=== PATIENT | male | born 1960 | race African-American/Black ===

== ENCOUNTER 2016-10-01 13:50 | Observation (INO) | payer MEDICARE, BC ==
[2016-10-01] MEDS ORDERED: AMINOPHYLLINE INJ/PF 250 MG/10 ML SDV IV ONE (14:07)
[2016-10-01] MEDS ORDERED: REGADENOSON INJ 0.4 MG/5 ML DISP.SYRIN IV ONE (14:07)
--- NOTE | 2016-10-01 14:12 | ER Document Report ---
ED Medical Screen (RME) - General Stated Complaint: CHEST PAIN Notes: 56 yo male c/o left sided chest tightness, radiating into left arm. pt is a dialysis patient. pt dialyzed today. no complications. no previous cardiac history. + HTN, no DM. + smoker. 2/5 presently TRAVEL OUTSIDE OF THE [place] IN LAST 30 DAYS: No - Related Data Allergies/Adverse Reactions: No Known Allergies Allergy (Verified 10/01/16 14:08) Past Medical History - Past Medical History Cardiac Medical History: Reports: Hx Hypertension, Hx Peripheral Vascular Disease - r leg surgery Denies: Hx Coronary Artery Disease, Hx Heart Attack Pulmonary Medical History: Denies: Hx Asthma, Hx Bronchitis, Hx COPD, Hx Pneumonia, Hx Tuberculosis Neurological Medical History: Denies: Hx Cerebrovascular Accident, Hx Seizures Renal/ Medical History: Reports: Hx End Stage Renal Disease, Hx Kidney Stones , Hx Peritoneal Dialysis GI Medical History: Reports: Hx Gastroesophageal Reflux Disease, Hx Hiatal Hernia Musculoskeltal Medical History: Reports Hx Arthritis - r thumb Past Surgical History: Reports: Hx Abdominal Surgery, Hx Orthopedic Surgery, Hx Tonsillectomy. Denies: Hx Pacemaker - Immunizations Hx Diphtheria, Pertussis, Tetanus Vaccination: Yes
[2016-10-01 14:46] LABS: HEMATOCRIT 39.2 % (37.9-51.0); HGB HCT DIFFERENCE -0.2; MEAN CORPUSCULAR HEMOGLOBIN 30.7 pg (27.0-33.4); MEAN CORPUSCULAR HGB CONC 33.3 g/dL (32.0-36.0); MEAN CORPUSCULAR VOLUME 92 fl (80-97); RED BLOOD COUNT 4.25 10^6/uL (4.35-5.55); RED CELL DISTRIBUTION WIDTH 15.5 % (11.5-14.0); WHITE BLOOD COUNT 8.5 10^3/uL (4.0-10.5)
[2016-10-01 14:56] LABS: ALANINE AMINOTRANSFERASE 32 U/L (21-72); ALBUMIN 4.3 g/dL (3.5-5.0); ALKALINE PHOSPHATASE 115 U/L (38-126); ANION GAP 15 (5-19); ASPARTATE AMINO TRANSFERASE 34 U/L (17-59); BLOOD UREA NITROGEN 19 mg/dL (7-20); CALCIUM 9.5 mg/dL (8.4-10.2); CARBON DIOXIDE 28 mmol/L (22-30); CHLORIDE 99 mmol/L (98-107); CREATINE KINASE 203 U/L (55-170); CREATININE RESULT 6.92 mg/dL (0.52-1.25); GLUCOSE 108 mg/dL (75-110); LIPASE 99.8 U/L (23-300); SODIUM 142.3 mmol/L (137-145); TOTAL PROTEIN 7.5 g/dL (6.3-8.2)
[2016-10-01 15:07] LABS: BASOPHILS % (MANUAL) 0 % (0-2); EOSINOPHILS % (MANUAL) 4 % (0-6); LYMPHOCYTES % (MANUAL) 38 % (13-45); TOTAL CELLS COUNTED 100
[2016-10-01 15:08] LABS: CREATINE KINASE MB 2.27 ng/mL (<4.55); TROPONIN I 0.03 ng/mL
[2016-10-01 15:11] LABS: ANISOCYTOSIS SLIGHT; POIKILOCYTOSIS 1+; TARGET CELLS 1+
--- NOTE | 2016-10-01 18:08 | ER Document Report ---
ED General - General Chief Complaint: Chest Pain Stated Complaint: CHEST PAIN Time seen by provider: 18:07 Mode of Arrival: Ambulatory Information source: Patient Notes: This is a 56-year-old man with a history of hypertension, end-stage renal disease (hemodialysis Thursday, Thursday, Thursday), peripheral vascular disease ( right lower extremity shunt), active smoker, who presents to the emergency room with a 1-2 hour episode of left sided chest tightness radiating down the left arm. The discomfort occurred at rest and it resolves spontaneously in the waiting room. Currently he is without chest pain. TRAVEL OUTSIDE OF THE [place] IN LAST 30 DAYS: No - HPI Onset: Yesterday Onset/Duration: Sudden Quality of pain: Dull Severity: Mild Pain Level: 1 Associated symptoms: denies: Chest pain, Fever, Shortness of breath Exacerbated by: Movement Relieved by: Denies Similar symptoms previously: No Recently seen / treated by doctor: No - Related Data Allergies/Adverse Reactions: No Known Allergies Allergy (Verified 10/01/16 14:08) Home Medications: Current Home Medications Aspirin [Ecotrin 81 mg EC Tablet] 81 mg PO DAILY 10/01/16 [History] Calcitriol [Rocaltrol 0.5 mcg Capsule] 0.5 mcg PO DAILY 10/01/16 [History] Clonidine HCl [Catapres 0.3 mg Tablet] 0.3 mg PO Q8 10/01/16 [History] Lanthanum Carbonate [Fosrenol] 2,000 mg PO TID 10/01/16 [History] Metoprolol Tartrate [Lopressor 50 mg Tablet] 50 mg PO Q12 10/01/16 [History] Minoxidil [Loniten 10 mg Tablet] 10 mg PO QHS 10/01/16 [History] Sevelamer HCl [Renagel 400 mg Tablet] 400 mg PO DAILY 10/01/16 [History] Past Medical History - General Information source: Patient - Social History Smoking Status: Current Every Day Smoker Cigarette use (# per day): Yes - 3 cigarettes a day Chew tobacco use (# tins/day): No Frequency of alcohol use: None Drug Abuse: None Lives with: Family Family History: Reviewed & Not Pertinent Patient has suicidal ideation: No Patient has homicidal ideation: No - Past Medical History Cardiac Medical History: Reports: Hx Hypertension, Hx Peripheral Vascular Disease - r leg surgery Denies: Hx Coronary Artery Disease, Hx Heart Attack Pulmonary Medical History: Denies: Hx Asthma, Hx Bronchitis, Hx COPD, Hx Pneumonia, Hx Tuberculosis Neurological Medical History: Denies: Hx Cerebrovascular Accident, Hx Seizures Renal/ Medical History: Reports: Hx Kidney Stones, Hx Peritoneal Dialysis GI Medical History: Reports: Hx Gastroesophageal Reflux Disease, Hx Hiatal Hernia Musculoskeltal Medical History: Reports Hx Arthritis - r thumb Past Surgical History: Reports: Hx Abdominal Surgery, Hx Orthopedic Surgery, Hx Tonsillectomy. Denies: Hx Pacemaker - Immunizations Hx Diphtheria, Pertussis, Tetanus Vaccination: Yes Hx Pneumococcal Vaccination: 09/03/14 Review of Systems - Review of Systems Constitutional: denies: Chills, Fever EENT: No symptoms reported Cardiovascular: See HPI Respiratory: No symptoms reported Gastrointestinal: No symptoms reported Genitourinary: No symptoms reported Male Genitourinary: No symptoms reported Musculoskeletal: See HPI Skin: No symptoms reported Hematologic/Lymphatic: No symptoms reported Neurological/Psychological: No symptoms reported Physical Exam - Vital signs Vitals: Resp BP Pulse Ox 20 179/72 H 100 10/01/16 18:49 10/01/16 18:49 10/01/16 18:49 Notes: Physical exam: GENERAL: 56-year-old man, alert and oriented 3, no acute distress. HEAD: Atraumatic, normocephalic. EYES: Pupils equal round and reactive to light, extraocular movements intact, sclera anicteric, conjunctiva are normal. ENT: TMs normal, nares patent, oropharynx clear without exudates. Moist mucous membranes. NECK: Normal range of motion, supple without lymphadenopathy or JVD. LUNGS: Breath sounds clear to auscultation bilaterally and equal. No wheezes rales or rhonchi. HEART: Regular rate and rhythm without murmurs, rubs or gallops. ABDOMEN: Soft, normoactive bowel sounds. No tenderness to palpation. No guarding, no rebound. No masses appreciated. EXTREMITIES: Normal range of motion, no pitting or edema. No clubbing or cyanosis. NEUROLOGICAL: Cranial nerves II through XII grossly intact. Normal speech, normal gait. PSYCH: Normal mood, normal affect. SKIN: Warm, Dry, normal turgor, no rashes or lesions noted. Course - Re-evaluation Re-evalutation: 10/01/16 18:14 Note the chest x-ray shows some right hemithorax soft tissue fullness, we will get a CT of the chest without contrast. - Vital Signs Vital signs: Temp Pulse Resp BP Pulse Ox 97.2 F 74 21 H 217/67 H 100 10/01/16 22:40 10/01/16 22:40 10/01/16 22:40 10/01/16 22:40 10/01/16 22:40 - Laboratory Result Diagrams: 10/01/16 14:15 10/01/16 14:15 Laboratory results interpreted by me: 10/01/16 10/01/16 14:15 14:15 RBC 4.25 L Hgb 13.0 L RDW 15.5 H Creatinine 6.92 H Est GFR ( Amer) 10 L Est GFR (Non-Af Amer) 8 L Creatine Kinase 203 H - Diagnostic Test Radiology reviewed: Image reviewed - EKG Interpretation by Me Rate: Normal Rhythm: NSR - EKG shows normal sinus rhythm with LVH Discharge - Discharge Clinical Impression: chest pain Condition: Stable Disposition: ADMITTED OBSERVATION Admitting Provider: Hospitalist - Dr. Ding Unit Admitted: Telemetry - leonidas
[2016-10-01] MEDS ORDERED: NICOTINE 14 MG/24 HR PATCH.TD24 TD ONE (18:12)
--- NOTE | 2016-10-01 18:51 | PDOC H&P ---
History of Present Illness Admission Date/PCP: 10/01/2016 [facility] Douglass Patient complains of: chest pain History of Present Illness: ALEKSANDRA FARRAR is a 56 year old male with a history of hypertension, end-stage renal disease (hemodialysis Thursday, Thursday, Thursday), peripheral vascular disease (right lower extremity shunt), active smoker, who presents to the emergency room with a 1-2 hour episode of left sided chest tightness radiating down the left arm. The discomfort occurred at rest and it resolves spontaneously in the waiting room. Currently he is without chest pain. Upon evaluation in the emergency room patient had a normal EKG and normal cardiac enzymes he was pain-free He was subsequently admitted under hospitalist service for further evaluation overnight Past Medical History Cardiac Medical History: Reports: Hypertension, Peripheral Vascular Disease - r leg surgery Denies: Coronary Artery Disease, Myocardial Infarction Pulmonary Medical History: Denies: Asthma, Bronchitis, Chronic Obstructive Pulmonary Disease (COPD), Pneumonia, Tuberculosis Neurological Medical History: Denies: Seizures Renal/ Medical History: Reports: End Stage Renal Disease GI Medical History: Reports: Gastroesophageal Reflux Disease, Hiatal Hernia Musculoskeltal Medical History: Reports: Arthritis - r thumb Hematology: Reports: Anemia Past Surgical History Past Surgical History: Reports: Orthopedic Surgery, Tonsillectomy Denies: Pacemaker Social History Information Source: Patient Lives with: Family Smoking Status: Current Every Day Smoker Drugs: None Hx Prescription Drug Abuse: No - Advance Directive Resuscitation Status: Full Code Surrogate healthcare decision maker:: mother Malorie Farrar Family History Parental Family History Reviewed: Yes - diabetes hypertension Children Family History Reviewed: Yes Sibling(s) Family History Reviewed.: Yes Medication/Allergy Home Medications: Calcitriol [Rocaltrol] 0.5 mcg PO DAILY 10/22/11 Folic Acid/Vitamin B Comp W-C [Nephrocaps Softgel] 1 mg PO DAILY 10/22/11 Fosinopril Sodium 10 mg PO TID 10/22/11 Metoprolol Tartrate [Lopressor 50 mg Tablet] 50 mg PO BID 10/22/11 Minoxidil [Loniten 10 mg Tablet] 10 mg PO QHS 10/22/11 Sevelamer HCl [Renagel] 400 mg PO DAILY 10/22/11 Hydrocodone/Acetaminophen [Randolph 5-325 mg Tablet] 0.5 - 1 tab PO ASDIR #10 tablet 03/28/16 Allergies/Adverse Reactions: No Known Allergies Allergy (Verified 10/01/16 14:08) Physical Exam General appearance: PRESENT: no acute distress, well-developed, well-nourished Head exam: PRESENT: atraumatic, normocephalic Eye exam: PRESENT: conjunctiva pink, EOMI, PERRLA. ABSENT: scleral icterus Ear exam: PRESENT: normal external ear exam Mouth exam: PRESENT: moist, tongue midline Neck exam: ABSENT: carotid bruit, JVD, lymphadenopathy, thyromegaly Respiratory exam: PRESENT: clear to auscultation shay. ABSENT: rales, rhonchi, wheezes Cardiovascular exam: PRESENT: RRR, systolic murmur. ABSENT: diastolic murmur, rubs Pulses: PRESENT: normal dorsalis pedis pul Vascular exam: PRESENT: normal capillary refill GI/Abdominal exam: PRESENT: normal bowel sounds, soft. ABSENT: distended, guarding, mass, organolmegaly, rebound, tenderness Rectal exam: PRESENT: deferred Extremities exam: PRESENT: full ROM. ABSENT: calf tenderness, clubbing, pedal edema Neurological exam: PRESENT: alert, awake, oriented to person, oriented to place , oriented to time, oriented to situation, CN II-XII grossly intact. ABSENT: motor sensory deficit Psychiatric exam: PRESENT: appropriate affect, normal mood. ABSENT: homicidal ideation, suicidal ideation Skin exam: PRESENT: dry, intact, warm. ABSENT: cyanosis, rash Results Laboratory Results: 10/01/16 14:15 10/01/16 14:15 10/01/16 10/01/16 14:15 14:15 WBC 8.5 RBC 4.25 L Hgb 13.0 L Hct 39.2 MCV 92 MCH 30.7 MCHC 33.3 RDW 15.5 H Plt Count 177 Seg Neutrophils % Not Reportable Lymphocytes % Not Reportable Monocytes % Not Reportable Eosinophils % Not Reportable Basophils % Not Reportable Absolute Neutrophils Not Reportable Absolute Lymphocytes Not Reportable Absolute Monocytes Not Reportable Absolute Eosinophils Not Reportable Absolute Basophils Not Reportable Sodium 142.3 Potassium 4.0 Chloride 99 Carbon Dioxide 28 Anion Gap 15 BUN 19 Creatinine 6.92 H Est GFR ( Amer) 10 L Est GFR (Non-Af Amer) 8 L Glucose 108 Calcium 9.5 Total Bilirubin 1.0 AST 34 ALT 32 Alkaline Phosphatase 115 Total Protein 7.5 Albumin 4.3 Lipase 99.8 10/01/16 10/01/16 14:15 14:15 Creatine Kinase 203 H CK-MB (CK-2) 2.27 Troponin I 0.030 EKG Comments: [SR] . SINUS RHYTHM [PLAA] . PROBABLE LEFT ATRIAL ABNORMALITY [LVHREP] . LVH WITH SECONDARY REPOLARIZATION ABNORMALITY Impressions: Chest X-Ray 10/01/16 14:13 IMPRESSION: Soft tissue fullness in the right upper hemithorax is noted above which may only represent overlying soft tissues however the possibility of a pleural base mass cannot be excluded. Clinical correlation is recommended. If clinically warranted chest CT scan may be of value for further evaluation. Other findings as noted above Assessment & Plan - Diagnosis (1) Chest pain Qualifiers: Chest pain type: unspecified Qualified Code(s): R07.9 - Chest pain, unspecified Is this a current diagnosis for this admission?: YesPlan: Patient will be admitted to telemetry unit for observation We'll be monitored Serial cardiac enzymes will be obtained Repeat EKG in a.m. If patient rules out he will be scheduled for a Cardiolite stress test (2) ESRD on dialysis Is this a current diagnosis for this admission?: YesPlan: Patient had dialysis today ; his electrolytes are within normal range We will continue his home medications - Time Time Spent with patient: Patient was admitted for observation to telemetry unit Time Spent: 50 to 70 Minutes - Inpatient Certification Based on my medical assessment, after consideration of the patient's comorbidities, presenting symptoms, or acuity I expect that the services needed warrant INPATIENT care.: No I certify that my determination is in accordance with my understanding of Medicare's requirements for reasonable and necessary INPATIENT services [42 CFR 412.3e].: No
[2016-10-01] MEDS ORDERED: ATORVASTATIN CALCIUM 80 MG TABLET PO ONE (19:15)
[2016-10-01] MEDS ORDERED: ASPIRIN 325 MG TABLET, ENT COATED PO ONE (19:15)
--- NOTE | 2016-10-01 20:36 | EKG REPORT ---
SEVERITY:- ABNORMAL ECG - SINUS RHYTHM PROBABLE LEFT ATRIAL ABNORMALITY LVH WITH SECONDARY REPOLARIZATION ABNORMALITY : Confirmed by: Ashish Wright MD 01-Oct-2016 20:36:26
[2016-10-01] MEDS: HEPARIN SOD (PORCINE) 5,000 UNIT/ML 1 ML SYRINGE SUBCUT SCH (22:15)
[2016-10-02] MEDS ORDERED: HYDRALAZINE HCL INJ/PF 20 MG/1 ML SDV IV PRN (05:50)
[2016-10-02 07:22] LABS: HEMATOCRIT 37.3 % (37.9-51.0); HEMOGLOBIN 12.5 g/dL (13.5-17.0); HGB HCT DIFFERENCE 0.2; MEAN CORPUSCULAR HEMOGLOBIN 30.8 pg (27.0-33.4); MEAN CORPUSCULAR HGB CONC 33.7 g/dL (32.0-36.0); MEAN CORPUSCULAR VOLUME 92 fl (80-97); RED BLOOD COUNT 4.07 10^6/uL (4.35-5.55); RED CELL DISTRIBUTION WIDTH 15.6 % (11.5-14.0); WHITE BLOOD COUNT 6.4 10^3/uL (4.0-10.5)
[2016-10-02 07:43] LABS: ALANINE AMINOTRANSFERASE 26 U/L (21-72); ALBUMIN 4.2 g/dL (3.5-5.0); ALKALINE PHOSPHATASE 113 U/L (38-126); ANION GAP 16 (5-19); ASPARTATE AMINO TRANSFERASE 33 U/L (17-59); BLOOD UREA NITROGEN 32 mg/dL (7-20); CALCIUM 9.6 mg/dL (8.4-10.2); CARBON DIOXIDE 29 mmol/L (22-30); CHLORIDE 98 mmol/L (98-107); CHOLESTEROL 121.59 mg/dL (0-200); CREATININE RESULT 9.46 mg/dL (0.52-1.25); Direct HDL 73 mg/dL (>40); GLUCOSE 73 mg/dL (75-110); SODIUM 142.9 mmol/L (137-145); TOTAL PROTEIN 7.2 g/dL (6.3-8.2); TRIGLYCERIDES 70 mg/dL (<150)
[2016-10-02 08:00] LABS: DIRECT LDL < 30 mg/dL (<100)
--- NOTE | 2016-10-02 08:32 | EKG REPORT ---
SEVERITY:- ABNORMAL ECG - SINUS RHYTHM LVH WITH SECONDARY REPOLARIZATION ABNORMALITY ANTERIOR ST ELEVATION, PROBABLY DUE TO LVH BORDERLINE PROLONGED QT INTERVAL : Confirmed by: Ashish Wright MD 02-Oct-2016 08:31:51
[2016-10-02] MEDS ORDERED: CALCITRIOL 0.25 MCG CAPSULE PO SCH (10:00)
[2016-10-02] MEDS ORDERED: LANTHANUM CARBONATE 2000 MG PO SCH (10:00)
[2016-10-02] MEDS ORDERED: ASPIRIN 81 MG TABLET, ENT COATED PO SCH (10:00)
[2016-10-02] MEDS ORDERED: (PENDING PHARMACY ID) (Calcitriol [Rocaltrol 0.5 Mcg Capsule] 0.5 MCG) PO SCH (10:00)
[2016-10-02] MEDS ORDERED: METOPROLOL TARTRATE 50 MG TABLET PO SCH (10:00)
[2016-10-02] MEDS: HEPARIN SOD (PORCINE) 5,000 UNIT/ML 1 ML SYRINGE SUBCUT SCH (10:32)
[2016-10-02 11:25] VITALS: BP 189/70
[2016-10-02] MEDS ORDERED: LANTHANUM CARBONATE 500 MG TAB.CHEW PO SCH (12:00)
[2016-10-02] MEDS ORDERED: (PENDING PHARMACY ID) (Clonidine Hcl [Catapres 0.3 Mg Tablet] 0.3 MG) PO SCH (14:00)
[2016-10-02] MEDS ORDERED: CLONIDINE HCL 0.1 MG TABLET PO SCH (14:00)
--- NOTE | 2016-10-02 14:16 | DRAGON STRESS TEST REPORT ---
INTRAVENOUS LEXISCAN CARDIOLITE STRESS TEST USING SINGLE PHOTON EMMISION COMPUTERIZED TOMOGRAPHIC. DATE OF PROCEDURE: October 02, 2016 INDICATION : Chest pain CARDIAC RISK FACTORS: Hypertension, dyslipidemia, tobacco abuse RESTING EKG: Sinus rhythm, increased QRS voltage suggestive of LVH with secondary ST-T wave changes in lead 1 and aVL V5 and V6 STRESS EKG: No significant changes noted with LexiScan bolus REASON FOR TERMINATION: Protocol. PROCEDURE REPORT: Baseline heart rate 72 beats per minute with blood pressure of 174/85. Patient had no significant complaints. Heart rate at 2 minutes post bolus 82 with a blood pressure of 164/79. 3 minutes post bolus heart rate 83 with blood pressure of 164/78. No significant EKG changes were noted. Patient had no significant complaints during the procedure or postprocedure. CONCLUSIONS: Normal EKG and hemodynamic response to IV LexiScan. NUCLEAR DATA: At rest the patient was given 10.94 millicuries of technetium 99 sestamibi injected intravenously. As per protocol rest gated SPECT images were obtained. Subsequently the patient was given intravenous LexiScan at a dose of 0.4 mg in 5 mL intravenously, followed by flush with normal saline. Subsequently the stress dose of 30.2 millicuries of technetium 99 sestamibi was injected intravenously. As per protocol stress gated images were obtained. NUCLEAR INTERPRETATION: Both raw and processed data were used for interpretation. Visual, qualitative, computer-generated quantitative data was used. There was good myocardial uptake of technetium compound. Motion artifact and soft tissue attenuations were noted. Increased visceral uptake was noted. No definitive areas of transient perfusion defect noted. No definitive areas of fixed perfusion defect or scars noted. Mild basal and mid inferior wall decreased uptake was noted, however this is felt to be related to diaphragmatic attenuation. EKG gated imaging showed LV EF at 41 %, rest and stress gated EF similar visually. T. I D. ratio was 1.10. Lung heart ratio noted to be within normal limits 0.32. No significant extracardiac and abnormal radiotracer activities were noted. RV free wall uptake was noted to be normal. IMPRESSION: Also refer to comments under nuclear interpretation. Also test results needs to be interpreted in the context of pretest probability. 1. There is no definitive scintigraphic evidence of LexiScan induced myocardial ischemia. 2. There is no definitive scintigraphic evidence of myocardial infarction/scar. 3. EKG gated imaging shows left ejection fraction of approximately 41 %. 4. Clinical correlation requested as occasionally single vessel disease or balanced ischemia could be missed. In approximately 10% of the cases Lexiscan may not cause adequate vasodilatory stress. RECOMMENDATIONS: Aggressive risk factor modification, medical therapy. Clinical correlation with echocardiogram derived ejection fraction. Inability to exercise by itself can lead to increased cardiovascular event risks. Consider cardiology consultation if clinically indicated. I AM AVAILABLE FOR CARDIOLOGY CONSULTATION AND FOLLOWUP IF REQUESTED BY PMD Jordan Currie M.D., [employer] S[employer]ability Director chemical process engineer, Board certified in cardiovascular diseases, Nuclear cardiology, Echocardiography Cardiac CT and cardiac MRI Ph. [phone] TEDDY
[2016-10-02] MEDS ORDERED: SEVELAMER HCL 400 MG TABLET PO SCH (18:00)
[2016-10-02] MEDS ORDERED: MINOXIDIL 10 MG TABLET PO SCH (22:00)
== END 2016-10-02 16:04 | disposition home or self-care (01) ==
LOC: ER 13:50 → EH 18:40 → UNDOADMOB 18:56 → 4N 22:35
PROVIDERS: ADMIT Family Medicine; ATTEND Family Medicine
PROC: 3E023GC Introduction of Other Therapeutic Substance into Muscle, Percutaneous Approach (ICD-10-PCS; principal; 2016-10-01)
DX: R07.89 Other chest pain (principal); I12.0 Hypertensive chronic kidney disease with stage 5 chronic kidney disease or end stage renal disease; N18.6 End stage renal disease; Z99.2 Dependence on renal dialysis; I73.9 Peripheral vascular disease, unspecified; K21.9 Gastro-esophageal reflux disease without esophagitis; D64.9 Anemia, unspecified; F17.210 Nicotine dependence, cigarettes, uncomplicated
CPT/HCPCS: 93005 ×2; 99285; 96372; 36415 ×2; 82553; 82550; 83690; 83735; 84443; 85025; 85027; 80053 ×2; 84484 ×2; 83036; 80061; 93017; 71020; 78452; 71250; 93010 ×2; A9500; J2785; A9270 ×7; J1644 ×2; J0360; J0280; Q9969; 84403

== ENCOUNTER 2016-10-12 20:04 | Emergency (ER) | payer MEDICARE, BC ==
--- NOTE | 2016-10-12 20:16 | ER Document Report ---
ED Medical Screen (RME) - General Stated Complaint: HIGH BLOOD PRESSURE Mode of Arrival: Wheelchair Information source: Patient Notes: pt presents to the ED with c/o HTN. Pt is a dialysis patient. Pt also reports vomiting. Reports not eating for 2 days and reports diarrhea. Dialysis thu-thu- thursday. Last dialysis thursday. Pt reports palpitations today. Denies SOB. I have greeted and performed a rapid initial assessment of this patient. A comprehensive ED assessment and evaluation of the patient, analysis of test results and completion of the medical decision making process will be conducted by additional ED providers. TRAVEL OUTSIDE OF THE [place] IN LAST 30 DAYS: No - Related Data Allergies/Adverse Reactions: No Known Allergies Allergy (Verified 10/01/16 14:08) Past Medical History - Past Medical History Cardiac Medical History: Reports: Hx Hypertension, Hx Peripheral Vascular Disease - r leg surgery Denies: Hx Congestive Heart Failure, Hx Coronary Artery Disease, Hx Heart Attack Pulmonary Medical History: Denies: Hx Asthma, Hx Bronchitis, Hx COPD, Hx Pneumonia, Hx Tuberculosis Neurological Medical History: Denies: Hx Cerebrovascular Accident, Hx Seizures Renal/ Medical History: Reports: Hx End Stage Renal Disease, Hx Kidney Stones , Hx Peritoneal Dialysis. Denies: Hx Benign Prostatic Hyperplasia GI Medical History: Reports: Hx Gastroesophageal Reflux Disease, Hx Hiatal Hernia Musculoskeltal Medical History: Reports Hx Arthritis - r thumb Past Surgical History: Reports: Hx Abdominal Surgery, Hx Orthopedic Surgery, Hx Tonsillectomy. Denies: Hx Pacemaker - Immunizations Hx Diphtheria, Pertussis, Tetanus Vaccination: Yes
[2016-10-12 20:44] LABS: ABSOLUTE BASOPHILS # (AUTO) 0.1 10^3/uL (0.0-0.2); ABSOLUTE EOSINOPHILS # (AUTO) 0.3 10^3/uL (0.0-0.6); ABSOLUTE LYMPHOCYTES (AUTO) 1.9 10^3/uL (0.5-4.7); ABSOLUTE MONOCYTES (AUTO) 0.7 10^3/uL (0.1-1.4); ABSOLUTE NEUT (AUTO) 3.3 10^3/uL (1.7-8.2); BASOPHILS % (AUTO) 0.9 % (0-2); EOSINOPHILS % (AUTO) 5.2 % (0-6); HEMATOCRIT 38.7 % (37.9-51.0); HEMOGLOBIN 13.2 g/dL (13.5-17.0); HGB HCT DIFFERENCE 0.9; LYMPHOCYTES % (AUTO) 29.8 % (13-45); MEAN CORPUSCULAR HGB CONC 34.1 g/dL (32.0-36.0); MEAN CORPUSCULAR VOLUME 91 fl (80-97); MONOCYTES % (AUTO) 10.8 % (3-13); RED BLOOD COUNT 4.26 10^6/uL (4.35-5.55); RED CELL DISTRIBUTION WIDTH 15.6 % (11.5-14.0); SEGMENTED NEUTROPHILS % (AUTO) 53.3 % (42-78); WHITE BLOOD COUNT 6.2 10^3/uL (4.0-10.5)
[2016-10-12 20:56] LABS: ALANINE AMINOTRANSFERASE 30 U/L (21-72); ALBUMIN 4.3 g/dL (3.5-5.0); ALKALINE PHOSPHATASE 111 U/L (38-126); ANION GAP 21 (5-19); ASPARTATE AMINO TRANSFERASE 36 U/L (17-59); BILIRUBIN,TOTAL 1.2 mg/dL (0.2-1.3); BLOOD UREA NITROGEN 44 mg/dL (7-20); CALCIUM 9.8 mg/dL (8.4-10.2); CARBON DIOXIDE 21 mmol/L (22-30); CHLORIDE 96 mmol/L (98-107); CREATININE RESULT 12.12 mg/dL (0.52-1.25); GLUCOSE 72 mg/dL (75-110); POTASSIUM 4.6 mmol/L (3.6-5.0); SODIUM 138.2 mmol/L (137-145); TOTAL PROTEIN 7.6 g/dL (6.3-8.2)
--- NOTE | 2016-10-12 23:50 | EKG REPORT ---
SEVERITY:- ABNORMAL ECG - SINUS RHYTHM PROBABLE LEFT ATRIAL ABNORMALITY LVH WITH SECONDARY REPOLARIZATION ABNORMALITY BORDERLINE PROLONGED QT INTERVAL : Confirmed by: Jordan Currie 12-Oct-2016 23:49:20
--- NOTE | 2016-10-13 00:05 | ER Document Report ---
ED General - General Chief Complaint: High Blood Pressure Stated Complaint: HIGH BLOOD PRESSURE Mode of Arrival: Wheelchair Notes: Patient is a 56-year-old male who presents for complaint of high blood pressure. Patient says for last week his blood pressure has been running high. He gets sauces Thursday. He says after dialysis his blood pressure goes back down to normal but then will gradually increase again. He is due for dialysis in the morning. No chest pain. He says sometimes feels as if his heart is beating louder but he has no pain so she with it. No difficulty breathing. No focal weakness or numbness. He says that he has history of arterial insufficiency in his legs and at times he feels like his legs are weak and sometimes difficult to correlate with walking. Patient also says that sometimes he feels a little foggy headed when his blood pressure gets very high. He has been taking his blood pressure medications. He denies missing any dosages. His curator of education is Dr. Douglass. Patient says that his os calcis visit he did inform the nurses of his high blood pressure. He says they were split speak with Dr. Douglass but the nurses change shifts and Dr. Douglass was never informed and therefore no changes were made to his dialysis or his blood pressure medications. TRAVEL OUTSIDE OF THE [place] IN LAST 30 DAYS: No - Related Data Allergies/Adverse Reactions: No Known Allergies Allergy (Verified 10/01/16 14:08) Past Medical History - General Information source: Patient - Social History Smoking Status: Current Every Day Smoker Chew tobacco use (# tins/day): No Frequency of alcohol use: None Drug Abuse: None, Marijuana Family History: Reviewed & Not Pertinent Patient has suicidal ideation: No Patient has homicidal ideation: No - Past Medical History Cardiac Medical History: Reports: Hx Hypertension, Hx Peripheral Vascular Disease - r leg surgery Denies: Hx Congestive Heart Failure, Hx Coronary Artery Disease, Hx Heart Attack Pulmonary Medical History: Denies: Hx Asthma, Hx Bronchitis, Hx COPD, Hx Pneumonia, Hx Tuberculosis Neurological Medical History: Denies: Hx Cerebrovascular Accident, Hx Seizures Renal/ Medical History: Reports: Hx End Stage Renal Disease, Hx Kidney Stones , Hx Peritoneal Dialysis. Denies: Hx Benign Prostatic Hyperplasia GI Medical History: Reports: Hx Gastroesophageal Reflux Disease, Hx Hiatal Hernia Musculoskeltal Medical History: Reports Hx Arthritis - r thumb Past Surgical History: Reports: Hx Abdominal Surgery, Hx Orthopedic Surgery, Hx Tonsillectomy. Denies: Hx Pacemaker - Immunizations Hx Diphtheria, Pertussis, Tetanus Vaccination: Yes Hx Pneumococcal Vaccination: 09/03/14 Review of Systems - Review of Systems Notes: My Normal Review Basic REVIEW OF SYSTEMS: CONSTITUTIONAL : Denies fever, chills, or sweats. Denies recent illness. EENT: Denies eye, ear, throat, or mouth pain or symptoms. Denies nasal or sinus congestion. CARDIOVASCULAR: Denies chest pain. RESPIRATORY: Denies cough, cold, or chest congestion. Denies shortness of breath, difficulty breathing, or wheezing. GASTROINTESTINAL: Denies abdominal pain. Denies nausea, vomiting, or diarrhea. Denies constipation. Last BM: MUSCULOSKELETAL: Denies neck or back pain or joint pain or swelling. SKIN: Denies rash or skin lesions. NEUROLOGICAL: Denies altered mental status or loss of consciousness. Denies headache. Denies weakness or paralysis or loss of use of either side. Occasional difficulty walking due to some intermittent leg weakness and discoordination. Denies sensory or motor loss. ALL OTHER SYSTEMS REVIEWED AND NEGATIVE. Physical Exam - Vital signs Vitals: Temp Pulse Resp BP Pulse Ox 97.9 F 67 16 202/70 H 75 L 10/12/16 20:13 10/12/16 20:13 10/12/16 20:13 10/12/16 20:13 10/12/16 20:13 - Notes Notes: General Appearance: Well nourished, alert, cooperative, no acute distress, no obvious discomfort. Well-appearing. Vitals: reviewed, See vital signs table. Head: no swelling or tenderness to the head Eyes: PERRL, EOMI, Conjuctiva clear Mouth: No decreasd moisture Neck: Supple, no neck tenderness, No thyromegaly Lungs: No wheezing, No rales, No rhonci, No accessory muscle use, good air exchange bilaterally. Heart: Normal rate, Regular rythm, No murmur, no rub Abdomen: Normal BS, soft, No rigidity, No abdominal tenderness, No guarding, no rebound, no abdominal masses, no organomegaly Extremities: strength 5/5 in all extremities, pedal pulses are 1+ in both lower extremities. He has good capillary refill. Normal color in the feet. Feet are warm and not cold., no swelling or tenderness in the extremities, no edema. Skin: warm, dry, appropriate color, no rash Neuro: speech clear, oriented x 3, normal affect, responds appropriately to questions. Cranial nerves II through XII are intact. Distal sensation intact. Patient moves all extremities without difficulty. Course - Vital Signs Vital signs: Temp Pulse Resp BP Pulse Ox 97.9 F 67 12 196/75 H 100 10/12/16 20:13 10/12/16 20:13 10/12/16 23:24 10/12/16 23:24 10/12/16 23:24 - Laboratory Result Diagrams: 10/12/16 20:18 10/12/16 20:18 Laboratory results interpreted by me: 10/12/16 10/12/16 20:18 20:18 RBC 4.26 L Hgb 13.2 L RDW 15.6 H Chloride 96 L Carbon Dioxide 21 L Anion Gap 21 H BUN 44 H Creatinine 12.12 H Est GFR ( Amer) 5 L Est GFR (Non-Af Amer) 4 L Glucose 72 L - EKG Interpretation by Me Additional EKG results interpreted by me: 10/13/16 00:05 EKG is reviewed and interpreted by me. EKG shows normal sinus rhythm with rate of [address] bpm. Patient has mild ST segment elevation in lead V3 and V2 which is unchanged comparison to his previous EKG from 10/02/2016. He also has a T-wave inversion in lead 1 and 2 which again is unchanged comparison to his previous EKG. NM interval, QRS duration, QTC intervals are within normal range. - Transfer of Care Notes: 10/13/16 00:50 Patient is given a dose of hydralazine by mouth. Blood pressure is trying down slowly. He is having no exerting symptoms at this time. I did obtain a CT scan of his head. He's had recurrent high blood pressure and also he complained of some difficulty walking. He completely attributes the difficulty walking to his vascular disease in his legs which he has received treatment via stents and continues to have issues with his legs. Nonetheless, I wanted to make sure that there is no evidence of bleeding or remote strokes on CT scan. CT scan was negative. He otherwise neurologic actually is appropriate. He asked properly. He has no chest pain. Has no other concerning symptoms. At this time we'll discharge him home so he can follow-up for dialysis in the morning. I informed him that he needs to speak with his curator of education about further management of his blood pressure and possible changes in his blood pressure medication regimen. Patient agrees with this and will be discharged home. Patient encouraged return to ER if has chest pain, severe headaches, or feels unwell. Dictation of this chart was performed using voice recognition software; therefore, there may be some unintended grammatical errors. Discharge - Discharge Clinical Impression: ESRD on dialysis Hypertension Qualifiers: Hypertension type: renovascular hypertension Qualified Code(s): I15.0 - Renovascular hypertension Condition: Good Disposition: HOME, SELF-CARE Additional Instructions: When you go to dialysis tomorrow please ask to speak with your curator of education, Dr. Douglass, so that he can determine the change in your blood pressure medication regimen or if he feels that there needs to ba a change in your dialysis regimen to help with your recurrent hypertension. Please take your medications as prescribed. Please return to ER immediately if you have worsening high blood pressure despite you having dialysis, severe headache, chest pain, or if you feel unwell.
[2016-10-13] MEDS ORDERED: HYDRALAZINE HCL 25 MG TABLET PO ONE (00:19)
[2016-10-13 01:32] VITALS: BP 172/58
== END 2016-10-13 01:32 | disposition home or self-care (01) ==
LOC: ER 20:04
DX: N18.6 End stage renal disease (principal); Z99.2 Dependence on renal dialysis; I15.0 Renovascular hypertension; F17.200 Nicotine dependence, unspecified, uncomplicated
CPT/HCPCS: 93005; 99284; 36415; 85025; 80053; 70450; 93010; A9270

== ENCOUNTER 2016-10-19 08:30 | Inpatient (IN) | payer MEDICARE, BC ==
[2016-10-19 09:08] LABS: ALANINE AMINOTRANSFERASE 26 U/L (21-72); ALBUMIN 4.3 g/dL (3.5-5.0); ALKALINE PHOSPHATASE 124 U/L (38-126); ANION GAP 19 (5-19); ASPARTATE AMINO TRANSFERASE 32 U/L (17-59); BILIRUBIN,TOTAL 1.2 mg/dL (0.2-1.3); BLOOD UREA NITROGEN 33 mg/dL (7-20); CALCIUM 9.9 mg/dL (8.4-10.2); CARBON DIOXIDE 26 mmol/L (22-30); CHLORIDE 96 mmol/L (98-107); CREATININE RESULT 10.54 mg/dL (0.52-1.25); GLUCOSE 89 mg/dL (75-110); POTASSIUM 4.1 mmol/L (3.6-5.0); SODIUM 140.7 mmol/L (137-145); TOTAL PROTEIN 7.7 g/dL (6.3-8.2)
[2016-10-19 09:11] LABS: ABSOLUTE EOSINOPHILS # (AUTO) 0.2 10^3/uL (0.0-0.6); ABSOLUTE LYMPHOCYTES (AUTO) 1.6 10^3/uL (0.5-4.7); ABSOLUTE MONOCYTES (AUTO) 0.5 10^3/uL (0.1-1.4); ABSOLUTE NEUT (AUTO) 2.8 10^3/uL (1.7-8.2); BASOPHILS % (AUTO) 0.3 % (0-2); EOSINOPHILS % (AUTO) 4.5 % (0-6); HEMOGLOBIN 13.1 g/dL (13.5-17.0); HGB HCT DIFFERENCE 0.3; LYMPHOCYTES % (AUTO) 31.8 % (13-45); MEAN CORPUSCULAR HEMOGLOBIN 30.4 pg (27.0-33.4); MEAN CORPUSCULAR HGB CONC 33.7 g/dL (32.0-36.0); MEAN CORPUSCULAR VOLUME 90 fl (80-97); MONOCYTES % (AUTO) 9.4 % (3-13); RED BLOOD COUNT 4.33 10^6/uL (4.35-5.55); RED CELL DISTRIBUTION WIDTH 15.6 % (11.5-14.0); WHITE BLOOD COUNT 5.1 10^3/uL (4.0-10.5)
[2016-10-19] MEDS ORDERED: NORMAL SALINE 500 ML IV PRN (10:06)
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
[2016-10-19] MEDS ORDERED: METOCLOPRAMIDE HCL INJ/PF 10 MG/2 ML SDV IV ONE (10:07)
[2016-10-19] MEDS ORDERED: DIPHENHYDRAMINE HCL 50 MG/ML VIAL IV ONE (10:07)
[2016-10-19] MEDS ORDERED: HYDRALAZINE HCL INJ/PF 20 MG/1 ML SDV IV ONE (10:07)
[2016-10-19 11:54] LABS: CREATINE KINASE MB 1.48 ng/mL (<4.55)
[2016-10-19 11:59] LABS: TROPONIN I 0.045 ng/mL
--- NOTE | 2016-10-19 12:11 | EKG REPORT ---
SEVERITY:- ABNORMAL ECG - SINUS RHYTHM PROBABLE LVH WITH SECONDARY REPOL ABNRM : Confirmed by: Rica Joshua MD 19-Oct-2016 12:11:01
[2016-10-19] MEDS ORDERED: MORPHINE SULFATE 10 MG/ML INJ IV ONE (13:53)
[2016-10-19] MEDS ORDERED: ACETAMINOPHEN 325 MG TABLET PO PRN (13:56)
[2016-10-19] MEDS ORDERED: MAG HYDROX/AL HYDROX/SIMETH SUSP 30 ML UDCUP PO PRN (13:56)
[2016-10-19] MEDS ORDERED: LANTHANUM CARBONATE 2000 MG PO SCH (14:00)
[2016-10-19] MEDS ORDERED: (PENDING PHARMACY ID) (Clonidine Hcl [Catapres 0.3 Mg Tablet] 0.3 MG) PO SCH (14:00)
[2016-10-19] MEDS ORDERED: NORMAL SALINE 1000 ML 1,000 ML IV PRN ×2 (14:12→14:55)
[2016-10-19] MEDS: HEPARIN SOD (PORCINE) 5,000 UNIT/ML 1 ML SYRINGE SUBCUT SCH (14:53)
[2016-10-19] MEDS ORDERED: CLONIDINE HCL 0.1 MG TABLET PO ONE (15:00)
[2016-10-19] MEDS ORDERED: NALOXONE HCL INJ/PF 0.4 MG/1 ML SDV IV ONE (15:15)
[2016-10-19] MEDS: ONDANSETRON HCL INJ/PF 4 MG/2 ML SDV IV PRN (15:44)
--- NOTE | 2016-10-19 15:44 | PDOC H&P ---
History of Present Illness Admission Date/PCP: 10/19/16 13:53 K V YULISA DOUGLASS MD Patient complains of: Nausea, vomiting, and confusion. History of Present Illness: ALEKSANDRA RECINOS is a 56 year old male who presents to [facility] s emergency room with morning, with complaints of nausea, vomiting and slight confusion this morning. He is accompanied by his sister who lives next door to him. She states he occasionally becomes this way when his blood pressure is elevated. Patient presently is very sleepy, slurring words, and mildly confused. As noted he was given morphine and Benadryl by emergency room provider. His sister states he becomes confused at times when his blood pressure is elevated. States his blood pressures been hard to control especially on his off dialysis days. On arrival this morning, his blood pressure was 239/98. He states he has been compliant with taking his medications. He did vomit shortly after taking them. He states the nausea and vomiting just began this morning. Sister denies any other sick contacts at home. The patient denies any illicit drug use. He then states he does smoke marijuana occasionally. Denies any alcohol use. Past Medical History Cardiac Medical History: Reports: Hypertension, Peripheral Vascular Disease - r leg surgery Denies: Congestive Heart Failure, Coronary Artery Disease, Myocardial Infarction Pulmonary Medical History: Denies: Asthma, Bronchitis, Chronic Obstructive Pulmonary Disease (COPD), Pneumonia, Tuberculosis EENT Medical History: Reports: None Neurological Medical History: Reports: None Denies: Seizures Endocrine Medical History: Reports: None Renal/ Medical History: Reports: End Stage Renal Disease, Other - Negative family history of renal disease. Malignancy Medical History: Reports: Renal (Kidney) Cancer - He had a right nephrectomy for renal cell cancer. GI Medical History: Reports: Gastroesophageal Reflux Disease, Hiatal Hernia Musculoskeltal Medical History: Reports: Arthritis - r thumb Skin Medical History: Reports: None Psychiatric Medical History: Reports: None Traumatic Medical History: Reports: None Hematology: Reports: Anemia Denies: Bleeding Tendencies Infectious Medical History: Reports: None Past Surgical History Past Surgical History: Reports: Orthopedic Surgery, Tonsillectomy Denies: Pacemaker Social History Information Source: Relative Lives with: Family Smoking Status: Never Smoker Frequency of Alcohol Use: Rare Hx Recreational Drug Use: Yes Drugs: Marijuana Hx Prescription Drug Abuse: No - Advance Directive Resuscitation Status: Full Code Surrogate healthcare decision maker:: Mother is his medical power of ip attorney Family History Family History: Reviewed & Not Pertinent, Hypertension Parental Family History Reviewed: Yes Children Family History Reviewed: Yes Sibling(s) Family History Reviewed.: Yes Medication/Allergy Allergies/Adverse Reactions: No Known Allergies Allergy (Verified 10/01/16 14:08) Review of Systems Constitutional: ABSENT: chills, fever(s), headache(s), weight gain, weight loss Eyes: ABSENT: visual disturbances Ears: ABSENT: hearing changes Cardiovascular: ABSENT: chest pain, dyspnea on exertion, edema, orthropnea, palpitations Respiratory: ABSENT: cough, hemoptysis Gastrointestinal: PRESENT: nausea, vomiting. ABSENT: abdominal pain, constipation, diarrhea, hematemesis, hematochezia Musculoskeletal: ABSENT: joint swelling Integumentary: ABSENT: rash, wounds Neurological: PRESENT: confusion, numbness - left hand Psychiatric: ABSENT: anxiety, depression, homidical ideation, suicidal ideation Endocrine: ABSENT: cold intolerance, heat intolerance, polydipsia, polyuria Hematologic/Lymphatic: ABSENT: easy bleeding, easy bruising Physical Exam Vital Signs: Temp Pulse Resp BP Pulse Ox 97.6 F 10 L 191/67 H 100 10/19/16 08:39 10/19/16 13:01 10/19/16 13:00 10/19/16 13:01 General appearance: PRESENT: no acute distress, well-developed, well-nourished Head exam: PRESENT: atraumatic, normocephalic Eye exam: PRESENT: conjunctiva pink, EOMI, PERRLA. ABSENT: scleral icterus Ear exam: PRESENT: normal external ear exam Mouth exam: PRESENT: moist, tongue midline Neck exam: ABSENT: carotid bruit, JVD, lymphadenopathy, thyromegaly Respiratory exam: PRESENT: clear to auscultation shay. ABSENT: rales, rhonchi, wheezes Cardiovascular exam: PRESENT: RRR. ABSENT: diastolic murmur, rubs, systolic murmur Pulses: PRESENT: normal dorsalis pedis pul Vascular exam: PRESENT: normal capillary refill GI/Abdominal exam: PRESENT: normal bowel sounds, soft. ABSENT: distended, guarding, mass, organolmegaly, rebound, tenderness Rectal exam: PRESENT: deferred Extremities exam: PRESENT: full ROM, other - varicosities in left arm fistula. ABSENT: calf tenderness, clubbing, pedal edema Musculoskeletal exam: PRESENT: ambulatory Neurological exam: PRESENT: alert, altered, oriented to person, oriented to situation, CN II-XII grossly intact Psychiatric exam: PRESENT: appropriate affect, normal mood. ABSENT: homicidal ideation, suicidal ideation Skin exam: PRESENT: dry, intact, warm. ABSENT: cyanosis, rash Results Impressions: Head CT 10/19/16 10:07 IMPRESSION: MILD CHRONIC CHANGES OF ATROPHY AND MICROVASCULAR ISCHEMIA. NO ACUTE PROCESS. Acute Abdomen Series 10/19/16 10:08 IMPRESSION: NO RADIOGRAPHIC EVIDENCE FOR ACUTE ABDOMINAL DISEASE. Other findings as noted above. Assessment & Plan - Diagnosis (1) Hypertensive urgency Is this a current diagnosis for this admission?: YesPlan: Clonidine 0.2 mg 1 now. Hydralazine 10 mg every 6 hours as needed per parameters continue home antihypertensives. (2) Nausea & vomiting Qualifiers: Vomiting type: unspecified Is this a current diagnosis for this admission?: YesPlan: Gently hydrate. When necessary Zofran (3) ESRD on dialysis Is this a current diagnosis for this admission?: YesPlan: Patient is on Thursday dialysis schedule. We'll consult Dr. Yulisa Douglass, glass worker. Avoid nephrotoxic medications and dosages. (4) Confusion Is this a current diagnosis for this admission?: YesPlan: Patient received morphine and Benadryl, by emergency room provider. Present time his respirations are shallow and slow. He cannot stay awake. We'll give him Narcan 0.4 mg 1. He denies any other illicit drug use. He is anuric unable to do a tox screen. Sister states he does become confused at times when his blood pressure was elevated. CT of the head was unremarkable. He had a may have small vessel disease of the brain. He can get an MRI tomorrow improved. - Time Time Spent: 50 to 70 Minutes Critical Time spent with patient: 35 or more minutes Medications reviewed and adjusted accordingly: Yes Anticipated discharge: Home
[2016-10-19] MEDS: LANTHANUM CARBONATE 500 MG TAB.CHEW PO SCH (17:21)
[2016-10-19] MEDS ORDERED: DIAZEPAM INJ 10 MG/2 ML DISP.SYRIN IV ONE (19:45)
[2016-10-19] MEDS: HYDRALAZINE HCL INJ/PF 20 MG/1 ML SDV IV PRN (19:47)
[2016-10-19] MEDS ORDERED: DIAZEPAM INJ 10 MG/2 ML DISP.SYRIN ONE (19:50)
[2016-10-19] MEDS ORDERED: HEPARIN SOD (PORCINE) 5,000 UNIT/ML 1 ML SYRINGE SUBCUT SCH (22:00)
[2016-10-19] MEDS ORDERED: MINOXIDIL 10 MG TABLET ONE (23:50)
[2016-10-20] MEDS: METOPROLOL TARTRATE 50 MG TABLET PO SCH ×2 (00:15→15:29)
[2016-10-20] MEDS: MINOXIDIL 10 MG TABLET PO SCH (00:15)
[2016-10-20] MEDS: CLONIDINE HCL 0.1 MG TABLET PO SCH ×3 (00:15→14:47)
[2016-10-20] MEDS: HEPARIN SOD (PORCINE) 5,000 UNIT/ML 1 ML SYRINGE SUBCUT SCH ×3 (00:15→14:47)
[2016-10-20] MEDS: ONDANSETRON HCL INJ/PF 4 MG/2 ML SDV IV PRN ×4 (00:20→13:55)
[2016-10-20] MEDS ORDERED: LORAZEPAM INJ 2 MG/1 ML VIAL IV PRN (08:27)
[2016-10-20] MEDS ORDERED: LORAZEPAM INJ 2 MG/1 ML VIAL IV ONE (08:27)
[2016-10-20] MEDS ORDERED: ASPIRIN 81 MG TABLET, ENT COATED PO SCH (10:00)
[2016-10-20] MEDS ORDERED: (PENDING PHARMACY ID) (Calcitriol [Rocaltrol 0.5 Mcg Capsule] 0.5 MCG) PO SCH (10:00)
[2016-10-20] MEDS ORDERED: DOCUSATE SODIUM 100 MG/10 ML UDC PO SCH (10:00)
[2016-10-20] MEDS ORDERED: CALCITRIOL 0.25 MCG CAPSULE PO SCH (10:00)
--- NOTE | 2016-10-20 11:51 | Physician Advisory Note ---
Physician Advisor ProgressNote .: Pursuant to the plan for [facility], I have reviewed the medical record for this patient. Physician Advisor Statement: Possible documentation opportunities if attending agrees: 1. "hypertensive emergency with associated N/V" 2. See below. As always, if concerned about any unstable VS or abnormal labs, please comment on them & note what doing about them, & please document each day the potential clinical problems you are concerned could occur if pt not kept in hospital for tx at this time. Status: Pt w/AMS due to hypertensive emergency, w/assoc'd N/V, clinical dehydration, confusion worsened after morphine & Benadryl in ED. Appears to need add'l BP agents between dialysis days. If pt not sufficiently improved for safe d/c home today due to clinical reasons , please document these & then may consider change to Inpt status. Tx in inpatient hospital setting medically reasonable & necessary to protect pt' s health, safety, & medical condition? Thanks for your help with documentation accuracy/specificity improvement! Rufina Cantu MD [facility] Physician Advisor, Fellow of Hospital Medicine
[2016-10-20] MEDS ORDERED: OLANZAPINE INJ/PF 10 MG SDV IM ONE (15:00)
[2016-10-20] MEDS: DOCUSATE SODIUM 100 MG CAPSULE PO SCH (15:29)
[2016-10-20] MEDS: LANTHANUM CARBONATE 500 MG TAB.CHEW PO SCH ×2 (15:29→18:40)
[2016-10-20] MEDS: SEVELAMER HCL 400 MG TABLET PO SCH (15:29)
--- NOTE | 2016-10-20 16:49 | PDOC PROGRESS REPORT ---
Subjective Progress Note for:: 10/20/16 Subjective:: Patient seen on morning rounds. He states he's had periods of involuntary limb movement occurring overnight. Nursing report him thrashing about in bed until he was given IV Valium. There is no seizure-like activity associated with the movements. He is awake and talking, completely oriented. His no bowel or bladder loss. His sister reports symptoms began during the night. He denies any shortness of breath, dyspnea or chest pain. He denies any nausea, vomiting or diarrhea since admission. Physical Exam Vital Signs: Temp Pulse Resp BP Pulse Ox 98.4 F 87 18 181/66 H 94 10/20/16 15:27 10/20/16 15:27 10/20/16 15:27 10/20/16 15:27 10/20/16 15:27 Intake & Output 10/19/16 10/20/16 10/21/16 06:59 06:59 06:59 Intake Total 523 Output Total 0 Balance 523 Weight 58.6 kg General appearance: PRESENT: no acute distress, thin, well-developed Head exam: PRESENT: atraumatic, normocephalic Eye exam: PRESENT: conjunctiva pink, EOMI, PERRLA. ABSENT: scleral icterus Ear exam: PRESENT: normal external ear exam Mouth exam: PRESENT: moist, tongue midline Neck exam: ABSENT: carotid bruit, JVD, lymphadenopathy, thyromegaly Respiratory exam: PRESENT: clear to auscultation shay. ABSENT: rales, rhonchi, wheezes Cardiovascular exam: PRESENT: RRR. ABSENT: diastolic murmur, rubs, systolic murmur Pulses: PRESENT: normal dorsalis pedis pul GI/Abdominal exam: PRESENT: normal bowel sounds, soft. ABSENT: distended, guarding, mass, organolmegaly, rebound, tenderness Rectal exam: PRESENT: deferred Extremities exam: PRESENT: other - Functional movement disorder of all extremities, no hyperreflexia or dystonia Neurological exam: PRESENT: alert, awake, oriented to person, oriented to place , oriented to time, oriented to situation, reflexes normal, ataxia, CN II-XII grossly intact, other. ABSENT: motor sensory deficit Psychiatric exam: PRESENT: agitated Skin exam: PRESENT: dry, intact, warm. ABSENT: cyanosis, rash Results Impressions: Head CT 10/19/16 10:07 IMPRESSION: MILD CHRONIC CHANGES OF ATROPHY AND MICROVASCULAR ISCHEMIA. NO ACUTE PROCESS. Acute Abdomen Series 10/19/16 10:08 IMPRESSION: NO RADIOGRAPHIC EVIDENCE FOR ACUTE ABDOMINAL DISEASE. Other findings as noted above. Assessment & Plan - Diagnosis (1) Hypertensive urgency Is this a current diagnosis for this admission?: YesPlan: Patient initially presented with altered mental status secondary to hypertensive emergency with associated nausea vomiting clinical dehydration, confusion. His symptoms worsened after he was given IV Reglan, morphine and Benadryl and the emergency department. His sister states he's had similar episodes on off days from dialysis. May need initial blood pressure agents during his dialysis days. (2) Nausea & vomiting Qualifiers: Vomiting type: unspecified Is this a current diagnosis for this admission?: YesPlan: This is resolved today with better control his blood pressure. He has when necessary Zofran ordered if he needs that he is no longer nauseated at the present time. (3) ESRD on dialysis Is this a current diagnosis for this admission?: YesPlan: Patient is on Thursday dialysis schedule. We'll consult Dr. Jhon Douglass, scientific illustrator. Avoid nephrotoxic medications and dosages. (4) Confusion Is this a current diagnosis for this admission?: YesPlan: Patient received morphine and Benadryl, by emergency room provider. Present time his respirations are shallow and slow. He cannot stay awake. We'll give him Narcan 0.4 mg 1. He denies any other illicit drug use. He is anuric unable to do a tox screen. Sister states he does become confused at times when his blood pressure was elevated. CT of the head was unremarkable. He had a may have small vessel disease of the brain. He can get an MRI tomorrow improved. (5) Functional movement disorder Plan: Patient was given Reglan IV, Valium IV and Benadryl which could all potentiate functional movement disorder. He was given Zyprexa 10 mg IM which did alleviate some of his symptoms. He denies any other illicit substance other than marijuana. He is anicteric urine able to do a urine drug screen. - Time Time Spent with patient: 25-34 minutes Critical Time spent with patient: 15-24 minutes Medications reviewed and adjusted accordingly: Yes
--- NOTE | 2016-10-20 17:30 | PDOC CONSULTATION ---
Consultation Consult Date: 10/20/16 Consult reason:: Hemodialysis and hypertensive urgency History of Present Illness Admission Date/PCP: 10/19/16 15:25 Pat QUINONEZ MD History of Present Illness: ALEKSANDRA RECINOS is a 56 year old male who presents to [facility] emergency room with morning, with complaints of nausea, vomiting and slight confusion yesterday. Patient is presently sleeping as I see him on dialysis. Earlier he was combative with my treating nurse Maria Eugenia and the dialysis room. He is also confused. However there is no history of any headaches or chest pains or shortness of breath. Patient is presently lying quietly and sleeping. He is in no distress. I woke him up gently and he was responding to my questions in monosyllables.Chart review was done. He was accompanied by his sister who lives next door to him. She states he occasionally becomes this way when his blood pressure is elevated. Patient was very sleepy, slurring words, and mildly confused. As noted he was given morphine and Benadryl and Reglan by emergency room provider. His sister states he becomes confused at times when his blood pressure is elevated. States his blood pressures been hard to control especially on his off dialysis days. On arrival this morning, his blood pressure was 239/98. He states he has been compliant with taking his medications. He did vomit shortly after taking them. He states the nausea and vomiting just began this morning. Sister denies any other sick contacts at home. The patient denies any illicit drug use. He then states he does smoke marijuana occasionally. Denies any alcohol use. I had recently seen in the office because of his uncontrolled pressures. I had just increase his minoxidil to 5 twice daily. He volunteered to come to see me. He has had blood pressure issues for quite some time for almost a year or so. This has been noted at the [facility] dialysis unit but he has refused any interventions including treatment of titration's or evaluations. He has been told about the complications of uncontrolled blood pressure including heart attacks heart failure and strokes. However patient remained to be his own man but of lately obviously he has seen a different side and decided to come to my office. Past Medical History Cardiac Medical History: Reports: Hypertension-primary, Peripheral Vascular Disease - r leg surgery Denies: Coronary Artery Disease, Myocardial Infarction Pulmonary Medical History: Denies: Asthma, Bronchitis, Chronic Obstructive Pulmonary Disease (COPD), Pneumonia, Tuberculosis EENT Medical History: Reports: None Neurological Medical History: Reports: None Denies: Seizures Endocrine Medical History: Reports: None Complications of Diabetes: Reports: None Renal/ Medical History: Reports: End Stage Renal Disease, Other - Negative family history of renal disease. Denies: Benign Prostatic Hyperplasia Malignancy Medical History: Reports: Renal (Kidney) Cancer - He had a right nephrectomy for renal cell cancer. GI Medical History: Reports: Gastroesophageal Reflux Disease, Hiatal Hernia Musculoskeltal Medical History: Reports: Arthritis - r thumb Skin Medical History: Reports: None Psychiatric Medical History: Reports: None Traumatic Medical History: Reports: None Infectious Medical History: Reports: None Past Surgical History Past Surgical History: Reports: Dialysis Access Surgery AVF, Orthopedic Surgery , Tonsillectomy Denies: Pacemaker Social History Lives with: Family Smoking Status: Never Smoker Frequency of Alcohol Use: Rare Hx Recreational Drug Use: Yes Drugs: Marijuana Hx Prescription Drug Abuse: No - Advance Directive Resuscitation Status: Full Code Family History Parental Family History Reviewed: Yes Children Family History Reviewed: Yes Sibling(s) Family History Reviewed.: Yes Medication/Allergy Home Medications: Aspirin [Ecotrin] 81 mg PO DAILY 10/19/16 Calcitriol [Rocaltrol] 0.5 mcg PO MOTUWETHFR@1000 10/19/16 Clonidine HCl [Catapres 0.3 mg Tablet] 0.3 mg PO Q8 10/19/16 Lanthanum Carbonate [Fosrenol] 1,000 mg PO BID 10/19/16 Metoprolol Tartrate [Lopressor 50 mg Tablet] 50 mg PO Q12 10/19/16 Minoxidil [Loniten 2.5 Mg Tablet] 5 mg PO QHS 10/19/16 Vit B Cmplx 3/FA/Vit C/Biotin [Bettie-Ana Rx Tablet] 1 each PO DAILY 10/19/16 Allergies/Adverse Reactions: No Known Allergies Allergy (Verified 10/01/16 14:08) Review of Systems Review of Systems: Detailed history could not be done as the patient was quite sleepy and not responding in continuous sentences. Therefore chart review was done. Physical Exam Vital Signs: Temp Pulse Resp BP Pulse Ox 98.4 F 87 18 181/66 H 94 10/20/16 15:27 10/20/16 15:27 10/20/16 15:27 10/20/16 15:27 10/20/16 15:27 Intake & Output 10/19/16 10/20/16 10/21/16 06:59 06:59 06:59 Intake Total 523 Output Total 0 Balance 523 Weight 58.6 kg General appearance: PRESENT: no acute distress Eye exam: PRESENT: conjunctiva pink, EOMI, PERRLA. ABSENT: nystagmus, scleral icterus Ear exam: PRESENT: normal external ear exam Neck exam: ABSENT: lymphadenopathy, meningismus, tenderness, thyromegaly, tracheal deviation Respiratory exam: PRESENT: clear to auscultation shay. ABSENT: crackles, rhonchi Cardiovascular exam: PRESENT: +S1, +S2, systolic murmur GI/Abdominal exam: PRESENT: normal bowel sounds, soft. ABSENT: firm, guarding, mass, tenderness Extremities exam: ABSENT: pedal edema Neurological exam: PRESENT: altered Skin exam: ABSENT: cyanosis, dry, mottled, rash Results Impressions: Head CT 10/19/16 10:07 IMPRESSION: MILD CHRONIC CHANGES OF ATROPHY AND MICROVASCULAR ISCHEMIA. NO ACUTE PROCESS. Acute Abdomen Series 10/19/16 10:08 IMPRESSION: NO RADIOGRAPHIC EVIDENCE FOR ACUTE ABDOMINAL DISEASE. Other findings as noted above. Assessment & Plan - Diagnosis (1) Confusion Is this a current diagnosis for this admission?: YesPlan: Multiple etiologies. They include hypertensive urgency and drugs used in the ER which includes morphine/Benadryl/Reglan. Hold off on these medications and see how he responds. Besides that treat hypertension and await to bring down his blood pressure to between 160 and 180 systolic. (2) Hypertensive urgency Is this a current diagnosis for this admission?: YesPlan: I would continue current medications but also think about adding hydralazine. This doing a drug screen for cocaine. Would also do renal artery Doppler office single kidney. (3) Nausea & vomiting Qualifiers: Vomiting type: unspecified Is this a current diagnosis for this admission?: YesPlan: Monitor. I would avoid Reglan in this patient. (4) ESRD on hemodialysis Plan: Patient undergoing dialysis without any issues. Discuss with the treating nurse about getting a sitter as he might get combative which might mean pulling on the needles and concomitant issues. Orders have been discussed with the treating nurse. Undergoing dialysis without any issues.
[2016-10-20 20:09] LABS: ABSOLUTE EOSINOPHILS # (AUTO) 0.1 10^3/uL (0.0-0.6); ABSOLUTE LYMPHOCYTES (AUTO) 1.8 10^3/uL (0.5-4.7); ABSOLUTE MONOCYTES (AUTO) 0.8 10^3/uL (0.1-1.4); ABSOLUTE NEUT (AUTO) 4.3 10^3/uL (1.7-8.2); BASOPHILS % (AUTO) 0.2 % (0-2); EOSINOPHILS % (AUTO) 1.5 % (0-6); HEMATOCRIT 33.2 % (37.9-51.0); HEMOGLOBIN 11.2 g/dL (13.5-17.0); HGB HCT DIFFERENCE 0.4; LYMPHOCYTES % (AUTO) 25.2 % (13-45); MEAN CORPUSCULAR HEMOGLOBIN 30.3 pg (27.0-33.4); MEAN CORPUSCULAR HGB CONC 33.8 g/dL (32.0-36.0); MEAN CORPUSCULAR VOLUME 90 fl (80-97); MONOCYTES % (AUTO) 11.8 % (3-13); RED CELL DISTRIBUTION WIDTH 15.2 % (11.5-14.0); SEGMENTED NEUTROPHILS % (AUTO) 61.3 % (42-78)
[2016-10-20 20:17] LABS: ALANINE AMINOTRANSFERASE 35 U/L (21-72); ALBUMIN 3.5 g/dL (3.5-5.0); ALKALINE PHOSPHATASE 110 U/L (38-126); ANION GAP 17 (5-19); ASPARTATE AMINO TRANSFERASE 41 U/L (17-59); BILIRUBIN,DIRECT 0.6 mg/dL (0.0-0.4); BILIRUBIN,TOTAL 1.3 mg/dL (0.2-1.3); BLOOD UREA NITROGEN 26 mg/dL (7-20); CALCIUM 9.3 mg/dL (8.4-10.2); CARBON DIOXIDE 26 mmol/L (22-30); CHLORIDE 98 mmol/L (98-107); CREATININE RESULT 9.87 mg/dL (0.52-1.25); GLUCOSE 71 mg/dL (75-110); MAGNESIUM 1.8 mg/dL (1.6-2.3); PHOSPHORUS 4.6 mg/dL (2.5-4.5); POTASSIUM 3.4 mmol/L (3.6-5.0); SODIUM 141.1 mmol/L (137-145); TOTAL PROTEIN 6.2 g/dL (6.3-8.2)
[2016-10-21] MEDS: HYDRALAZINE HCL INJ/PF 20 MG/1 ML SDV IV PRN (00:51)
[2016-10-21] MEDS: CLONIDINE HCL 0.1 MG TABLET PO SCH ×4 (00:56→21:44)
[2016-10-21] MEDS: METOPROLOL TARTRATE 50 MG TABLET PO SCH ×2 (00:56→21:44)
[2016-10-21] MEDS: MINOXIDIL 10 MG TABLET PO SCH ×2 (00:56→21:44)
[2016-10-21] MEDS: HEPARIN SOD (PORCINE) 5,000 UNIT/ML 1 ML SYRINGE SUBCUT SCH ×4 (00:56→21:45)
[2016-10-21] MEDS: ONDANSETRON HCL INJ/PF 4 MG/2 ML SDV IV PRN (03:57)
[2016-10-21 04:42] LABS: ABSOLUTE LYMPHOCYTES (AUTO) 1.1 10^3/uL (0.5-4.7); ABSOLUTE MONOCYTES (AUTO) 0.7 10^3/uL (0.1-1.4); ABSOLUTE NEUT (AUTO) 4.7 10^3/uL (1.7-8.2); BASOPHILS % (AUTO) 0.4 % (0-2); EOSINOPHILS % (AUTO) 0.7 % (0-6); HEMATOCRIT 33.8 % (37.9-51.0); HEMOGLOBIN 11.5 g/dL (13.5-17.0); HGB HCT DIFFERENCE 0.7; LYMPHOCYTES % (AUTO) 17.3 % (13-45); MEAN CORPUSCULAR HEMOGLOBIN 30.9 pg (27.0-33.4); MEAN CORPUSCULAR HGB CONC 34.1 g/dL (32.0-36.0); MEAN CORPUSCULAR VOLUME 91 fl (80-97); MONOCYTES % (AUTO) 10.3 % (3-13); RED BLOOD COUNT 3.73 10^6/uL (4.35-5.55); RED CELL DISTRIBUTION WIDTH 15.5 % (11.5-14.0); SEGMENTED NEUTROPHILS % (AUTO) 71.3 % (42-78); WHITE BLOOD COUNT 6.6 10^3/uL (4.0-10.5)
[2016-10-21 04:54] LABS: ALANINE AMINOTRANSFERASE 31 U/L (21-72); ALBUMIN 3.6 g/dL (3.5-5.0); ALKALINE PHOSPHATASE 117 U/L (38-126); ASPARTATE AMINO TRANSFERASE 40 U/L (17-59); BILIRUBIN,DIRECT 0.8 mg/dL (0.0-0.4); BILIRUBIN,TOTAL 1.3 mg/dL (0.2-1.3); BLOOD UREA NITROGEN 31 mg/dL (7-20); CALCIUM 9.1 mg/dL (8.4-10.2); CREATININE RESULT 10.82 mg/dL (0.52-1.25); GLUCOSE 110 mg/dL (75-110); MAGNESIUM 1.8 mg/dL (1.6-2.3); PHOSPHORUS 5.6 mg/dL (2.5-4.5); TOTAL PROTEIN 6.3 g/dL (6.3-8.2)
[2016-10-21 05:06] LABS: ANION GAP 19 (5-19); CARBON DIOXIDE 24 mmol/L (22-30); CHLORIDE 99 mmol/L (98-107); POTASSIUM 3.8 mmol/L (3.6-5.0); SODIUM 141.7 mmol/L (137-145)
[2016-10-21] MEDS ORDERED: OLANZAPINE INJ/PF 10 MG SDV IM ONE ×2 (05:51→06:38)
--- NOTE | 2016-10-21 09:00 | Physician Advisory Note ---
Physician Advisor ProgressNote .: [facility] I have [facility] the medical record for this patient. Physician Advisor Statement: ---This note incorporates what is in prior PA note as well. --- Possible documentation opportunities if attending agrees: 1. "hypertensive emergency with associated N/V & AMS" 2. Medical Necessity: Please state each day whether mental status is yet back to baseline or not. Please explicitly specify reasons pt needed to be kept in hospital 10/20 - [ mental status not yet back to baseline with times of decreased responsiveness & combativeness, still having severely elevated systolic BPs, ...] to support decision to make Inpt. 3. Progress note of 10/20, dx #4, appears to be a cut & paste of info from time of H&P, which contradicts info in the subjective part of the progress note ( "awake & talking, completely oriented" vs "present time resp.s shallow & slow. He cannot stay awake"...). Please correct/clarify for accuracy of medical record. As always, if concerned about any unstable VS or abnormal labs, please comment on them & note what doing about them, & please document each day the potential clinical problems you are concerned could occur if pt not kept in hospital for tx at this time. Status: Pt w/AMS due to hypertensive emergency, w/assoc'd N/V, clinical dehydration, confusion worsened after morphine & Benadryl in ED. Appears to need add'l BP agents between dialysis days. Per 10/20 progres note, pt had periods of involuntary limb movement overnight, felt to be realted to meds given in ED. Per 10/20 nephrology note, pt still having varying types of altered mental status , being combative in hemodialysis initially, then extremely sleepy & not responding in continuous sentences so unable to do ROS. Pt still having uncontrolled systolic HTN to 181 & 198 on 10/20 PM. Senior Warehouse Clerk discussed having sitter for HD due to risks of harming self or others in that setting if combative again. Pt not sufficiently improved for safe d/c home 10/20 due to clinical reasons above. Appropriate for Inpt status, but need attending's explicit documentation of the reasons. Tx in inpatient hospital setting medically reasonable & necessary to protect pt' s health, safety, & medical condition. Thanks for your help with documentation accuracy/specificity improvement! Rufina Cantu MD [facility] Physician Advisor, Fellow of [facility] Medicine
[2016-10-21] MEDS ORDERED: LORAZEPAM INJ 2 MG/1 ML VIAL IV ONE (09:25)
--- NOTE | 2016-10-21 13:42 | PDOC PROGRESS REPORT ---
Subjective Progress Note for:: 10/21/16 Subjective:: The patient was seen earlier today on rounds. The family is present at bedside and active in the patient's care. Apparently the patient became quite agitated and somewhat combative overnight. The patient has responded very well to a dose of Zyprexa. According to the family this is abnormal behavior for the patient. She was seen and evaluated by Dr. Douglass yesterday on dialysis. There have been no reported episodes of vomiting nor diarrhea overnight. In spite of the patient's blood pressures improved and his encephalopathy continues. Review of systems: The rest of the review of systems is unobtainable. Physical Exam Vital Signs: Temp Pulse Resp BP Pulse Ox 97.8 F 71 16 105/50 L 100 10/21/16 12:00 10/21/16 12:00 10/21/16 12:00 10/21/16 12:00 10/21/16 12:00 Intake & Output 10/19/16 10/20/16 10/21/16 23:59 23:59 23:59 Intake Total 200 840 Output Total 0 Balance 200 840 Weight 59.2 kg General appearance: PRESENT: disheveled, thin, well-developed, well-nourished Head exam: PRESENT: atraumatic, normocephalic Eye exam: PRESENT: conjunctiva pink, EOMI, PERRLA. ABSENT: scleral icterus Ear exam: PRESENT: normal external ear exam Mouth exam: PRESENT: moist, tongue midline Neck exam: ABSENT: carotid bruit, JVD, lymphadenopathy, thyromegaly Respiratory exam: PRESENT: clear to auscultation shay, symmetrical, unlabored. ABSENT: rales, rhonchi, tachypnea, wheezes Cardiovascular exam: PRESENT: RRR, systolic murmur. ABSENT: diastolic murmur, rubs Pulses: PRESENT: normal dorsalis pedis pul Vascular exam: PRESENT: normal capillary refill GI/Abdominal exam: PRESENT: normal bowel sounds, soft. ABSENT: distended, guarding, mass, organolmegaly, rebound, tenderness Rectal exam: PRESENT: deferred Extremities exam: PRESENT: full ROM. ABSENT: calf tenderness, clubbing, pedal edema Neurological exam: PRESENT: altered Psychiatric exam: PRESENT: flat affect - Sedated given the patient's antipsychotic medication Skin exam: PRESENT: dry, intact, warm. ABSENT: cyanosis, rash Results Laboratory Results: 10/21/16 04:06 10/21/16 04:06 10/20/16 10/20/16 10/21/16 19:25 19:25 04:06 WBC 7.0 6.6 RBC 3.70 L 3.73 L Hgb 11.2 L 11.5 L Hct 33.2 L 33.8 L MCV 90 91 MCH 30.3 30.9 MCHC 33.8 34.1 RDW 15.2 H 15.5 H Plt Count 191 161 Seg Neutrophils % 61.3 71.3 Lymphocytes % 25.2 17.3 Monocytes % 11.8 10.3 Eosinophils % 1.5 0.7 Basophils % 0.2 0.4 Absolute Neutrophils 4.3 4.7 Absolute Lymphocytes 1.8 1.1 Absolute Monocytes 0.8 0.7 Absolute Eosinophils 0.1 0.0 Absolute Basophils 0.0 0.0 Sodium 141.1 Potassium 3.4 L Chloride 98 Carbon Dioxide 26 Anion Gap 17 BUN 26 H Creatinine 9.87 H Est GFR ( Amer) 7 L Est GFR (Non-Af Amer) 5 L Glucose 71 L Calcium 9.3 Phosphorus 4.6 H Magnesium 1.8 Total Bilirubin 1.3 AST 41 ALT 35 Alkaline Phosphatase 110 Ammonia Total Protein 6.2 L Albumin 3.5 Vitamin B12 10/21/16 10/21/16 10/21/16 04:06 04:06 11:02 WBC RBC Hgb Hct MCV MCH MCHC RDW Plt Count Seg Neutrophils % Lymphocytes % Monocytes % Eosinophils % Basophils % Absolute Neutrophils Absolute Lymphocytes Absolute Monocytes Absolute Eosinophils Absolute Basophils Sodium 141.7 Potassium 3.8 Chloride 99 Carbon Dioxide 24 Anion Gap 19 BUN 31 H Creatinine 10.82 H Est GFR ( Amer) 6 L Est GFR (Non-Af Amer) 5 L Glucose 110 Calcium 9.1 Phosphorus 5.6 H Magnesium 1.8 Total Bilirubin 1.3 AST 40 ALT 31 Alkaline Phosphatase 117 Ammonia < 8.7 L Total Protein 6.3 Albumin 3.6 Vitamin B12 613.0 Impressions: Head CT 10/19/16 10:07 IMPRESSION: MILD CHRONIC CHANGES OF ATROPHY AND MICROVASCULAR ISCHEMIA. NO ACUTE PROCESS. Acute Abdomen Series 10/19/16 10:08 IMPRESSION: NO RADIOGRAPHIC EVIDENCE FOR ACUTE ABDOMINAL DISEASE. Other findings as noted above. Vascular Ultrasound 10/20/16 00:00 IMPRESSION: NONDIAGNOSTIC STUDY. UNABLE TO ADEQUATELY VISUALIZE THE RENAL VESSELS. ATROPHIC LEFT KIDNEY WITH CORTICAL THINNING AND INCREASED ECHOGENICITY CONSISTENT WITH CHRONIC RENAL DISEASE. SEVERAL CORTICAL CYSTS. NO HYDRONEPHROSIS. RIGHT KIDNEY SURGICALLY ABSENT. Assessment & Plan - Diagnosis (1) Hypertensive emergency Is this a current diagnosis for this admission?: YesPlan: With noted nausea, vomiting, and on her mental status. The patient's blood pressures overall have improved at this time. Do appreciate nephrology's input with this. (2) Acute encephalopathy Is this a current diagnosis for this admission?: YesPlan: Possibly secondary to #1. However the patient does have evidence of carotid stenosis and is a vasculopath. Is concerned for potential CVA. Will obtain MRI and follow. Will also obtain B-12, ammonia. No obvious source of infectious process. The patient is an uric. (3) ESRD on hemodialysis Is this a current diagnosis for this admission?: YesPlan: Do appreciate nephrology input. (4) Anemia in chronic kidney disease Is this a current diagnosis for this admission?: YesPlan: Stable - Time Time Spent with patient: 35 or more minutes Medications reviewed and adjusted accordingly: Yes Disposition: The patient is a full code. Pending patient's symptomatology and diagnostic findings will reevaluate in the a.m.
[2016-10-21] MEDS ORDERED: BISACODYL 10 MG SUPP.RECT PR PRN (15:57)
[2016-10-21] MEDS ORDERED: BISACODYL 10 MG SUPP.RECT PR ONE (16:15)
[2016-10-21] MEDS: LANTHANUM CARBONATE 500 MG TAB.CHEW PO SCH (17:07)
[2016-10-21] MEDS: SEVELAMER HCL 400 MG TABLET PO SCH (17:13)
[2016-10-21] MEDS: DOCUSATE SODIUM 100 MG CAPSULE PO SCH (17:13)
[2016-10-21] MEDS ORDERED: LANTHANUM CARBONATE 1000 MG PO SCH (18:00)
[2016-10-21] MEDS: MINOXIDIL 2.5 MG TABLET PO SCH (21:45)
[2016-10-22 04:49] LABS: ABSOLUTE EOSINOPHILS # (AUTO) 0.1 10^3/uL (0.0-0.6); ABSOLUTE LYMPHOCYTES (AUTO) 1.4 10^3/uL (0.5-4.7); ABSOLUTE NEUT (AUTO) 4.7 10^3/uL (1.7-8.2); BASOPHILS % (AUTO) 0.4 % (0-2); HEMATOCRIT 36.4 % (37.9-51.0); HEMOGLOBIN 12.3 g/dL (13.5-17.0); HGB HCT DIFFERENCE 0.5; LYMPHOCYTES % (AUTO) 18.8 % (13-45); MEAN CORPUSCULAR HEMOGLOBIN 30.1 pg (27.0-33.4); MEAN CORPUSCULAR HGB CONC 33.9 g/dL (32.0-36.0); MEAN CORPUSCULAR VOLUME 89 fl (80-97); RED BLOOD COUNT 4.09 10^6/uL (4.35-5.55); RED CELL DISTRIBUTION WIDTH 15.3 % (11.5-14.0); SEGMENTED NEUTROPHILS % (AUTO) 64.8 % (42-78); WHITE BLOOD COUNT 7.3 10^3/uL (4.0-10.5)
[2016-10-22 05:09] LABS: ANION GAP 17 (5-19); BLOOD UREA NITROGEN 49 mg/dL (7-20); CARBON DIOXIDE 26 mmol/L (22-30); CHLORIDE 96 mmol/L (98-107); GLUCOSE 81 mg/dL (75-110); POTASSIUM 4.2 mmol/L (3.6-5.0); SODIUM 139.4 mmol/L (137-145)
[2016-10-22 05:14] LABS: CREATININE RESULT 13.08 mg/dL (0.52-1.25)
[2016-10-22] MEDS: CLONIDINE HCL 0.1 MG TABLET PO SCH ×3 (06:28→21:26)
[2016-10-22] MEDS: HEPARIN SOD (PORCINE) 5,000 UNIT/ML 1 ML SYRINGE SUBCUT SCH ×3 (06:29→21:26)
[2016-10-22] MEDS: LANTHANUM CARBONATE 500 MG TAB.CHEW PO SCH ×2 (08:00→18:29)
[2016-10-22] MEDS: CALCITRIOL 0.25 MCG CAPSULE PO SCH (09:06)
[2016-10-22] MEDS ORDERED: (PENDING PHARMACY ID) (Calcitriol [Rocaltrol 0.5 Mcg Capsule] 0.5 MCG) PO SCH ×2 (10:00)
[2016-10-22] MEDS ORDERED: CALCITRIOL 0.25 MCG CAPSULE PO SCH (10:00)
[2016-10-22] MEDS ORDERED: (PENDING PHARMACY ID) (Vit B Cmplx 3/Fa/Vit C/Biotin [Rena-Vite Rx Tablet] 1 EACH) PO SCH (10:00)
[2016-10-22] MEDS: DOCUSATE SODIUM 100 MG CAPSULE PO SCH (11:54)
[2016-10-22] MEDS: SEVELAMER HCL 400 MG TABLET PO SCH (12:23)
[2016-10-22] MEDS ORDERED: (PENDING PHARMACY ID) (Clonidine Hcl [Catapres 0.3 Mg Tablet] 0.3 MG) PO SCH (14:00)
--- NOTE | 2016-10-22 16:48 | PDOC PROGRESS REPORT ---
Subjective Progress Note for:: 10/22/16 Subjective:: Mrs. Farrar was seen on dialysis today. He is undergoing dialysis without any issues. He is more awake and responsive. He is not confused and disoriented like he was earlier. Is oriented to time place and person. He denies any history of headaches. No history to indicate seizures.Blood pressure still uncontrolled and I see that the minoxidil is being titrated up. Physical Exam Vital Signs: Temp Pulse Resp BP Pulse Ox 97.5 F 79 14 189/63 H 100 10/22/16 12:00 10/22/16 14:00 10/22/16 12:00 10/22/16 12:00 10/22/16 12:00 Intake & Output 10/21/16 10/22/16 10/23/16 06:59 06:59 06:59 Intake Total 1040 715 Output Total 0 Balance 1040 715 Weight 59.2 kg 59.7 kg General appearance: PRESENT: no acute distress Respiratory exam: PRESENT: clear to auscultation shay. ABSENT: crackles, rhonchi Cardiovascular exam: PRESENT: +S1, +S2, systolic murmur GI/Abdominal exam: PRESENT: normal bowel sounds, soft. ABSENT: firm, guarding, mass, tenderness Extremities exam: ABSENT: pedal edema Skin exam: ABSENT: cyanosis, erythema, normal color, rash Results Laboratory Results: 10/22/16 04:36 10/22/16 04:36 10/22/16 10/22/16 04:36 04:36 WBC 7.3 RBC 4.09 L Hgb 12.3 L Hct 36.4 L MCV 89 MCH 30.1 MCHC 33.9 RDW 15.3 H Plt Count 153 Seg Neutrophils % 64.8 Lymphocytes % 18.8 Monocytes % 14.0 H Eosinophils % 2.0 Basophils % 0.4 Absolute Neutrophils 4.7 Absolute Lymphocytes 1.4 Absolute Monocytes 1.0 Absolute Eosinophils 0.1 Absolute Basophils 0.0 Sodium 139.4 Potassium 4.2 Chloride 96 L Carbon Dioxide 26 Anion Gap 17 BUN 49 H Creatinine 13.08 H Est GFR ( Amer) 5 L Est GFR (Non-Af Amer) 4 L Glucose 81 Calcium 9.0 Impressions: Head CT 10/19/16 10:07 IMPRESSION: MILD CHRONIC CHANGES OF ATROPHY AND MICROVASCULAR ISCHEMIA. NO ACUTE PROCESS. Acute Abdomen Series 10/19/16 10:08 IMPRESSION: NO RADIOGRAPHIC EVIDENCE FOR ACUTE ABDOMINAL DISEASE. Other findings as noted above. Vascular Ultrasound 10/20/16 00:00 IMPRESSION: NONDIAGNOSTIC STUDY. UNABLE TO ADEQUATELY VISUALIZE THE RENAL VESSELS. ATROPHIC LEFT KIDNEY WITH CORTICAL THINNING AND INCREASED ECHOGENICITY CONSISTENT WITH CHRONIC RENAL DISEASE. SEVERAL CORTICAL CYSTS. NO HYDRONEPHROSIS. RIGHT KIDNEY SURGICALLY ABSENT. Head MRI 10/21/16 00:00 IMPRESSION: Extensive white matter disease, small vessel ischemic change versus demyelinating disease Punctate focus of altered diffusion in the right frontal parasagittal subcortical white matter, either an acute small infarct or demyelinating plaque Assessment & Plan - Diagnosis (1) ESRD on hemodialysis Is this a current diagnosis for this admission?: YesPlan: Patient undergoing dialysis without any issues. Orders have been discussed with the treating nurse. Electrolytes are stable. We will try to remove a liter of fluid as tolerated. Blood pressure still is not under control and see how he responds to some of the ultrafiltration. Further titration of his medications probably will be necessary. (2) Acute encephalopathy Is this a current diagnosis for this admission?: YesPlan: He is improving well. See how he responds over the next 24 hours and will possibly can make plans for disposition (3) Anemia in chronic kidney disease Is this a current diagnosis for this admission?: YesPlan: Hemoglobin is stable. No indication for erythropoietin. (4) Hypertensive emergency Is this a current diagnosis for this admission?: YesPlan: Blood pressure still uncontrolled. See his response to dialysis and see the need for further up titration of his antihypertensives.
[2016-10-22] MEDS ORDERED: SEVELAMER HCL 400 MG TABLET PO SCH (17:00)
--- NOTE | 2016-10-22 17:15 | PDOC PROGRESS REPORT ---
Subjective Progress Note for:: 10/22/16 Subjective:: The patient was seen earlier today on rounds. The patient's symptoms are overall much improved. The patient is verbal conversational and according to the niece appears to be at baseline. The patient denies any nausea, vomiting, diarrhea, shortness of breath, dizziness, chest pain, heart palpitations, fevers , or chills. The patient has remained afebrile. Blood pressures have been in a good range. When prompted the patient voices no other concerns at this time. Review of systems: The rest of the review of systems is negative. Physical Exam Vital Signs: Temp Pulse Resp BP Pulse Ox 97.5 F 79 14 189/63 H 100 10/22/16 12:00 10/22/16 14:00 10/22/16 12:00 10/22/16 12:00 10/22/16 12:00 Intake & Output 10/20/16 10/21/16 10/22/16 23:59 23:59 23:59 Intake Total 200 1545 10 Output Total 0 Balance 200 1545 10 Weight 59.2 kg 59.7 kg General appearance: PRESENT: no acute distress, cooperative, well-developed, well-nourished Head exam: PRESENT: atraumatic, normocephalic Eye exam: PRESENT: conjunctiva pink, EOMI, PERRLA. ABSENT: scleral icterus Ear exam: PRESENT: normal external ear exam Mouth exam: PRESENT: moist, tongue midline Neck exam: ABSENT: carotid bruit, JVD, lymphadenopathy, thyromegaly Respiratory exam: PRESENT: clear to auscultation shay. ABSENT: rales, rhonchi, wheezes Cardiovascular exam: PRESENT: RRR. ABSENT: diastolic murmur, rubs, systolic murmur Pulses: PRESENT: normal dorsalis pedis pul Vascular exam: PRESENT: normal capillary refill GI/Abdominal exam: PRESENT: normal bowel sounds, soft. ABSENT: distended, guarding, mass, organolmegaly, rebound, tenderness Rectal exam: PRESENT: deferred Extremities exam: PRESENT: full ROM. ABSENT: calf tenderness, clubbing, pedal edema Neurological exam: PRESENT: alert, awake, oriented to person, oriented to place , oriented to time, oriented to situation, CN II-XII grossly intact. ABSENT: motor sensory deficit Psychiatric exam: PRESENT: appropriate affect, normal mood. ABSENT: homicidal ideation, suicidal ideation Skin exam: PRESENT: dry, intact, warm. ABSENT: cyanosis, rash Additional comments: Possible mild weakness or less coordination noted on the right upper extremity. Results Laboratory Results: 10/22/16 04:36 10/22/16 04:36 10/22/16 10/22/16 04:36 04:36 WBC 7.3 RBC 4.09 L Hgb 12.3 L Hct 36.4 L MCV 89 MCH 30.1 MCHC 33.9 RDW 15.3 H Plt Count 153 Seg Neutrophils % 64.8 Lymphocytes % 18.8 Monocytes % 14.0 H Eosinophils % 2.0 Basophils % 0.4 Absolute Neutrophils 4.7 Absolute Lymphocytes 1.4 Absolute Monocytes 1.0 Absolute Eosinophils 0.1 Absolute Basophils 0.0 Sodium 139.4 Potassium 4.2 Chloride 96 L Carbon Dioxide 26 Anion Gap 17 BUN 49 H Creatinine 13.08 H Est GFR ( Amer) 5 L Est GFR (Non-Af Amer) 4 L Glucose 81 Calcium 9.0 Impressions: Head CT 10/19/16 10:07 IMPRESSION: MILD CHRONIC CHANGES OF ATROPHY AND MICROVASCULAR ISCHEMIA. NO ACUTE PROCESS. Acute Abdomen Series 10/19/16 10:08 IMPRESSION: NO RADIOGRAPHIC EVIDENCE FOR ACUTE ABDOMINAL DISEASE. Other findings as noted above. Vascular Ultrasound 10/20/16 00:00 IMPRESSION: NONDIAGNOSTIC STUDY. UNABLE TO ADEQUATELY VISUALIZE THE RENAL VESSELS. ATROPHIC LEFT KIDNEY WITH CORTICAL THINNING AND INCREASED ECHOGENICITY CONSISTENT WITH CHRONIC RENAL DISEASE. SEVERAL CORTICAL CYSTS. NO HYDRONEPHROSIS. RIGHT KIDNEY SURGICALLY ABSENT. Head MRI 10/21/16 00:00 IMPRESSION: Extensive white matter disease, small vessel ischemic change versus demyelinating disease Punctate focus of altered diffusion in the right frontal parasagittal subcortical white matter, either an acute small infarct or demyelinating plaque Assessment & Plan - Diagnosis (1) Hypertensive emergency Is this a current diagnosis for this admission?: YesPlan: With noted nausea, vomiting, and on her mental status. The patient's blood pressures overall have improved at this time. Do appreciate nephrology's input with this. (2) ESRD on hemodialysis Is this a current diagnosis for this admission?: YesPlan: Do appreciate nephrology input. (3) Anemia in chronic kidney disease Is this a current diagnosis for this admission?: YesPlan: Stable (4) Acute CVA (cerebrovascular accident) Is this a current diagnosis for this admission?: YesPlan: This appears mild. Will add statin. The patient was on aspirin therapy however given the patient's history of peripheral disease and stenosis will add Plavix. Will consult therapies (5) Hypertensive encephalopathy Is this a current diagnosis for this admission?: YesPlan: The patient has returned to baseline - Time Time Spent with patient: 35 or more minutes Medications reviewed and adjusted accordingly: Yes Anticipated discharge: Home Within: within 24 hours, within 48 hours Disposition: The patient is a full code. Pending patient's symptomatology and diagnostic findings will reevaluate in the a.m.
[2016-10-22] MEDS: METOPROLOL TARTRATE 50 MG TABLET PO SCH ×2 (18:24→21:26)
[2016-10-22] MEDS: ASPIRIN 81 MG TABLET, ENT COATED PO SCH (18:24)
[2016-10-22] MEDS: FOLIC ACID/VITAMIN B COMP W-C CAPSULE PO SCH (18:27)
[2016-10-22] MEDS: MINOXIDIL 2.5 MG TABLET PO SCH (21:26)
[2016-10-22] MEDS: MINOXIDIL 10 MG TABLET PO SCH (21:26)
[2016-10-22] MEDS ORDERED: ATORVASTATIN CALCIUM 80 MG TABLET PO SCH (22:00)
[2016-10-23] MEDS: CLONIDINE HCL 0.1 MG TABLET PO SCH (05:14)
[2016-10-23] MEDS: HEPARIN SOD (PORCINE) 5,000 UNIT/ML 1 ML SYRINGE SUBCUT SCH (05:14)
[2016-10-23] MEDS: LANTHANUM CARBONATE 500 MG TAB.CHEW PO SCH ×2 (09:37→12:09)
[2016-10-23] MEDS: METOPROLOL TARTRATE 50 MG TABLET PO SCH (09:38)
[2016-10-23] MEDS: SEVELAMER HCL 400 MG TABLET PO SCH (09:38)
[2016-10-23] MEDS: ASPIRIN 81 MG TABLET, ENT COATED PO SCH (09:38)
[2016-10-23] MEDS: FOLIC ACID/VITAMIN B COMP W-C CAPSULE PO SCH (09:39)
[2016-10-23] MEDS: DOCUSATE SODIUM 100 MG CAPSULE PO SCH (09:39)
[2016-10-23] MEDS: CALCITRIOL 0.25 MCG CAPSULE PO SCH (09:39)
[2016-10-23] MEDS ORDERED: CLOPIDOGREL BISULFATE 75 MG TABLET PO SCH (10:00)
[2016-10-23 13:25] VITALS: BP 142/62
--- NOTE | 2016-10-23 17:02 | PDOC DISCHARGE SUMMARY ---
General - Admit/Disc Date/PCP Admission Date/Primary Care Provider: 10/20/16 16:56 K Zhang QUINONEZ MD Discharge Date: 10/23/16 - Discharge Diagnosis (1) Hypertensive emergency Is this a current diagnosis for this admission?: Yes (2) Hypertensive encephalopathy Is this a current diagnosis for this admission?: Yes (3) Acute CVA (cerebrovascular accident) Is this a current diagnosis for this admission?: Yes (4) ESRD on hemodialysis Is this a current diagnosis for this admission?: Yes (5) Anemia in chronic kidney disease Is this a current diagnosis for this admission?: Yes - Additional Information Resuscitation Status: Full Code Discharge Diet: As Tolerated Discharge Activity: Activity As Tolerated, No Driving Home Medications: Aspirin [Ecotrin] 81 mg PO DAILY 10/19/16 Calcitriol [Rocaltrol 0.5 mcg Capsule] 0.5 mcg PO MOTUWETHFR@1000 10/19/16 Clonidine HCl [Catapres 0.3 mg Tablet] 0.3 mg PO Q8 10/19/16 Lanthanum Carbonate [Fosrenol] 1,000 mg PO BID 10/19/16 Metoprolol Tartrate [Lopressor 50 mg Tablet] 50 mg PO Q12 10/19/16 Minoxidil [Loniten 2.5 mg Tablet] 5 mg PO QHS 10/19/16 Vit B Cmplx 3/FA/Vit C/Biotin [Bettie-Ana Rx Tablet] 1 each PO DAILY 10/19/16 Atorvastatin Calcium [Lipitor 40 mg Tablet] 40 mg PO QHS #30 tablet 10/23/16 Clopidogrel Bisulfate [Plavix 75 mg Tablet] 75 mg PO DAILY #30 tablet 10/23/16 History of Present Illness Patient complains of: Nausea, vomiting, and confusion History of Present Illness: ALEKSANDRA RECINOS is a 56 year old male who presents to [facility] s emergency room with morning, with complaints of nausea, vomiting and slight confusion this morning. He is accompanied by his sister who lives next door to him. She states he occasionally becomes this way when his blood pressure is elevated. Patient presently is very sleepy, slurring words, and mildly confused. As noted he was given morphine and Benadryl by emergency room provider. His sister states he becomes confused at times when his blood pressure is elevated. States his blood pressures been hard to control especially on his off dialysis days. On arrival this morning, his blood pressure was 239/98. He states he has been compliant with taking his medications. He did vomit shortly after taking them. He states the nausea and vomiting just began this morning. Sister denies any other sick contacts at home. The patient denies any illicit drug use. He then states he does smoke marijuana occasionally. Denies any alcohol use. Hospital Course Hospital Course: The patient was admitted to continuous telemetry unit. The patient was noted to be extremely confused. The patient's confusion resolved with the correction of his hypertension. The patient did undergo MRI. The patient did have a previous Doppler which was suggestive of stenosis. MRI Findings were consistent with a small area of ischemic infarction. The patient had no evidence of deficit or residual issue. Given the significance of the patient's peripheral vascular disease and peripheral artery disease and failure of aspirin and Plavix has been added. The patient's blood pressure was brought down to a target range of 150s. Physical therapy evaluation recommended home physical therapy and this was ordered. The patient does have strong family support. The patient does have a close follow-up with vascular surgery this week in [place] which had been scheduled prior to this admission. Physical Exam Vital Signs: Temp Pulse Resp BP Pulse Ox 98.5 F 81 15 142/62 H 100 10/23/16 13:18 10/23/16 13:18 10/23/16 13:18 10/23/16 13:18 10/23/16 13:18 Intake & Output 10/21/16 10/22/16 10/23/16 23:59 23:59 23:59 Intake Total 1545 973 10 Output Total 1700 Balance 1545 -727 10 Weight 59.2 kg 59.7 kg 59.9 kg General appearance: PRESENT: disheveled, thin, well-developed, well-nourished Head exam: PRESENT: atraumatic, normocephalic Eye exam: PRESENT: conjunctiva pink, EOMI, PERRLA. ABSENT: scleral icterus Ear exam: PRESENT: normal external ear exam Mouth exam: PRESENT: moist, tongue midline Neck exam: ABSENT: carotid bruit, JVD, lymphadenopathy, thyromegaly Respiratory exam: PRESENT: clear to auscultation shay, symmetrical, unlabored. ABSENT: rales, rhonchi, tachypnea, wheezes Cardiovascular exam: PRESENT: RRR, systolic murmur. ABSENT: diastolic murmur, rubs Pulses: PRESENT: normal dorsalis pedis pul Vascular exam: PRESENT: normal capillary refill GI/Abdominal exam: PRESENT: normal bowel sounds, soft. ABSENT: distended, guarding, mass, organolmegaly, rebound, tenderness Rectal exam: PRESENT: deferred Extremities exam: PRESENT: full ROM. ABSENT: calf tenderness, clubbing, pedal edema Neurological exam: PRESENT: altered Psychiatric exam: PRESENT: flat affect - Sedated given the patient's antipsychotic medication Skin exam: PRESENT: dry, intact, warm. ABSENT: cyanosis, rash Results Laboratory Results: Labs- Last Values WBC 7.3 10^3/uL (4.0-10.5) 10/22/16 04:36 RBC 4.09 10^6/uL (4.35-5.55) L 10/22/16 04:36 Hgb 12.3 g/dL (13.5-17.0) L 10/22/16 04:36 Hct 36.4 % (37.9-51.0) L 10/22/16 04:36 MCV 89 fl (80-97) 10/22/16 04:36 MCH 30.1 pg (27.0-33.4) 10/22/16 04:36 MCHC 33.9 g/dL (32.0-36.0) 10/22/16 04:36 RDW 15.3 % (11.5-14.0) H 10/22/16 04:36 Plt Count 153 10^3/uL (150-450) 10/22/16 04:36 Seg Neutrophils % 64.8 % (42-78) 10/22/16 04:36 Lymphocytes % 18.8 % (13-45) 10/22/16 04:36 Monocytes % 14.0 % (3-13) H 10/22/16 04:36 Eosinophils % 2.0 % (0-6) 10/22/16 04:36 Basophils % 0.4 % (0-2) 10/22/16 04:36 Absolute Neutrophils 4.7 10^3/uL (1.7-8.2) 10/22/16 04:36 Absolute Lymphocytes 1.4 10^3/uL (0.5-4.7) 10/22/16 04:36 Absolute Monocytes 1.0 10^3/uL (0.1-1.4) 10/22/16 04:36 Absolute Eosinophils 0.1 10^3/uL (0.0-0.6) 10/22/16 04:36 Absolute Basophils 0.0 10^3/uL (0.0-0.2) 10/22/16 04:36 Sodium 139.4 mmol/L (137-145) 10/22/16 04:36 Potassium 4.2 mmol/L (3.6-5.0) 10/22/16 04:36 Chloride 96 mmol/L (98-107) L 10/22/16 04:36 Carbon Dioxide 26 mmol/L (22-30) 10/22/16 04:36 Anion Gap 17 (5-19) 10/22/16 04:36 BUN 49 mg/dL (7-20) H 10/22/16 04:36 Creatinine 13.08 mg/dL (0.52-1.25) H 10/22/16 04:36 Est GFR ( Amer) 5 (>60) L 10/22/16 04:36 Est GFR (Non-Af Amer) 4 (>60) L 10/22/16 04:36 Glucose 81 mg/dL (75-110) 10/22/16 04:36 Calcium 9.0 mg/dL (8.4-10.2) 10/22/16 04:36 Phosphorus 5.6 mg/dL (2.5-4.5) H 10/21/16 04:06 Magnesium 1.8 mg/dL (1.6-2.3) 10/21/16 04:06 Total Bilirubin 1.3 mg/dL (0.2-1.3) 10/21/16 04:06 Direct Bilirubin 0.8 mg/dL (0.0-0.4) H 10/21/16 04:06 Indirect Bilirubin Not Reportable 10/21/16 04:06 Neonat Total Bilirubin Not Reportable 10/21/16 04:06 AST 40 U/L (17-59) 10/21/16 04:06 ALT 31 U/L (21-72) 10/21/16 04:06 Alkaline Phosphatase 117 U/L (38-126) 10/21/16 04:06 Ammonia < 8.7 umol/L (9-33) L 10/21/16 11:02 Creatine Kinase 91 U/L (55-170) 10/19/16 08:40 CK-MB (CK-2) 1.48 ng/mL (<4.55) 10/19/16 08:40 Troponin I 0.045 ng/mL 10/19/16 08:40 Total Protein 6.3 g/dL (6.3-8.2) 10/21/16 04:06 Albumin 3.6 g/dL (3.5-5.0) 10/21/16 04:06 Vitamin B12 613.0 pg/mL (239-931) 10/21/16 04:06 Impressions: Head CT 10/19/16 10:07 IMPRESSION: MILD CHRONIC CHANGES OF ATROPHY AND MICROVASCULAR ISCHEMIA. NO ACUTE PROCESS. Acute Abdomen Series 10/19/16 10:08 IMPRESSION: NO RADIOGRAPHIC EVIDENCE FOR ACUTE ABDOMINAL DISEASE. Other findings as noted above. Vascular Ultrasound 10/20/16 00:00 IMPRESSION: NONDIAGNOSTIC STUDY. UNABLE TO ADEQUATELY VISUALIZE THE RENAL VESSELS. ATROPHIC LEFT KIDNEY WITH CORTICAL THINNING AND INCREASED ECHOGENICITY CONSISTENT WITH CHRONIC RENAL DISEASE. SEVERAL CORTICAL CYSTS. NO HYDRONEPHROSIS. RIGHT KIDNEY SURGICALLY ABSENT. Head MRI 10/21/16 00:00 IMPRESSION: Extensive white matter disease, small vessel ischemic change versus demyelinating disease Punctate focus of altered diffusion in the right frontal parasagittal subcortical white matter, either an acute small infarct or demyelinating plaque Qualifiers PATEINT BEING DISCHARGED WITH ANY OF THE FOLLOWING DIAGNOSIS?: Stroke Stroke Pt being discharged on Anti-thrombolytic therapy?: Yes Stroke Pt being discharged on Anti-coagulation therapy?: No Reason(s) for not prescribing Anti-coagulation therapy:: Not indicated Stroke Pt being discharged on Statins?: Yes Plan Discharge Plan: The patient is to follow-up with dialysis as scheduled. The patient is to follow with vascular surgery in [place] as already scheduled this week. The patient will be referred to the neurologist stonework supervisor the day the patient was admitted for hospital follow-up. Time Spent: Greater than 30 Minutes
== END 2016-10-23 15:13 | disposition home health service (06) | DRG 304 ==
LOC: ER 08:30 → UNDOADMOB 13:53 → INTOOBSV 13:53 → EH 13:53 → 5 17:53 → OBSVTOIN 10-20 16:56
PROVIDERS: ADMIT Family Medicine; ATTEND Family Medicine
PROC: 5A1D60Z (ICD-10-PCS; principal; 2016-10-22)
DX: I16.1 Hypertensive emergency (principal); I63.9 Cerebral infarction, unspecified; N18.6 End stage renal disease; G93.40 Encephalopathy, unspecified; Q61.02 Congenital multiple renal cysts; K72.90 Hepatic failure, unspecified without coma; I13.11 Hypertensive heart and chronic kidney disease without heart failure, with stage 5 chronic kidney disease, or end stage renal disease; D63.1 Anemia in chronic kidney disease; K21.9 Gastro-esophageal reflux disease without esophagitis; M19.041 Primary osteoarthritis, right hand; I73.9 Peripheral vascular disease, unspecified; Z99.2 Dependence on renal dialysis; Z79.82 Long term (current) use of aspirin; Z79.899 Other long term (current) drug therapy; Z85.528 Personal history of other malignant neoplasm of kidney; Z90.5 Acquired absence of kidney; Z82.49 Family history of ischemic heart disease and other diseases of the circulatory system
CPT/HCPCS: 36415; 70450; 70551; 74022; 80048; 80053; 82140; 82550; 82553; 82607; 83735; 84100; 84484; 85025; 93005; 93010; 93976; 96361; 96374; 96375; 99291; G0378; G8978-GP; G8979-GP; J0360; J1200; J1644; J2060; J2270; J2310; J2405; J2765; J3360; J3490; J7030; J7040

== ENCOUNTER 2016-12-13 09:12 | Inpatient (IN) | payer MEDICARE, BC ==
[2016-12-13] MEDS ORDERED: NORMAL SALINE 500 ML IV ONE ×2 (09:24→11:38)
[2016-12-13 10:43] LABS: VENOUS BLOOD BASE EXCESS 3.4 mmol/L; VENOUS BLOOD HCO3 30.9 mmol/L (20-32); VENOUS BLOOD PCO2 60.4 mmHg (35-63); VENOUS BLOOD PH 7.33 (7.30-7.42)
[2016-12-13 10:47] LABS: HEMATOCRIT 35.2 % (37.9-51.0); HEMOGLOBIN 11.9 g/dL (13.5-17.0); HGB HCT DIFFERENCE 0.5; MEAN CORPUSCULAR HEMOGLOBIN 31.5 pg (27.0-33.4); MEAN CORPUSCULAR HGB CONC 33.6 g/dL (32.0-36.0); MEAN CORPUSCULAR VOLUME 94 fl (80-97); RED BLOOD COUNT 3.76 10^6/uL (4.35-5.55); RED CELL DISTRIBUTION WIDTH 16.1 % (11.5-14.0); WHITE BLOOD COUNT 14.6 10^3/uL (4.0-10.5)
[2016-12-13 10:50] LABS: PROTHROMBIN TIME 14.2 SEC (11.4-15.4)
[2016-12-13 10:51] LABS: PARTIAL THROMBOPLASTIN TIME 38.3 SEC (23.5-35.8)
[2016-12-13 11:03] LABS: ALANINE AMINOTRANSFERASE 41 U/L (21-72); ALBUMIN 4.6 g/dL (3.5-5.0); ALKALINE PHOSPHATASE 159 U/L (38-126); ASPARTATE AMINO TRANSFERASE 39 U/L (17-59); BILIRUBIN,DIRECT 0.7 mg/dL (0.0-0.4); BILIRUBIN,TOTAL 1.1 mg/dL (0.2-1.3); BLOOD UREA NITROGEN 24 mg/dL (7-20); CALCIUM 9.9 mg/dL (8.4-10.2); CARBON DIOXIDE 29 mmol/L (22-30); CHLORIDE 94 mmol/L (98-107); CREATININE RESULT 8.87 mg/dL (0.52-1.25); GLUCOSE 87 mg/dL (75-110); LIPASE 218.4 U/L (23-300); POTASSIUM 3.1 mmol/L (3.6-5.0); SODIUM 145.4 mmol/L (137-145); TOTAL PROTEIN 8.2 g/dL (6.3-8.2)
[2016-12-13 11:04] LABS: ALCOHOL < 10 mg/dL (NONE DETECTED); ANION GAP 22 (5-19)
[2016-12-13 11:08] LABS: BAND NEUTROPHILS % (MANUAL) 2 % (3-5); BASOPHILS % (MANUAL) 0 % (0-2); EOSINOPHILS % (MANUAL) 0 % (0-6); LYMPHOCYTES % (MANUAL) 5 % (13-45); TOTAL CELLS COUNTED 100
[2016-12-13 11:09] LABS: ANISOCYTOSIS 1+; OVALOCYTES SLIGHT; POIKILOCYTOSIS 1+; TARGET CELLS 1+
[2016-12-13] MEDS ORDERED: LIDOCAINE 1% INJ-PF (10 MG/ML) 30 ML SDV INJ ONE (11:37)
[2016-12-13] MEDS ORDERED: CEFTRIAXONE 2 GM/D5W RTU 50 ML IV ONE (11:37)
[2016-12-13] MEDS ORDERED: MIDAZOLAM 2 MG/2 ML INJ IV ONE (11:39)
[2016-12-13 12:55] LABS: GLUCOSE,CSF 61 mg/dL (40-70)
--- NOTE | 2016-12-13 13:15 | EKG REPORT ---
SEVERITY:- ABNORMAL ECG - SINUS RHYTHM LVH WITH SECONDARY REPOLARIZATION ABNORMALITY : Confirmed by: Jordan Currie 13-Dec-2016 13:14:39
[2016-12-13 13:20] LABS: APPEARANCE ALL TUBES CLEAR; RBC AVERAGE 41.5; RBC DILUENT USED NONE USED; RBC DILUTION FACTOR 1; RBC SIDE 1 37; RBC SIDE 2 46; TOTAL RBC SQUARES COUNTED 225
[2016-12-13 13:21] LABS: WHITE BLOOD CELL,CSF 1 /uL (0-5)
[2016-12-13 13:22] LABS: APPEARANCE ALL TUBES CLEAR
[2016-12-13 13:23] LABS: RBC AVERAGE 1.5; RBC DILUENT USED NONE USED; RBC DILUTION FACTOR 1; RBC SIDE 1 1; RBC SIDE 2 2; TOTAL RBC SQUARES COUNTED 225
[2016-12-13 13:24] LABS: WHITE BLOOD CELL,CSF 0 /uL (0-5)
[2016-12-13] MEDS ORDERED: NORMAL SALINE 1000 ML 1,000 ML IV ONE (14:15)
--- NOTE | 2016-12-13 14:54 | ER Document Report ---
ED General - General Chief Complaint: Altered Mental Status Stated Complaint: ALTERED MENTAL STATUS Time Seen by Provider: 12/13/16 09:20 TRAVEL OUTSIDE OF THE [place] IN LAST 30 DAYS: No - HPI Patient complains to provider of: altered mental status Notes: Patient's coming in for altered mental status. According to EMS patient recently had surgery performed at [facility]. Patient is a end-stage renal disease patient on dialysis and dialysis on Thursday drive himself back to dialysis this morning stating that he was therefore his appointment. Dialysis staff found the patient be altered therefore called EMS. Upon EMS arrival patient was found to have a fever was given Tylenol transferred to the ER. Upon arrival to the ER patient has a GCS of 14 however is not alert oriented patient cannot contribute to any of his history of present illness. Patient continues to state "I have to tell you something" however patient can never complete sentence. Patient is moving all 4 extremities no signs of facial droop no signs of weakness - Related Data Allergies/Adverse Reactions: No Known Allergies Allergy (Verified 12/13/16 09:53) Home Medications: Current Home Medications Budesonide/Formoterol Fumarate [Symbicort Hfa 160-4.5 Mcg Inhaler 6 gm] 1 puff IH Q12 12/13/16 [History] Minoxidil [Loniten 2.5 Mg Tablet] 5 mg PO DAILY 12/13/16 [History] Past Medical History - Social History Smoking Status: Current Every Day Smoker Frequency of alcohol use: Occasional Drug Abuse: Marijuana Family History: Reviewed & Not Pertinent - Past Medical History Cardiac Medical History: Reports: Hx Hypercholesterolemia, Hx Hypertension, Hx Peripheral Vascular Disease - r leg surgery Denies: Hx Congestive Heart Failure, Hx Coronary Artery Disease, Hx Heart Attack Pulmonary Medical History: Denies: Hx Asthma, Hx Bronchitis, Hx COPD, Hx Pneumonia, Hx Tuberculosis Neurological Medical History: Denies: Hx Cerebrovascular Accident, Hx Seizures Renal/ Medical History: Reports: Hx End Stage Renal Disease, Hx Kidney Stones. Denies: Hx Benign Prostatic Hyperplasia, Hx Peritoneal Dialysis Malignancy Medical History: Reports Hx Renal (Kidney) Cancer - He had a right nephrectomy for renal cell cancer. GI Medical History: Reports: Hx Gastroesophageal Reflux Disease, Hx Hiatal Hernia Musculoskeltal Medical History: Reports Hx Arthritis - r thumb Past Surgical History: Reports: Hx Abdominal Surgery, Hx Orthopedic Surgery, Hx Tonsillectomy. Denies: Hx Pacemaker - Immunizations Hx Diphtheria, Pertussis, Tetanus Vaccination: Yes Hx Pneumococcal Vaccination: 09/03/14 Review of Systems - Review of Systems -: Yes ROS unobtainable due to patient's medical condition - Altered mental status Physical Exam - Vital signs Vitals: Resp BP Pulse Ox 15 171/74 H 99 12/13/16 09:21 12/13/16 09:21 12/13/16 09:21 Interpretation: Hypertensive, Febrile - General General appearance: Appears well, Alert - HEENT Head: Normocephalic, Atraumatic Eyes: Normal Pupils: PERRL - Respiratory Respiratory status: No respiratory distress Chest status: Nontender Breath sounds: Normal Chest palpation: Normal - Cardiovascular Rhythm: Regular Heart sounds: Normal auscultation Murmur: No - Abdominal Inspection: Normal Distension: No distension Bowel sounds: Normal Tenderness: Nontender Organomegaly: No organomegaly - Genitourinary Inspection: Normal Cremasteric reflex: Normal Scrotum: Normal - Back Back: Normal, Nontender - Extremities General upper extremity: Normal inspection, Nontender, Normal color, Normal ROM , Normal temperature, Other - Patient has an AV fistula with palpable thrill in the left upper extremity. Patient has multiple scars throughout all extremities from previous surgeries are well-healed no signs of infection. No open wounds no decubitus that with the be infected as well. General lower extremity: Normal inspection, Nontender, Normal color, Normal ROM , Normal temperature, Normal weight bearing. No: Hamilton's sign - Neurological Neuro grossly intact: Yes Cognition: Confused David Coma Scale Eye Opening: Spontaneous David Coma Scale Verbal: Confused David Coma Scale Motor: Obeys Commands [place] Coma Scale Total: 14 Speech: Normal Motor strength normal: LUE, RUE, LLE, RLE Sensory: Normal - Psychological Associated symptoms: Confused - Skin Skin Temperature: Warm Skin Moisture: Dry Skin Color: Normal Course - Re-evaluation Re-evalutation: 12/13/16 14:59 Patient underwent extensive workup looking for signs of fever. Chest x-ray CTA were negative for any acute pathology. Patient underwent a lumbar puncture also again negative for any acute pathology. CT of the abdomen was performed showing possible gallbladder sludge however no signs of any acute infection. Patient's laboratory showed elevated leukocytosis with bandemia. Patient was given 2 g of Rocephin. Patient does examination also revealed no source of infection. At this time family has just arrived stating the patient has recently had a colonoscopy and also recently had a procedure performed at [facility] to clear blood clots out of his legs however I did contact [facility] they did not have a recommended the patient recently being in the hospital. Family members unclear when the colonoscopy was performed. Patient case was discussed with hospitalist. Patient will be admitted to general medical floor for further evaluation of abdominal status and fever - Vital Signs Vital signs: Temp Pulse Resp BP Pulse Ox 99 F 14 L 85 H 142/65 H 99 12/13/16 11:37 12/13/16 13:55 12/13/16 13:55 12/13/16 13:55 12/13/16 13:55 - Laboratory Result Diagrams: 12/13/16 10:25 12/13/16 10:25 Laboratory results interpreted by me: 12/13/16 12/13/16 12/13/16 10:25 10:25 10:25 WBC 14.6 H RBC 3.76 L Hgb 11.9 L Hct 35.2 L RDW 16.1 H Seg Neuts % (Manual) 88 H Band Neutrophils % 2 L Lymphocytes % (Manual) 5 L Abs Neuts (Manual) 13.1 H APTT 38.3 H Sodium 145.4 H Potassium 3.1 L Chloride 94 L Anion Gap 22 H BUN 24 H Creatinine 8.87 H Est GFR ( Amer) 7 L Est GFR (Non-Af Amer) 6 L Lactic Acid Direct Bilirubin 0.7 H Alkaline Phosphatase 159 H CSF Total Protein Salicylates < 1.0 L Acetaminophen < 10 L 12/13/16 12/13/16 10:25 12:20 WBC RBC Hgb Hct RDW Seg Neuts % (Manual) Band Neutrophils % Lymphocytes % (Manual) Abs Neuts (Manual) APTT Sodium Potassium Chloride Anion Gap BUN Creatinine Est GFR ( Amer) Est GFR (Non-Af Amer) Lactic Acid 3.5 H Direct Bilirubin Alkaline Phosphatase CSF Total Protein 121 H Salicylates Acetaminophen Procedures - Conscious Sedation Conscious sedation Time started: 12:15 Time completed: 12:35 Consent obtained: No - emergent consent Indication: lumbar puncture Last meal: unknown nothing by mouth since arrival Pt with a severe systemic disease.: P3. - ASA Classification. Airway Evaluation: Normal anatomy Mallampati Classification: Class 2 Used during procedure: Suction available, IV access obtained, Pulse ox on pt., secured entrance monitor on pt. Medications administered: Versed Reversal agents: None I personally performed/intraservice time: 30 min or less Complications: No - Lumbar Puncture Lumbar puncture Consent obtained: No - emergent altered mental status Lumbar puncture pre-procedure: Chloraprep applied Patient position: Lying Needle size: 22 Lumbar puncture location: L4-L5 Anesthetic type: 1% Lidocaine mL's of anesthetic: 2 Amount/type of drainage: clear CSF approximately 3 mls Number of attempts: 2 Complications: No Critical Care Note - Critical Care Note Total time excluding time spent on procedures (mins): 90 Comments: Multiple evaluations for patient with sirs criteria with altered mental status times was procedure performed Discharge - Discharge Clinical Impression: SIRS (systemic inflammatory response syndrome), ESRD on hemodialysis Fever Qualifiers: Fever type: unspecified Qualified Code(s): R50.9 - Fever, unspecified Altered mental status Qualifiers: Altered mental status type: unspecified Qualified Code(s): R41.82 - Altered mental status, unspecified Admitting Provider: Hospitalist - krishna Unit Admitted: Medical Floor Referrals: Pat QUINONEZ MD [Primary Care Provider] - Follow up as needed
[2016-12-13] MEDS ORDERED: ACETAMINOPHEN 325 MG TABLET PO PRN (15:39)
[2016-12-13] MEDS ORDERED: IPRATROPIUM/ALBUTEROL 0.5-2.5 MG/3 ML AMPUL NEB PRN (15:39)
[2016-12-13] MEDS: POTASSI CL 20 MEQ/1/2NS 1L 1,000 ML IV PRN (16:18)
--- NOTE | 2016-12-13 16:20 | PDOC H&P ---
History of Present Illness Admission Date/PCP: Pat QUINONEZ MD History of Present Illness: ALEKSANDRA RECINOS is a 56 year old -Ni[place] male with past medical history significant for end-stage renal disease on hemodialysis Thursday, hypertension, peripheral vascular disease, and dyslipidemia who presents to the service with confusion. The patient went for his dialysis on Thursday. That day his sister was supposed to drive him to dialysis. Although she came to pick him up the patient drove himself to dialysis because he didn't believe that she was actually in the house to drive him. This is an example of how confused the patient has been. According to his mother who was at the bedside, he is been confused off and on since he was diagnosed with a small stroke back in October. She feels as though things have been getting progressively worse. According to my conversation with the emergency room physician, the patient drove himself to dialysis today thinking that it was his day to be dialyzed. Once their EMS was called and the patient was brought to the emergency room. His mother knows some of his medical history and tells me that in addition to being confused he recently had vascular surgery in [place] for his left lower extremity (Dr. Bone). She also tells me that the patient admitted to her that he had fallen yesterday and hit his left hip. In the emergency room, the patient was found to have a temperature of 100.6, white blood cell count of 14 and a lactic acid of 3.5. LP was attempted this far it has not shown any bacteria on Gram stain. Chest x-ray was negative. CT of the head was done and was negative. Urinalysis was pursued however the patient does not make urine. Straight catheter was performed but yielded a dry tap. The patient was given a dose of Rocephin empirically. When I saw the patient was not able to answer many of my questions or participate in a physical exam. He was initially resting in bed but became quite agitated trying to climb out over the rails. He would either moan orally by mouth repeatedly "mama, mama." During the conversation with his mother he would suddenly, around and off for bit of information in moments of lucency. The patient however was not able to supply most of his medical history. Past Medical History Cardiac Medical History: Reports: Hyperlipidema, Hypertension, Peripheral Vascular Disease - r leg surgery Denies: Congestive Heart Failure, Coronary Artery Disease, Myocardial Infarction Pulmonary Medical History: Denies: Asthma, Bronchitis, Chronic Obstructive Pulmonary Disease (COPD), Pneumonia, Tuberculosis Neurological Medical History: Denies: Seizures Renal/ Medical History: Reports: End Stage Renal Disease Malignancy Medical History: Reports: Renal (Kidney) Cancer - He had a right nephrectomy for renal cell cancer. Malignancy History Note: His mother denies a history of renal cell cancer and says that his kidney was taken out because he had multiple polyps. GI Medical History: Reports: Gastroesophageal Reflux Disease, Hiatal Hernia Musculoskeltal Medical History: Reports: Arthritis - r thumb Hematology: Reports: Anemia Denies: Bleeding Tendencies Past Surgical History Past Surgical History: Right nephrectomy. Past Surgical History: Reports: Orthopedic Surgery, Tonsillectomy Denies: Pacemaker Social History Smoking Status: Current Every Day Smoker Cigarettes Packs Per Day: 1 - 1 pack will last the patient 3 days. He started smoking in his teen years Frequency of Alcohol Use: Rare Hx Recreational Drug Use: Yes Drugs: Marijuana Hx Prescription Drug Abuse: No Family History Family History: CAD, DM Family History: His mother has lupus. Parental Family History Reviewed: Yes Children Family History Reviewed: Yes Sibling(s) Family History Reviewed.: Yes Medication/Allergy Home Medications: Aspirin [Ecotrin] 81 mg PO DAILY 10/19/16 Calcitriol [Rocaltrol 0.5 mcg Capsule] 0.5 mcg PO DAILY 10/19/16 Clonidine HCl [Catapres 0.3 mg Tablet] 0.3 mg PO Q8 10/19/16 Lanthanum Carbonate [Fosrenol] 1,000 mg PO AC 10/19/16 Metoprolol Tartrate [Lopressor 50 mg Tablet] 50 mg PO Q12 10/19/16 Minoxidil [Loniten 2.5 mg Tablet] 10 mg PO QHS 10/19/16 Vit B Cmplx 3/FA/Vit C/Biotin [Bettie-Ana Rx Tablet] 1 tab PO DAILY 10/19/16 Atorvastatin Calcium [Lipitor 40 mg Tablet] 40 mg PO QHS #30 tablet 10/23/16 Clopidogrel Bisulfate [Plavix 75 mg Tablet] 75 mg PO DAILY #30 tablet 10/23/16 Budesonide/Formoterol Fumarate [Symbicort Hfa 160-4.5 Mcg Inhaler 6 gm] 1 puff IH Q12 12/13/16 Minoxidil [Loniten 2.5 Mg Tablet] 5 mg PO DAILY 12/13/16 Allergies/Adverse Reactions: No Known Allergies Allergy (Verified 12/13/16 09:53) Review of Systems Review of Systems: Review of systems is as per history of present illness. In addition to this his mother at the bedside has denied that he is complaining to her of any of the following: Blood in the stool, urine, coughing up blood, throwing up blood, diarrhea. Fevers chills nausea. She says that he did throw up once and that he has complaint of constipation. Rest of the review of systems cannot accurately be obtained. Physical Exam Vital Signs: Temp Pulse Resp BP Pulse Ox 99 F 14 L 26 H 164/76 H 97 12/13/16 11:37 12/13/16 13:55 12/13/16 15:15 12/13/16 15:16 12/13/16 15:16 Intake & Output 12/12/16 12/13/16 12/14/16 06:59 06:59 06:59 Weight 51.3 kg Physical exam: Gen.: Well-developed undernourished appearing -[place] male resting in bed quite agitated HEENT: Normocephalic atraumatic. Trachea is midline. No lymphadenopathy. No thyromegaly. Dry mucous membranes. Pupils reactive. Heart: Regular rate and rhythm. no murmurs rubs or gallops. Lungs: Clear to auscultation bilaterally equal rise and fall of the chest. Abdomen: Soft, nontender nondistended, flat. Extremities: No clubbing cyanosis, or edema. 1+ peripheral pulses. Intervention site does not appear indurated. Moments when he is calm enough no complaints but that he has moments of agitation where he indicates his left hip is hurting. Left fistula with rebounding pulse and faint thrill Neuro: He is awake and alert. He won't answer questions appropriately. He keeps yelling for his mother. He does not participate in a cranial nerve exam. Not even that at the request of his mother. : No abnormalities. Skin: Normal color warm, dry Results Laboratory Results: 12/13/16 10:25 12/13/16 10:25 12/13/16 12/13/16 12/13/16 10:25 10:25 10:25 WBC 14.6 H RBC 3.76 L Hgb 11.9 L Hct 35.2 L MCV 94 MCH 31.5 MCHC 33.6 RDW 16.1 H Plt Count 263 Seg Neutrophils % Not Reportable Lymphocytes % Not Reportable Monocytes % Not Reportable Eosinophils % Not Reportable Basophils % Not Reportable Absolute Neutrophils Not Reportable Absolute Lymphocytes Not Reportable Absolute Monocytes Not Reportable Absolute Eosinophils Not Reportable Absolute Basophils Not Reportable VBG pH VBG pCO2 VBG HCO3 VBG Base Excess Sodium 145.4 H Potassium 3.1 L Chloride 94 L Carbon Dioxide 29 Anion Gap 22 H BUN 24 H Creatinine 8.87 H Est GFR ( Amer) 7 L Est GFR (Non-Af Amer) 6 L Glucose 87 Lactic Acid 3.5 H Calcium 9.9 Total Bilirubin 1.1 AST 39 ALT 41 Alkaline Phosphatase 159 H Total Protein 8.2 Albumin 4.6 Lipase 218.4 Fluid Tube Number CSF Volume CSF Appearance CSF Color CSF WBC CSF RBC CSF Glucose CSF Total Protein 12/13/16 12/13/16 12/13/16 10:25 12:20 12:20 WBC RBC Hgb Hct MCV MCH MCHC RDW Plt Count Seg Neutrophils % Lymphocytes % Monocytes % Eosinophils % Basophils % Absolute Neutrophils Absolute Lymphocytes Absolute Monocytes Absolute Eosinophils Absolute Basophils VBG pH 7.33 VBG pCO2 60.4 VBG HCO3 30.9 VBG Base Excess 3.4 Sodium Potassium Chloride Carbon Dioxide Anion Gap BUN Creatinine Est GFR ( Amer) Est GFR (Non-Af Amer) Glucose Lactic Acid Calcium Total Bilirubin AST ALT Alkaline Phosphatase Total Protein Albumin Lipase Fluid Tube Number 1 4 CSF Volume 2.6 2.6 CSF Appearance CLEAR CLEAR CSF Color COLORLESS COLORLESS CSF WBC 1 0 CSF RBC 46 1 CSF Glucose CSF Total Protein 12/13/16 12/13/16 12:20 14:52 WBC RBC Hgb Hct MCV MCH MCHC RDW Plt Count Seg Neutrophils % Lymphocytes % Monocytes % Eosinophils % Basophils % Absolute Neutrophils Absolute Lymphocytes Absolute Monocytes Absolute Eosinophils Absolute Basophils VBG pH VBG pCO2 VBG HCO3 VBG Base Excess Sodium Potassium Chloride Carbon Dioxide Anion Gap BUN Creatinine Est GFR ( Amer) Est GFR (Non-Af Amer) Glucose Lactic Acid 2.1 Calcium Total Bilirubin AST ALT Alkaline Phosphatase Total Protein Albumin Lipase Fluid Tube Number CSF Volume CSF Appearance CSF Color CSF WBC CSF RBC CSF Glucose 61 CSF Total Protein 121 H 12/13/16 10:25 Creatine Kinase 121 Impressions: Chest X-Ray 12/13/16 09:21 IMPRESSION: NO SIGNIFICANT RADIOGRAPHIC FINDING IN THE CHEST. Head CT 12/13/16 09:21 IMPRESSION: MILD CHRONIC CHANGES OF ATROPHY AND MICROVASCULAR ISCHEMIA. NO ACUTE PROCESS. Abdomen/Pelvis CT 12/13/16 12:22 IMPRESSION: Limited study as noted above. Air is identified within the right kidney and the possibility of an infected process should be considered. There is increased density in the expected position of the gallbladder as noted above suggesting biliary sludge or tiny gallstones. Other findings as noted above Assessment & Plan - Diagnosis (1) SIRS (systemic inflammatory response syndrome) Plan: Patient presented with a low-grade fever, elevated white count. He certainly has served syndrome. At this point it is difficult I have no sores. LP was negative, chest x-ray was negative, CT of the abdomen and pelvis indicate there could be an infection. Catheterization happened prior to CT scan. He has been given a dose of Rocephin down in the emergency room and we will continue this. (2) Altered mental status Qualifiers: Altered mental status type: unspecified Qualified Code(s): R41.82 - Altered mental status, unspecified Plan: Unclear as to why the patient is confused. He has SIRS syndrome. He has a history of stroke that occurred back in October. Workup thus far has been negative. This point I do believe the patient needs MRI of the brain. (3) ESRD on hemodialysis Plan: Dialysis Thursday. (4) Anemia in chronic kidney disease Plan: Stable. (5) Left hip pain Plan: When necessary Percocet will be available. CT abdomen and pelvis does not show anything acute with his hip. - Time Time Spent: 50 to 70 Minutes - Inpatient Certification Medical Necessity: Need Close Monitoring Due to Risk of Patient Decompensation
[2016-12-13] MEDS: HEPARIN SOD (PORCINE) 5,000 UNIT/ML 1 ML SYRINGE SUBCUT SCH (22:37)
[2016-12-13] MEDS: OXYCODONE-ACETAMINOPHEN 5-325 MG TABLET PO PRN (22:37)
[2016-12-14] MEDS: OXYCODONE-ACETAMINOPHEN 5-325 MG TABLET PO PRN ×3 (05:23→20:43)
[2016-12-14] MEDS: HEPARIN SOD (PORCINE) 5,000 UNIT/ML 1 ML SYRINGE SUBCUT SCH ×3 (06:29→22:37)
[2016-12-14 06:56] LABS: ABSOLUTE EOSINOPHILS # (AUTO) 0.1 10^3/uL (0.0-0.6); ABSOLUTE LYMPHOCYTES (AUTO) 1.9 10^3/uL (0.5-4.7); ABSOLUTE NEUT (AUTO) 11.2 10^3/uL (1.7-8.2); BASOPHILS % (AUTO) 0.3 % (0-2); EOSINOPHILS % (AUTO) 0.9 % (0-6); HEMATOCRIT 31.7 % (37.9-51.0); HEMOGLOBIN 10.6 g/dL (13.5-17.0); HGB HCT DIFFERENCE 0.1; LYMPHOCYTES % (AUTO) 13.3 % (13-45); MEAN CORPUSCULAR HEMOGLOBIN 31.1 pg (27.0-33.4); MEAN CORPUSCULAR HGB CONC 33.5 g/dL (32.0-36.0); MEAN CORPUSCULAR VOLUME 93 fl (80-97); MONOCYTES % (AUTO) 6.9 % (3-13); RED BLOOD COUNT 3.42 10^6/uL (4.35-5.55); SEGMENTED NEUTROPHILS % (AUTO) 78.6 % (42-78); WHITE BLOOD COUNT 14.3 10^3/uL (4.0-10.5)
[2016-12-14 07:15] LABS: ANION GAP 17 (5-19); BLOOD UREA NITROGEN 37 mg/dL (7-20); CALCIUM 9.4 mg/dL (8.4-10.2); CARBON DIOXIDE 24 mmol/L (22-30); CHLORIDE 101 mmol/L (98-107); CREATININE RESULT 10.34 mg/dL (0.52-1.25); GLUCOSE 84 mg/dL (75-110); POTASSIUM 3.7 mmol/L (3.6-5.0)
[2016-12-14] MEDS ORDERED: ENOXAPARIN SODIUM INJ 40 MG/0.4 ML DISP.SYRIN SUBCUT SCH (08:00)
[2016-12-14] MEDS: CEFTRIAXONE 1 GM/D5W RTU 50 ML IV SCH (10:06)
[2016-12-14] MEDS ORDERED: LABETALOL HCL INJ 20 MG/4 ML DISP.SYRIN IV PRN (11:46)
[2016-12-14] MEDS ORDERED: LABETALOL HCL INJ 20 MG/4 ML DISP.SYRIN IV ONE (12:00)
[2016-12-14] MEDS: POTASSI CL 20 MEQ/1/2NS 1L 1,000 ML IV PRN (13:26)
--- NOTE | 2016-12-14 13:48 | PDOC PROGRESS REPORT ---
Subjective Progress Note for:: 12/14/16 Subjective:: She was seen today at the bedside. He had his sister with him today. He had difficulty answering many of my questions but I was able to get a little more information. The patient tells me that he was having falls at home. He fell twice a day prior to admission. He can't articulate whether or not this was a mechanical fall or not. He denies use of alcohol and quit years ago. He freely admits that he smokes marijuana and has been doing so since the age of 14. Denies illegal drug use. Asked if he overuses his narcotic medications, she has difficulty articulating and answer any thermometer to think. Back to this question later on in the conversation he denies this. He states his last use was the morning that he came into the hospital. In addition, he has a grandmother who is 97 years old currently has both Alzheimer's and Parkinson's disease. As far as he or his sister knows there are no other family members with cognitive disorders. During our conversation he becomes quite frustrated that he cannot get certain words and phrases out. He currently complains of neck pain, left hip pain, and knee pain. He tells me that the procedure that he got with Dr. Sanchez was a graft of some sort to the left lower extremity. We have reviewed in detail all of his results and imaging. Physical Exam Vital Signs: Temp Pulse Resp BP Pulse Ox 98.5 F 80 20 165/64 H 100 12/14/16 12:00 12/14/16 12:00 12/14/16 12:00 12/14/16 12:00 12/14/16 12:00 Intake & Output 12/13/16 12/14/16 12/15/16 06:59 06:59 06:59 Intake Total 1650 0 Output Total 0 0 Balance 1650 0 Weight 60.4 kg Physical exam: Gen.: Well-developed undernourished appearing -[place] male resting in bed quite somewhat agitated but appearing much more alert Heart: Regular rate and rhythm. 2/6 systolic ejection murmur. No rubs or gallops. Lungs: Clear to auscultation bilaterally equal rise and fall of the chest. Abdomen: Soft, nontender nondistended, flat. Extremities: No clubbing cyanosis, or edema. 1+ peripheral pulses. Neuro: He is awake and alert. He appears much more conscientious and aware today. He is able to give me some of his medical history. There are times where his speech is composed of word salad. At times he has difficulty getting words out. During these instances of difficulty he sometimes inappropriately. He has choreiform movements of his arms and trunk. Skin: Normal color warm, dry Results Laboratory Results: 12/14/16 06:29 12/14/16 06:29 12/14/16 12/14/16 12/14/16 00:13 06:29 06:29 WBC 14.3 H RBC 3.42 L Hgb 10.6 L Hct 31.7 L MCV 93 MCH 31.1 MCHC 33.5 RDW 16.0 H Plt Count 228 Seg Neutrophils % 78.6 H Lymphocytes % 13.3 Monocytes % 6.9 Eosinophils % 0.9 Basophils % 0.3 Absolute Neutrophils 11.2 H Absolute Lymphocytes 1.9 Absolute Monocytes 1.0 Absolute Eosinophils 0.1 Absolute Basophils 0.0 Sodium 142.0 Potassium 3.7 Chloride 101 Carbon Dioxide 24 Anion Gap 17 BUN 37 H Creatinine 10.34 H Est GFR ( Amer) 6 L Est GFR (Non-Af Amer) 5 L Glucose 84 Calcium 9.4 Magnesium 2.0 2.0 Ammonia TSH 12/14/16 12/14/16 06:29 06:29 WBC RBC Hgb Hct MCV MCH MCHC RDW Plt Count Seg Neutrophils % Lymphocytes % Monocytes % Eosinophils % Basophils % Absolute Neutrophils Absolute Lymphocytes Absolute Monocytes Absolute Eosinophils Absolute Basophils Sodium Potassium Chloride Carbon Dioxide Anion Gap BUN Creatinine Est GFR ( Amer) Est GFR (Non-Af Amer) Glucose Calcium Magnesium Ammonia 20.4 TSH 0.96 Impressions: Head MRI 12/13/16 00:00 IMPRESSION: MINIMAL MICROVASCULAR ISCHEMIC CHANGE. OTHERWISE NORMAL STUDY. Chest X-Ray 12/13/16 09:21 IMPRESSION: NO SIGNIFICANT RADIOGRAPHIC FINDING IN THE CHEST. Head CT 12/13/16 09:21 IMPRESSION: MILD CHRONIC CHANGES OF ATROPHY AND MICROVASCULAR ISCHEMIA. NO ACUTE PROCESS. Abdomen/Pelvis CT 12/13/16 12:22 IMPRESSION: Limited study as noted above. Air is identified within the right kidney and the possibility of an infected process should be considered. There is increased density in the expected position of the gallbladder as noted above suggesting biliary sludge or tiny gallstones. Other findings as noted above Assessment & Plan - Diagnosis (1) SIRS (systemic inflammatory response syndrome) Plan: Patient presented with a low-grade fever, elevated white count. He certainly has SIRS syndrome. LP was negative, chest x-ray was negative, CT of the abdomen and pelvis indicate there could be an infection in the kidneys. Continue Rocephin for now. Her blood cell count remains elevated. (2) Altered mental status Qualifiers: Altered mental status type: unspecified Qualified Code(s): R41.82 - Altered mental status, unspecified Plan: Unclear as to why the patient is confused. He has SIRS syndrome. He has a history of stroke that occurred back in October. Workup thus far has been negative. MRI of the brain was negative. Blood cultures thus far are negative. Chest x-ray negative for infection. LP is negative. At this point I must consider withdrawal from alcohol or medications such as opioids. She denies drinking. To obtain urine patient does not make any urine. We'll see if we can order some abuse panel by blood. Ultimately, I think he will need evaluation by a neurologist. He has word salad and at times evidence of expressive aphasia. He has choreiform movements of his arms and trunk. He also exhibits bulbar symptoms with inappropriate laughter. I question as to whether or not he has the beginnings of some underlying dementia. (3) ESRD on hemodialysis Plan: Dialysis Thursday. (4) Anemia in chronic kidney disease Plan: Stable. (5) Left hip pain Plan: When necessary Percocet will be available. CT abdomen and pelvis does not show anything acute with his hip. - Time Time Spent with patient: 35 or more minutes Anticipated discharge: Home - Inpatient Certification Medical Necessity: Significant Comorbidiites Make Outpatient Treatment Too Risky , Need Close Monitoring Due to Risk of Patient Decompensation
[2016-12-14] MEDS ORDERED: (PENDING PHARMACY ID) (Clonidine Hcl [Catapres 0.3 Mg Tablet] 0.3 MG) PO SCH (14:00)
[2016-12-14] MEDS ORDERED: VANCOMYCIN HCL 0 MG in DEXTROSE 5%-WATER 250 ML IV NR (14:00)
[2016-12-14] MEDS ORDERED: LANTHANUM CARBONATE 1000 MG PO SCH (16:00)
[2016-12-14] MEDS ORDERED: VANCOMYCIN HCL 1,250 MG in DEXTROSE 5%-WATER 250 ML IV ONE (16:00)
--- NOTE | 2016-12-14 16:24 | PDOC CONSULTATION ---
Consultation Consult Date: 12/14/16 Attending physician:: SAM SILVER Consult reason:: I was asked by Dr. Briscoe for Dr. Douglass to see this patient due to ESRD and a questionable infection in the right kidney. History of Present Illness Admission Date/PCP: 12/13/16 15:40 Pat DOUGLASS MD History of Present Illness: ALEKSANDRA RECINOS is a 56 year old -[place] male with past medical history significant for end-stage renal disease on hemodialysis Thursday, hypertension, peripheral vascular disease, and dyslipidemia who presents to the service with confusion. The patient went for his dialysis on Thursday. That day his sister was supposed to drive him to dialysis. Although she came to pick him up the patient drove himself to dialysis because he didn't believe that she was actually in the house to drive him. This is an example of how confused the patient has been. According to his mother who was at the bedside, he is been confused off and on since he was diagnosed with a small stroke back in October. She feels as though things have been getting progressively worse. According to Dr. Briscoe's conversation with the emergency room physician, the patient drove himself to dialysis yesterday thinking that it was his day to be dialyzed. Once there, EMS was called and the patient was brought to the emergency room. I was informed about this by one of [facility] nurses. His mother knows some of his medical history and tells Dr. Briscoe that in addition to being confused he recently had vascular surgery in [place] for his left lower extremity (Dr. Hernandez). She also tells me that the patient admitted to her that he had fallen yesterday and hit his left hip. In the emergency room, the patient was found to have a temperature of 100.6, white blood cell count of 14 and a lactic acid of 3.5. LP was attempted this far it has not shown any bacteria on Gram stain. Chest x-ray was negative. CT of the head was done and was negative. Urinalysis was pursued however the patient does not make urine. Straight catheter was performed but yielded a dry tap. The patient was given a dose of Rocephin empirically. A CT scan of the abdomen was done and revealed a finding of some air in the right kidney which the radiologist initially read as a possible infectious process. However the patient and the mother. Risk and reported that he had a right nephrectomy. The patient confirmed it today but he could not tell me if it was a total or partial nephrectomy. I did look at the CT scan myself and it appeared that he did have a right kidney with some abnormalities which I thought could be due to previous surgery rather than the reported air suggestive of infection. I called Dr. Suleman henry, radiologist and inform him of the history of " nephrectomy"per patient and mother. He suggested to get an CT scan with IV contrast to confirm it which I don't think really is necessary at this point if the only reason for repeating the CT scan with contrast is just to confirm it. However an addendum regarding this probably needs to be done. When I talked to the patient today it's obvious that the patient seems to be having a lot of memory lapses. He admits that he seems to be a little disoriented at times. He also admits that this is been going on for a while. He is very slow to respond to question and is having a lot of word finding seems like. Although he does answer questions appropriately and is oriented 3 , he could not really remember exactly why he was brought into the emergency room. He tells me that his last dialysis was Thursday but he didn't tell me that he did drive to [facility] dialysis unit yesterday thinking that it was his dialysis day. He also tells me that he is having some abdominal pain with some nausea and vomiting yesterday and today. However due his nurse who was at bedside with me said that he did not have any nausea and vomiting today. He did have a headache and he was given some pain medication. He tells me that the pain medication sometimes messes up his memory. He tells me that he was given pain medication after the surgery last and he took pain medications yesterday. Patient had an MRI during last admission in 10/21/2016 which showed extensive white matter disease, small vessel changes versus demyelinating changes. This was not however indicated on the MRI that was done during this visit. He was admitted with some encephalopathy last October which was thought to be secondary to hypertension. Today he denied any unusual shortness of breath and confirms that he does not make any urine. Continue that he needed to be dialyzed tomorrow. He denies any known fever nor chills. Past Medical History Cardiac Medical History: Reports: Hyperlipidemia, Hypertension-primary, Peripheral Vascular Disease - r leg surgery Renal/ Medical History: Reports: End Stage Renal Disease Malignancy Medical History: Reports: Renal (Kidney) Cancer - He had a right nephrectomy for renal cell cancer. GI Medical History: Reports: Gastroesophageal Reflux Disease, Hiatal Hernia Musculoskeltal Medical History: Reports: Arthritis - r thumb Past Surgical History Past Surgical History: Reports: Dialysis Access Surgery AVF, Orthopedic Surgery , Tonsillectomy Social History Information Source: [facility] Records Smoking Status: Current Every Day Smoker Cigarettes Packs Per Day: 1 - 1 pack will last the patient 3 days. He started smoking in his teen years Number of Years Smokin Last Time Smoked: 12/13/16 Frequency of Alcohol Use: Rare Hx Recreational Drug Use: Yes Drugs: Marijuana Hx Prescription Drug Abuse: No - Advance Directive Resuscitation Status: Full Code Family History Family History: Reviewed & Not Pertinent Parental Family History Reviewed: Yes Children Family History Reviewed: Yes Sibling(s) Family History Reviewed.: Yes Medication/Allergy Home Medications: Aspirin [Ecotrin] 81 mg PO DAILY 10/19/16 Calcitriol [Rocaltrol 0.5 mcg Capsule] 0.5 mcg PO DAILY 10/19/16 Clonidine HCl [Catapres 0.3 mg Tablet] 0.3 mg PO Q8 10/19/16 Lanthanum Carbonate [Fosrenol] 1,000 mg PO AC 10/19/16 Metoprolol Tartrate [Lopressor 50 mg Tablet] 50 mg PO Q12 10/19/16 Minoxidil [Loniten 2.5 mg Tablet] 10 mg PO QHS 10/19/16 Vit B Cmplx 3/FA/Vit C/Biotin [Bettie-Ana Rx Tablet] 1 tab PO DAILY 10/19/16 Atorvastatin Calcium [Lipitor 40 mg Tablet] 40 mg PO QHS #30 tablet 10/23/16 Clopidogrel Bisulfate [Plavix 75 mg Tablet] 75 mg PO DAILY #30 tablet 10/23/16 Budesonide/Formoterol Fumarate [Symbicort Hfa 160-4.5 Mcg Inhaler 6 gm] 1 puff IH Q12 12/13/16 Minoxidil [Loniten 2.5 Mg Tablet] 5 mg PO DAILY 12/13/16 Allergies/Adverse Reactions: No Known Allergies Allergy (Verified 12/13/16 09:53) Review of Systems All systems: reviewed and no additional remarkable complaints except as stated Review of Systems: Constitutional: ABSENT: chills, fatigue, fever(s), headache(s), weight gain, weight loss Eyes: ABSENT: visual disturbances Ears: ABSENT: hearing changes Cardiovascular: ABSENT: chest pain, dyspnea on exertion, edema, orthropnea, palpitations Respiratory: ABSENT: cough, dyspnea, hemoptysis Gastrointestinal: ABSENT: constipation, diarrhea, hematemesis, hematochezia; reports abdominal pain, nausea and vomiting although not seen by his nurse today. Genitourinary: ABSENT: dysuria, hematuria Musculoskeletal: ABSENT: joint swelling Integumentary: ABSENT: rash, wounds Neurological: ABSENT: abnormal gait, abnormal speech, dizziness, focal weakness , numbness, syncope; admits headache, confusion and disorientation Psychiatric: ABSENT: anxiety, depression Endocrine: ABSENT: cold intolerance, heat intolerance, polydipsia, polyuria Hematologic/Lymphatic: ABSENT: easy bleeding, easy bruising, lymphadenopathy Physical Exam Vital Signs: Temp Pulse Resp BP Pulse Ox 98.5 F 80 20 165/64 H 100 12/14/16 12:00 12/14/16 12:00 12/14/16 12:00 12/14/16 12:00 12/14/16 12:00 Intake & Output 12/13/16 12/14/16 12/15/16 06:59 06:59 06:59 Intake Total 1650 0 Output Total 0 0 Balance 1650 0 Weight 60.4 kg Exam: General appearance: no acute distress, cooperative, well-developed, well- nourished Head exam: PRESENT: atraumatic, normocephalic Eye exam: PRESENT: Conjunctiva [place], EOMI, PERRLA. ABSENT: conjunctival injection, scleral icterus Mouth exam: PRESENT: moist, neck supple, tongue midline Neck exam: PRESENT: full ROM. ABSENT: carotid bruit, JVD, lymphadenopathy, thyromegaly Respiratory exam: PRESENT: clear to auscultation bilaterally. ABSENT: rales, rhonchi, stridor, wheezes Cardiovascular exam: PRESENT: RRR, +S1, +S2. ABSENT: systolic murmur Pulses: PRESENT: normal radial pulses, normal dorsalis pedis pulses GI/Abdominal exam: PRESENT: normal bowel sounds, soft. ABSENT: guarding, mass, tenderness Rectal exam: deferred Extremities exam: PRESENT: full ROM. ABSENT: calf tenderness, pedal edema Musculoskeletal: PRESENT: full ROM. ABSENT: deformity Neurological exam: PRESENT: alert, Awake, Oriented to person, Oriented to place , Oriented to time, reflexes normal, CN II-XII grossly intact. Patient is slow to respond to questioning and is a lot of word finding issues, seems to have a lot of memory issues ABSENT: motor sensory deficit Psychiatric exam: PRESENT: appropriate affect, normal mood. ABSENT: homicidal ideation, suicidal ideation Skin exam: PRESENT: intact, dry, warm. ABSENT: rash Results Laboratory Results: 12/14/16 06:29 12/14/16 06:29 12/14/16 12/14/16 12/14/16 00:13 06:29 06:29 WBC 14.3 H RBC 3.42 L Hgb 10.6 L Hct 31.7 L MCV 93 MCH 31.1 MCHC 33.5 RDW 16.0 H Plt Count 228 Seg Neutrophils % 78.6 H Lymphocytes % 13.3 Monocytes % 6.9 Eosinophils % 0.9 Basophils % 0.3 Absolute Neutrophils 11.2 H Absolute Lymphocytes 1.9 Absolute Monocytes 1.0 Absolute Eosinophils 0.1 Absolute Basophils 0.0 Sodium 142.0 Potassium 3.7 Chloride 101 Carbon Dioxide 24 Anion Gap 17 BUN 37 H Creatinine 10.34 H Est GFR ( Amer) 6 L Est GFR (Non-Af Amer) 5 L Glucose 84 Calcium 9.4 Magnesium 2.0 2.0 Ammonia TSH 12/14/16 12/14/16 06:29 06:29 WBC RBC Hgb Hct MCV MCH MCHC RDW Plt Count Seg Neutrophils % Lymphocytes % Monocytes % Eosinophils % Basophils % Absolute Neutrophils Absolute Lymphocytes Absolute Monocytes Absolute Eosinophils Absolute Basophils Sodium Potassium Chloride Carbon Dioxide Anion Gap BUN Creatinine Est GFR ( Amer) Est GFR (Non-Af Amer) Glucose Calcium Magnesium Ammonia 20.4 TSH 0.96 Impressions: Head MRI 12/13/16 00:00 IMPRESSION: MINIMAL MICROVASCULAR ISCHEMIC CHANGE. OTHERWISE NORMAL STUDY. Chest X-Ray 12/13/16 09:21 IMPRESSION: NO SIGNIFICANT RADIOGRAPHIC FINDING IN THE CHEST. Head CT 12/13/16 09:21 IMPRESSION: MILD CHRONIC CHANGES OF ATROPHY AND MICROVASCULAR ISCHEMIA. NO ACUTE PROCESS. Abdomen/Pelvis CT 12/13/16 12:22 IMPRESSION: Limited study as noted above. Air is identified within the right kidney and the possibility of an infected process should be considered. There is increased density in the expected position of the gallbladder as noted above suggesting biliary sludge or tiny gallstones. Other findings as noted above Assessment & Plan - Diagnosis (1) Acute encephalopathy Is this a current diagnosis for this admission?: YesPlan: This could either be acute or subacute which seems to be going on for a while. Whether this is related to possible acute infection or to ongoing neurologic process is a possibility. I suggest neurology consult and continuation of antibiotics for possible infection. So far no specific source of infection is identified. The abnormality reported in the right kidney could be due to the previous surgical procedure rather than infectious process. This was discussed with the radiologist as above. (2) ESRD on hemodialysis Is this a current diagnosis for this admission?: YesPlan: We will plan to dialyze tomorrow. I will inform Dr. Jhon Douglass of the patient's admission so he can follow-up the patient starting tomorrow. (3) Anemia in chronic kidney disease Is this a current diagnosis for this admission?: Yes (4) Hypertension Is this a current diagnosis for this admission?: YesPlan: Acceptable at this point considering his history of resistant hypertension. (5) SIRS (systemic inflammatory response syndrome) Is this a current diagnosis for this admission?: Yes - Notes Notes: Thank you very much for this consultation. We will inform Dr. Douglass so he can assume care from tomorrow from nephrology standpoint. - Time Time Spent: 50 to 70 Minutes
[2016-12-14] MEDS: LANTHANUM CARBONATE 500 MG TAB.CHEW PO SCH (17:14)
[2016-12-14] MEDS: METOPROLOL TARTRATE 50 MG TABLET PO SCH (22:36)
[2016-12-14] MEDS: ATORVASTATIN CALCIUM 40 MG TABLET PO SCH (22:36)
[2016-12-14] MEDS: CLONIDINE HCL 0.2 MG TABLET PO SCH (22:36)
[2016-12-14] MEDS: BUDESONIDE/FORMOTEROL 160-4.5 MCG 60 PUFF/6 GM MDI IH SCH (22:37)
[2016-12-14] MEDS: MINOXIDIL 2.5 MG TABLET PO SCH (22:37)
[2016-12-15] MEDS: OXYCODONE-ACETAMINOPHEN 5-325 MG TABLET PO PRN (04:25)
[2016-12-15] MEDS: CLONIDINE HCL 0.2 MG TABLET PO SCH ×3 (05:02→21:20)
[2016-12-15] MEDS: HEPARIN SOD (PORCINE) 5,000 UNIT/ML 1 ML SYRINGE SUBCUT SCH ×3 (05:02→21:20)
[2016-12-15 07:28] LABS: ABSOLUTE EOSINOPHILS # (AUTO) 0.3 10^3/uL (0.0-0.6); ABSOLUTE LYMPHOCYTES (AUTO) 1.7 10^3/uL (0.5-4.7); ABSOLUTE NEUT (AUTO) 8.6 10^3/uL (1.7-8.2); BASOPHILS % (AUTO) 0.2 % (0-2); EOSINOPHILS % (AUTO) 2.2 % (0-6); HEMATOCRIT 33.3 % (37.9-51.0); HEMOGLOBIN 11.2 g/dL (13.5-17.0); HGB HCT DIFFERENCE 0.3; LYMPHOCYTES % (AUTO) 14.9 % (13-45); MEAN CORPUSCULAR HEMOGLOBIN 31.5 pg (27.0-33.4); MEAN CORPUSCULAR HGB CONC 33.5 g/dL (32.0-36.0); MEAN CORPUSCULAR VOLUME 94 fl (80-97); MONOCYTES % (AUTO) 8.5 % (3-13); RED BLOOD COUNT 3.54 10^6/uL (4.35-5.55); RED CELL DISTRIBUTION WIDTH 15.6 % (11.5-14.0); SEGMENTED NEUTROPHILS % (AUTO) 74.2 % (42-78); WHITE BLOOD COUNT 11.6 10^3/uL (4.0-10.5)
[2016-12-15 07:48] LABS: BLOOD UREA NITROGEN 57 mg/dL (7-20); CALCIUM 8.7 mg/dL (8.4-10.2); CARBON DIOXIDE 20 mmol/L (22-30); CREATININE RESULT 10.94 mg/dL (0.52-1.25); GLUCOSE 79 mg/dL (75-110); POTASSIUM 4.3 mmol/L (3.6-5.0)
[2016-12-15 08:01] LABS: CHLORIDE 96 mmol/L (98-107); SODIUM 137.3 mmol/L (137-145)
[2016-12-15 08:07] LABS: ANION GAP 21 (5-19)
[2016-12-15] MEDS: CALCITRIOL 0.25 MCG CAPSULE PO SCH (09:33)
[2016-12-15] MEDS: CEFTRIAXONE 1 GM/D5W RTU 50 ML IV SCH (09:33)
[2016-12-15] MEDS: LANTHANUM CARBONATE 500 MG TAB.CHEW PO SCH ×3 (09:34→16:23)
[2016-12-15] MEDS: ASPIRIN 81 MG TABLET, ENT COATED PO SCH (09:34)
[2016-12-15] MEDS: CLOPIDOGREL BISULFATE 75 MG TABLET PO SCH (09:34)
[2016-12-15] MEDS: METOPROLOL TARTRATE 50 MG TABLET PO SCH ×2 (09:35→21:20)
[2016-12-15] MEDS: FOLIC ACID/VITAMIN B COMP W-C CAPSULE PO SCH (09:35)
[2016-12-15] MEDS: BUDESONIDE/FORMOTEROL 160-4.5 MCG 60 PUFF/6 GM MDI IH SCH ×2 (09:36→21:20)
[2016-12-15] MEDS ORDERED: (PENDING PHARMACY ID) (Calcitriol [Rocaltrol 0.5 Mcg Capsule] 0.5 MCG) PO SCH (10:00)
[2016-12-15] MEDS ORDERED: (PENDING PHARMACY ID) (Vit B Cmplx 3/Fa/Vit C/Biotin [Rena-Vite Rx Tablet] 1 TAB) PO SCH (10:00)
--- NOTE | 2016-12-15 14:00 | PDOC PROGRESS REPORT ---
Subjective Progress Note for:: 12/15/16 Subjective:: This is a follow-up visit for SIRS/sepsis. The patient was seen today at the bedside. He complains of electric shocks going down both arms. I reviewed since updated labs with him this morning. Physical Exam Vital Signs: Temp Pulse Resp BP Pulse Ox 97.6 F 60 18 139/57 H 100 12/15/16 07:28 12/15/16 07:28 12/15/16 07:28 12/15/16 07:28 12/15/16 07:28 Intake & Output 12/14/16 12/15/16 12/16/16 06:59 06:59 06:59 Intake Total 1650 2562 Output Total 0 0 Balance 1650 2562 Weight 60.4 kg 61.3 kg Physical exam: Gen.: Well-developed undernourished appearing -[place] male resting in bed in no acute distress. Heart: Regular rate and rhythm. 2/6 systolic ejection murmur. No rubs or gallops. Lungs: Clear to auscultation bilaterally equal rise and fall of the chest. Abdomen: Soft, nontender nondistended, flat. Extremities: No clubbing cyanosis, or edema. 1+ peripheral pulses. Neuro: He is awake and alert. He is much more aware today and is able to hold the entire conversation. His word salad has decreased. However, he still has difficulty getting words out. During these instances of difficulty he sometimes laughs inappropriately. He has choreiform movements of his arms and trunk. Skin: Normal color warm, dry Results Laboratory Results: 12/15/16 06:41 12/15/16 06:41 12/15/16 12/15/16 06:41 06:41 WBC 11.6 H RBC 3.54 L Hgb 11.2 L Hct 33.3 L MCV 94 MCH 31.5 MCHC 33.5 RDW 15.6 H Plt Count 215 Seg Neutrophils % 74.2 Lymphocytes % 14.9 Monocytes % 8.5 Eosinophils % 2.2 Basophils % 0.2 Absolute Neutrophils 8.6 H Absolute Lymphocytes 1.7 Absolute Monocytes 1.0 Absolute Eosinophils 0.3 Absolute Basophils 0.0 Sodium 137.3 Potassium 4.3 Chloride 96 L Carbon Dioxide 20 L Anion Gap 21 H BUN 57 H Creatinine 10.94 H Est GFR ( Amer) 6 L Est GFR (Non-Af Amer) 5 L Glucose 79 Calcium 8.7 Magnesium 2.0 Impressions: Head MRI 12/13/16 00:00 IMPRESSION: MINIMAL MICROVASCULAR ISCHEMIC CHANGE. OTHERWISE NORMAL STUDY. Chest X-Ray 12/13/16 09:21 IMPRESSION: NO SIGNIFICANT RADIOGRAPHIC FINDING IN THE CHEST. Head CT 12/13/16 09:21 IMPRESSION: MILD CHRONIC CHANGES OF ATROPHY AND MICROVASCULAR ISCHEMIA. NO ACUTE PROCESS. Abdomen/Pelvis CT 12/13/16 12:22 IMPRESSION: Limited study as noted above. Air is identified within the right kidney and the possibility of an infected process should be considered. There is increased density in the expected position of the gallbladder as noted above suggesting biliary sludge or tiny gallstones. Other findings as noted above Assessment & Plan - Diagnosis (1) SIRS (systemic inflammatory response syndrome) Is this a current diagnosis for this admission?: YesPlan: Patient presented with a low-grade fever, elevated white count. He certainly has SIRS syndrome. LP was negative, chest x-ray was negative, CT of the abdomen and pelvis indicate there could be an infection in the kidneys. Continue Rocephin for now. His blood cell count remains elevated but overall lower than when he came in. At this point a kidney infection is all we have to go on. We'll try getting a urinalysis in the emergency room but it was a dry tap (2) Altered mental status Qualifiers: Altered mental status type: unspecified Qualified Code(s): R41.82 - Altered mental status, unspecified Plan: Unclear as to why the patient is confused. He has SIRS syndrome and this certainly could account for it. He is much more clear today. He has a history of stroke that occurred back in October. Workup thus far has been negative. MRI of the brain was negative. Blood cultures thus far are negative. Chest x-ray negative for infection. LP is negative. At this point I must consider withdrawal from alcohol or medications such as opioids. He denies drinking. We are unable to obtain urinalysis, as the patient does not make any urine. I have ordered drugs of abuse panel via blood. However, this is a send out and will take several days to come back. Ultimately, I think he will need evaluation by a neurologist. He has word salad and at times evidence of expressive aphasia. He has choreiform movements of his arms and trunk. He also exhibits bulbar symptoms with inappropriate laughter. I question as to whether or not he has the beginnings of some underlying dementia. Although the family may disagree that he is back to himself, the patient has been experiencing these symptoms for the last month. I suspect that what I find today is likely his baseline. (3) ESRD on hemodialysis Is this a current diagnosis for this admission?: YesPlan: Dialysis Thursday. (4) Anemia in chronic kidney disease Is this a current diagnosis for this admission?: YesPlan: Stable. (5) Left hip pain Plan: When necessary Percocet will be available. CT abdomen and pelvis does not show anything acute with his hip. - Time Time Spent with patient: 15-24 minutes - Inpatient Certification Medical Necessity: Need Close Monitoring Due to Risk of Patient Decompensation
--- NOTE | 2016-12-15 15:14 | PDOC PROGRESS REPORT ---
Subjective Progress Note for:: 12/15/16 Subjective:: Patient's chart was reviewed. Patient is mobile awake and alert and that he is slow responsive to questions. He has word finding difficulty. He has got some intermittent jerking movements as well. He mentions that he had an intervention done to his left femoral artery by Dr. Hernandez last week. He denies any history of pain in his leg of fever or chills. He is being seen on dialysis which is undergoing without any issues or complications. Orders were discussed with the treating dialysis nurse. Physical Exam Vital Signs: Temp Pulse Resp BP Pulse Ox 97.6 F 60 18 139/57 H 100 12/15/16 07:28 12/15/16 07:28 12/15/16 07:28 12/15/16 07:28 12/15/16 07:28 Intake & Output 12/14/16 12/15/16 12/16/16 06:59 06:59 06:59 Intake Total 1650 2562 Output Total 0 0 Balance 1650 2562 Weight 60.4 kg 61.3 kg General appearance: PRESENT: no acute distress Results Laboratory Results: 12/15/16 06:41 12/15/16 06:41 12/15/16 12/15/16 06:41 06:41 WBC 11.6 H RBC 3.54 L Hgb 11.2 L Hct 33.3 L MCV 94 MCH 31.5 MCHC 33.5 RDW 15.6 H Plt Count 215 Seg Neutrophils % 74.2 Lymphocytes % 14.9 Monocytes % 8.5 Eosinophils % 2.2 Basophils % 0.2 Absolute Neutrophils 8.6 H Absolute Lymphocytes 1.7 Absolute Monocytes 1.0 Absolute Eosinophils 0.3 Absolute Basophils 0.0 Sodium 137.3 Potassium 4.3 Chloride 96 L Carbon Dioxide 20 L Anion Gap 21 H BUN 57 H Creatinine 10.94 H Est GFR ( Amer) 6 L Est GFR (Non-Af Amer) 5 L Glucose 79 Calcium 8.7 Magnesium 2.0 Impressions: Head MRI 12/13/16 00:00 IMPRESSION: MINIMAL MICROVASCULAR ISCHEMIC CHANGE. OTHERWISE NORMAL STUDY. Chest X-Ray 12/13/16 09:21 IMPRESSION: NO SIGNIFICANT RADIOGRAPHIC FINDING IN THE CHEST. Head CT 12/13/16 09:21 IMPRESSION: MILD CHRONIC CHANGES OF ATROPHY AND MICROVASCULAR ISCHEMIA. NO ACUTE PROCESS. Abdomen/Pelvis CT 12/13/16 12:22 IMPRESSION: Limited study as noted above. Air is identified within the right kidney and the possibility of an infected process should be considered. There is increased density in the expected position of the gallbladder as noted above suggesting biliary sludge or tiny gallstones. Other findings as noted above Assessment & Plan - Diagnosis (1) Acute encephalopathy Is this a current diagnosis for this admission?: YesPlan: Improving. It could be that he has had neurological deficit and is yet to show up on his imaging studies of the brain. However it could be also from sepsis related to his intervention done on his left femoral arteries recently as last week. Patient on antibiotics and overall seems to be making improvement. His white count is also improving. (2) Altered mental status Qualifiers: Altered mental status type: unspecified Qualified Code(s): R41.82 - Altered mental status, unspecified Plan: Improving. As mentioned earlier. (3) Anemia in chronic kidney disease Is this a current diagnosis for this admission?: YesPlan: Stable. No indications for erythropoietin now. (4) ESRD on hemodialysis Is this a current diagnosis for this admission?: YesPlan: Seen on hemodialysis. Undergoing dialysis without any issues. Orders were discussed with the treating nurse Johana. (5) SIRS (systemic inflammatory response syndrome) Is this a current diagnosis for this admission?: YesPlan: Possible as seen between the signs of his clinical picture and his labs. Patient seems to be improving.
[2016-12-15] MEDS ORDERED: VANCOMYCIN HCL 750 MG in DEXTROSE 5%-WATER 250 ML IV SCH (18:00)
[2016-12-15] MEDS: ATORVASTATIN CALCIUM 40 MG TABLET PO SCH (21:20)
[2016-12-15] MEDS: MINOXIDIL 2.5 MG TABLET PO SCH (21:20)
[2016-12-16] MEDS: HEPARIN SOD (PORCINE) 5,000 UNIT/ML 1 ML SYRINGE SUBCUT SCH ×3 (05:13→21:15)
[2016-12-16] MEDS: CLONIDINE HCL 0.2 MG TABLET PO SCH ×3 (05:13→21:14)
[2016-12-16 07:08] LABS: ABSOLUTE EOSINOPHILS # (AUTO) 0.2 10^3/uL (0.0-0.6); ABSOLUTE LYMPHOCYTES (AUTO) 1.5 10^3/uL (0.5-4.7); ABSOLUTE MONOCYTES (AUTO) 0.8 10^3/uL (0.1-1.4); ABSOLUTE NEUT (AUTO) 4.1 10^3/uL (1.7-8.2); BASOPHILS % (AUTO) 0.3 % (0-2); EOSINOPHILS % (AUTO) 3.2 % (0-6); HEMATOCRIT 30.6 % (37.9-51.0); HEMOGLOBIN 10.4 g/dL (13.5-17.0); HGB HCT DIFFERENCE 0.6; LYMPHOCYTES % (AUTO) 22.6 % (13-45); MEAN CORPUSCULAR HEMOGLOBIN 31.4 pg (27.0-33.4); MEAN CORPUSCULAR VOLUME 93 fl (80-97); MONOCYTES % (AUTO) 11.5 % (3-13); RED CELL DISTRIBUTION WIDTH 15.7 % (11.5-14.0); SEGMENTED NEUTROPHILS % (AUTO) 62.4 % (42-78); WHITE BLOOD COUNT 6.6 10^3/uL (4.0-10.5)
[2016-12-16 07:33] LABS: ANION GAP 12 (5-19); BLOOD UREA NITROGEN 39 mg/dL (7-20); CALCIUM 9.1 mg/dL (8.4-10.2); CARBON DIOXIDE 28 mmol/L (22-30); CHLORIDE 96 mmol/L (98-107); CREATININE RESULT 8.95 mg/dL (0.52-1.25); GLUCOSE 83 mg/dL (75-110); MAGNESIUM 1.9 mg/dL (1.6-2.3); POTASSIUM 4.1 mmol/L (3.6-5.0); SODIUM 135.9 mmol/L (137-145)
[2016-12-16] MEDS: LANTHANUM CARBONATE 500 MG TAB.CHEW PO SCH ×3 (09:08→17:51)
[2016-12-16] MEDS: CLOPIDOGREL BISULFATE 75 MG TABLET PO SCH (09:09)
[2016-12-16] MEDS: METOPROLOL TARTRATE 50 MG TABLET PO SCH ×2 (09:09→21:15)
[2016-12-16] MEDS: FOLIC ACID/VITAMIN B COMP W-C CAPSULE PO SCH (09:10)
[2016-12-16] MEDS: CALCITRIOL 0.25 MCG CAPSULE PO SCH (09:10)
[2016-12-16] MEDS: CEFTRIAXONE 1 GM/D5W RTU 50 ML IV SCH (09:10)
[2016-12-16] MEDS: ASPIRIN 81 MG TABLET, ENT COATED PO SCH (09:10)
[2016-12-16] MEDS: BUDESONIDE/FORMOTEROL 160-4.5 MCG 60 PUFF/6 GM MDI IH SCH ×2 (09:10→21:15)
--- NOTE | 2016-12-16 14:39 | PDOC PROGRESS REPORT ---
Subjective Progress Note for:: 12/16/16 Subjective:: Reason for hospital visit: Follow-up possible pyelonephritis, Sirs, altered mental status, end-stage renal disease. Hospital course: Her other providers, "ALEKSANDRA RECINOS is a 56 year old - [place] male with past medical history significant for end-stage renal disease on hemodialysis Thursday, hypertension, peripheral vascular disease, and dyslipidemia who presents to the service with confusion. The patient went for his dialysis on Thursday. That day his sister was supposed to drive him to dialysis. Although she came to pick him up the patient drove himself to dialysis because he didn't believe that she was actually in the house to drive him. This is an example of how confused the patient has been. According to his mother who was at the bedside, he is been confused off and on since he was diagnosed with a small stroke back in October. She feels as though things have been getting progressively worse. According to my conversation with the emergency room physician, the patient drove himself to dialysis today thinking that it was his day to be dialyzed. Once their EMS was called and the patient was brought to the emergency room. His mother knows some of his medical history and tells me that in addition to being confused he recently had vascular surgery in [place] for his left lower extremity (Dr. Bone). She also tells me that the patient admitted to her that he had fallen yesterday and hit his left hip. In the emergency room, the patient was found to have a temperature of 100.6, white blood cell count of 14 and a lactic acid of 3.5. LP was attempted this far it has not shown any bacteria on Gram stain. Chest x-ray was negative. CT of the head was done and was negative. Urinalysis was pursued however the patient does not make urine. Straight catheter was performed but yielded a dry tap. The patient was given a dose of Rocephin empirically. When I saw the patient was not able to answer many of my questions or participate in a physical exam. He was initially resting in bed but became quite agitated trying to climb out over the rails. He would either moan orally by mouth repeatedly "mama, mama." During the conversation with his mother he would suddenly, around and off for bit of information in moments of lucency. The patient however was not able to supply most of his medical history. Unclear as to why the patient is confused. He has SIRS syndrome and this certainly could account for it. He is much more clear today. He has a history of stroke that occurred back in October. Workup thus far has been negative. MRI of the brain was negative. Blood cultures thus far are negative. Chest x-ray negative for infection. LP is negative. At this point I must consider withdrawal from alcohol or medications such as opioids. He denies drinking. We are unable to obtain urinalysis, as the patient does not make any urine. I have ordered drugs of abuse panel via blood. However, this is a send out and will take several days to come back. Ultimately, I think he will need evaluation by a neurologist. He has word salad and at times evidence of expressive aphasia. He has choreiform movements of his arms and trunk. He also exhibits bulbar symptoms with inappropriate laughter. I question as to whether or not he has the beginnings of some underlying dementia. Although the family may disagree that he is back to himself, the patient has been experiencing these symptoms for the last month. I suspect that what I find today is likely his baseline. " I inherited his care Estella and found him awake and talkative, alert and oriented but c/o generalized weakness after dialysis yesterday. He denies chest pain, SOA, N/V/D, still has thigh pain but better today. ROS: total 10 systems reviewed, pertinent positives/negatives noted but remaining systems negative. Physical Exam Vital Signs: Temp Pulse Resp BP Pulse Ox 97.8 F 70 16 110/50 L 100 12/16/16 11:23 12/16/16 11:23 12/16/16 11:23 12/16/16 11:23 12/16/16 11:23 Intake & Output 12/15/16 12/16/16 12/17/16 06:59 06:59 06:59 Intake Total 2562 663 Output Total 0 4000 Balance 2562 -6937 Weight 61.3 kg 57.6 kg Results Laboratory Results: 12/16/16 06:28 12/16/16 06:28 12/16/16 12/16/16 06:28 06:28 WBC 6.6 RBC 3.30 L Hgb 10.4 L Hct 30.6 L MCV 93 MCH 31.4 MCHC 34.0 RDW 15.7 H Plt Count 231 Seg Neutrophils % 62.4 Lymphocytes % 22.6 Monocytes % 11.5 Eosinophils % 3.2 Basophils % 0.3 Absolute Neutrophils 4.1 Absolute Lymphocytes 1.5 Absolute Monocytes 0.8 Absolute Eosinophils 0.2 Absolute Basophils 0.0 Sodium 135.9 L Potassium 4.1 Chloride 96 L Carbon Dioxide 28 Anion Gap 12 BUN 39 H Creatinine 8.95 H Est GFR ( Amer) 7 L Est GFR (Non-Af Amer) 6 L Glucose 83 Calcium 9.1 Magnesium 1.9 Impressions: Head MRI 12/13/16 00:00 IMPRESSION: MINIMAL MICROVASCULAR ISCHEMIC CHANGE. OTHERWISE NORMAL STUDY. Chest X-Ray 12/13/16 09:21 IMPRESSION: NO SIGNIFICANT RADIOGRAPHIC FINDING IN THE CHEST. Head CT 12/13/16 09:21 IMPRESSION: MILD CHRONIC CHANGES OF ATROPHY AND MICROVASCULAR ISCHEMIA. NO ACUTE PROCESS. Abdomen/Pelvis CT 12/13/16 12:22 IMPRESSION: Limited study as noted above. Air is identified within the right kidney and the possibility of an infected process should be considered. There is increased density in the expected position of the gallbladder as noted above suggesting biliary sludge or tiny gallstones. Other findings as noted above Assessment & Plan - Diagnosis (1) Pyelonephritis, acute Is this a current diagnosis for this admission?: YesPlan: Probable, working diagnosis. No other source of infection/Sirs found. Responded to antibiotics. Cultures negative. (2) ESRD on hemodialysis Is this a current diagnosis for this admission?: YesPlan: Nephrology database reporting consultant, hemodialysis Thursday. (3) Hypertension Is this a current diagnosis for this admission?: YesPlan: Controlled. (4) SIRS (systemic inflammatory response syndrome) Is this a current diagnosis for this admission?: YesPlan: Improved. Continue antibiotics for another 24-48 hours. - Time Time Spent with patient: 25-34 minutes Medications reviewed and adjusted accordingly: Yes - Plan Summary Plan Summary: Possibly switch to oral Keflex, anticipate discharge Thursday
[2016-12-16] MEDS: MINOXIDIL 2.5 MG TABLET PO SCH (21:15)
[2016-12-16] MEDS: ATORVASTATIN CALCIUM 40 MG TABLET PO SCH (21:15)
[2016-12-17 03:55] VITALS: BP 108/49
[2016-12-17] MEDS: LANTHANUM CARBONATE 500 MG TAB.CHEW PO SCH ×3 (08:00→16:00)
[2016-12-17] MEDS: FOLIC ACID/VITAMIN B COMP W-C CAPSULE PO SCH (10:00)
[2016-12-17] MEDS: ASPIRIN 81 MG TABLET, ENT COATED PO SCH (10:00)
[2016-12-17] MEDS: CEFTRIAXONE 1 GM/D5W RTU 50 ML IV SCH (10:00)
[2016-12-17] MEDS: BUDESONIDE/FORMOTEROL 160-4.5 MCG 60 PUFF/6 GM MDI IH SCH (10:00)
[2016-12-17] MEDS: CALCITRIOL 0.25 MCG CAPSULE PO SCH (10:00)
[2016-12-17] MEDS: METOPROLOL TARTRATE 50 MG TABLET PO SCH (10:00)
[2016-12-17] MEDS: CLOPIDOGREL BISULFATE 75 MG TABLET PO SCH (10:00)
[2016-12-17] MEDS: CLONIDINE HCL 0.2 MG TABLET PO SCH (14:00)
[2016-12-17] MEDS: HEPARIN SOD (PORCINE) 5,000 UNIT/ML 1 ML SYRINGE SUBCUT SCH (14:00)
--- NOTE | 2016-12-18 09:15 | PROGRESS NOTE E ---
Progress Note NAME: ALEKSANDRA RECINOS : 1960 AGE: 56Y DATE: 12/17/2016 ROOM: 321 SUBJECTIVE: The patient was seen on dialysis today. He is undergoing dialysis without any issues. Orders were reviewed and discussed with the treating nurse, Keerthi. Patient states he is feeling a whole better as far as his altered mental status and word finding. He states he has been ambulating without any history of orthostasis or falls. He states he has been referred to the neurologist and is waiting to see him as an outpatient but unsure of when the appointment will be. The patient denies any history of chest pain or shortness of breath. No history of nausea of vomiting. No history of any headaches. OBJECTIVE: GENERAL: Clinically, he was comfortable. VITAL SIGNS: Blood pressure of 140/80, pulse of 68, temperature 98.6. CARDIOVASCULAR SYSTEM: JVD was not elevated. Both heart sounds heard normally, regular, no rubs or gallops. CHEST: Examination was clear to auscultation/percussion. No wheezing. No crackles. ABDOMEN: Soft, nontender. No organomegaly. Bowel sounds heard normally. LOWER EXTREMITIES: No edema. LABORATORY: Reviewed with hemoglobin at 10.1. ASSESSMENT: 1. ALTERED MENTAL STATUS. The patient also had evidence to indicate that he possibly has sepsis. He is on antibiotics and improving. Patient's antibiotics are being currently managed by Hospitalist. If he needs to be on vancomycin that he is on, I can continue that as an outpatient at [facility]. However, I will see if I can discuss with the hospitalist his outpatient antibiotic regimen. 2.ESRD. He is already on hemodialysis. Patient undergoing dialysis without any issues. Plan is for discharge soon. 3. HYPERTENSION. Stable. DICTATING PHYSICIAN: Katrin QUINONEZ M.D. [id number] PHY#: [id number] ID: [id number] JOB#: [id number] ACCT: [id number] cc:RED , Katrin PRICE M.D. > MTDD
[2016-12-19 15:26] LABS: CALCIUM 9.7 mg/dL (8.4-10.2); GLUCOSE 91 mg/dL (75-110)
[2016-12-19 15:28] LABS: BLOOD UREA NITROGEN 66 mg/dL (7-20); CARBON DIOXIDE 27 mmol/L (22-30); CHLORIDE 92 mmol/L (98-107); CREATININE RESULT 11.01 mg/dL (0.52-1.25); POTASSIUM 4.6 mmol/L (3.6-5.0)
[2016-12-19 15:29] LABS: ALANINE AMINOTRANSFERASE 37 U/L (21-72); ALBUMIN 3.8 g/dL (3.5-5.0); ALKALINE PHOSPHATASE 145 U/L (38-126); ANION GAP 19 (5-19); ASPARTATE AMINO TRANSFERASE 41 U/L (17-59); BILIRUBIN,DIRECT 0.8 mg/dL (0.0-0.4); BILIRUBIN,TOTAL 0.9 mg/dL (0.2-1.3); SODIUM 137.7 mmol/L (137-145)
--- NOTE | 2017-01-27 14:50 | PDOC DISCHARGE SUMMARY ---
General - Admit/Disc Date/PCP Admission Date/Primary Care Provider: 12/13/16 15:40 Pat QUINONEZ MD Discharge Date: 12/17/16 - Discharge Diagnosis (1) Pyelonephritis, acute Is this a current diagnosis for this admission?: YesSummary: cultures all negative, no clear source ever elucidated. discussed with dr quinonez who will re-eval after next dialysis the need for ongoing abx. (2) ESRD on hemodialysis Is this a current diagnosis for this admission?: YesSummary: resume usual HD regimen (3) Hypertension Is this a current diagnosis for this admission?: YesSummary: good control on current regimen (4) SIRS (systemic inflammatory response syndrome) Is this a current diagnosis for this admission?: YesSummary: resolved, unclear source; negative lumbar puncture and negative culx's - Additional Information Resuscitation Status: Full Code Home Medications: Aspirin [Ecotrin] 81 mg PO DAILY 10/19/16 Calcitriol [Rocaltrol 0.5 mcg Capsule] 0.5 mcg PO DAILY 10/19/16 Clonidine HCl [Catapres 0.3 mg Tablet] 0.3 mg PO Q8 10/19/16 Lanthanum Carbonate [Fosrenol] 1,000 mg PO AC 10/19/16 Metoprolol Tartrate [Lopressor 50 mg Tablet] 50 mg PO Q12 10/19/16 Minoxidil [Loniten 2.5 mg Tablet] 10 mg PO QHS 10/19/16 Vit B Cmplx 3/FA/Vit C/Biotin [Bettie-Ana Rx Tablet] 1 tab PO DAILY 10/19/16 Atorvastatin Calcium [Lipitor 40 mg Tablet] 40 mg PO QHS #30 tablet 10/23/16 Clopidogrel Bisulfate [Plavix 75 mg Tablet] 75 mg PO DAILY #30 tablet 10/23/16 Budesonide/Formoterol Fumarate [Symbicort Hfa 160-4.5 Mcg Inhaler 6 gm] 1 puff IH Q12 12/13/16 Minoxidil [Loniten 2.5 Mg Tablet] 5 mg PO DAILY 12/13/16 Methocarbamol [Robaxin 500 mg Tablet] 500 mg PO BID PRN #30 tablet 12/26/16 Ondansetron [Zofran Odt 4 mg Tablet] 1 - 2 tab PO Q4H PRN #15 tab.rapdis History of Present Illness Patient complains of: confusion History of Present Illness: ALEKSANDRA RECINOS is a 56 year old -Marshallese male with past medical history significant for end-stage renal disease on hemodialysis Thursday, hypertension, peripheral vascular disease, and dyslipidemia who presents to the service with confusion. Hospital Course Hospital Course: Hospital course: Her other providers, "The patient went for his dialysis on Thursday. That day his sister was supposed to drive him to dialysis. Although she came to pick him up the patient drove himself to dialysis because he didn't believe that she was actually in the house to drive him. This is an example of how confused the patient has been. According to his mother who was at the bedside, he is been confused off and on since he was diagnosed with a small stroke back in October. She feels as though things have been getting progressively worse. According to my conversation with the emergency room physician, the patient drove himself to dialysis today thinking that it was his day to be dialyzed. Once their EMS was called and the patient was brought to the emergency room. His mother knows some of his medical history and tells me that in addition to being confused he recently had vascular surgery in [place] for his left lower extremity (Dr. Bone). She also tells me that the patient admitted to her that he had fallen yesterday and hit his left hip. In the emergency room, the patient was found to have a temperature of 100.6, white blood cell count of 14 and a lactic acid of 3.5. LP was attempted this far it has not shown any bacteria on Gram stain. Chest x-ray was negative. CT of the head was done and was negative. Urinalysis was pursued however the patient does not make urine. Straight catheter was performed but yielded a dry tap. The patient was given a dose of Rocephin empirically. When I saw the patient was not able to answer many of my questions or participate in a physical exam. He was initially resting in bed but became quite agitated trying to climb out over the rails. He would either moan orally by mouth repeatedly "mama, mama." During the conversation with his mother he would suddenly, around and off for bit of information in moments of lucency. The patient however was not able to supply most of his medical history. Unclear as to why the patient is confused. He has SIRS syndrome and this certainly could account for it. He is much more clear today. He has a history of stroke that occurred back in October. Workup thus far has been negative. MRI of the brain was negative. Blood cultures thus far are negative. Chest x-ray negative for infection. LP is negative. At this point I must consider withdrawal from alcohol or medications such as opioids. He denies drinking. We are unable to obtain urinalysis, as the patient does not make any urine. I have ordered drugs of abuse panel via blood. However, this is a send out and will take several days to come back. Ultimately, I think he will need evaluation by a neurologist. He has word salad and at times evidence of expressive aphasia. He has choreiform movements of his arms and trunk. He also exhibits bulbar symptoms with inappropriate laughter. I question as to whether or not he has the beginnings of some underlying dementia. Although the family may disagree that he is back to himself, the patient has been experiencing these symptoms for the last month. I suspect that what I find today is likely his baseline. " I inherited his care Estella and found him awake and talkative, alert and oriented but c/o generalized weakness after dialysis yesterday. He denies chest pain, SOA, N/V/D, still has thigh pain but better today. he had steady improvement with each passing day, negative workup for acute infectious process and no clear explanation for his presentation. He finished HD without complication and seems to be back to his baseline and is stable for d/c home at this time. he is to keep his usual dialysis appts, f/u with dr quinonez per his instructions and return to the ED for any worsening of his symptoms. Physical Exam Vital Signs: Temp Pulse Resp BP Pulse Ox 97.7 F 68 12 108/49 L 100 12/17/16 03:30 12/17/16 03:30 12/17/16 03:30 12/17/16 03:30 12/17/16 03:30 Results Laboratory Results: 12/16/16 06:28 12/17/16 06:19 Impressions: Head MRI 12/13/16 00:00 IMPRESSION: MINIMAL MICROVASCULAR ISCHEMIC CHANGE. OTHERWISE NORMAL STUDY. Chest X-Ray 12/13/16 09:21 IMPRESSION: NO SIGNIFICANT RADIOGRAPHIC FINDING IN THE CHEST. Head CT 12/13/16 09:21 IMPRESSION: MILD CHRONIC CHANGES OF ATROPHY AND MICROVASCULAR ISCHEMIA. NO ACUTE PROCESS. Abdomen/Pelvis CT 12/13/16 12:22 IMPRESSION: Limited study as noted above. Air is identified within the right kidney and the possibility of an infected process should be considered. There is increased density in the expected position of the gallbladder as noted above suggesting biliary sludge or tiny gallstones. Other findings as noted above Qualifiers PATEINT BEING DISCHARGED WITH ANY OF THE FOLLOWING DIAGNOSIS?: No VTE patient discharged on overlapping Therapy?: No Reason(s) for not prescribing Overlap Therapy:: Not indicated Plan Discharge Plan: d/c home with f/u as noted above Time Spent: Less than 30 Minutes
== END 2016-12-17 17:45 | disposition home or self-care (01) | DRG 689 ==
LOC: ER 09:12 → EH 15:38 → UNDOADMIN 15:38 → EH 15:40 → 3W 21:11
PROVIDERS: ADMIT Hospitalist; ATTEND Hospitalist
PROC: 009U3ZX Drainage of Spinal Canal, Percutaneous Approach, Diagnostic (ICD-10-PCS; principal; 2016-12-13)
PROC: 5A1D60Z (ICD-10-PCS; 2016-12-15)
DX: N10 Acute pyelonephritis (principal); G93.40 Encephalopathy, unspecified; I12.0 Hypertensive chronic kidney disease with stage 5 chronic kidney disease or end stage renal disease; E46 Unspecified protein-calorie malnutrition; Z68.1 Body mass index [BMI] 19.9 or less, adult; R47.01 Aphasia; N18.6 End stage renal disease; Z99.2 Dependence on renal dialysis; I73.9 Peripheral vascular disease, unspecified; E78.5 Hyperlipidemia, unspecified; K21.9 Gastro-esophageal reflux disease without esophagitis; K44.9 Diaphragmatic hernia without obstruction or gangrene; D63.1 Anemia in chronic kidney disease; M18.11 Unilateral primary osteoarthritis of first carpometacarpal joint, right hand; F17.210 Nicotine dependence, cigarettes, uncomplicated; M25.552 Pain in left hip; Z82.49 Family history of ischemic heart disease and other diseases of the circulatory system; Z83.3 Family history of diabetes mellitus; Z79.82 Long term (current) use of aspirin; Z79.899 Other long term (current) drug therapy; Z86.73 Personal history of transient ischemic attack (TIA), and cerebral infarction without residual deficits; Z90.5 Acquired absence of kidney; Z85.528 Personal history of other malignant neoplasm of kidney; F12.90 Cannabis use, unspecified, uncomplicated; R29.6 Repeated falls; Z98.890 Other specified postprocedural states
CPT/HCPCS: 36415; 70450; 70551; 71020; 74176; 80048; 80053; 80202; 80307; 82140; 82550; 82803; 82945; 83605; 83690; 83735; 84157; 84443; 85025; 85610; 85730; 87040; 87070; 87205; 87804; 89050; 93005; 93010; 96361; 96365; 99153; 99291; 99292; J0696; J1644; J2250; J3370; J3480; J3490; J7030; J7040; J7060

== ENCOUNTER 2016-12-26 09:46 | Emergency (ER) | payer MEDICARE, BC ==
[2016-12-26] MEDS ORDERED: NORMAL SALINE 1000 ML 250 ML IV ONE (10:13)
[2016-12-26 11:27] LABS: ABSOLUTE EOSINOPHILS # (AUTO) 0.2 10^3/uL (0.0-0.6); ABSOLUTE LYMPHOCYTES (AUTO) 1.6 10^3/uL (0.5-4.7); ABSOLUTE MONOCYTES (AUTO) 0.4 10^3/uL (0.1-1.4); ABSOLUTE NEUT (AUTO) 3.3 10^3/uL (1.7-8.2); BASOPHILS % (AUTO) 0.5 % (0-2); EOSINOPHILS % (AUTO) 3.6 % (0-6); HEMATOCRIT 32.2 % (37.9-51.0); HEMOGLOBIN 10.8 g/dL (13.5-17.0); HGB HCT DIFFERENCE 0.2; LYMPHOCYTES % (AUTO) 29.1 % (13-45); MEAN CORPUSCULAR HEMOGLOBIN 31.2 pg (27.0-33.4); MEAN CORPUSCULAR HGB CONC 33.6 g/dL (32.0-36.0); MEAN CORPUSCULAR VOLUME 93 fl (80-97); MONOCYTES % (AUTO) 7.9 % (3-13); RED BLOOD COUNT 3.47 10^6/uL (4.35-5.55); RED CELL DISTRIBUTION WIDTH 15.6 % (11.5-14.0); SEGMENTED NEUTROPHILS % (AUTO) 58.9 % (42-78); WHITE BLOOD COUNT 5.6 10^3/uL (4.0-10.5)
[2016-12-26 11:46] LABS: PROTHROMBIN TIME 12.9 SEC (11.4-15.4)
[2016-12-26 12:02] LABS: ALANINE AMINOTRANSFERASE 52 U/L (21-72); ALBUMIN 3.7 g/dL (3.5-5.0); ALKALINE PHOSPHATASE 147 U/L (38-126); ANION GAP 13 (5-19); ASPARTATE AMINO TRANSFERASE 35 U/L (17-59); BILIRUBIN,DIRECT 0.7 mg/dL (0.0-0.4); BILIRUBIN,TOTAL 0.7 mg/dL (0.2-1.3); BLOOD UREA NITROGEN 34 mg/dL (7-20); CALCIUM 9.8 mg/dL (8.4-10.2); CARBON DIOXIDE 30 mmol/L (22-30); CHLORIDE 97 mmol/L (98-107); CREATININE RESULT 7.87 mg/dL (0.52-1.25); GLUCOSE 113 mg/dL (75-110); POTASSIUM 3.8 mmol/L (3.6-5.0); TOTAL PROTEIN 6.7 g/dL (6.3-8.2)
--- NOTE | 2016-12-26 12:12 | RADIOLOGY REPORT (SQ) ---
EXAM DESCRIPTION: CT HEAD WITHOUT COMPLETED DATE/TIME: 12/26/2016 12:01 pm REASON FOR STUDY: ALtered sensation COMPARISON: Multiple previous studies most recent of which was 12/13/2016 TECHNIQUE: Axial images acquired through the brain without intravenous contrast. Images reviewed wi th bone, brain and subdural windows. Images stored on PACS. All CT scanners at this facility use dose modulation, iterative reconstruction, and/or weight based d osing when appropriate to reduce radiation dose to as low as reasonably achievable (ALARA). [facility]: Dose Right [facility]: CareDose [facility]: Dose Right [facility]: Teradose 4D [facility]: [employer] RADIATION DOSE: 64.61 mGy. LIMITATIONS: None. FINDINGS: VENTRICLES: Prominent. CEREBRUM: No masses. No hemorrhage. No midline shift. Areas of low density in the white matter mos t likely due to chronic micro-vascular ischemic change. No evidence for acute infarction. CEREBELLUM: No masses. No hemorrhage. No alteration of density. No evidence for acute infarction. EXTRAAXIAL SPACES: Mild age-related involutional change. No fluid collections. No masses. ORBITS AND GLOBE: No intra- or extraconal masses. Normal contour of globe without masses. CALVARIUM: No fracture. PARANASAL SINUSES: No fluid or mucosal thickening. SOFT TISSUES: No mass or hematoma. OTHER: Calcification of the falx is again identified. IMPRESSION: MILD CHRONIC CHANGES OF ATROPHY AND MICROVASCULAR ISCHEMIA. NO ACUTE PROCESS. TECHNICAL DOCUMENTATION: JOB ID: [id number] Quality ID # [id number]: Final reports with documentation of one or more dose reduction techniques (e.g., Au tomated exposure control, adjustment of the mA and/or kV according to patient size, use of iterative reconstruction technique) 2010 [employer]- All Rights Reserved
--- NOTE | 2016-12-26 12:28 | ER Document Report ---
ED General - General Chief Complaint: Low Blood Pressure Stated Complaint: WEAKNESS Time Seen by Provider: 12/26/16 10:06 TRAVEL OUTSIDE OF THE [place] IN LAST 30 DAYS: No - HPI Onset: This morning - This 56-year-old male presents to the emergency room today stating had nausea and vomiting ongoing since approximately 2:00 this morning. States lasting a prior to that episode was [employer] at about 6 PM. He states that the food did not taste as though it was bad. - Related Data Allergies/Adverse Reactions: No Known Allergies Allergy (Verified 12/13/16 09:53) Past Medical History - General Information source: Patient - Social History Smoking Status: Current Every Day Smoker Cigarette use (# per day): Yes Smoking Education Provided: Yes Frequency of alcohol use: None Drug Abuse: None Lives with: Family Family History: CAD, DM - Past Medical History Cardiac Medical History: Reports: Hx Hypercholesterolemia, Hx Hypertension, Hx Peripheral Vascular Disease - r leg surgery Denies: Hx Congestive Heart Failure, Hx Coronary Artery Disease, Hx Heart Attack Pulmonary Medical History: Denies: Hx Asthma, Hx Bronchitis, Hx COPD, Hx Pneumonia, Hx Tuberculosis Neurological Medical History: Denies: Hx Cerebrovascular Accident, Hx Seizures Renal/ Medical History: Reports: Hx End Stage Renal Disease, Hx Kidney Stones. Denies: Hx Benign Prostatic Hyperplasia, Hx Peritoneal Dialysis Malignancy Medical History: Reports Hx Renal (Kidney) Cancer - He had a right nephrectomy for renal cell cancer. GI Medical History: Reports: Hx Gastroesophageal Reflux Disease, Hx Hiatal Hernia Musculoskeltal Medical History: Reports Hx Arthritis - r thumb Psychiatric Medical History: Denies: Hx Depression Past Surgical History: Reports: Hx Abdominal Surgery, Hx Orthopedic Surgery, Hx Tonsillectomy. Denies: Hx Pacemaker - Immunizations Hx Diphtheria, Pertussis, Tetanus Vaccination: Yes Hx Pneumococcal Vaccination: 09/03/14 Review of Systems - Review of Systems Constitutional: Malaise EENT: No symptoms reported Cardiovascular: No symptoms reported Respiratory: No symptoms reported Gastrointestinal: Nausea, Vomiting Genitourinary: No symptoms reported Male Genitourinary: No symptoms reported Musculoskeletal: No symptoms reported Skin: No symptoms reported Hematologic/Lymphatic: No symptoms reported Neurological/Psychological: No symptoms reported Physical Exam - Vital signs Vitals: Pulse Ox 100 12/26/16 10:01 Interpretation: Normal - General General appearance: Appears well, Alert - HEENT Head: Normocephalic, Atraumatic Eyes: Normal Pupils: PERRL - Respiratory Respiratory status: No respiratory distress Chest status: Nontender Breath sounds: Normal Chest palpation: Normal - Cardiovascular Rhythm: Regular Heart sounds: Normal auscultation Murmur: No - Abdominal Inspection: Normal Distension: No distension Bowel sounds: Normal Tenderness: Nontender Organomegaly: No organomegaly - Back Back: Normal, Nontender - Extremities General upper extremity: Normal inspection, Nontender, Normal color, Normal ROM , Normal temperature General lower extremity: Normal inspection, Nontender, Normal color, Normal ROM , Normal temperature, Normal weight bearing. No: Hamilton's sign - Neurological Neuro grossly intact: Yes Cognition: Normal Orientation: AAOx4 [place] Coma Scale Eye Opening: Spontaneous [place] Coma Scale Verbal: Oriented David Coma Scale Motor: Obeys Commands David Coma Scale Total: 15 Speech: Normal Motor strength normal: LUE, RUE, LLE, RLE Sensory: Normal - Psychological Associated symptoms: Normal affect, Normal mood - Skin Skin Temperature: Warm Skin Moisture: Dry Skin Color: Normal Course - Re-evaluation Re-evalutation: 12/26/16 12:25 He has had no periods of emesis while here in the department. Patient did respond to 250 cc of fluid bolus with a blood pressure 126/68 after which. While laying on the gurney the patient was becoming uncomfortable and had been having discomfort to the left lateral aspect of his neck no midline tenderness no step-off. Clinically it appeared to be a torticollis with some discomfort on the rib and spasm of the left upper extremity. No history of radiculopathy. Abundance of caution we did do a CAT scan of the patient's head which was in fact negative and it was compared to prior studies here in the department he does have good follow-up he does follow-up with Jocelin Simons NP of the nephrology service and will be seeing her Thursday morning. Previously she has done carotid Dopplers and he will be following up with her to determine if any current treatment modality should be followed up for that. We noted that at the time of the torticollis patient with C2 through 12 intact. - Vital Signs Vital signs: Temp Pulse Resp BP Pulse Ox 15 105/61 100 12/26/16 10:05 12/26/16 10:05 12/26/16 10:05 - Laboratory Result Diagrams: 12/26/16 10:01 12/26/16 10:01 Laboratory results interpreted by me: 12/26/16 12/26/16 10:01 10:01 RBC 3.47 L Hgb 10.8 L Hct 32.2 L RDW 15.6 H Chloride 97 L BUN 34 H Creatinine 7.87 H Est GFR ( Amer) 9 L Est GFR (Non-Af Amer) 7 L Glucose 113 H Direct Bilirubin 0.7 H Alkaline Phosphatase 147 H - Diagnostic Test Radiology reviewed: Reports reviewed Discharge - Discharge Clinical Impression: Acute torticollis Vomiting Qualifiers: Vomiting type: unspecified Vomiting Intractability: unspecified Nausea presence : with nausea Qualified Code(s): R11.2 - Nausea with vomiting, unspecified Disposition: HOME, SELF-CARE Instructions: Vomiting ([facility]) Additional Instructions: Vomiting Vomiting (or nausea without vomiting) can be caused by many other different problems. It can mean that something's wrong with the stomach, such as ulcers or inflammation or the intestinal tract, such as appendicitis. But it can also be a symptom of a problem that has nothing to do with the stomach or intestines. Vomiting is common with severe headaches, earaches, tonsillitis, and kidney infections, etc. We see it with pneumonia or heart attacks. Drugs can cause nausea and vomiting. Many abdominal problems cause vomiting; for example, gallstones, kidney stones, pancreatitis, and intestinal obstruction ( blocked bowels). In most cases, curing the vomiting depends on fixing the problem that caused it. For temporary relief, we may use an anti-nausea medicine. For home use, we can prescribe suppositories, chewable pills, pills that dissolve in the mouth, or liquid anti-nausea drugs. If the vomiting seems to be caused by a problem in the stomach, acid-suppressing drugs may be prescribed as well. It's important to avoid dehydration. Sip small amounts of clear liquids ( soft drinks, tea, broth, etc) . Try to take fluids frequently even if you are vomiting to prevent dehydration. Take increasing amounts of fluid and when liquids are being consumed successfully, advance to small amounts of bland food (toast, soups, mashed potatoes, etc.) until you are able to resume a regular diet. Avoid aspirin, tobacco, and alcohol. If the vomiting worsens, if the problem that's making you vomit worsens, or if there's evidence of bleeding in the stomach (such as black, tarry stool, or bloody or black vomit), you should return immediately. Also, return if abdominal pain worsens or becomes localized to one area or you develop high fever. Call your doctor if you aren't improved in 24 hours. Torticollis You have torticollis, often called "wry neck." This is due to spasm of neck muscles -- locking the neck into a crooked position. Many different problems can lead to torticollis, such as a minor injury, sleeping with tension on the neck, or inflammation in the glands of the neck. Torticollis is usually treated with heat to relax the neck muscles, but the physician may recommend cold packs if a minor injury is suspected as the cause. Muscle relaxing and antiinflammatory medicine are often prescribed. You may need a neck collar to support your head. Improvement is usually rapid. Usually, the neck can be moved fully within two days, although some pain may persist for a few weeks. Call the doctor at once if you worsen, or if you develop high fever, severe headache, numbness or weakness, or other alarming symptoms. Prescriptions: Methocarbamol [Robaxin 500 mg Tablet] 500 mg PO BID PRN #30 tablet PRN Reason: Ondansetron [Zofran Odt 4 mg Tablet] 1 - 2 tab PO Q4H PRN #15 tab.rapdis PRN Reason: For Nausea/Vomiting Referrals: JOCELIN SIMONS, [employer]EL[employer] [NURSE PRACTITIONER] - Follow up as needed
[2016-12-26 14:09] VITALS: BP 113/62
== END 2016-12-26 14:09 | disposition home or self-care (01) ==
LOC: ER 09:46
DX: M43.6 Torticollis (principal); R11.2 Nausea with vomiting, unspecified; I95.9 Hypotension, unspecified
CPT/HCPCS: 99285; 96360; 36415; 85025; 85610; 80053; 70450; J7030

== ENCOUNTER 2017-05-10 15:27 | Emergency (ER) | payer MEDICARE, BC ==
[2017-05-10 15:33] VITALS: BP 152/52
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
--- NOTE | 2017-05-10 17:20 | RADIOLOGY REPORT (SQ) ---
EXAM DESCRIPTION: CERV SP 3 VIEW OR LESS COMPLETED DATE/TIME: 05/10/2017 4:48 pm REASON FOR STUDY: neck pain with radiation COMPARISON: None. NUMBER OF VIEWS: Three views. TECHNIQUE: AP, lateral and odontoid radiographic images acquired of the cervical spine. LIMITATIONS: None. FINDINGS: MINERALIZATION: Normal. ALIGNMENT: Anatomic. VERTEBRAE: Vertebral bodies of normal height. DISCS: Pronounced multilevel disc narrowing with endplate irregularities and sclerosis and osteophyte s. HARDWARE: None in the spine. SOFT TISSUES: No masses or calcifications. Lung apices clear. OTHER: No other significant finding. IMPRESSION: Cervical spondylosis. No fracture or subluxation. TECHNICAL DOCUMENTATION: JOB ID: [id number] [employer]- All Rights Reserved
== END 2017-05-10 18:40 | disposition home or self-care (01) ==
LOC: ER 15:27
DX: M54.12 Radiculopathy, cervical region (principal); M75.42 Impingement syndrome of left shoulder; M75.41 Impingement syndrome of right shoulder; M54.6 Pain in thoracic spine; F17.200 Nicotine dependence, unspecified, uncomplicated; E78.00 Pure hypercholesterolemia, unspecified; I12.0 Hypertensive chronic kidney disease with stage 5 chronic kidney disease or end stage renal disease; N18.6 End stage renal disease; Z99.2 Dependence on renal dialysis
CPT/HCPCS: 72040; 99283

== ENCOUNTER 2017-09-10 08:59 | Day surgery (SDC) | payer MEDICARE, BC ==
[2017-09-10] MEDS ORDERED: DIAZEPAM 5 MG TABLET ONE (09:49)
[2017-09-10] MEDS ORDERED: OXYCODONE-ACETAMINOPHEN 5-325 MG TABLET ONE (09:49)
[2017-09-10 10:06] LABS: HEMATOCRIT 31.5 % (37.9-51.0); HEMOGLOBIN 10.7 g/dL (13.5-17.0); MEAN CORPUSCULAR HEMOGLOBIN 31.1 pg (27.0-33.4); MEAN CORPUSCULAR HGB CONC 33.9 g/dL (32.0-36.0); MEAN CORPUSCULAR VOLUME 92 fl (80-97); PLATELET COUNT 248 10^3/uL (150-450); RED BLOOD COUNT 3.44 10^6/uL (4.35-5.55); RED CELL DISTRIBUTION WIDTH 15.2 % (11.5-14.0); WHITE BLOOD COUNT 7.3 10^3/uL (4.0-10.5)
[2017-09-10 10:23] LABS: ANION GAP 15 (5-19); BLOOD UREA NITROGEN 34 mg/dL (7-20); CALCIUM 9.2 mg/dL (8.4-10.2); CARBON DIOXIDE 26 mmol/L (22-30); CHLORIDE 100 mmol/L (98-107); GLUCOSE 80 mg/dL (75-110); POTASSIUM 4.2 mmol/L (3.6-5.0); SODIUM 141.2 mmol/L (137-145)
[2017-09-10] MEDS ORDERED: LIDOCAINE 0.5% INJ-PF (5 MG/ML) 50 ML SDV ONE (11:13)
[2017-09-10] MEDS ORDERED: MIDAZOLAM 2 MG/2 ML INJ ONE (11:14)
[2017-09-10] MEDS ORDERED: HEPARIN SOD (PORCINE) 5,000 UNIT/ML 1 ML SYRINGE ONE (11:14)
[2017-09-10] MEDS ORDERED: FENTANYL CITRATE INJ/PF 100 MCG/2 ML AMPUL ONE (11:14)
--- NOTE | 2017-09-10 12:57 | PDOC H&P ---
General Chief Complaint: The patient was referred across for fistula malfunction. Has been noted. He has been referred for angioplasty and possibly improvement in fistula. The goal is prolonged usage - Current Medications/Allergies Home Medications: Aspirin [Ecotrin] 81 mg PO DAILY 10/19/16 Calcitriol [Rocaltrol 0.5 mcg Capsule] 0.5 mcg PO DAILY 10/19/16 Clonidine HCl [Catapres 0.3 mg Tablet] 0.3 mg PO Q8 10/19/16 Lanthanum Carbonate [Fosrenol] 1,000 mg PO AC 10/19/16 Minoxidil [Loniten 2.5 mg Tablet] 10 mg PO QHS 10/19/16 Vit B Comp No.3/Folic/C/Biotin [Bettie-Ana Rx Tablet] 1 tab PO DAILY 10/19/16 Budesonide/Formoterol Fumarate [Symbicort Hfa 160-4.5 Mcg Inhaler 6 gm] 1 puff IH Q12 12/13/16 Minoxidil [Loniten 2.5 Mg Tablet] 5 mg PO DAILY 12/13/16 Atenolol 1 tab PO BID 09/10/17 Allergies/Adverse Reactions: No Known Allergies Allergy (Verified 09/09/17 12:15) Past Medical History Cardiac Medical History: Reports: Hyperlipidema, Hypertension, Peripheral Vascular Disease - r leg surgery Denies: Congestive Heart Failure, Coronary Artery Disease, Myocardial Infarction Pulmonary Medical History: Denies: Asthma, Bronchitis, Chronic Obstructive Pulmonary Disease (COPD), Pneumonia, Tuberculosis Neurological Medical History: Denies: Seizures Renal/ Medical History: Reports: End Stage Renal Disease Malignancy Medical History: Reports: Renal (Kidney) Cancer - He had a right nephrectomy for renal cell cancer. GI Medical History: Reports: Gastroesophageal Reflux Disease, Hiatal Hernia Musculoskeltal Medical History: Reports: Arthritis - Hands Psychiatric Medical History: Denies: Depression Hematology: Reports: Anemia Denies: Bleeding Tendencies Past Surgical History Past Surgical History: Reports: Orthopedic Surgery, Tonsillectomy Denies: Pacemaker Family History Family History: CAD, DM Parental Family History Reviewed: No Children Family History Reviewed: No Sibling(s) Family History Reviewed.: No Social History Smoking Status: Current Every Day Smoker Frequency of Alcohol Use: Rare Hx Recreational Drug Use: Yes Drugs: Marijuana Hx Prescription Drug Abuse: No Physical Exam Vital Signs: Temp Pulse Resp BP Pulse Ox 98.2 F 65 16 112/62 100 09/10/17 10:21 09/10/17 10:21 09/10/17 10:21 09/10/17 10:21 09/10/17 10:21 Intake & Output 09/09/17 09/10/17 09/11/17 06:59 06:59 06:59 Weight 58.967 kg 58.967 kg Additional comments: Constitutional: Well-developed well-nourished -[place]el[place] gentleman. No apparent acute distress. Eyes: Mucous membranes pink and moist, pupils equal and reactive to light. Conjunctiva normal. Cornea normal. ENT: Hearing grossly normal. External pinna normal to inspection. Teeth intact. Tongue normal to inspection. Cardiac: Heart sounds 1 and 2 normal. Respiratory breath sounds are present bilaterally, normal. Normal respiratory effort. Psychiatric: Judgment, memory, insight seem normal. Mood is pleasant and appropriate. Extremities: Upper extremities show normal range of movement. Pulses present noted to the radial arteries. Capillary refill normal. No cyanosis noted. No muscle wasting noted. Aged left arm brachiobasilic fistula very firm with obvious calcification and prior stent. Impression/Plan Plan: The plan is for fistula angiogram and possibly angioplasty depending on findings. Procedure, its risks, and, benefits, expected outcome and alternatives are understood by the patient he wishes to proceed.
--- NOTE | 2017-09-10 12:58 | PDOC DISCHARGE SUMMARY ---
Discharge Summary (SDC) - Discharge Final Diagnosis: #1 AV fistula malfunction, left brachiocephalic. 2. End-stage renal disease on hemodialysis. 3. Tobacco use disorder. 4. Hypertension. Date of Surgery: 09/10/17 Discharge Date: 09/10/17 Condition: Good Treatment or Instructions: Discharge home [after recovery per ASU criteria]. Diet , [renal],as tolerated, when fully awake advance as tolerated. Activities within moderation encouraged. Follow up in my office by appointment in about [1 month. Call for appointment. Leave wounds [covered], [keep clean and dry, until hemodialysis. Hold of on school/work [until evaluation in office]. Meds per med rec. May shower [in 48 hrs], [try to keep operated area as dry as possible]. Discharge Diet: Other (Comments) - Renal. Respiratory Treatments at Home: Deep Breathing/Coughing - . Discharge Activity: Activity As Tolerated Report the Following to Your Physician Immediately: Shortness of Breath, Unusual Bleeding
--- NOTE | 2017-09-10 13:03 | Operative Report ---
Operative Report DATE OF SURGERY: 09/10/17 PREOPERATIVE DIAGNOSIS: This#1 AV fistula malfunction, left brachiocephalic. 2. End-stage renal disease on hemodialysis. 3. Tobacco use disorder. 4. Hypertension. POSTOPERATIVE DIAGNOSIS: #1 AV fistula malfunction, left brachiocephalic. Post angioplasty. 2. End-stage renal disease on hemodialysis. 3. Tobacco use disorder. 4. Hypertension. OPERATION: 1. Needle entry into fistula. 2. Angioplasty and fistula. 3. Drug-eluting balloon application. 4. Angiogram and interpretation. SURGEON: SHANIA MCKEON INSPECTOR EYEGLASS FRAMES: None ANESTHESIA: Moderate Sedation TISSUE REMOVED OR ALTERED: Not applicable. COMPLICATIONS: None. ESTIMATED BLOOD LOSS: 2 mL. INTRAOPERATIVE FINDINGS: Of a proximal left forearm fistula, high arm somewhat softer. Aneurysms and pseudoaneurysms noted with hard wall suggestive of calcification. Confirmed on angiogram. Culprit lesion at 30-24 cm comprised of 70% stenosis. Resolved with angioplasty. Short segment, lesser stenoses noted in the swing segment and these were addressed. All were addressed with a 7 mm angioplasty balloon. The culprit lesion was also treated with a drug- eluting balloon. The purpose of this is to preserve this fistula as long as possible in this patient with poor access, multiple comorbidities. PROCEDURE: PROCEDURE: After verifying the procedure and having obtained informed consent, the patient's left arm was prepared with Chlorhexidine and draped out with sterile linen. Local anesthesia infiltrated. Percutaneous access into the fistula ,[ antegrade], obtained about [4 cm] from the arteriovenous anastomosis using a micro puncture needle followed by micro puncture wire and then a micro puncture catheter. Angiogram demonstrated the aforementioned findings. Angioplasty was elected. A 0.035 [place] wire was inserted, and over this, a 6 Ethiopian short introducer was placed, this was followed by a [7-mm ] angioplasty balloon . Angioplasty was serially done from the upper fistula down to the introducer. Inflating for 1-2 minutes at a time using a 3 mils syringe. At the culprit area inflation was done up to 27 kellen using an inflator. Based on the findings which indicated slight residual stenosis of no more than 5 % and the patient's susi fistula, decided to treat with a drug-eluting balloon. A chronic drug-eluting balloon, 7 7 mm wide and 6 c cm long. Was inserted according to reverser's instructions across the culprit region. It was inflated up to 12 kellen with using and inflated. He was then deflated and removed. Completion angiogram demonstrated [satisfactory result]. The instrumentation was now withdrawn over hand pressure for 10 minutes. Dressings applied, procedure concluded. Exposure time: 1.7 minutes Radiation: 5.95 Lyn mcfarland. Contrast: 40 mils of Isovue-300, low osmolality. DICTATING PHYSICIAN: SHANIA RUTH M.D. cc: SHANIA RUTH M.D. ([id number]) >>
[2017-09-10 14:31] VITALS: BP 130/61
--- NOTE | 2017-09-14 11:29 | RADIOLOGY REPORT (SQ) ---
EXAM DESCRIPTION: FISTULAGRAM W/PLASTY COMPLETED DATE/TIME: 09/14/2017 8:41 am REASON FOR STUDY: T82.858A T82.858A STENOSIS OF OTHER VASCULAR PROSTH DEV/GRFT, INIT COMPARISON: None. FLUOROSCOPY TIME: 1.7 minutes. 38 images saved to PACS. TECHNIQUE: Intra-operative images acquired during surgical procedure to evaluate progress. NUMBER OF IMAGES: 38 images. LIMITATIONS: None. FINDINGS: Imaging in fluoroscopy during left upper extremity dialysis access evaluation and plasty b y Dr. Khan . Please refer to the operative report for further details. IMPRESSION: INTRA PROCEDURAL IMAGING ABOVE . COMMENT: Quality ID [id number]: Final reports for procedures using fluoroscopy that document radiation exp osure indices, or exposure time and number of fluorographic images (if radiation exposure indices are not available) Please consult full operative report of the attending physician for description of the procedure. TECHNICAL DOCUMENTATION: JOB ID: [id number] [employer]- All Rights Reserved
== END 2017-09-10 14:15 | disposition home or self-care (01) ==
LOC: CCL 08:59
PROVIDERS: ATTEND Surgery
PROC: 057A3DZ Dilation of Left Brachial Vein with Intraluminal Device, Percutaneous Approach (ICD-10-PCS; principal; 2017-09-10)
DX: T82.858A Stenosis of other vascular prosthetic devices, implants and grafts, initial encounter (principal); Y83.2 Surgical operation with anastomosis, bypass or graft as the cause of abnormal reaction of the patient, or of later complication, without mention of misadventure at the time of the procedure; I12.0 Hypertensive chronic kidney disease with stage 5 chronic kidney disease or end stage renal disease; N18.6 End stage renal disease; Z99.2 Dependence on renal dialysis; F17.210 Nicotine dependence, cigarettes, uncomplicated; Z79.82 Long term (current) use of aspirin; Z79.899 Other long term (current) drug therapy; E78.5 Hyperlipidemia, unspecified; I73.9 Peripheral vascular disease, unspecified; K21.9 Gastro-esophageal reflux disease without esophagitis; K44.9 Diaphragmatic hernia without obstruction or gangrene; D63.1 Anemia in chronic kidney disease; Z85.53 Personal history of malignant neoplasm of renal pelvis; Z90.5 Acquired absence of kidney
CPT/HCPCS: 36415; 85027; 80048; 36902; C1752; C1725; Q9967; C1769; J2250; J1644 ×2; A9270 ×2; J3010; J3490

== ENCOUNTER 2018-01-02 16:04 | Emergency (ER) | payer MEDICARE, BC ==
--- NOTE | 2018-01-02 17:28 | ER Document Report ---
ED GI Bleed / Rectal Pain - General Information source: Patient TRAVEL OUTSIDE OF THE [place] IN LAST 30 DAYS: No <MERT MCGINNIS - Last Filed: 01/02/18 18:39> <GILLIAN CORNELL - Last Filed: 01/02/18 19:20> - General Chief Complaint: Rectal Pain Stated Complaint: RECTAL PAIN Time Seen by Provider: 01/02/18 17:07 Notes: Patient is a 57-year-old male who presents to the emergency department today with complaints of rectal pain. Patient has a colonoscopy on and had areas biopsied which he states are very painful. Patient states he called his GI doctor, Ben who stated he would see him on Thursday but to come to the ED if symptoms were not tolerable. (MERT MCGINNIS) Denies any blood, denies any discharge, denies any fever. (GILLIAN CORNELL) - Related Data Allergies/Adverse Reactions: No Known Allergies Allergy (Verified 01/02/18 16:06) Past Medical History - General Information source: Patient - Social History Cigarette use (# per day): Yes Frequency of alcohol use: Occasional Drug Abuse: Marijuana Lives with: Family Family History: Reviewed & Not Pertinent, CAD, DM - Past Medical History Cardiac Medical History: Reports: Hx Hypercholesterolemia, Hx Hypertension, Hx Peripheral Vascular Disease - r leg surgery Neurological Medical History: Reports: Hx Cerebrovascular Accident - Memory loss Renal/ Medical History: Reports: Hx End Stage Renal Disease, Hx Kidney Stones Malignancy Medical History: Reports Hx Renal (Kidney) Cancer - He had a right nephrectomy for renal cell cancer. GI Medical History: Reports: Hx Gastroesophageal Reflux Disease, Hx Hiatal Hernia Musculoskeltal Medical History: Reports Hx Arthritis - Hands Past Surgical History: Reports: Hx Abdominal Surgery, Hx Orthopedic Surgery, Hx Tonsillectomy - Immunizations Hx Diphtheria, Pertussis, Tetanus Vaccination: Yes - Unsure Hx Pneumococcal Vaccination: 09/03/14 <MERT MCGINNIS - Last Filed: 01/02/18 18:39> - Social History Smoking Status: Current Every Day Smoker <GILLIAN CORNELL - Last Filed: 01/02/18 19:20> Review of Systems - Review of Systems Constitutional: No symptoms reported EENT: No symptoms reported Cardiovascular: No symptoms reported Respiratory: No symptoms reported Gastrointestinal: See HPI, Other - rectal pain Genitourinary: No symptoms reported Male Genitourinary: No symptoms reported Musculoskeletal: No symptoms reported Skin: No symptoms reported Hematologic/Lymphatic: No symptoms reported Neurological/Psychological: No symptoms reported -: Yes All other systems reviewed and negative <MERT MCGINNIS - Last Filed: 01/02/18 18:39> Physical Exam <MERT MCGINNIS - Last Filed: 01/02/18 18:39> <GILLIAN CORNELL - Last Filed: 01/02/18 19:20> - Vital signs Vitals: Temp Pulse Resp BP Pulse Ox 98.7 F 68 16 175/56 H 96 01/02/18 16:17 01/02/18 16:17 01/02/18 16:17 01/02/18 16:17 01/02/18 16:17 - Notes Notes: PHYSICAL EXAM GENERAL: Alert, interacts well. No acute distress. HEAD: Normocephalic, atraumatic. EYES: Pupils equal, round, and reactive to light. Extraocular movements intact. ENT: Oral mucosa moist, tongue midline. NECK: Full range of motion. Supple. Trachea midline. LUNGS: No respiratory distress. ABDOMEN: Soft, non-distended. RECTAL: Non-thrombosed external hemorrhoids. Rectal Warts present with areas that were recently biopsied. EXTREMITIES: Moves all 4 extremities spontaneously. No edema. NEUROLOGICAL: Alert and oriented x3. Normal speech. PSYCH: Normal affect, normal mood. SKIN: Warm, dry, normal turgor. No rashes. See rectal exam. (MERT MCGINNIS) Rectal warts are tender to palpation but there is no erythema, there is no discharge, there is no fluctuance. There is no tenderness of the perineum, testicles or penis. (GILLIAN CORNELL) Course <MERT MCGINNIS - Last Filed: 01/02/18 18:39> <GILLIAN CORNELL - Last Filed: 01/02/18 19:20> - Re-evaluation Re-evalutation: 01/02/18 17:35 Examination shows rectal warts which are tender to palpation and a few nonthrombosed hemorrhoids which are also tender palpation, there is evidence of biopsy umanzor, no erythema, no lymphangitic streaking, no fluctuance, no evidence of infection. Patient will be given lidocaine in the form of Urojet which will be applied to the rectum and he will be discharged home with a prescription for topical lidocaine as well. (GILLIAN CORNELL) - Vital Signs Vital signs: Temp Pulse Resp BP Pulse Ox 98.0 F 57 L 16 176/45 H 100 01/02/18 17:47 01/02/18 17:47 01/02/18 16:17 01/02/18 17:47 01/02/18 17:47 Discharge <MERT MCGINNIS - Last Filed: 01/02/18 18:39> <GILLIAN CORNELL - Last Filed: 01/02/18 19:20> - Discharge Clinical Impression: Rectal pain Condition: Stable Disposition: HOME, SELF-CARE Additional Instructions: Today I do not see any evidence of infection on your rectum. Please apply topical lidocaine to your rectum. You may either use the lidocaine that I prescribed or you may use the same lidocaine that you are prescribed for your fistula. Please dissolve 1 scoop of MiraLAX in a glass of water once a day to soften your stool. You may increase to twice a day if needed to create soft bowel movements and you may decrease to every other day if you develop diarrhea. Using MiraLAX will help to make bowel movements less painful. Return to the emergency department if you develop fevers or any new or concerning symptoms otherwise follow-up with Dr. White an outpatient. Prescriptions: Dibucaine 1% Ointment [Nupercainal 1% Oint 28 gm] 28 applic TP PRN PRN #1 tube PRN Reason: rectal pain Referrals: RINA WHITE MD [ACTIVE STAFF] - 01/04/18 Scribe Attestation: 01/02/18 19:19 I personally performed the services described in the documentation, reviewed and edited the documentation which was dictated to the scribe in my presence, and it accurately records my words and actions. (GILLIAN CORNELL) Scribe Documentation - Scribe Written by Chandler:: Chandler Garcia, 01/02/2018 1854 acting as scribe for :: Bisi <MERT MCGINNIS - Last Filed: 01/02/18 18:39>
[2018-01-02] MEDS ORDERED: LIDOCAINE 2% URO-JET 5 ML KIT MM ONE (17:32)
[2018-01-02 17:49] VITALS: BP 176/45
== END 2018-01-02 18:17 | disposition home or self-care (01) ==
LOC: ER 16:04
DX: A63.0 Anogenital (venereal) warts (principal); K64.4 Residual hemorrhoidal skin tags; K62.89 Other specified diseases of anus and rectum; F12.10 Cannabis abuse, uncomplicated; I10 Essential (primary) hypertension; Z98.890 Other specified postprocedural states; Z72.0 Tobacco use
CPT/HCPCS: 99283; A9270; J3490

== ENCOUNTER 2018-02-23 10:17 | Day surgery (SDC) | payer MEDICARE, BC ==
[~2018-02-23 10:17] MED LIST: DIAZEPAM 5 MG TABLET PO PRN; OXYCODONE-ACETAMINOPHEN 5-325 MG TABLET ONE
[2018-02-23 10:47] LABS: HEMATOCRIT 31.3 % (37.9-51.0); HEMOGLOBIN 10.7 g/dL (13.5-17.0); MEAN CORPUSCULAR HGB CONC 34.1 g/dL (32.0-36.0); MEAN CORPUSCULAR VOLUME 91 fl (80-97); PLATELET COUNT 222 10^3/uL (150-450); RED BLOOD COUNT 3.44 10^6/uL (4.35-5.55); RED CELL DISTRIBUTION WIDTH 16.5 % (11.5-14.0); WHITE BLOOD COUNT 8.4 10^3/uL (4.0-10.5)
[2018-02-23 11:02] LABS: ANION GAP 18 (5-19); BLOOD UREA NITROGEN 39 mg/dL (7-20); CALCIUM 9.9 mg/dL (8.4-10.2); CARBON DIOXIDE 26 mmol/L (22-30); CHLORIDE 97 mmol/L (98-107); GLUCOSE 87 mg/dL (75-110); POTASSIUM 3.9 mmol/L (3.6-5.0); SODIUM 140.9 mmol/L (137-145)
[2018-02-23] MEDS ORDERED: LIDOCAINE 0.5% INJ-PF (5 MG/ML) 50 ML SDV ONE (11:07)
[2018-02-23] MEDS ORDERED: MIDAZOLAM 2 MG/2 ML INJ ONE (11:08)
[2018-02-23] MEDS ORDERED: HEPARIN SOD (PORCINE) 5,000 UNIT/ML 1 ML SYRINGE ONE (11:09)
[2018-02-23] MEDS ORDERED: FENTANYL CITRATE INJ/PF 100 MCG/2 ML AMPUL ONE (11:09)
--- NOTE | 2018-02-23 12:56 | PDOC H&P ---
General Chief Complaint: This patient is admitted for angiogram and is aged left brachiocephalic fistula with stent. On dialysis reduced flows have been noted suggesting - Current Medications/Allergies Home Medications: Aspirin [Ecotrin] 81 mg PO DAILY 10/19/16 Calcitriol [Rocaltrol 0.5 mcg Capsule] 0.5 mcg PO DAILY 10/19/16 Clonidine HCl [Catapres 0.3 mg Tablet] 0.3 mg PO Q8 10/19/16 Lanthanum Carbonate [Fosrenol] 1,000 mg PO AC 10/19/16 Minoxidil [Loniten 2.5 mg Tablet] 10 mg PO QHS 10/19/16 Vit B Comp No.3/Folic/C/Biotin [Bettie-Ana Rx Tablet] 1 tab PO DAILY 10/19/16 Budesonide/Formoterol Fumarate [Symbicort HFA 160-4.5 mcg Inhaler 6 gm] 1 puff IH Q12 12/13/16 Minoxidil [Loniten 2.5 mg Tablet] 5 mg PO DAILY 12/13/16 Metoprolol Succinate [Toprol Xl 50 mg Tab.sr] 50 mg PO DAILY 02/23/18 Allergies/Adverse Reactions: No Known Allergies Allergy (Verified 01/02/18 16:06) Past Medical History Cardiac Medical History: Reports: Hyperlipidema, Hypertension, Peripheral Vascular Disease - r leg surgery Denies: Congestive Heart Failure, Coronary Artery Disease, Myocardial Infarction Pulmonary Medical History: Reports: Pneumonia Denies: Asthma, Bronchitis, Chronic Obstructive Pulmonary Disease (COPD), Tuberculosis Neurological Medical History: Denies: Seizures Renal/ Medical History: Reports: End Stage Renal Disease Malignancy Medical History: Reports: Renal (Kidney) Cancer - He had a right nephrectomy for renal cell cancer. GI Medical History: Reports: Gastroesophageal Reflux Disease, Hiatal Hernia Musculoskeltal Medical History: Reports: Arthritis - Hands Psychiatric Medical History: Denies: Depression Hematology: Reports: Anemia - murmur Denies: Bleeding Tendencies Past Surgical History Past Surgical History: Reports: Orthopedic Surgery, Tonsillectomy Denies: Pacemaker Family History Family History: Reviewed & Not Pertinent, CAD, DM Parental Family History Reviewed: No Children Family History Reviewed: No Sibling(s) Family History Reviewed.: No Social History Smoking Status: Current Every Day Smoker Frequency of Alcohol Use: Rare Hx Recreational Drug Use: Yes Drugs: Marijuana Hx Prescription Drug Abuse: No Physical Exam Vital Signs: Temp Pulse Resp BP Pulse Ox 97.6 F 74 14 145/67 H 100 02/23/18 10:30 02/23/18 10:30 02/23/18 10:30 02/23/18 10:30 02/23/18 10:30 Intake & Output 02/22/18 02/23/18 02/24/18 06:59 06:59 06:59 Weight 58.967 kg 58.967 kg Additional comments: Constitutional: Well-developed well-nourished -Dutch gentleman. No apparent acute distress. Eyes: Mucous membranes pink and moist, pupils equal and reactive to light. Conjunctiva normal. Cornea normal. ENT: Hearing grossly normal. External pinna normal to inspection. Teeth mostly intact. Tongue normal to inspection. Cardiac: Heart sounds normal. Respiratory breath sounds are present bilaterally, normal. Normal respiratory effort. Psychiatric: Judgment, memory, insight seem normal. Mood is pleasant and appropriate. Extremities: Upper extremities show normal range of movement. Pulses present noted to the radial arteries. Capillary refill normal. No cyanosis noted. No muscle wasting noted. Left arm brachiocephalic fistula noted. 2 large aneurysms each about 3 cm noted. The proximal 8 cm is extremely hard suggesting wall calcification. The stent is palpable Impression/Plan Plan: The plan is to do an angiogram to evaluate the fistula and angioplasty as needed. Procedure, its risks, benefits, expected outcome and alternatives are familiar to the patient. He wishes to proceed.
--- NOTE | 2018-02-23 12:59 | Discharge Summary ---
Discharge Summary (SDC) - Discharge Final Diagnosis: #1 malfunctioning arteriovenous fistula, left wrist brachiocephalic. 2. End-stage renal disease on hemodialysis. 3. Hypertension.. Date of Surgery: 02/23/18 Discharge Date: 02/23/18 Condition: Fair Treatment or Instructions: Discharge home [after recovery per ASU criteria]. Diet , [renal],as tolerated, when fully awake advance as tolerated. Activities within moderation encouraged. Follow up in my office by appointment in about [2-3 weeks for pain mapping ultrasound]. Call for appointment. Leave wounds [covered], [keep clean and dry, until hemodialysis]. Hold of on school/work [until evaluation in office]. Meds per med rec. May shower [in 48 hrs], [try to keep operated area as dry as possible]. Referrals: MIKE PIERRE MD [Primary Care Provider] - Respiratory Treatments at Home: Deep Breathing/Coughing Discharge Activity: Activity As Tolerated Report the Following to Your Physician Immediately: Shortness of Breath, Unusual Bleeding
--- NOTE | 2018-02-23 13:05 | Operative Report ---
Operative Report DATE OF SURGERY: 02/23/18 PREOPERATIVE DIAGNOSIS: #1 malfunctioning arteriovenous fistula, left wrist brachiocephalic. 2. End-stage renal disease on hemodialysis. 3. Hypertension.. POSTOPERATIVE DIAGNOSIS: #1 malfunctioning arteriovenous fistula, left wrist brachiocephalic. 2. End-stage renal disease on hemodialysis. 3. Hypertension.. OPERATION: 1. Arteriovenous fistula needle axis. 2. Angioplasty in fistula. 3. Angioplasty with drug-eluting balloon. 4. Angiogram and interpretation. SURGEON: SHANIA MCKEON SHIP'S PILOT: None. ANESTHESIA: Moderate Sedation TISSUE REMOVED OR ALTERED: Not applicable. COMPLICATIONS: None. ESTIMATED BLOOD LOSS: 5 mL. INTRAOPERATIVE FINDINGS: Of a well founded left arm brachiocephalic fistula. 2 large aneurysms each about 3 cm and situated between 15 and 20 cm. [place] stenoses noted from about 20 cm down to 10 cm. This included the segment between the aneurysms. Maximal stenosis estimated to be about 70%. Stenoses completely eliminated by angioplasty. With the exception of about 5% remaining at about 25 cm. This stenosis at 25 cm proved to be extremely resistant and required a high-pressure balloon going up to 38 kellen in order to accomplish adequate dilatation. This is a recurrent stenosis and because of this a drug- eluting balloon was used in the hope of prolonging the active life of this fistula which is functional for some 15 years. The previously noted stenosis at the cephalic subclavian junction which is addressed over 6 months ago remains nicely resolved. PROCEDURE: PROCEDURE: After verifying the procedure and having obtained informed consent, the patient's left arm was prepared with Chlorhexidine and draped out with sterile linen. Local anesthesia infiltrated. Percutaneous access into the fistula ,[ antegrade], obtained about [4 cm] from the arteriovenous anastomosis using a micro puncture needle followed by micro puncture wire and then a micro puncture catheter. Angiogram demonstrated the aforementioned findings. This was quite challenging as the sternal wall is extremely hard, probably calcified requiring considerable steady pressure A 0.035 [place] wire was inserted, and over this, a 7 Frisian short introducer was placed, a preliminary angiogram was done. Angioplasty was elected. This was followed by a [7-mm] angioplasty balloon . Angioplasty was serially done from the upper fistula down to the introducer. Inflating up to it increasing in increments up to the 27 burst pressure of the conquest balloon. Completion angiogram demonstrated inadequate resolution of the primary culprit area at about 2425 cm. A high-pressure conquest balloon was now inserted and inflated gradually up to 38 kellen and sustained for 2 minutes.]. Completion angiogram demonstrated [satisfactory result]. A drug-eluting balloon was now inserted over the primary culprit area and inflated up to 11 kellen for 3 minutes. The instrumentation was now withdrawn over pressure for 10 minutes. Dressings applied, procedure concluded. Exposure time: 1.7 minutes. Radiation:9.5 a Lyn mcfarland. Contrast: 25 mils of Isovue-300, low osmolality. DICTATING PHYSICIAN: SHANIA RUTH M.D. cc: SHANIA RUTH M.D. ([id number]) >>
--- NOTE | 2018-02-23 14:19 | RADIOLOGY REPORT (SQ) ---
EXAM DESCRIPTION: FISTULAGRAM W/PLASTY COMPLETED DATE/TIME: 02/23/2018 12:29 pm REASON FOR STUDY: T82.858A T82.858A STENOSIS OF OTHER VASCULAR PROSTH DEV/GRFT, INIT COMPARISON: None. FLUOROSCOPY TIME: 1.7 minutes 92 images saved to PACS. TECHNIQUE: Intra-operative images acquired during surgical procedure to evaluate progress. NUMBER OF IMAGES: 92 LIMITATIONS: None. FINDINGS: Selected images from arteriography and angioplasty of upper extremity graft. IMPRESSION: IMAGE(S) OBTAINED DURING PROCEDURE. COMMENT: Quality ID [id number]: Final reports for procedures using fluoroscopy that document radiation exp osure indices, or exposure time and number of fluorographic images (if radiation exposure indices are not available) Please consult full operative report of the attending physician for description of the procedure. TECHNICAL DOCUMENTATION: JOB ID: [id number]- All Rights Reserved Reading location - IP/workstation name: [email or web address]
[2018-02-23 14:33] VITALS: BP 154/59
== END 2018-02-23 13:55 | disposition home or self-care (01) ==
LOC: CCL 10:17
PROVIDERS: ATTEND Surgery
DX: T82.858A Stenosis of other vascular prosthetic devices, implants and grafts, initial encounter (principal); Y83.2 Surgical operation with anastomosis, bypass or graft as the cause of abnormal reaction of the patient, or of later complication, without mention of misadventure at the time of the procedure; Z99.2 Dependence on renal dialysis; I12.0 Hypertensive chronic kidney disease with stage 5 chronic kidney disease or end stage renal disease; N18.6 End stage renal disease; D63.1 Anemia in chronic kidney disease; E78.5 Hyperlipidemia, unspecified; I73.9 Peripheral vascular disease, unspecified; K21.9 Gastro-esophageal reflux disease without esophagitis; K44.9 Diaphragmatic hernia without obstruction or gangrene; M19.042 Primary osteoarthritis, left hand; M19.041 Primary osteoarthritis, right hand; F17.210 Nicotine dependence, cigarettes, uncomplicated; Z79.82 Long term (current) use of aspirin; Z79.899 Other long term (current) drug therapy; Z85.53 Personal history of malignant neoplasm of renal pelvis; Z90.5 Acquired absence of kidney
CPT/HCPCS: 36415; 85027; 80048; 36902; C2623; C1752; C1725 ×2; Q9967; J2250; J1644 ×2; A9270; J3010; J3490

== ENCOUNTER 2018-02-24 10:58 | Inpatient (IN) | payer MEDICARE, BC ==
[2018-02-24] MEDS ORDERED: VANCOMYCIN HCL INJ 1000 MG VIAL IV ONE (11:58)
[2018-02-24] MEDS ORDERED: ACETAMINOPHEN 325 MG TABLET PO ONE (11:58)
--- NOTE | 2018-02-24 12:00 | ER Document Report ---
ED Medical Screen (RME) - General TRAVEL OUTSIDE OF THE [place] IN LAST 30 DAYS: No <AARON ROWELL - Last Filed: 02/24/18 11:59> <JEREMIAS PAZ - Last Filed: 02/24/18 14:36> - General Chief Complaint: Fever Stated Complaint: FEVER Time Seen by Provider: 02/24/18 11:56 Notes: 57 years old male who had left dialysis port was unclogged yesterday, today he went to dialysis during dialysis they noted him having a temperature of 103 and was shaking. Therefore gave ceftazidime and Ancef IV, referred him back to the ED. denies any chest pain cough nausea vomiting diarrhea. (AARON ROWELL) - Related Data Allergies/Adverse Reactions: No Known Allergies Allergy (Verified 02/24/18 10:59) Past Medical History - Social History Frequency of alcohol use: None Drug Abuse: Marijuana - Past Medical History Cardiac Medical History: Reports: Hx Hypercholesterolemia, Hx Hypertension, Hx Peripheral Vascular Disease - r leg surgery Denies: Hx Congestive Heart Failure, Hx Coronary Artery Disease, Hx Heart Attack Pulmonary Medical History: Reports: Hx Pneumonia Denies: Hx Asthma, Hx Bronchitis, Hx COPD, Hx Tuberculosis Neurological Medical History: Reports: Hx Cerebrovascular Accident - Memory loss. Denies: Hx Seizures Renal/ Medical History: Reports: Hx End Stage Renal Disease, Hx Kidney Stones. Denies: Hx Benign Prostatic Hyperplasia, Hx Peritoneal Dialysis Malignancy Medical History: Reports Hx Renal (Kidney) Cancer - He had a right nephrectomy for renal cell cancer. GI Medical History: Reports: Hx Gastroesophageal Reflux Disease, Hx Hiatal Hernia Musculoskeltal Medical History: Reports Hx Arthritis - Hands Psychiatric Medical History: Denies: Hx Depression Past Surgical History: Reports: Hx Abdominal Surgery, Hx Orthopedic Surgery, Hx Tonsillectomy. Denies: Hx Pacemaker - Immunizations Hx Diphtheria, Pertussis, Tetanus Vaccination: Yes - Unsure History of Influenza Vaccine for 05/2017 - 10/2017 Season: Yes Influenza Administration Date for 05/2017 - 10/2017 Season: 05/03/17 <AARON ROWELL - Last Filed: 02/24/18 11:59> - Vital signs Vitals: Temp Pulse Resp BP Pulse Ox 103.2 F H 113 H 16 180/57 H 98 02/24/18 11:04 02/24/18 11:04 02/24/18 11:04 02/24/18 11:04 02/24/18 11:04 Course - Laboratory Result Diagrams: 02/24/18 12:35 02/24/18 12:35 <PAZJEREMIAS - Last Filed: 02/24/18 14:36> - Vital Signs Vital signs: Temp Pulse Resp BP Pulse Ox 101.4 F H 113 H 16 148/67 H 96 02/24/18 13:50 02/24/18 11:04 02/24/18 14:00 02/24/18 12:44 02/24/18 14:00 - Laboratory Laboratory results interpreted by me: 02/24/18 02/24/18 02/24/18 12:35 12:35 12:35 WBC 14.3 H RBC 3.06 L Hgb 9.5 L Hct 27.6 L RDW 16.1 H Plt Count 143 L Band Neutrophils % 15 H Lymphocytes % (Manual) 5 L Monocytes % (Manual) 2 L Metamyelocytes % 1 H Abs Neuts (Manual) 13.3 H PT 16.6 H Potassium 3.0 L* Chloride 95 L Creatinine 5.04 H Est GFR ( Amer) 14 L Est GFR (Non-Af Amer) 12 L Lactic Acid Total Bilirubin 1.7 H Direct Bilirubin 0.9 H AST 92 H 02/24/18 12:35 WBC RBC Hgb Hct RDW Plt Count Band Neutrophils % Lymphocytes % (Manual) Monocytes % (Manual) Metamyelocytes % Abs Neuts (Manual) PT Potassium Chloride Creatinine Est GFR ( Amer) Est GFR (Non-Af Amer) Lactic Acid 2.4 H Total Bilirubin Direct Bilirubin AST Doctor's Discharge <AARON ROWELL - Last Filed: 02/24/18 11:59> <JACKSONEPHRAIMJEREMIAS - Last Filed: 02/24/18 14:36> - Discharge Clinical Impression: Sepsis Qualifiers: Sepsis type: sepsis due to unspecified organism Qualified Code(s): A41.9 - Sepsis, unspecified organism Headache Qualifiers: Headache type: unspecified Headache chronicity pattern: acute headache Intractability: not intractable Qualified Code(s): R51 - Headache Condition: Fair Disposition: ADMITTED INPATIENT Referrals: OQUENDO,JOSE M, PA-C [ALLIED HEALTH PROFESSIONAL] - Follow up as needed
--- NOTE | 2018-02-24 12:36 | ER Document Report ---
ED Fever - General Chief Complaint: Fever Stated Complaint: FEVER Time Seen by Provider: 02/24/18 11:56 Information source: Patient Notes: Patient is a 57-year-old dialysis patient who presents today from dialysis with a fever of 103 noted today. Patient had instrumentation by Dr. Khan yesterday to unclog his left fistula. Patient was given Ancef and ceftazidime at the dialysis center prior to transport. Patient states she was doing okay until after the instrumentation yesterday. He states he developed a fever with a mild headache and nausea without vomiting , runny nose, congestion, neck pain, chest pain, abdominal pain, or rash. Patient denies any pain or swelling to the left arm. Patient did have dialysis and completed dialysis through the left arm access site. TRAVEL OUTSIDE OF THE [place] IN LAST 30 DAYS: No - HPI Onset: Yesterday Onset/Duration: Gradual Quality of pain: Achy Severity: Mild Pain Level: 1 Associated symptoms: Other - No tic bites Similar symptoms previously: No Recently seen / treated by doctor: Yes - Related Data Allergies/Adverse Reactions: No Known Allergies Allergy (Verified 02/24/18 10:59) Past Medical History - General Information source: Patient - Social History Smoking Status: Current Every Day Smoker Cigarette use (# per day): No Chew tobacco use (# tins/day): No Smoking Education Provided: No Frequency of alcohol use: None Drug Abuse: Marijuana Family History: Reviewed & Not Pertinent, CAD, DM Patient has suicidal ideation: No Patient has homicidal ideation: No - Past Medical History Cardiac Medical History: Reports: Hx Hypercholesterolemia, Hx Hypertension, Hx Peripheral Vascular Disease - r leg surgery Denies: Hx Congestive Heart Failure, Hx Coronary Artery Disease, Hx Heart Attack Pulmonary Medical History: Reports: Hx Pneumonia Denies: Hx Asthma, Hx Bronchitis, Hx COPD, Hx Tuberculosis Neurological Medical History: Reports: Hx Cerebrovascular Accident - Memory loss. Denies: Hx Seizures Renal/ Medical History: Reports: Hx End Stage Renal Disease, Hx Kidney Stones. Denies: Hx Benign Prostatic Hyperplasia, Hx Peritoneal Dialysis Malignancy Medical History: Reports Hx Renal (Kidney) Cancer - He had a right nephrectomy for renal cell cancer. GI Medical History: Reports: Hx Gastroesophageal Reflux Disease, Hx Hiatal Hernia Musculoskeletal Medical History: Reports Hx Arthritis - Hands Psychiatric Medical History: Denies: Hx Depression Past Surgical History: Reports: Hx Abdominal Surgery, Hx Orthopedic Surgery, Hx Tonsillectomy. Denies: Hx Pacemaker - Immunizations Hx Diphtheria, Pertussis, Tetanus Vaccination: Yes - Unsure Hx Pneumococcal Vaccination: 09/03/14 Review of Systems - Review of Systems Constitutional: Fever EENT: denies: Eye discharge, Ear pain, Nose discharge, Sinus pressure, Sinus discharge, Throat pain, Difficulty swallowing, Throat swelling Cardiovascular: denies: Chest pain, Palpitations Respiratory: denies: Cough, Short of breath Gastrointestinal: denies: Vomiting Genitourinary: denies: Dysuria Musculoskeletal: denies: Leg swelling Skin: Other - no hives. denies: Rash Neurological/Psychological: Other - no slurred speech -: Yes All other systems reviewed and negative Physical Exam - Vital signs Vitals: Temp Pulse Resp BP Pulse Ox 103.2 F H 113 H 16 180/57 H 98 02/24/18 11:04 02/24/18 11:04 02/24/18 11:04 02/24/18 11:04 02/24/18 11:04 Notes: Reviewed vital signs and nursing note as charted by RN. CONSTITUTIONAL: Alert and oriented and responds appropriately to questions. Well -appearing; well-nourished HEAD: Normocephalic; atraumatic EYES: PERRL; Conjunctivae clear, sclerae non-icteric ENT: Normal nose; no rhinorrhea; moist mucous membranes; pharynx without lesions noted NECK: Supple without meningismus; non-tender; no cervical lymphadenopathy, no masses CARD: Regular rate and rhythm; no murmurs RESP: Normal chest excursion without splinting or tachypnea; breath sounds clear and equal bilaterally; no wheezes, no rhonchi, no rales ABD/GI: Normal bowel sounds; non-distended; soft, non-tender to deep palpation of all 4 quadrants of the abdomen BACK: The back appears normal and is non-tender to palpation, there is no CVA tenderness EXT: Normal ROM in all joints; non-tender to palpation, no redness, swelling, or edema to the fistula site SKIN: Normal color for age and race; no acute lesions noted NEURO: Moves all extremities equally; Motor and sensory function intact PSYCH: The patient's mood and manner are appropriate. Grooming and personal hygiene are appropriate. Course - Re-evaluation Re-evalutation: 02/24/18 12:35 EKG shows heart of 100, sinus tachycardia, normal axis, LVH present, minimal nonspecific depressions less than 1 mm in amplitude in leads II, III, V5 and V6 02/24/18 13:23 Given the above history and physical examination we will order a septic workup, x-ray of the chest, CT scan of the head, and most likely proceed to a lumbar puncture. The patient does not make urine. Patient denies any tick bites and has no skin lesions present. Patient is already received antibiotics.] 02/24/18 14:28 Lumbar puncture was performed without complications. Potassium has been replaced. I have provided 1 L of fluid. Given that the patient is a dialysis patient, with stable blood pressure, I do not believe 30 cc per/kg of NS is appropriate at this time. - Vital Signs Vital signs: Temp Pulse Resp BP Pulse Ox 101.4 F H 113 H 16 148/67 H 96 02/24/18 13:50 02/24/18 11:04 02/24/18 14:00 02/24/18 12:44 02/24/18 14:00 - Laboratory Result Diagrams: 02/24/18 12:35 02/24/18 12:35 Laboratory results interpreted by me: 02/24/18 02/24/18 02/24/18 12:35 12:35 12:35 WBC 14.3 H RBC 3.06 L Hgb 9.5 L Hct 27.6 L RDW 16.1 H Plt Count 143 L Band Neutrophils % 15 H Lymphocytes % (Manual) 5 L Monocytes % (Manual) 2 L Metamyelocytes % 1 H Abs Neuts (Manual) 13.3 H PT 16.6 H Potassium 3.0 L* Chloride 95 L Creatinine 5.04 H Est GFR ( Amer) 14 L Est GFR (Non-Af Amer) 12 L Lactic Acid Total Bilirubin 1.7 H Direct Bilirubin 0.9 H AST 92 H 02/24/18 12:35 WBC RBC Hgb Hct RDW Plt Count Band Neutrophils % Lymphocytes % (Manual) Monocytes % (Manual) Metamyelocytes % Abs Neuts (Manual) PT Potassium Chloride Creatinine Est GFR ( Amer) Est GFR (Non-Af Amer) Lactic Acid 2.4 H Total Bilirubin Direct Bilirubin AST Procedures - Lumbar Puncture Lumbar puncture Consent obtained: Yes Lumbar puncture pre-procedure: Sterile PPE donned, Chloraprep applied Patient position: Lying Anesthetic type: 1% Lidocaine w/epi mL's of anesthetic: 5 Number of attempts: 1 Complications: No Critical Care Note - Critical Care Note Total time excluding time spent on procedures (mins): 45 Discharge - Discharge Clinical Impression: Sepsis Qualifiers: Sepsis type: sepsis due to unspecified organism Qualified Code(s): A41.9 - Sepsis, unspecified organism Headache Qualifiers: Headache type: unspecified Headache chronicity pattern: acute headache Intractability: not intractable Qualified Code(s): R51 - Headache Condition: Fair Referrals: JOSE OQUENDO PA-C [[employer]IED HEALTH PROFESSIONAL] - Follow up as needed
[2018-02-24 13:08] LABS: HEMATOCRIT 27.6 % (37.9-51.0); HEMOGLOBIN 9.5 g/dL (13.5-17.0); MEAN CORPUSCULAR HEMOGLOBIN 30.9 pg (27.0-33.4); MEAN CORPUSCULAR HGB CONC 34.3 g/dL (32.0-36.0); MEAN CORPUSCULAR VOLUME 90 fl (80-97); PLATELET COUNT 143 10^3/uL (150-450); RED BLOOD COUNT 3.06 10^6/uL (4.35-5.55); RED CELL DISTRIBUTION WIDTH 16.1 % (11.5-14.0); WHITE BLOOD COUNT 14.3 10^3/uL (4.0-10.5)
[2018-02-24 13:10] LABS: INTERNATIONAL RATION (INR) 1.28; PROTHROMBIN TIME 16.6 SEC (11.4-15.4)
--- NOTE | 2018-02-24 13:11 | RADIOLOGY REPORT (SQ) ---
EXAM DESCRIPTION: CHEST 2 VIEWS COMPLETED DATE/TIME: 02/24/2018 1:00 pm REASON FOR STUDY: Sepsis COMPARISON: December 2016 EXAM PARAMETERS: NUMBER OF VIEWS: two views TECHNIQUE: Digital Frontal and Lateral radiographic views of the chest acquired. RADIATION DOSE: NA LIMITATIONS: none FINDINGS: LUNGS AND PLEURA: No opacities, masses or pneumothorax. No pleural effusion. MEDIASTINUM AND HILAR STRUCTURES: No masses or contour abnormalities. HEART AND VASCULAR STRUCTURES: Heart normal size. No evidence for failure. BONES: No acute findings. HARDWARE: None in the chest. OTHER: No other significant finding. IMPRESSION: NO ACUTE RADIOGRAPHIC FINDING IN THE CHEST. TECHNICAL DOCUMENTATION: JOB ID: [id number] [employer]- All Rights Reserved Reading location - IP/workstation name: [facility] [email or web address]
[2018-02-24] MEDS ORDERED: NORMAL SALINE 1000 ML 1,000 ML IV ONE (13:14)
[2018-02-24] MEDS ORDERED: LIDOCAINE 1%/EPINEPHRINE INJ 20 ML VIAL INJ ONE (13:15)
[2018-02-24 13:21] LABS: ALANINE AMINOTRANSFERASE 61 U/L (21-72); ALBUMIN 4.1 g/dL (3.5-5.0); ALKALINE PHOSPHATASE 114 U/L (38-126); ANION GAP 16 (5-19); ASPARTATE AMINO TRANSFERASE 92 U/L (17-59); BILIRUBIN,DIRECT 0.9 mg/dL (0.0-0.4); BILIRUBIN,TOTAL 1.7 mg/dL (0.2-1.3); BLOOD UREA NITROGEN 20 mg/dL (7-20); CALCIUM 9.2 mg/dL (8.4-10.2); CARBON DIOXIDE 29 mmol/L (22-30); CHLORIDE 95 mmol/L (98-107); GLUCOSE 105 mg/dL (75-110); SODIUM 140.4 mmol/L (137-145); TOTAL PROTEIN 7.1 g/dL (6.3-8.2)
[2018-02-24] MEDS ORDERED: POTASSIUM CHLORIDE 10 MEQ CAPSULE.ER PO ONE (13:31)
[2018-02-24 13:32] LABS: ABSOLUTE LYMPHOCYTES# (MANUAL) 0.7 10^3/uL (0.5-4.7); ABSOLUTE MONOCYTES # (MANUAL) 0.3 10^3/uL (0.1-1.4); ABSOLUTE NEUTROPHILS# (MANUAL) 13.3 10^3/uL (1.7-8.2); BAND NEUTROPHILS % (MANUAL) 15 % (3-5); BASOPHILS % (MANUAL) 0 % (0-2); EOSINOPHILS % (MANUAL) 0 % (0-6); LYMPHOCYTES % (MANUAL) 5 % (13-45); METAMYELOCYTES % (MANUAL) 1 % (0); MONOCYTES % (MANUAL) 2 % (3-13); SEGMENTED NEUTROPHILS % (MAN) 77 % (42-78); TOTAL CELLS COUNTED 100
[2018-02-24 13:35] LABS: ANISOCYTOSIS 1+; HYPOCHROMASIA 1+; PLATELET CLUMPS PRESENT; PLATELET GIANT PRESENT; PLATELET LARGE PRESENT; POLYCHROMASIA SLIGHT; TARGET CELLS 1+; TOXIC GRANULATION 1+; TOXIC VACUOLATION PRESENT
[2018-02-24 13:36] LABS: OVALOCYTES SLIGHT; POIKILOCYTOSIS SLIGHT
--- NOTE | 2018-02-24 14:05 | RADIOLOGY REPORT (SQ) ---
EXAM DESCRIPTION: CT HEAD WITHOUT COMPLETED DATE/TIME: 02/24/2018 1:52 pm REASON FOR STUDY: 3, headache with fever COMPARISON: December 2016 TECHNIQUE: Axial images acquired through the brain without intravenous contrast. Images reviewed wi th bone, brain and subdural windows. Additional sagittal and coronal reconstructions were generated. Images stored on PACS. All CT scanners at this facility use dose modulation, iterative reconstruction, and/or weight based d osing when appropriate to reduce radiation dose to as low as reasonably achievable (ALARA). [facility]: Dose Right [facility]: CareDose [facility]: Dose Right [facility]: Teradose 4D [facility]: Flywheel RADIATION DOSE: CT Rad equipment meets quality standard of care and radiation dose reduction techniq ues were employed. CTDIvol: 53.2 mGy. DLP: 1070 mGy-cm. mGy. LIMITATIONS: None. FINDINGS: VENTRICLES: Prominent. CEREBRUM: No masses. No hemorrhage. No midline shift. Areas of low density in the white matter mos t likely due to chronic micro-vascular ischemic change. No evidence for acute infarction. CEREBELLUM: No masses. No hemorrhage. No alteration of density. No evidence for acute infarction. EXTRAAXIAL SPACES: Mild age-related involutional change. No fluid collections. No masses. ORBITS AND GLOBE: No intra- or extraconal masses. Normal contour of globe without masses. CALVARIUM: No fracture. PARANASAL SINUSES: No fluid or mucosal thickening. SOFT TISSUES: No mass or hematoma. OTHER: No other significant finding. IMPRESSION: MILD CHRONIC CHANGES OF ATROPHY AND MICROVASCULAR ISCHEMIA. NO ACUTE PROCESS. EVIDENCE OF ACUTE STROKE: NO. TECHNICAL DOCUMENTATION: JOB ID: [id number] Quality ID # [id number]: Final reports with documentation of one or more dose reduction techniques (e.g., Au tomated exposure control, adjustment of the mA and/or kV according to patient size, use of iterative reconstruction technique) 2010 [employer]- All Rights Reserved Reading location - IP/workstation name: [email or web address]
[2018-02-24 14:54] LABS: VENOUS BLOOD BASE EXCESS 5.2 mmol/L; VENOUS BLOOD HCO3 29.2 mmol/L (20-32); VENOUS BLOOD PCO2 40.8 mmHg (35-63); VENOUS BLOOD PH 7.47 (7.30-7.42)
[2018-02-24 15:06] LABS: APPEARANCE ALL TUBES CLEAR; COLOR ALL TUBES COLORLESS; CSF TOTAL VOLUME 3.8 CC; CSF TUBE NUMBER 1; VOLUME TUBE 4 0.8 CC
[2018-02-24 15:07] LABS: GLUCOSE,CSF 62 mg/dL (40-70); PROTEIN,CSF 96 mg/dL (12-60); RED BLOOD CELL,CSF 3 /uL (0-10)
[2018-02-24 15:08] LABS: APPEARANCE ALL TUBES CLEAR; COLOR ALL TUBES COLORLESS; CSF TOTAL VOLUME 3.8 CC; CSF TUBE NUMBER 4; VOLUME TUBE 4 0.8 CC; WHITE BLOOD CELL,CSF 6 /uL (0-5)
[2018-02-24 15:09] LABS: RED BLOOD CELL,CSF 0 /uL (0-10)
[2018-02-24 15:10] LABS: WHITE BLOOD CELL,CSF 2 /uL (0-5)
--- NOTE | 2018-02-24 15:13 | EKG REPORT ---
SEVERITY:- ABNORMAL ECG - SINUS TACHYCARDIA LEFT VENTRICULAR HYPERTROPHY : Confirmed by: Rica Joshua MD 24-Feb-2018 15:11:56
[2018-02-24] MEDS ORDERED: OXYCODONE-ACETAMINOPHEN 5-325 MG TABLET PO PRN (15:41)
[2018-02-24] MEDS ORDERED: PROMETHAZINE HCL INJ 25 MG/1 ML VIAL IV PRN (15:41)
[2018-02-24] MEDS ORDERED: IPRATROPIUM/ALBUTEROL 0.5-2.5 MG/3 ML AMPUL NEB PRN (15:41)
[2018-02-24] MEDS ORDERED: ACETAMINOPHEN 325 MG TABLET PO PRN (15:41)
[2018-02-24] MEDS ORDERED: VANCOMYCIN HCL 0 MG in DEXTROSE 5%-WATER 250 ML IV NR (16:00)
[2018-02-24] MEDS ORDERED: CYCLOBENZAPRINE HCL 10 MG TABLET PO PRN (16:05)
--- NOTE | 2018-02-24 16:05 | PDOC H&P ---
History of Present Illness Admission Date/PCP: 02/24/18 14:50 MIKE PIERRE MD Patient complains of: Fever and headache for 1 day History of Present Illness: ALEKSANDRA RECINOS is a 57 year old male This patient presents emergency room with complaints of headache was started yesterday. Was found to be febrile while on dialysis today with his temperature as high as 103. Patient denies any nausea vomiting photophobia diarrhea abdominal pain cough or any other pertinent symptoms. In fact he was feeling his usual self until after he was discharged from the hospital yesterday. He had an outpatient angioplasty with drug eluting balloon of his arteriovenous fistula done on February 23 due to a malfunctioning AV fistula. He started spiking a fever today. Because of his headache he actually had a lumbar puncture done which basically shows 2 WBCs and slightly elevated protein. Chest x-ray and CT scan of the brain showed no acute findings. Past Medical History Cardiac Medical History: Reports: Hyperlipidema, Hypertension, Peripheral Vascular Disease - r leg surgery Denies: Congestive Heart Failure, Coronary Artery Disease, Myocardial Infarction Pulmonary Medical History: Reports: Pneumonia Denies: Asthma, Bronchitis, Chronic Obstructive Pulmonary Disease (COPD), Tuberculosis Neurological Medical History: Denies: Seizures Renal/ Medical History: Reports: End Stage Renal Disease Malignancy Medical History: Reports: Renal (Kidney) Cancer - He had a right nephrectomy for renal cell cancer. GI Medical History: Reports: Gastroesophageal Reflux Disease, Hiatal Hernia Musculoskeltal Medical History: Reports: Arthritis - Hands Psychiatric Medical History: Denies: Depression Hematology: Reports: Anemia - murmur Denies: Bleeding Tendencies Past Surgical History Past Surgical History: Reports: Orthopedic Surgery, Tonsillectomy, Other - Angioplasty with stent placement of AV fistula Denies: Pacemaker Social History Information Source: Patient Smoking Status: Current Every Day Smoker Frequency of Alcohol Use: Rare Hx Recreational Drug Use: Yes Drugs: Marijuana Hx Prescription Drug Abuse: No - Advance Directive Resuscitation Status: Full Code Family History Family History: Reviewed & Not Pertinent, CAD, DM Parental Family History Reviewed: Yes Children Family History Reviewed: No Sibling(s) Family History Reviewed.: No Medication/Allergy Home Medications: Aspirin [Adult Low Dose Aspirin EC] 81 mg PO DAILY 02/24/18 Atorvastatin Calcium [Lipitor 40 mg Tablet] 40 mg PO QHS 02/24/18 Budesonide/Formoterol Fumarate [Symbicort HFA 160-4.5 mcg Inhaler 6 gm] 1 puff IH Q12 02/24/18 Calcitriol [Rocaltrol 0.5 mcg Capsule] 0.5 mcg PO DAILY 02/24/18 Clonidine HCl [Catapres 0.3 mg Tablet] 0.3 mg PO Q8 02/24/18 Clopidogrel Bisulfate [Plavix 75 mg Tablet] 75 mg PO DAILY 02/24/18 Cyclobenzaprine HCl [Flexeril 10 mg Tablet] 10 mg PO TIDP PRN 02/24/18 Dibucaine 1% Ointment [Nupercainal 1% Oint 28 gm] 1 applic TOP ASDIR PRN Lanthanum Carbonate [Fosrenol] 1,000 mg PO AC 02/24/18 Metoprolol Succinate [Toprol Xl 50 mg Tab.sr] 50 mg PO DAILY 02/24/18 Minoxidil [Loniten 10 mg Tablet] 5 mg PO QAM 02/24/18 Minoxidil [Loniten 10 mg Tablet] 10 mg PO QHS 02/24/18 Vit B Comp No.3/Folic/C/Biotin [Bettie-Ana Rx Tablet] 1 tab PO DAILY 02/24/18 Allergies/Adverse Reactions: No Known Allergies Allergy (Verified 02/24/18 10:59) Review of Systems All systems: reviewed and no additional remarkable complaints except as stated Physical Exam Vital Signs: Temp Pulse Resp BP Pulse Ox 101.4 F H 113 H 16 148/67 H 96 02/24/18 13:50 02/24/18 11:04 02/24/18 14:00 02/24/18 12:44 02/24/18 14:00 General appearance: PRESENT: thin, well-developed Head exam: PRESENT: atraumatic Eye exam: PRESENT: EOMI, other - no photophobia Mouth exam: PRESENT: neck supple, tongue midline Teeth exam: PRESENT: poor dentation Respiratory exam: PRESENT: clear to auscultation shay. ABSENT: rales, rhonchi, wheezes Pulses: PRESENT: normal dorsalis pedis pul GI/Abdominal exam: PRESENT: normal bowel sounds, soft. ABSENT: distended, guarding, mass, organolmegaly, rebound, tenderness Rectal exam: PRESENT: deferred Extremities exam: ABSENT: calf tenderness Musculoskeletal exam: PRESENT: ambulatory Neurological exam: PRESENT: alert, awake, oriented to person, oriented to place , oriented to time, oriented to situation, CN II-XII grossly intact. ABSENT: motor sensory deficit Results Laboratory Results: 02/24/18 12:35 02/24/18 12:35 MCV 90 fl (80-97) 02/24/18 12:35 MCH 30.9 pg (27.0-33.4) 02/24/18 12:35 MCHC 34.3 g/dL (32.0-36.0) 02/24/18 12:35 RDW 16.1 % (11.5-14.0) H 02/24/18 12:35 Seg Neutrophils % Not Reportable 02/24/18 12:35 Lymphocytes % Not Reportable 02/24/18 12:35 Monocytes % Not Reportable 02/24/18 12:35 Eosinophils % Not Reportable 02/24/18 12:35 Basophils % Not Reportable 02/24/18 12:35 Absolute Neutrophils Not Reportable 02/24/18 12:35 Absolute Lymphocytes Not Reportable 02/24/18 12:35 Absolute Monocytes Not Reportable 02/24/18 12:35 Absolute Eosinophils Not Reportable 02/24/18 12:35 Absolute Basophils Not Reportable 02/24/18 12:35 VBG pH 7.47 (7.30-7.42) H 02/24/18 14:37 VBG pCO2 40.8 mmHg (35-63) 02/24/18 14:37 VBG HCO3 29.2 mmol/L (20-32) 02/24/18 14:37 VBG Base Excess 5.2 mmol/L 02/24/18 14:37 Chloride 95 mmol/L (98-107) L 02/24/18 12:35 Carbon Dioxide 29 mmol/L (22-30) 02/24/18 12:35 Anion Gap 16 (5-19) 02/24/18 12:35 Est GFR ( Amer) 14 (>60) L 02/24/18 12:35 Est GFR (Non-Af Amer) 12 (>60) L 02/24/18 12:35 Glucose 105 mg/dL (75-110) 02/24/18 12:35 Lactic Acid 2.4 mmol/L (0.7-2.1) H 02/24/18 12:35 Calcium 9.2 mg/dL (8.4-10.2) 02/24/18 12:35 Total Bilirubin 1.7 mg/dL (0.2-1.3) H 02/24/18 12:35 AST 92 U/L (17-59) H 02/24/18 12:35 ALT 61 U/L (21-72) 02/24/18 12:35 Alkaline Phosphatase 114 U/L (38-126) 02/24/18 12:35 Total Protein 7.1 g/dL (6.3-8.2) 02/24/18 12:35 Albumin 4.1 g/dL (3.5-5.0) 02/24/18 12:35 Fluid Tube Number 1 02/24/18 14:20 CSF Volume 3.8 CC 02/24/18 14:20 CSF Appearance CLEAR 02/24/18 14:20 CSF Color COLORLESS 02/24/18 14:20 CSF WBC 6 /uL (0-5) H 02/24/18 14:20 CSF RBC 3 /uL (0-10) 02/24/18 14:20 CSF Glucose 62 mg/dL (40-70) 02/24/18 14:20 CSF Total Protein 96 mg/dL (12-60) H 02/24/18 14:20 Impressions: Chest X-Ray 02/24/18 11:58 IMPRESSION: NO ACUTE RADIOGRAPHIC FINDING IN THE CHEST. Head CT 02/24/18 13:15 IMPRESSION: MILD CHRONIC CHANGES OF ATROPHY AND MICROVASCULAR ISCHEMIA. NO ACUTE PROCESS. EVIDENCE OF ACUTE STROKE: NO. Assessment & Plan - Diagnosis (1) Sepsis Qualifiers: Sepsis type: sepsis due to unspecified organism Qualified Code(s): A41.9 - Sepsis, unspecified organism Is this a current diagnosis for this admission?: Yes Plan: This is likely related to patient's procedure that was done on 02/23. He will be started on vancomycin adjusted for his renal function. I see no evidence of meningitis although lumbar puncture was appropriately done given his complaints of headache. Patient presented with fever, tachycardia, tachypnea and his source infection likely AV fistula Compared with yesterday patient does have a leukocytosis as well as mild thrombocytopenia which could be due to the acute infection. (2) ESRD on hemodialysis Is this a current diagnosis for this admission?: Yes Plan: He was actually dialyzed today. I have consulted nephrology though for future inpatient dialysis as needed. (3) Hypokalemia Is this a current diagnosis for this admission?: Yes Plan: Post dialysis. Judicious and cautious replacement. (4) Anemia in chronic kidney disease Is this a current diagnosis for this admission?: Yes Plan: Stable - Time Time Spent: 50 to 70 Minutes Medications reviewed and adjusted accordingly: Yes Anticipated discharge: Home Within: within 48 hours
[2018-02-24] MEDS ORDERED: LANTHANUM CARBONATE 500 MG TAB.CHEW PO ONE (17:00)
[2018-02-24] MEDS ORDERED: VANCOMYCIN HCL 750 MG in DEXTROSE 5%-WATER 250 ML IV SCH (18:00)
[2018-02-24] MEDS: BUDESONIDE/FORMOTEROL 160-4.5 MCG 60 PUFF/6 GM MDI IH SCH (21:39)
[2018-02-24] MEDS: MINOXIDIL 10 MG TABLET PO SCH (21:40)
[2018-02-24] MEDS: CLONIDINE HCL 0.1 MG TABLET PO SCH (21:40)
[2018-02-24] MEDS: ATORVASTATIN CALCIUM 40 MG TABLET PO SCH (21:40)
[2018-02-24] MEDS: HEPARIN SOD (PORCINE) 5,000 UNIT/ML 1 ML SYRINGE SUBCUT SCH (21:41)
[2018-02-24] MEDS ORDERED: (PENDING PHARMACY ID) (Clonidine Hcl [Catapres 0.3 Mg Tablet] 0.3 MG) PO SCH (22:00)
[2018-02-25 05:49] LABS: HEMATOCRIT 26.3 % (37.9-51.0); MEAN CORPUSCULAR HEMOGLOBIN 31.3 pg (27.0-33.4); MEAN CORPUSCULAR HGB CONC 34.4 g/dL (32.0-36.0); MEAN CORPUSCULAR VOLUME 91 fl (80-97); PLATELET COUNT 130 10^3/uL (150-450); RED BLOOD COUNT 2.88 10^6/uL (4.35-5.55); RED CELL DISTRIBUTION WIDTH 16.3 % (11.5-14.0); WHITE BLOOD COUNT 18.2 10^3/uL (4.0-10.5)
[2018-02-25] MEDS: CLONIDINE HCL 0.1 MG TABLET PO SCH ×2 (06:05→14:28)
[2018-02-25] MEDS: HEPARIN SOD (PORCINE) 5,000 UNIT/ML 1 ML SYRINGE SUBCUT SCH ×3 (06:07→21:24)
[2018-02-25 06:14] LABS: ANION GAP 16 (5-19); BLOOD UREA NITROGEN 35 mg/dL (7-20); CALCIUM 8.5 mg/dL (8.4-10.2); CARBON DIOXIDE 26 mmol/L (22-30); CHLORIDE 99 mmol/L (98-107); GLUCOSE 78 mg/dL (75-110); POTASSIUM 3.8 mmol/L (3.6-5.0); SODIUM 140.7 mmol/L (137-145)
[2018-02-25] MEDS ORDERED: LANTHANUM CARBONATE 1000 MG PO SCH (08:00)
[2018-02-25] MEDS: LANTHANUM CARBONATE 500 MG TAB.CHEW PO SCH ×3 (08:30→16:46)
[2018-02-25] MEDS: MINOXIDIL 10 MG TABLET PO SCH ×2 (08:32→21:10)
[2018-02-25] MEDS ORDERED: (PENDING PHARMACY ID) (Calcitriol [Rocaltrol 0.5 Mcg Capsule] 0.5 MCG) PO SCH (10:00)
[2018-02-25] MEDS ORDERED: METOPROLOL SUCCINATE 50 MG TAB.SR.24H PO SCH (10:00)
[2018-02-25] MEDS ORDERED: [UNRECOGNIZED DRUG - REMARK] PO SCH (10:00)
[2018-02-25] MEDS: BUDESONIDE/FORMOTEROL 160-4.5 MCG 60 PUFF/6 GM MDI IH SCH ×2 (10:04→21:11)
[2018-02-25] MEDS: CALCITRIOL 0.25 MCG CAPSULE PO SCH (10:05)
[2018-02-25] MEDS: CLOPIDOGREL BISULFATE 75 MG TABLET PO SCH (10:06)
[2018-02-25] MEDS: ASPIRIN 81 MG TABLET, ENT COATED PO SCH (10:06)
[2018-02-25] MEDS: DOCUSATE SODIUM 100 MG CAPSULE PO SCH (10:06)
[2018-02-25 15:06] LABS: PATH REVIEW PATHOLOGIST REVIEWED
--- NOTE | 2018-02-25 16:09 | PDOC CONSULTATION ---
Consultation Consult Date: 02/25/18 Consult reason:: ESRD History of Present Illness Admission Date/PCP: 02/24/18 14:50 MIKE PIERRE MD History of Present Illness: ALEKSANDRA RECINOS is a 57 year old male hypertension, previous history of a stroke , and ESRD on HD. He came to the ER due to a fever of 103 F and a headache. Previously he was doing fine up until Thursday when he had a procedure preformed on his fistula. Started to get some chills that night. He came to dialysis on Thursday morning with chills and a slightly elevated temp in the 99s. Towards the end of the treatment the chills were worse and he had a fever of 100.6 F. Blood cultures were drawn and IV ceftazidime and amcef were given, both 1g. He refused to go the ER by EMS. Once he got home from dialysis he took himself to the ER. In the ER blood cultures were drawn and IV vanc was given. A lumbar puncture and CT of the head was done. Lumbar puncture showed 2 wbc and slightly increased protein levels. CT of the head showed no acute findings. In his room today he said that he felt much better. The headache was gone and the chills were gone. He denies currently having a fever or chills. He denies chest pain, SOB, cough, sputum production, d/c/n/v. Past Medical History Cardiac Medical History: Reports: Hyperlipidemia, Hypertension-primary, Peripheral Vascular Disease - r leg surgery Denies: Coronary Artery Disease, Myocardial Infarction Pulmonary Medical History: Reports: Pneumonia Denies: Asthma, Bronchitis, Chronic Obstructive Pulmonary Disease (COPD), Tuberculosis Neurological Medical History: Denies: Seizures Renal/ Medical History: Reports: End Stage Renal Disease Denies: Benign Prostatic Hyperplasia Malignancy Medical History: Reports: Renal (Kidney) Cancer - He had a right nephrectomy for renal cell cancer. GI Medical History: Reports: Gastroesophageal Reflux Disease, Hiatal Hernia Musculoskeltal Medical History: Reports: Arthritis - Hands Psychiatric Medical History: Denies: Depression Past Surgical History Past Surgical History: Reports: Dialysis Access Surgery AVF, Orthopedic Surgery , Tonsillectomy, Other - Angioplasty with stent placement of AV fistula Denies: Pacemaker Social History Smoking Status: Current Every Day Smoker Cigarettes Packs Per Day: 1 Frequency of Alcohol Use: None Hx Recreational Drug Use: Yes Drugs: Marijuana Hx Prescription Drug Abuse: No - Advance Directive Resuscitation Status: Full Code Family History Parental Family History Reviewed: No Children Family History Reviewed: NA Sibling(s) Family History Reviewed.: NA Medication/Allergy Home Medications: Aspirin [Adult Low Dose Aspirin EC] 81 mg PO DAILY 02/24/18 Atorvastatin Calcium [Lipitor 40 mg Tablet] 40 mg PO QHS 02/24/18 Budesonide/Formoterol Fumarate [Symbicort HFA 160-4.5 mcg Inhaler 6 gm] 1 puff IH Q12 02/24/18 Calcitriol [Rocaltrol 0.5 mcg Capsule] 0.5 mcg PO DAILY 02/24/18 Clonidine HCl [Catapres 0.3 mg Tablet] 0.3 mg PO Q8 02/24/18 Clopidogrel Bisulfate [Plavix 75 mg Tablet] 75 mg PO DAILY 02/24/18 Cyclobenzaprine HCl [Flexeril 10 mg Tablet] 10 mg PO TIDP PRN 02/24/18 Dibucaine 1% Ointment [Nupercainal 1% Oint 28 gm] 1 applic TOP ASDIR PRN Lanthanum Carbonate [Fosrenol] 1,000 mg PO AC 02/24/18 Metoprolol Succinate [Toprol Xl 50 mg Tab.sr] 50 mg PO DAILY 02/24/18 Minoxidil [Loniten 10 mg Tablet] 5 mg PO QAM 02/24/18 Minoxidil [Loniten 10 mg Tablet] 10 mg PO QHS 02/24/18 Vit B Comp No.3/Folic/C/Biotin [Bettie-Ana Rx Tablet] 1 tab PO DAILY 02/24/18 Allergies/Adverse Reactions: No Known Allergies Allergy (Verified 02/25/18 09:36) Review of Systems Constitutional: PRESENT: chills, fever(s), headache(s). ABSENT: fatigue, night sweats, weakness Eyes: ABSENT: visual disturbances Ears: ABSENT: hearing changes Nose, Mouth, and Throat: PRESENT: headache(s) Cardiovascular: ABSENT: chest pain, dyspnea on exertion, edema, orthropnea, palpitations Respiratory: ABSENT: cough, dyspnea, sputum Gastrointestinal: ABSENT: abdominal pain, constipation, diarrhea, nausea, vomiting Genitourinary: ABSENT: dysuria Musculoskeletal: ABSENT: back pain, joint swelling Neurological: ABSENT: confusion, dizziness, numbness, syncope, weakness Physical Exam Vital Signs: Temp Pulse Resp BP Pulse Ox 97.7 F 80 16 98/46 L 100 02/25/18 11:43 02/25/18 14:00 02/25/18 11:43 02/25/18 11:43 02/25/18 08:04 Intake & Output 02/24/18 02/25/18 02/26/18 06:59 06:59 06:59 Intake Total 50 Output Total 0 Balance 50 Weight 60.2 kg General appearance: PRESENT: no acute distress, well-developed, well-nourished Mouth exam: PRESENT: moist, neck supple Neck exam: PRESENT: full ROM. ABSENT: JVD Respiratory exam: PRESENT: clear to auscultation shay. ABSENT: accessory muscle use, crackles, rales, rhonchi, wheezes Cardiovascular exam: PRESENT: RRR, +S1, +S2 GI/Abdominal exam: PRESENT: soft. ABSENT: ascites, distended, tenderness Extremities exam: ABSENT: pedal edema, tenderness, +1 edema, +2 edema Musculoskeletal exam: PRESENT: normal inspection. ABSENT: tenderness Neurological exam: PRESENT: alert, awake, oriented to person, oriented to place , oriented to time, oriented to situation Psychiatric exam: PRESENT: appropriate affect, normal mood Skin exam: PRESENT: dry, intact, warm. ABSENT: cyanosis Results Laboratory Results: 02/25/18 05:13 02/25/18 05:13 02/24/18 02/25/18 02/25/18 16:43 05:13 05:13 WBC 18.2 H RBC 2.88 L Hgb 9.0 L Hct 26.3 L MCV 91 MCH 31.3 MCHC 34.4 RDW 16.3 H Plt Count 130 L Sodium 140.7 Potassium 3.8 Chloride 99 Carbon Dioxide 26 Anion Gap 16 BUN 35 H Creatinine 6.98 H Est GFR ( Amer) 10 L Est GFR (Non-Af Amer) 8 L Glucose 78 Lactic Acid 1.3 Calcium 8.5 Impressions: Chest X-Ray 02/24/18 11:58 IMPRESSION: NO ACUTE RADIOGRAPHIC FINDING IN THE CHEST. Head CT 02/24/18 13:15 IMPRESSION: MILD CHRONIC CHANGES OF ATROPHY AND MICROVASCULAR ISCHEMIA. NO ACUTE PROCESS. EVIDENCE OF ACUTE STROKE: NO. Assessment & Plan - Diagnosis (1) ESRD on hemodialysis Is this a current diagnosis for this admission?: Yes Plan: will set him up for dialysis tomorrow (2) Hypokalemia Is this a current diagnosis for this admission?: Yes Plan: stable, most likely low due to dialysis bath bring him to around 3. After dialysis the patient was shift potassium into the blood stream and gain more potassium from decreased kidney function. (3) Sepsis Qualifiers: Sepsis type: sepsis due to unspecified organism Qualified Code(s): A41.9 - Sepsis, unspecified organism Is this a current diagnosis for this admission?: Yes Plan: Currently on vanc, monitor cultures and vitals. (4) Anemia in chronic kidney disease Is this a current diagnosis for this admission?: Yes Plan: will look to give epogen during treatment tomorrow and will look to get iron studies. (5) Hypertension Plan: currently lower end, will look to adjust bp meds. (6) Headache Qualifiers: Headache type: unspecified Headache chronicity pattern: acute headache Intractability: not intractable Qualified Code(s): R51 - Headache Plan: resolved
[2018-02-25] MEDS: METOPROLOL SUCCINATE 50 MG TAB.SR.24H PO SCH (17:11)
--- NOTE | 2018-02-25 17:40 | PDOC PROGRESS REPORT ---
Subjective Progress Note for:: 02/25/18 Subjective:: Feels much better today and has remained afebrile. No nausea vomiting chest pain. There is no swelling or erythema of the left upper extremity. Reason For Visit: SEPSIS,ESRD Physical Exam Vital Signs: Temp Pulse Resp BP Pulse Ox 98.2 F 76 16 106/50 L 99 02/25/18 15:55 02/25/18 16:16 02/25/18 16:16 02/25/18 15:55 02/25/18 15:55 Intake & Output 02/24/18 02/25/18 02/26/18 06:59 06:59 06:59 Intake Total 50 Output Total 0 Balance 50 Weight 60.2 kg General appearance: PRESENT: no acute distress, thin, well-nourished Head exam: PRESENT: atraumatic, normocephalic Eye exam: PRESENT: PERRLA. ABSENT: scleral icterus Ear exam: PRESENT: normal external ear exam Neck exam: ABSENT: carotid bruit, JVD, lymphadenopathy, thyromegaly Respiratory exam: PRESENT: clear to auscultation shay. ABSENT: rales, rhonchi, wheezes Cardiovascular exam: PRESENT: RRR. ABSENT: diastolic murmur, rubs, systolic murmur GI/Abdominal exam: PRESENT: normal bowel sounds, soft. ABSENT: distended, guarding, mass, organolmegaly, rebound, tenderness Rectal exam: PRESENT: deferred Extremities exam: PRESENT: full ROM, other - L AV fistula. ABSENT: calf tenderness, clubbing, pedal edema Neurological exam: PRESENT: alert, oriented to person, oriented to place, oriented to time, oriented to situation, CN II-XII grossly intact. ABSENT: motor sensory deficit Psychiatric exam: PRESENT: normal mood. ABSENT: homicidal ideation, suicidal ideation Skin exam: PRESENT: intact, warm. ABSENT: cyanosis, rash Results Laboratory Results: 02/25/18 05:13 02/25/18 05:13 02/25/18 02/25/18 05:13 05:13 WBC 18.2 H RBC 2.88 L Hgb 9.0 L Hct 26.3 L MCV 91 MCH 31.3 MCHC 34.4 RDW 16.3 H Plt Count 130 L Sodium 140.7 Potassium 3.8 Chloride 99 Carbon Dioxide 26 Anion Gap 16 BUN 35 H Creatinine 6.98 H Est GFR ( Amer) 10 L Est GFR (Non-Af Amer) 8 L Glucose 78 Calcium 8.5 Impressions: Chest X-Ray 02/24/18 11:58 IMPRESSION: NO ACUTE RADIOGRAPHIC FINDING IN THE CHEST. Head CT 02/24/18 13:15 IMPRESSION: MILD CHRONIC CHANGES OF ATROPHY AND MICROVASCULAR ISCHEMIA. NO ACUTE PROCESS. EVIDENCE OF ACUTE STROKE: NO. Assessment & Plan - Diagnosis (1) Sepsis Qualifiers: Sepsis type: sepsis due to unspecified organism Qualified Code(s): A41.9 - Sepsis, unspecified organism Is this a current diagnosis for this admission?: Yes Plan: Has gram-positive bacteremia likely secondary to the procedure done 2 days ago. Will continue with vancomycin and await cultures As there is a source of his infection will defer any imaging studies for now unless indicated (2) ESRD on hemodialysis Is this a current diagnosis for this admission?: Yes Plan: Continue dialysis as per nephrology (3) Hypokalemia Is this a current diagnosis for this admission?: Yes Plan: Corrected (4) Anemia in chronic kidney disease Is this a current diagnosis for this admission?: Yes Plan: Secondary to chronic disease this is stable - Time Time Spent with patient: 15-24 minutes Medications reviewed and adjusted accordingly: Yes Anticipated discharge: Home Within: within 72 hours - Inpatient Certification Based on my medical assessment, after consideration of the patient's comorbidities, presenting symptoms, or acuity I expect that the services needed warrant INPATIENT care.: Yes Medical Necessity: Need Close Monitoring Due to Risk of Patient Decompensation, Need for IV Antibiotics
[2018-02-25] MEDS: ATORVASTATIN CALCIUM 40 MG TABLET PO SCH (21:10)
[2018-02-26] MEDS ORDERED: LIDOCAINE 4% TRANSPARENT DRESSING 5 GM KIT TP PRN (05:00)
[2018-02-26] MEDS ORDERED: EPOETIN ALFA INJ 20000 UNIT/1 ML VIAL (RENAL) IV PRN (05:00)
[2018-02-26 05:53] LABS: HEMATOCRIT 25.5 % (37.9-51.0); HEMOGLOBIN 8.8 g/dL (13.5-17.0); MEAN CORPUSCULAR HEMOGLOBIN 30.9 pg (27.0-33.4); MEAN CORPUSCULAR HGB CONC 34.4 g/dL (32.0-36.0); MEAN CORPUSCULAR VOLUME 90 fl (80-97); PLATELET COUNT 143 10^3/uL (150-450); RED BLOOD COUNT 2.84 10^6/uL (4.35-5.55); RED CELL DISTRIBUTION WIDTH 16.3 % (11.5-14.0); WHITE BLOOD COUNT 13.7 10^3/uL (4.0-10.5)
[2018-02-26] MEDS: CLONIDINE HCL 0.1 MG TABLET PO SCH ×3 (06:32→22:39)
[2018-02-26 06:39] LABS: ANION GAP 14 (5-19); BLOOD UREA NITROGEN 58 mg/dL (7-20); CALCIUM 8.9 mg/dL (8.4-10.2); CARBON DIOXIDE 27 mmol/L (22-30); CHLORIDE 97 mmol/L (98-107); GLUCOSE 91 mg/dL (75-110); SODIUM 138.2 mmol/L (137-145)
[2018-02-26] MEDS: LANTHANUM CARBONATE 500 MG TAB.CHEW PO SCH ×3 (07:49→17:11)
[2018-02-26] MEDS: CALCITRIOL 0.25 MCG CAPSULE PO SCH (12:58)
[2018-02-26] MEDS: METOPROLOL SUCCINATE 50 MG TAB.SR.24H PO SCH (13:00)
[2018-02-26] MEDS: CLOPIDOGREL BISULFATE 75 MG TABLET PO SCH (13:00)
[2018-02-26] MEDS: DOCUSATE SODIUM 100 MG CAPSULE PO SCH (13:00)
[2018-02-26] MEDS: ASPIRIN 81 MG TABLET, ENT COATED PO SCH (13:00)
[2018-02-26] MEDS: HEPARIN SOD (PORCINE) 5,000 UNIT/ML 1 ML SYRINGE SUBCUT SCH ×2 (13:00→21:58)
[2018-02-26] MEDS: BUDESONIDE/FORMOTEROL 160-4.5 MCG 60 PUFF/6 GM MDI IH SCH ×2 (13:01→22:39)
--- NOTE | 2018-02-26 14:54 | PDOC PROGRESS REPORT ---
Subjective Progress Note for:: 02/26/18 Subjective:: It appears to be progressing now well, in good spirits, and remains afebrile. His headache has also resolved. Reason For Visit: SEPSIS,ESRD Physical Exam Vital Signs: Temp Pulse Resp BP Pulse Ox 98.3 F 83 16 140/58 H 100 02/26/18 12:53 02/26/18 12:53 02/26/18 12:53 02/26/18 12:53 02/26/18 12:53 Intake & Output 02/25/18 02/26/18 02/27/18 06:59 06:59 06:59 Intake Total 50 955 Output Total 0 0 2800 Balance 50 955 -2800 Weight 60.2 kg 60.3 kg General appearance: PRESENT: no acute distress, thin, well-nourished Head exam: PRESENT: atraumatic, normocephalic Eye exam: PRESENT: conjunctiva pink, EOMI, PERRLA. ABSENT: scleral icterus Ear exam: PRESENT: normal external ear exam Mouth exam: PRESENT: moist, tongue midline Neck exam: ABSENT: carotid bruit, JVD, lymphadenopathy, thyromegaly Respiratory exam: PRESENT: clear to auscultation shay. ABSENT: rales, rhonchi, wheezes Cardiovascular exam: PRESENT: RRR. ABSENT: diastolic murmur, rubs, systolic murmur Pulses: PRESENT: normal dorsalis pedis pul Vascular exam: PRESENT: other - Left AV fistula GI/Abdominal exam: PRESENT: normal bowel sounds, soft. ABSENT: distended, guarding, mass, organolmegaly, rebound, tenderness Rectal exam: PRESENT: deferred Extremities exam: PRESENT: full ROM. ABSENT: calf tenderness, clubbing, pedal edema Neurological exam: PRESENT: alert, awake, oriented to person, oriented to place , oriented to time, oriented to situation, CN II-XII grossly intact. ABSENT: motor sensory deficit Psychiatric exam: PRESENT: appropriate affect, normal mood. ABSENT: homicidal ideation, suicidal ideation Skin exam: PRESENT: dry, intact, warm. ABSENT: cyanosis, rash Results Laboratory Results: 02/26/18 05:29 02/26/18 05:29 02/26/18 02/26/18 05:29 05:29 WBC 13.7 H RBC 2.84 L Hgb 8.8 L Hct 25.5 L MCV 90 MCH 30.9 MCHC 34.4 RDW 16.3 H Plt Count 143 L Sodium 138.2 Potassium 4.0 Chloride 97 L Carbon Dioxide 27 Anion Gap 14 BUN 58 H Creatinine 8.96 H Est GFR ( Amer) 7 L Est GFR (Non-Af Amer) 6 L Glucose 91 Calcium 8.9 Impressions: Chest X-Ray 02/24/18 11:58 IMPRESSION: NO ACUTE RADIOGRAPHIC FINDING IN THE CHEST. Head CT 02/24/18 13:15 IMPRESSION: MILD CHRONIC CHANGES OF ATROPHY AND MICROVASCULAR ISCHEMIA. NO ACUTE PROCESS. EVIDENCE OF ACUTE STROKE: NO. Assessment & Plan - Diagnosis (1) Sepsis Qualifiers: Sepsis type: sepsis due to unspecified organism Qualified Code(s): A41.9 - Sepsis, unspecified organism Is this a current diagnosis for this admission?: Yes (2) ESRD on hemodialysis Is this a current diagnosis for this admission?: Yes (3) Hypokalemia Is this a current diagnosis for this admission?: Yes (4) Anemia in chronic kidney disease Is this a current diagnosis for this admission?: Yes
--- NOTE | 2018-02-26 16:14 | PDOC PROGRESS REPORT ---
Subjective Progress Note for:: 02/26/18 Reason For Visit: This patient was seen on dialysis today. He was admitted for sepsis after he had interrogation of his AV fistula on the day before. Now he is growing gram- positive cocci in clusters. He is on IV vancomycin. Patient denies any more fever or chills. He had some headaches which also has resolved. He is almost back to his baseline. Labs and medications were reviewed with the patient. Patient currently undergoing dialysis without any issues. Orders were reviewed with the treating dialysis nurse. Physical Exam Vital Signs: Temp Pulse Resp BP Pulse Ox 98.3 F 87 16 140/58 H 100 02/26/18 12:53 02/26/18 14:00 02/26/18 12:53 02/26/18 12:53 02/26/18 12:53 Intake & Output 02/25/18 02/26/18 02/27/18 06:59 06:59 06:59 Intake Total 50 955 Output Total 0 0 2800 Balance 50 955 -2800 Weight 60.2 kg 60.3 kg Respiratory exam: PRESENT: clear to auscultation shay. ABSENT: crackles, rhonchi Cardiovascular exam: PRESENT: RRR, +S1, +S2, systolic murmur GI/Abdominal exam: PRESENT: soft. ABSENT: ascites, distended, tenderness Neurological exam: PRESENT: alert, awake, oriented to person, oriented to place Psychiatric exam: PRESENT: appropriate affect Skin exam: ABSENT: cyanosis, erythema, mottled, rash Results Laboratory Results: 02/26/18 05:29 02/26/18 05:29 02/26/18 02/26/18 05:29 05:29 WBC 13.7 H RBC 2.84 L Hgb 8.8 L Hct 25.5 L MCV 90 MCH 30.9 MCHC 34.4 RDW 16.3 H Plt Count 143 L Sodium 138.2 Potassium 4.0 Chloride 97 L Carbon Dioxide 27 Anion Gap 14 BUN 58 H Creatinine 8.96 H Est GFR ( Amer) 7 L Est GFR (Non-Af Amer) 6 L Glucose 91 Calcium 8.9 Impressions: Chest X-Ray 02/24/18 11:58 IMPRESSION: NO ACUTE RADIOGRAPHIC FINDING IN THE CHEST. Head CT 02/24/18 13:15 IMPRESSION: MILD CHRONIC CHANGES OF ATROPHY AND MICROVASCULAR ISCHEMIA. NO ACUTE PROCESS. EVIDENCE OF ACUTE STROKE: NO. Assessment & Plan - Diagnosis (1) Bacteremia due to Gram-positive bacteria Plan: Post interrogation of AV fistula. Now resolving. On IV vancomycin. We can continue this as an outpatient once he is discharged for another 2 more weeks. (2) Headache Qualifiers: Headache type: unspecified Headache chronicity pattern: acute headache Intractability: not intractable Qualified Code(s): R51 - Headache Plan: Resolved. Could have been part of sepsis. (3) Sepsis Qualifiers: Sepsis type: sepsis due to unspecified organism Qualified Code(s): A41.9 - Sepsis, unspecified organism Is this a current diagnosis for this admission?: Yes (4) ESRD on hemodialysis Is this a current diagnosis for this admission?: Yes Plan: Patient seen on dialysis.He is undergoing dialysis without any issues.Vital signs are stable. It is being supervised to ensure safe and smooth procedure.Will remove between 1 and 2 L as tolerated. Last dialysis was Thursday. Orders were reviewed and discussed with the treating dialysis nurse. (5) Hypertension Plan: Stable. Monitor.
[2018-02-26] MEDS ORDERED: VANCOMYCIN HCL 750 MG in DEXTROSE 5%-WATER 250 ML IV SCH (18:00)
[2018-02-26] MEDS: ATORVASTATIN CALCIUM 40 MG TABLET PO SCH (22:39)
[2018-02-26] MEDS: MINOXIDIL 10 MG TABLET PO SCH (22:40)
[2018-02-27 05:27] LABS: ABSOLUTE EOSINOPHILS # (AUTO) 0.2 10^3/uL (0.0-0.6); ABSOLUTE LYMPHOCYTES (AUTO) 1.6 10^3/uL (0.5-4.7); ABSOLUTE MONOCYTES (AUTO) 1.3 10^3/uL (0.1-1.4); ABSOLUTE NEUT (AUTO) 8.3 10^3/uL (1.7-8.2); BASOPHILS % (AUTO) 0.3 % (0-2); EOSINOPHILS % (AUTO) 1.6 % (0-6); HEMOGLOBIN 9.2 g/dL (13.5-17.0); LYMPHOCYTES % (AUTO) 14.1 % (13-45); MEAN CORPUSCULAR HEMOGLOBIN 30.6 pg (27.0-33.4); MEAN CORPUSCULAR VOLUME 90 fl (80-97); MONOCYTES % (AUTO) 11.3 % (3-13); PLATELET COUNT 164 10^3/uL (150-450); RED CELL DISTRIBUTION WIDTH 16.2 % (11.5-14.0); SEGMENTED NEUTROPHILS % (AUTO) 72.7 % (42-78); TOTAL CELLS COUNTED % (AUTO) 100 %; WHITE BLOOD COUNT 11.5 10^3/uL (4.0-10.5)
[2018-02-27] MEDS: CLONIDINE HCL 0.1 MG TABLET PO SCH (06:33)
[2018-02-27] MEDS: LANTHANUM CARBONATE 500 MG TAB.CHEW PO SCH ×2 (08:57→11:46)
[2018-02-27] MEDS: MINOXIDIL 10 MG TABLET PO SCH (08:58)
[2018-02-27] MEDS: CLOPIDOGREL BISULFATE 75 MG TABLET PO SCH (10:07)
[2018-02-27] MEDS: METOPROLOL SUCCINATE 50 MG TAB.SR.24H PO SCH (10:08)
[2018-02-27] MEDS: ASPIRIN 81 MG TABLET, ENT COATED PO SCH (10:08)
[2018-02-27] MEDS: CALCITRIOL 0.25 MCG CAPSULE PO SCH (10:08)
[2018-02-27] MEDS: DOCUSATE SODIUM 100 MG CAPSULE PO SCH (10:08)
[2018-02-27] MEDS: BUDESONIDE/FORMOTEROL 160-4.5 MCG 60 PUFF/6 GM MDI IH SCH (10:09)
[2018-02-27] MEDS: HEPARIN SOD (PORCINE) 5,000 UNIT/ML 1 ML SYRINGE SUBCUT SCH (10:16)
--- NOTE | 2018-02-27 11:37 | PDOC DISCHARGE SUMMARY ---
General - Admit/Disc Date/PCP Admission Date/Primary Care Provider: 02/24/18 14:50 MIKE PIERRE MD Discharge Date: 02/27/18 - Discharge Diagnosis (1) Sepsis Is this a current diagnosis for this admission?: Yes Summary: Secondary to methicillin sensitive Staphylococcus aureus, manifested by fever tachycardia and tachypnea which have all resolved. Source of infection is likely through the AV fistula which was manipulated just 1 day prior to admission (2) ESRD on hemodialysis Is this a current diagnosis for this admission?: Yes (3) Hypokalemia Is this a current diagnosis for this admission?: Yes (4) Anemia in chronic kidney disease Is this a current diagnosis for this admission?: Yes - Additional Information Resuscitation Status: Full Code Discharge Diet: Other (Comments) - Renal Discharge Activity: Activity As Tolerated Prescriptions: Vancomycin HCl [Vancocin Inj 1000 mg Vial] 750 mg IV PDIA #3 vial Home Medications: Aspirin [Adult Low Dose Aspirin EC] 81 mg PO DAILY 02/24/18 Atorvastatin Calcium [Lipitor 40 mg Tablet] 40 mg PO QHS 02/24/18 Budesonide/Formoterol Fumarate [Symbicort HFA 160-4.5 mcg Inhaler 6 gm] 1 puff IH Q12 02/24/18 Calcitriol [Rocaltrol 0.5 mcg Capsule] 0.5 mcg PO DAILY 02/24/18 Clonidine HCl [Catapres 0.3 mg Tablet] 0.3 mg PO Q8 02/24/18 Clopidogrel Bisulfate [Plavix 75 mg Tablet] 75 mg PO DAILY 02/24/18 Cyclobenzaprine HCl [Flexeril 10 mg Tablet] 10 mg PO TIDP PRN 02/24/18 Dibucaine 1% Ointment [Nupercainal 1% Oint 28 gm] 1 applic TOP ASDIR PRN Lanthanum Carbonate [Fosrenol] 1,000 mg PO AC 02/24/18 Metoprolol Succinate [Toprol Xl 50 mg Tab.sr] 50 mg PO DAILY 02/24/18 Minoxidil [Loniten 10 mg Tablet] 5 mg PO QAM 02/24/18 Minoxidil [Loniten 10 mg Tablet] 10 mg PO QHS 02/24/18 Vit B Comp No.3/Folic/C/Biotin [Bettie-Ana Rx Tablet] 1 tab PO DAILY 02/24/18 Vancomycin HCl [Vancocin Inj 1000 mg Vial] 750 mg IV PDIA #3 vial 02/27/18 History of Present Illness History of Present Illness: ALEKSANDRA RECINOS is a 57 year old male This patient presents emergency room with complaints of headache was started yesterday. Was found to be febrile while on dialysis today with his temperature as high as 103. Patient denies any nausea vomiting photophobia diarrhea abdominal pain cough or any other pertinent symptoms. In fact he was feeling his usual self until after he was discharged from the hospital yesterday. He had an outpatient angioplasty with drug eluting balloon of his arteriovenous fistula done on February 23 due to a malfunctioning AV fistula. He started spiking a fever today. Because of his headache he actually had a lumbar puncture done which basically shows 2 WBCs and slightly elevated protein. Chest x-ray and CT scan of the brain showed no acute findings. Hospital Course Hospital Course: Patient was admitted with sepsis. His blood cultures subsequently yielded methicillin sensitive Staphylococcus aureus. His most likely source of infection was felt to be through an angioplasty with drug-eluting stenting that he had done on the malfunctioning AV fistula a day prior to admission. Patient responded very well to vancomycin and has remained afebrile and hemodynamically stable. He received dialysis as per his previous schedule. He has received 2 doses of vancomycin while in hospital and will suggest 3 more doses after dialysis in the following week. Two-dimensional echocardiogram was done to rule out any other potential source of infection. 2D echo suggest possible endocarditis and a RUIZ is suggested however clinically this is likely not an endocarditis. Patient has been discharged home on IV vancomycin to be received as outpatient in dialysis and will contact Dr. Douglass his loop tacker to arrange an outpatient RUIZ for further evaluation and to rule out endocarditis. Patient was discharged in stable condition CSF culture was negative as patient also had a lumbar puncture done. Physical Exam Vital Signs: Temp Pulse Resp BP Pulse Ox 98.3 F 81 16 134/64 H 100 02/27/18 08:25 02/27/18 08:25 02/27/18 08:25 02/27/18 08:25 02/27/18 08:25 Intake & Output 02/26/18 02/27/18 02/28/18 06:59 06:59 06:59 Intake Total 955 590 Output Total 0 2800 Balance 955 -2210 Weight 60.3 kg General appearance: PRESENT: no acute distress, thin, well-developed Head exam: PRESENT: atraumatic, normocephalic Eye exam: PRESENT: conjunctiva pink, EOMI, PERRLA. ABSENT: scleral icterus Ear exam: PRESENT: normal external ear exam Mouth exam: PRESENT: moist, tongue midline Neck exam: ABSENT: carotid bruit, JVD, lymphadenopathy, thyromegaly Respiratory exam: PRESENT: clear to auscultation shay. ABSENT: rales, rhonchi, wheezes Cardiovascular exam: PRESENT: RRR, other - Left upper extremity AV fistula. ABSENT: diastolic murmur, rubs, systolic murmur Pulses: PRESENT: normal dorsalis pedis pul Vascular exam: PRESENT: normal capillary refill, other - Left AV fistula which appears to be intact with no erythema or warmth GI/Abdominal exam: PRESENT: normal bowel sounds, soft. ABSENT: distended, guarding, mass, organolmegaly, rebound, tenderness Rectal exam: PRESENT: deferred Extremities exam: PRESENT: full ROM. ABSENT: calf tenderness, clubbing, pedal edema Neurological exam: PRESENT: alert, awake, oriented to person, oriented to place , oriented to time, oriented to situation, CN II-XII grossly intact. ABSENT: motor sensory deficit Psychiatric exam: PRESENT: appropriate affect, normal mood. ABSENT: homicidal ideation, suicidal ideation Skin exam: PRESENT: dry, intact, warm. ABSENT: cyanosis, rash Results Laboratory Results: 02/27/18 05:00 02/26/18 05:29 02/27/18 05:00 WBC 11.5 H RBC 3.00 L Hgb 9.2 L Hct 27.0 L MCV 90 MCH 30.6 MCHC 34.0 RDW 16.2 H Plt Count 164 Seg Neutrophils % 72.7 Lymphocytes % 14.1 Monocytes % 11.3 Eosinophils % 1.6 Basophils % 0.3 Absolute Neutrophils 8.3 H Absolute Lymphocytes 1.6 Absolute Monocytes 1.3 Absolute Eosinophils 0.2 Absolute Basophils 0.0 Impressions: Chest X-Ray 02/24/18 11:58 IMPRESSION: NO ACUTE RADIOGRAPHIC FINDING IN THE CHEST. Head CT 02/24/18 13:15 IMPRESSION: MILD CHRONIC CHANGES OF ATROPHY AND MICROVASCULAR ISCHEMIA. NO ACUTE PROCESS. EVIDENCE OF ACUTE STROKE: NO. Qualifiers - * PATIENT BEING DISCHARGED WITH ANY OF THE FOLLOWING DIAGNOSIS: No Plan Time Spent: Greater than 30 Minutes
[2018-02-27 12:04] VITALS: BP 128/56
--- NOTE | 2018-02-27 12:19 | XCELERA REPORT ---
[address] [address] Transthoracic Echocardiogram Report Name: ALEKSANDRA RECINOS Age: 57 yrs Gender: Male : 1960 Patient Status: Inpatient Patient Location: [address] [place] [address] Study Date: 02/26/2018 02:35 PM Height: 71 in Weight: 132 lb BSA: 1.8 m2 Procedure: A complete two-dimensional transthoracic echocardiogram was performed (2D, M-mode, spectral and color flow Doppler). The study was technically adequate with some images being suboptimal in quality. Reason For Study: Bacteremia Ordering Physician: GUCCI JUDD Performed By: Enoch Hackett Interpretation Summary The left ventricular ejection fraction is normal. There is mild concentric left ventricular hypertrophy. The left ventricle is grossly normal size. Doppler measurements suggest pseudonormalized left ventricular relaxation, which is associated with grade II/IV or mild to moderate diastolic dysfunction Wall motion cannot be accurately commented on, but no definite regional wall motion abnormalities noted. The right ventricle is grossly normal size. The right ventricle appears to be hypertrophied The right ventricular systolic function is normal. The right atrium is normal in size The left atrial size is normal. There is a trace to mild amount of mitral regurgitation There is no mitral valve stenosis. The mitral valve leaflets are sclerotic and show some degree of functional abnormality There is a moderate amount of aortic regurgitation There is no aortic valve stenosis Cannot exclude aortic valvular vegetation, Recommend transesophageal echocardiogram The aortic valve is sclerotic and shows some degree of functional abnormality There is a trace to mild amount of tricuspid regurgitation Tricuspid regurgitation jet envelope not well defined to measure RV systolic pressure accurately. The tricuspid valve is not well visualized secondary to technical limitations The aortic root is not well visualized but is probably normal size. The inferior vena cava appeared normal and decreased > 50% with respiration (RAP 5-10 mmHg) Minimal pericardial effusion. Cannot exclude vegetation, recommend RUIZ and multiple blood cultures. MMode/2D Measurements & Calculations RVDd: 2.2 cm LVIDd: 5.7 cmFS: 36.3 % Ao root diam: 2.9 cm IVSd: 0.99 cm LVIDs: 3.6 cmEDV(Teich): 157.4 ml LVPWd: 1.0 cmESV(Teich): 54.6 ml Ao root area: 6.8 cm2 EF(Teich): 65.3 % LA dimension: 3.4 cm LVOT diam: 2.0 cm LVOT area: 3.3 cm2 Doppler Measurements & Calculations MV E max vicki: MV P1/2t max vicki: Ao V2 max: AI max vicki: 94.8 cm/sec 90.2 cm/sec 192.0 cm/sec 367.5 cm/sec MV A max vicki: MV P1/2t: 65.7 msec Ao max PG: AI max P.2 cm/sec MVA(P1/2t): 3.3 cm2 14.7 mmHg 54.0 mmHg MV E/A: 0.96 MV dec slope: TATE(V,D): 2.6 cm2 AI dec slope: 402.5 cm/sec2 352.7 cm/sec2 MV dec time: AI P1/2t: 0.21 sec 305.2 msec LV V1 max PG: TV V2 max: PA V2 max: PI end-d vicki: 9.3 mmHg 310.7 cm/sec 103.7 cm/sec 99.9 cm/sec LV V1 max: TV max P.6 mmHgPA max P.4 cm/sec 4.3 mmHg Left Ventricle The left ventricle is grossly normal size. There is mild concentric left ventricular hypertrophy. The left ventricular ejection fraction is normal. Doppler measurements suggest pseudonormalized left ventricular relaxation, which is associated with grade II/IV or mild to moderate diastolic dysfunction. Wall motion cannot be accurately commented on, but no definite regional wall motion abnormalities noted. Right Ventricle The right ventricle is grossly normal size. The right ventricle appears to be hypertrophied. The right ventricular systolic function is normal. Atria The right atrium is normal in size. The left atrial size is normal. Interarterial septum not well visualized and not well dopplered. Cannot comment on ASD/PFO presence. Mitral Valve The mitral valve leaflets are sclerotic and show some degree of functional abnormality. There is no mitral valve stenosis. There is a trace to mild amount of mitral regurgitation. Aortic Valve The aortic valve is sclerotic and shows some degree of functional abnormality. Cannot exclude aortic valvular vegetation. There is no aortic valve stenosis. There is a moderate amount of aortic regurgitation. Tricuspid Valve The tricuspid valve is not well visualized secondary to technical limitations. There is no tricuspid stenosis. There is a trace to mild amount of tricuspid regurgitation. Tricuspid regurgitation jet envelope not well defined to measure RV systolic pressure accurately. Pulmonic Valve The pulmonic valve is not well visualized. Great Vessels The aortic root is not well visualized but is probably normal size. The inferior vena cava appeared normal and decreased > 50% with respiration (RAP 5-10 mmHg). Effusions Minimal pericardial effusion. Incidental Findings No definite vegetations noted but if clinical suspicion is high, then consider RUIZ and multiple blood cultures. : GUCCI JUDD > Jordan Currie
--- NOTE | 2018-03-01 11:57 | Progress Note ---
Provider Note Provider Note: I discussed this patient with Dr. Currie regarding the echocardiogram finding and suggest that patient can be reevaluated by him as outpatient and he will decide on for the profile for a RUIZ if indicated. I have communicated this information to Dr. Douglass who will follow up with the patient and refer to Dr. Currie as suggested above
== END 2018-02-27 12:30 | disposition home or self-care (01) | DRG 314 ==
LOC: ER 10:58 → EH 14:50 → 3S 18:27
PROVIDERS: ADMIT Internal Medicine; ATTEND Internal Medicine
PROC: 00JU3ZZ Inspection of Spinal Canal, Percutaneous Approach (ICD-10-PCS; principal; 2018-02-24)
PROC: 5A1D70Z Performance of Urinary Filtration, Intermittent, Less than 6 Hours Per Day (ICD-10-PCS; 2018-02-26)
DX: T82.7XXA Infection and inflammatory reaction due to other cardiac and vascular devices, implants and grafts, initial encounter (principal); A41.01 Sepsis due to Methicillin susceptible Staphylococcus aureus; N18.6 End stage renal disease; I12.0 Hypertensive chronic kidney disease with stage 5 chronic kidney disease or end stage renal disease; R50.9 Fever, unspecified; R51 Headache; E78.00 Pure hypercholesterolemia, unspecified; E87.6 Hypokalemia; D63.1 Anemia in chronic kidney disease; K21.9 Gastro-esophageal reflux disease without esophagitis; I73.9 Peripheral vascular disease, unspecified; F17.210 Nicotine dependence, cigarettes, uncomplicated; Z86.73 Personal history of transient ischemic attack (TIA), and cerebral infarction without residual deficits; Z85.528 Personal history of other malignant neoplasm of kidney; Z90.5 Acquired absence of kidney; Z79.01 Long term (current) use of anticoagulants; Z79.82 Long term (current) use of aspirin; Z79.899 Other long term (current) drug therapy
CPT/HCPCS: 36415; 36902; 70450; 71046; 80048; 80053; 82803; 82945; 82962; 83605; 84157; 85025; 85027; 85610; 87040; 87070; 87077; 87186; 87205; 89050; 93005; 93010; 93306; 96361; 96365; 99291; C1725; C1752; C2623; J1644; J2250; J2550; J3010; J3370; J3490; J7030; J7060; Q4081; Q9967

== ENCOUNTER → 2018-04-01 | Outpatient (CLI) | payer MEDICARE, BC ==
[~2018-04-01] MED LIST changes: -DIAZEPAM 5 MG TABLET PO PRN; -OXYCODONE-ACETAMINOPHEN 5-325 MG TABLET ONE; +REGADENOSON INJ 0.4 MG/5 ML DISP.SYRIN IV ONE
--- NOTE | 2018-04-01 13:04 | DRAGON STRESS TEST REPORT ---
INTRAVENOUS LEXISCAN CARDIOLITE STRESS TEST USING SINGLE PHOTON EMMISION COMPUTERIZED TOMOGRAPHIC. DATE OF PROCEDURE: April 01, 2018, INDICATION : Chest pain CARDIAC RISK FACTORS: Hypertension, dyslipidemia, tobacco abuse, family history of CAD RESTING EKG: Sinus rhythm, LVH with secondary ST-T wave changes STRESS EKG: No significant ST segment changes noted with LexiScan bolus REASON FOR TERMINATION: Protocol. PROCEDURE REPORT: Baseline heart rate 64 beats per minute with blood pressure of 124/49. Patient had no significant complaints. Patient was bolused with Lexiscan 0.4 mg intravenously followed by saline bolus. Heart rate at 2 minutes post bolus 84 with a blood pressure of 139/50. 3 minutes post bolus heart rate 85 with blood pressure of 147/49. No significant EKG changes were noted. Patient had no significant complaints during the procedure or postprocedure. CONCLUSIONS: Normal EKG and hemodynamic response to IV LexiScan. NUCLEAR DATA: At rest the patient was given 10.29 millicuries of technetium 99 sestamibi injected intravenously. As per protocol rest gated SPECT images were obtained. On day of stress test, the patient was given intravenous LexiScan at a dose of 0.4 mg in 5 mL intravenously, followed by flush with normal saline. Subsequently the stress dose of 31.3 millicuries of technetium 99 sestamibi was injected intravenously. As per protocol stress gated images were obtained. NUCLEAR INTERPRETATION: Both raw and processed data were used for interpretation. Visual, qualitative, computer-generated quantitative data was used. There was good myocardial uptake of technetium compound. Motion artifact and soft tissue attenuations were noted. Increased visceral uptake was noted. No definitive areas of transient perfusion defect noted, No definitive areas of fixed perfusion defect or scars noted. EKG gated imaging showed LV EF at 57 %, rest and stress gated EF similar visually. T. I D. ratio was 0.94. Lung heart ratio noted to be within normal limits 0.32. No significant extracardiac and abnormal radiotracer activities were noted. RV free wall uptake was noted to be WNL. IMPRESSION: Also refer to comments under nuclear interpretation. Also test results needs to be interpreted in the context of pretest probability. 1. No definitive areas of transient perfusion defect noted. 2. There is no definitive scintigraphic evidence of myocardial infarction/scar. 3. EKG gated imaging shows left ventricular ejection fraction of approx. 57 %. 4. Clinical correlation requested as occasionally single vessel disease or balanced ischemia could be missed. In approximately 10% of the cases Lexiscan may not cause adequate vasodilatory stress. RECOMMENDATIONS: Aggressive risk factor modification and medical management. Further evaluation may be needed if continued symptoms or other high risk indicators are noted on clinical evaluation. Close cardiology follow-up is also recommended. Clinical correlation with echocardiogram derived ejection fraction. Inability to exercise by itself can lead to increased cardiovascular event risks. Consider cardiology consultation and or follow-up if clinically indicated. I am available for cardiology evaluation and consultation if requested by the valve repairer, unless patient already has a washer and crusher tender. Dr. Misty Currie. MRCP Board certified in cardiology and sleep medicine. Board certified in nuclear cardiology, adult echocardiography. TEDDY
== END ==
LOC: RAD 07:29
PROVIDERS: ATTEND Physician Assistant Medical
DX: R07.9 Chest pain, unspecified (principal); R06.09 Other forms of dyspnea
CPT/HCPCS: 93017; 78452; A9500; J2785; Q9969

== ENCOUNTER 2018-05-09 11:47 | Emergency (ER) | payer MEDICARE, BC ==
--- NOTE | 2018-05-09 12:15 | ER Document Report ---
ED Medical Screen (RME) - General Chief Complaint: Back Pain Stated Complaint: BACK PAIN Time Seen by Provider: 05/09/18 12:07 Mode of Arrival: Wheelchair Information source: Patient, [facility] Records Notes: 57-year-old male with end-stage renal disease, hypertension presents with low back pain that started 5 days prior to arrival. Patient describes the pain as constant, throbbing. He denies any overuse or injury. He denies prior similar symptoms, history of IV drug use, fever, saddle anesthesia, or radiation of pain , leg weakness, fecal incontinence. Patient does not make urine. I have greeted and performed a rapid initial assessment of this patient. A comprehensive ED assessment and evaluation of the patient, analysis of test results and completion of medical decision making process we will be contacted by additional ED providers. PHYSICAL EXAMINATION: Vital signs reviewed-within normal limits GENERAL: Well-appearing, well-nourished and in no acute distress. LUNGS: No respiratory distress Musculoskeletal: Tenderness of the left paraspinal musculature of the lumbar spine NEUROLOGICAL: Normal speech, normal gait. PSYCH: Normal mood, normal affect. SKIN: Warm, Dry, normal turgor, no rashes or lesions noted. TRAVEL OUTSIDE OF THE [place] IN LAST 30 DAYS: No - HPI Onset: Last week Onset/Duration: Gradual, Persistent Quality of pain: Throbbing Severity: Mild Associated Symptoms: denies: Fever, Nausea, Vomiting, Weakness Exacerbated by: Denies Relieved by: Denies Similar symptoms previously: No Recently seen / treated by doctor: Yes - Related Data Smoking: Non-smoker Frequency of alcohol use: None Drug Abuse: None Allergies/Adverse Reactions: No Known Allergies Allergy (Verified 02/25/18 09:36) Past Medical History - Past Medical History Cardiac Medical History: Reports: Hx Hypercholesterolemia, Hx Hypertension, Hx Peripheral Vascular Disease - r leg surgery Denies: Hx Congestive Heart Failure, Hx Coronary Artery Disease, Hx Heart Attack Pulmonary Medical History: Reports: Hx Pneumonia Denies: Hx Asthma, Hx Bronchitis, Hx COPD, Hx Tuberculosis Neurological Medical History: Reports: Hx Cerebrovascular Accident - Memory loss. Denies: Hx Seizures Renal/ Medical History: Reports: Hx End Stage Renal Disease, Hx Kidney Stones. Denies: Hx Benign Prostatic Hyperplasia, Hx Peritoneal Dialysis Malignancy Medical History: Reports Hx Renal (Kidney) Cancer - He had a right nephrectomy for renal cell cancer. GI Medical History: Reports: Hx Gastroesophageal Reflux Disease, Hx Hiatal Hernia Musculoskeltal Medical History: Reports Hx Arthritis - Hands Psychiatric Medical History: Denies: Hx Depression Past Surgical History: Reports: Hx Abdominal Surgery, Hx Orthopedic Surgery, Hx Tonsillectomy, Other - Angioplasty with stent placement of AV fistula. Denies: Hx Pacemaker - Immunizations Hx Diphtheria, Pertussis, Tetanus Vaccination: Yes - Unsure History of Influenza Vaccine for 05/2017 - 10/2017 Season: Yes Influenza Administration Date for 05/2017 - 10/2017 Season: 05/03/17 Physical Exam - Vital signs Vitals: Temp Pulse Resp BP Pulse Ox 98.6 F 65 16 122/51 L 100 05/09/18 11:51 05/09/18 11:51 05/09/18 11:51 05/09/18 11:51 05/09/18 11:51 Course - Vital Signs Vital signs: Temp Pulse Resp BP Pulse Ox 98.6 F 65 16 122/51 L 100 05/09/18 11:51 05/09/18 11:51 05/09/18 11:51 05/09/18 11:51 05/09/18 11:51 Doctor's Discharge - Discharge Referrals: JOSE LUIS ANTOINE PA-C [Primary Care Provider] - Follow up as needed
[2018-05-09] MEDS ORDERED: LIDOCAINE 5% (700 MG) TRANSDERMAL ADH..PATCH TP ONE (13:08)
--- NOTE | 2018-05-09 13:21 | ER Document Report ---
HPI - HPI Pain Level: 3 Notes: Patient is a 57-year-old male with a history of atrial disease (dialysis every Thursday and Thursday), hypertension, renal cancer status post nephrectomy right side who presents to the ED complaining of left lower back pain times 5 days without known injury. Patient states that moving and twisting make his pain worse. Patient states that the pain does not radiate. Denies any history of spinal abscess or IV drug use. Denies drug allergies. Patient states he has been attending his dialysis sessions regularly without complications. Denies any headache, fever, URI, sore throat, chest pain, palpitations, syncope, cough, shortness of breath, wheeze, dyspnea, abdominal pain, nausea/vomiting/diarrhea, urinary retention, dysuria, hematuria, loss of control of bowel or bladder, numbness/tingling, saddle anesthesia, muscle paralysis/weakness, or rash. - ROS Systems Reviewed and Negative: Yes All other systems reviewed and negative - REPRODUCTIVE Reproductive: DENIES: : - DERM Skin Color: Normal Past Medical History - General Information source: Patient, [facility] Records - Social History Smoking Status: Current Every Day Smoker Frequency of alcohol use: None Drug Abuse: None Family History: Reviewed & Not Pertinent, CAD, DM Patient has suicidal ideation: No Patient has homicidal ideation: No - Past Medical History Cardiac Medical History: Reports: Hx Hypercholesterolemia, Hx Hypertension, Hx Peripheral Vascular Disease - r leg surgery Denies: Hx Congestive Heart Failure, Hx Coronary Artery Disease, Hx Heart Attack Pulmonary Medical History: Reports: Hx Pneumonia Denies: Hx Asthma, Hx Bronchitis, Hx COPD, Hx Tuberculosis Neurological Medical History: Reports: Hx Cerebrovascular Accident - Memory loss. Denies: Hx Seizures Renal/ Medical History: Reports: Hx End Stage Renal Disease, Hx Kidney Stones. Denies: Hx Benign Prostatic Hyperplasia, Hx Peritoneal Dialysis Malignancy Medical History: Reports Hx Renal (Kidney) Cancer - He had a right nephrectomy for renal cell cancer. GI Medical History: Reports: Hx Gastroesophageal Reflux Disease, Hx Hiatal Hernia Musculoskeletal Medical History: Reports Hx Arthritis - Hands Psychiatric Medical History: Denies: Hx Depression Past Surgical History: Reports: Hx Abdominal Surgery, Hx Orthopedic Surgery, Hx Tonsillectomy, Other - Angioplasty with stent placement of AV fistula. Denies: Hx Pacemaker - Immunizations Hx Diphtheria, Pertussis, Tetanus Vaccination: Yes - Unsure Hx Pneumococcal Vaccination: 09/03/14 Vertical Provider Document - CONSTITUTIONAL Agree With Documented VS: Yes Notes: PHYSICAL EXAMINATION: GENERAL: Well-appearing, well-nourished and in no acute distress. LUNGS: Breath sounds clear to auscultation bilaterally and equal. No wheezes rales or rhonchi. HEART: Regular rate and rhythm without murmurs, rubs, gallops. ABDOMEN: Soft, nontender, nondistended abdomen. No guarding, no rebound. No masses appreciated. Normal bowel sounds present. No CVA tenderness bilaterally. No pulsatile mass Musculoskeletal: LE's b/l: FROM to passive/active. Strength 5+/5. No deficits noted. No bony tenderness of extremities. Back: FROM to passive/active. Strength 5+/5. No vertebral point tenderness, stepoffs, or deformities. No other bony tenderness, erythema, swelling, or ecchymosis. SLR negative b/l. + reproducible tenderness to the L-paraspinal left side. Mild spasming. No SI jt tenderness. No foot drop Extremities: No cyanosis, clubbing, or edema b/l. Peripheral pulses 2+. Capillary refill less than 2 seconds. NEUROLOGICAL: Normal speech, ambulates with assistance from SPC. Normal sensory , motor exams. Reflexes 2+ b/l. PSYCH: Normal mood, normal affect. SKIN: Warm, Dry, normal turgor, no rashes or lesions noted. - INFECTION CONTROL TRAVEL OUTSIDE OF THE [place] IN LAST 30 DAYS: No Course - Re-evaluation Re-evalutation: 05/09/18 14:21 Patient is an afebrile, well-hydrated, 57-year-old male who presents to the ED with left lower back pain, suspect inflammatory. Vitals are acceptable. PE is otherwise unremarkable for any focal neurological deficits. X-ray and US unremarkable for any acute pathology. Patient was given a Lidoderm patch. He has no significant tachycardia, tachypnea, or hypoxia. He is nontoxic- appearing and is tolerating p.o. without difficulties. There are no signs of infection. No other red flag symptoms noted. No other labs or imaging warranted at this time based on H&P. Low suspicion for any meningitis, fracture , expanding/ruptured AAA, cauda equina syndrome, epidural mass lesion/abscess, herniated disc causing severe spinal stenosis, or other systemic infection at this time. Patient is aware that his condition can change from initial presentation and that he needs monitor symptoms closely for any acute changes. I will send him home with a prescription for lidoderm patches. Conservative measures otherwise for symptoms. Recheck with your PCM in 3-5 days. Consider consult with orthopedic/physical therapy. Return to the ED with any worsening/ concerning symptoms otherwise as reviewed discharge. Patient is in agreement. - Vital Signs Vital signs: Temp Pulse Resp BP Pulse Ox 98.6 F 65 16 122/51 L 100 05/09/18 11:51 05/09/18 11:51 05/09/18 11:51 05/09/18 11:51 05/09/18 11:51 Discharge - Discharge Clinical Impression: Low back pain Qualifiers: Chronicity: acute Back pain laterality: left Sciatica presence: without sciatica Qualified Code(s): M54.5 - Low back pain Condition: Stable Disposition: HOME, SELF-CARE Instructions: Low Back Pain ([facility]) Additional Instructions: Rest, Ice, Compression Tylenol as needed Light stretches daily Strength exercises as able Moist heat and massage may help F/u with your PCP in 3-5 days for a recheck Consider consult(s) with Orthopedics/physical therapy for ongoing/worsening symptoms Return to the ED with any worsening symptoms and/or development of fever, headache, chest pain, palpitations, syncope, shortness of breath, trouble breathing, abdominal pain, n/v/d, blood in stool/urine, loss of control of bowel /bladder, urinary retention, muscle weakness/paralysis, saddle anesthesia, numbness/tingling, or other worsening symptoms that are concerning to you. Prescriptions: Lidocaine [Lidoderm] 1 each TP DAILY #30 adh..patch Referrals: JOSE LUIS ANTOINE PA-C [NO LOCAL MD] - Follow up as needed [facility] [Provider Group] - Follow up as needed
--- NOTE | 2018-05-09 14:11 | RADIOLOGY REPORT (SQ) ---
EXAM DESCRIPTION: L SPINE WHOLE COMPLETED DATE/TIME: 05/09/2018 1:43 pm REASON FOR STUDY: Atraumatic left-sided back pain COMPARISON: None. NUMBER OF VIEWS: Five views including obliques. TECHNIQUE: AP, lateral, oblique, and sacral radiographic images acquired of the lumbar spine. LIMITATIONS: None. FINDINGS: MINERALIZATION: Normal. SEGMENTATION: Normal. No transitional anatomy. ALIGNMENT: Normal. VERTEBRAE: Maintained height. No fracture or worrisome bone lesion. DISCS: Mild loss of the L5-S1 disc height. POSTERIOR ELEMENTS: Pedicles and facets are intact. No pars defect or posterior arch defects. HARDWARE: None in the spine. PARASPINAL SOFT TISSUES: Hyperattenuating fecal material scattered throughout the visualized abdomen. Bilateral iliac stents. PELVIS: Intact as visualized. No fractures or worrisome bone lesions. SI joints intact. OTHER: No other significant finding. IMPRESSION: 1. No acute fracture or listhesis. 2. Mild L5-S1 degenerative disc disease. TECHNICAL DOCUMENTATION: JOB ID: [id number] [employer]- All Rights Reserved Reading location - IP/workstation name: [email or web address]
--- NOTE | 2018-05-09 14:15 | RADIOLOGY REPORT (SQ) ---
EXAM DESCRIPTION: U/S RETROPERITON (RENAL/AORTA) COMPLETED DATE/TIME: 05/09/2018 2:01 pm REASON FOR STUDY: left low back pain COMPARISON: None. TECHNIQUE: Dynamic and static grayscale images acquired of the kidneys and bladder and recorded on P ACS. Additional selected color Doppler and spectral images recorded. LIMITATIONS: None. FINDINGS: RIGHT KIDNEY: Not visualized, consistent with patient's to nephrectomy. LEFT KIDNEY: Suboptimal due to overlying soft tissue shadows. Left kidney measures 8.8 cm in length . Arising from the interpolar region is a partially exophytic simple cyst measuring 2.3 x 3.5 x 2.5 cm. No hydronephrosis. No discrete solid mass. BLADDER: collapsed, unable to be evaluated. OTHER FINDINGS: No other significant finding. IMPRESSION: No hydronephrosis of the left kidney. Absence of the right kidney. TECHNICAL DOCUMENTATION: JOB ID: [id number] [employer]- All Rights Reserved Reading location - IP/workstation name: [email or web address]
[2018-05-09 14:54] VITALS: BP 140/53
== END 2018-05-09 14:44 | disposition home or self-care (01) ==
LOC: ER 11:47
DX: M54.5 Low back pain (principal); F17.200 Nicotine dependence, unspecified, uncomplicated; I12.0 Hypertensive chronic kidney disease with stage 5 chronic kidney disease or end stage renal disease; N18.6 End stage renal disease; Z99.2 Dependence on renal dialysis; Z85.528 Personal history of other malignant neoplasm of kidney; Z90.5 Acquired absence of kidney; E78.00 Pure hypercholesterolemia, unspecified; Z86.73 Personal history of transient ischemic attack (TIA), and cerebral infarction without residual deficits; Z87.442 Personal history of urinary calculi
CPT/HCPCS: 72110; 76770; 99284

== ENCOUNTER 2018-10-06 15:42 | Emergency (ER) | payer MEDICARE, BC ==
--- NOTE | 2018-10-06 16:59 | ER Document Report ---
ED Medical Screen (RME) - General Chief Complaint: Abdominal Pain Stated Complaint: RIGHT SIDE PAIN Time Seen by Provider: 10/06/18 16:54 Primary Care Provider: JOSE OQUENDO PA-C [Primary Care Provider] - Follow up as needed Notes: 58-year-old male to the emergency department chief complaint of right upper quadrant pain radiating up into his chest. Patient states that symptoms have been present for 2 days. Patient is a dialysis patient on dialysis. Denies any fever, chills, sweats, vomiting or other issues at this time. Pain seems to be in the right lower quadrant radiates all the way up into his chest. Patient does not make urine. I have greeted and performed a rapid initial assessment of this patient. A comprehensive ED assessment and evaluation of the patient, analysis of test results and completion of the medical decision making process will be conducted by additional ED providers. TRAVEL OUTSIDE OF THE [place] IN LAST 30 DAYS: No - Related Data Allergies/Adverse Reactions: No Known Allergies Allergy (Verified 10/06/18 15:43) Past Medical History - Past Medical History Cardiac Medical History: Reports: Hx Hypercholesterolemia, Hx Hypertension, Hx Peripheral Vascular Disease - r leg surgery Denies: Hx Congestive Heart Failure, Hx Coronary Artery Disease, Hx Heart Attack Pulmonary Medical History: Reports: Hx Pneumonia Denies: Hx Asthma, Hx Bronchitis, Hx COPD, Hx Tuberculosis Neurological Medical History: Reports: Hx Cerebrovascular Accident - Memory loss. Denies: Hx Seizures Renal/ Medical History: Reports: Hx End Stage Renal Disease, Hx Kidney Stones. Denies: Hx Benign Prostatic Hyperplasia, Hx Peritoneal Dialysis Malignancy Medical History: Reports Hx Renal (Kidney) Cancer - He had a right nephrectomy for renal cell cancer. GI Medical History: Reports: Hx Gastroesophageal Reflux Disease, Hx Hiatal Hernia Musculoskeltal Medical History: Reports Hx Arthritis - Hands Psychiatric Medical History: Denies: Hx Depression Past Surgical History: Reports: Hx Abdominal Surgery, Hx Orthopedic Surgery, Hx Tonsillectomy, Other - Angioplasty with stent placement of AV fistula. Denies: Hx Pacemaker - Immunizations Hx Diphtheria, Pertussis, Tetanus Vaccination: Yes - Unsure History of Influenza Vaccine for 05/2017 - 10/2017 Season: Yes Influenza Administration Date for 05/2017 - 10/2017 Season: 05/03/17 Physical Exam - Vital signs Vitals: Temp Pulse Resp BP Pulse Ox 98.5 F 69 16 176/57 H 100 03/06/19 15:48 10/06/18 15:48 10/06/18 15:48 10/06/18 15:48 10/06/18 15:48 Course - Vital Signs Vital signs: Temp Pulse Resp BP Pulse Ox 98.5 F 69 16 176/57 H 100 10/06/18 15:48 10/06/18 15:48 10/06/18 15:48 10/06/18 15:48 10/06/18 15:48 Doctor's Discharge - Discharge Referrals: JOSE OQUENDO PAEliC [Primary Care Provider] - Follow up as needed
--- NOTE | 2018-10-06 17:37 | RADIOLOGY REPORT (SQ) ---
EXAM DESCRIPTION: CHEST 2 VIEWS COMPLETED DATE/TIME: 10/06/2018 5:08 pm REASON FOR STUDY: cough, ruq pain COMPARISON: 02/24/2018 EXAM PARAMETERS: NUMBER OF VIEWS: two views TECHNIQUE: Digital Frontal and Lateral radiographic views of the chest acquired. RADIATION DOSE: NA LIMITATIONS: none FINDINGS: LUNGS AND PLEURA: No opacities, masses or pneumothorax. No pleural effusion. MEDIASTINUM AND HILAR STRUCTURES: No masses or contour abnormalities. HEART AND VASCULAR STRUCTURES: Heart normal size. No evidence for failure. BONES: No acute findings. HARDWARE: None in the chest. OTHER: No other significant finding. IMPRESSION: NO ACUTE RADIOGRAPHIC FINDING IN THE CHEST. TECHNICAL DOCUMENTATION: JOB ID: [id number] [employer]- All Rights Reserved Reading location - IP/workstation name: [email or web address]
[2018-10-06 17:53] LABS: HEMATOCRIT 33.8 % (37.9-51.0); HEMOGLOBIN 11.5 g/dL (13.5-17.0); MEAN CORPUSCULAR HEMOGLOBIN 30.2 pg (27.0-33.4); MEAN CORPUSCULAR HGB CONC 34.1 g/dL (32.0-36.0); MEAN CORPUSCULAR VOLUME 89 fl (80-97); PLATELET COUNT 246 10^3/uL (150-450); RED BLOOD COUNT 3.82 10^6/uL (4.35-5.55); RED CELL DISTRIBUTION WIDTH 16.9 % (11.5-14.0); WHITE BLOOD COUNT 4.1 10^3/uL (4.0-10.5)
[2018-10-06 18:13] LABS: ALANINE AMINOTRANSFERASE 236 U/L (21-72); ALBUMIN 4.2 g/dL (3.5-5.0); ALKALINE PHOSPHATASE 323 U/L (38-126); ANION GAP 12 (5-19); ASPARTATE AMINO TRANSFERASE 212 U/L (17-59); BILIRUBIN,TOTAL 1.2 mg/dL (0.2-1.3); BLOOD UREA NITROGEN 28 mg/dL (7-20); CALCIUM 9.2 mg/dL (8.4-10.2); CARBON DIOXIDE 32 mmol/L (22-30); CHLORIDE 95 mmol/L (98-107); GLUCOSE 109 mg/dL (75-110); LIPASE 202.2 U/L (23-300); POTASSIUM 3.7 mmol/L (3.6-5.0); SODIUM 139.1 mmol/L (137-145); TOTAL PROTEIN 7.4 g/dL (6.3-8.2)
[2018-10-06 18:15] LABS: ABSOLUTE LYMPHOCYTES# (MANUAL) 1.4 10^3/uL (0.5-4.7); ABSOLUTE MONOCYTES # (MANUAL) 0.5 10^3/uL (0.1-1.4); ABSOLUTE NEUTROPHILS# (MANUAL) 2.1 10^3/uL (1.7-8.2); BASOPHILS % (MANUAL) 0 % (0-2); EOSINOPHILS % (MANUAL) 3 % (0-6); LYMPHOCYTES % (MANUAL) 34 % (13-45); MONOCYTES % (MANUAL) 11 % (3-13); SEGMENTED NEUTROPHILS % (MAN) 52 % (42-78); TOTAL CELLS COUNTED 100
[2018-10-06 18:16] LABS: ANISOCYTOSIS 1+; PLATELET COMMENT ADEQUATE; POIKILOCYTOSIS SLIGHT; TARGET CELLS SLIGHT; TOXIC GRANULATION SLIGHT
--- NOTE | 2018-10-06 20:36 | ER Document Report ---
ED GI/ - General Chief Complaint: Abdominal Pain Stated Complaint: RIGHT SIDE PAIN Time Seen by Provider: 10/06/18 20:35 Primary Care Provider: JOSE OQUENDO PA-C [Primary Care Provider] - Follow up as needed Mode of Arrival: Ambulatory Information source: Patient Notes: HISTORY OF PRESENT ILLNESS: Patient is a 58-year-old male with a past medical history of multiple chronic conditions including GERD and end-stage renal disease who presents with right- sided abdominal pain that began 2 days ago. Location: Right upper and mid abdomen/flank Onset: 2 days ago Alleviation: None Provocation: Movement Quality: Aching, burning Radiation: None Severity: Mild to moderate Timing: Intermittent History of abdominal surgery: None Associated symptoms: No fevers or chills, no nausea or vomiting, no diarrhea or constipation Last bowel movement: Today and normal REVIEW OF SYSTEMS: CONSTITUTIONAL : Denies fever or chills, no sweats. Denies recent illness. EENT: Denies eye, ear, throat, or mouth pain or symptoms. Denies nasal or sinus congestion. CARDIOVASCULAR: Denies chest pain. Denies swelling of the legs. RESPIRATORY: Denies cough, cold, or chest congestion. Denies shortness of breath or difficulty breathing. Denies wheezing. GASTROINTESTINAL: Positive for abdominal pain. Denies nausea, vomiting, or diarrhea. Denies constipation. GENITOURINARY: Denies difficulty urinating, painful urination, burning, frequency, or blood in urine. FEMALE GENITOURINARY: Denies vaginal bleeding, abnormal or irregular periods. MUSCULOSKELETAL: Denies neck or back pain or joint pain or swelling. SKIN: Denies rash or skin lesions. HEMATOLOGIC : Denies easy bruising or bleeding. LYMPHATIC: Denies swollen, enlarged glands. NEUROLOGICAL: Denies altered mental status or loss of consciousness. Denies headache. Denies weakness or paralysis or loss of use of either side. Denies problems with gait or speech. Denies sensory or motor loss. PSYCHIATRIC: Denies anxiety or stress or depression. All other systems reviewed and negative. PHYSICAL EXAMINATION: GENERAL: Well-appearing, well-nourished and in no acute distress. HEAD: Atraumatic, normocephalic. No scalp deformity, depression, or crepitance. EYES: Pupils are 3 mm and equal/round/reactive to light, extraocular movements intact, sclera anicteric, conjunctiva are normal. ENT: Nares patent bilaterally, oropharynx. Moist mucous membranes. No tonsil hypertrophy. NECK: Normal range of motion, supple without lymphadenopathy. LUNGS: Breath sounds present, equal, and clear to auscultation bilaterally. No wheezes, rales, or rhonchi. HEART: Regular rate and rhythm without murmurs, rubs, or gallops. 2+ peripheral pulses. Normal capillary refill. ABDOMEN: Soft and nondistended, mild right CVA tenderness but also mild to moderate right upper quadrant and right mid abdominal tenderness. Normoactive bowel sounds. No guarding, no rebound. No masses appreciated. BACK: Normal contour, no midline tenderness. Rectal exam deferred. GENITAL/PELVIC: Deferred. EXTREMITIES: Normal range of motion, no pitting or edema. No cyanosis. NEUROLOGICAL: No focal neurological deficits. Moves all extremities spontaneously and on command. PSYCH: Normal mood, normal affect. No suicidal thoughts/ideations. No homocidal thoughts/ideations. No hallucinations. SKIN: Warm, dry, normal turgor, no rashes or lesions noted. ASSESSMENT AND PLAN: This patient is a 58-year-old male who presents with right-sided abdominal pain that could be renal stone versus cholecystitis versus cholelithiasis versus colitis. 1. Will obtain labs and call bladder ultrasound. 2. Will give oral pain medications and reassess. TRAVEL OUTSIDE OF THE [place] IN LAST 30 DAYS: No - Related Data Allergies/Adverse Reactions: No Known Allergies Allergy (Verified 10/06/18 15:43) Past Medical History - General Information source: Patient - Social History Smoking Status: Current Every Day Smoker Chew tobacco use (# tins/day): No Frequency of alcohol use: None Drug Abuse: None Lives with: Family Family History: Reviewed & Not Pertinent, CAD, DM Patient has suicidal ideation: No Patient has homicidal ideation: No - Past Medical History Cardiac Medical History: Reports: Hx Hypercholesterolemia, Hx Hypertension, Hx Peripheral Vascular Disease - r leg surgery Denies: Hx Congestive Heart Failure, Hx Coronary Artery Disease, Hx Heart Attack Pulmonary Medical History: Reports: Hx Pneumonia Denies: Hx Asthma, Hx Bronchitis, Hx COPD, Hx Tuberculosis EENT Medical History: Reports: None Neurological Medical History: Reports: Hx Cerebrovascular Accident - Memory loss. Denies: Hx Seizures Endocrine Medical History: Reports: None Renal/ Medical History: Reports: Hx End Stage Renal Disease, Hx Kidney Stones. Denies: Hx Benign Prostatic Hyperplasia, Hx Peritoneal Dialysis Malignancy Medical History: Reports Hx Renal (Kidney) Cancer - He had a right nephrectomy for renal cell cancer. GI Medical History: Reports: Hx Gastroesophageal Reflux Disease, Hx Hiatal Hernia Musculoskeletal Medical History: Reports Hx Arthritis - Hands Skin Medical History: Reports None Psychiatric Medical History: Reports: None Denies: Hx Depression Traumatic Medical History: Reports: None Infectious Medical History: Reports: None Past Surgical History: Reports: Hx Abdominal Surgery, Hx Orthopedic Surgery, Hx Tonsillectomy, Other - Angioplasty with stent placement of AV fistula. Denies: Hx Pacemaker - Immunizations Hx Diphtheria, Pertussis, Tetanus Vaccination: Yes - Unsure Hx Pneumococcal Vaccination: 09/03/14 Physical Exam - Vital signs Vitals: Temp Pulse Resp BP Pulse Ox 98.5 F 69 16 176/57 H 100 10/06/18 15:48 10/06/18 15:48 10/06/18 15:48 10/06/18 15:48 10/06/18 15:48 Course - Re-evaluation Re-evalutation: 10/06/18 23:11 Labs show evidence of possible cholecystitis, however ultrasound shows only gallstones and no evidence of infection. Patient is pain-free after medication s. He will be discharged home with return precautions and follow-up. Patient reports both understanding and agreeing with the plan. - Vital Signs Vital signs: Temp Pulse Resp BP Pulse Ox 98.0 F 67 20 138/65 H 100 10/06/18 20:38 10/06/18 20:38 10/06/18 20:38 10/06/18 20:38 10/06/18 20:38 - Laboratory Result Diagrams: 10/06/18 17:31 10/06/18 17:31 Laboratory results interpreted by me: 10/06/18 10/06/18 17:31 17:31 RBC 3.82 L Hgb 11.5 L Hct 33.8 L RDW 16.9 H Chloride 95 L Carbon Dioxide 32 H BUN 28 H Creatinine 7.10 H Est GFR ( Amer) 10 L Est GFR (Non-Af Amer) 8 L Direct Bilirubin 1.0 H AST 212 H ALT 236 H Alkaline Phosphatase 323 H - Diagnostic Test Radiology reviewed: Image reviewed, Reports reviewed Discharge - Discharge Clinical Impression: Symptomatic cholelithiasis Abdominal pain Qualifiers: Abdominal location: right upper quadrant Qualified Code(s): R10.11 - Right upper quadrant pain Condition: Good Disposition: HOME, SELF-CARE Instructions: Gallbladder Disease ([facility]) Additional Instructions: You have been evaluated in the Emergency Department for abdominal pain. While here, you had blood work and ultrasound that showed evidence of gallstones and it is now safe to be discharged home. Please follow-up with your primary physician and a surgeon as instructed in 1 week. Return to the Emergency Department if you experience worsening pain, high fevers, or any other concerning symptoms. Prescriptions: Hydrocodone/Acetaminophen [[place] 5-325 Tablet] 1 each PO Q6HP PRN #30 tablet PRN Reason: For Pain Ondansetron [Zofran Odt 4 mg Tablet] 1 tab PO Q6HP PRN #30 tab.rapdis PRN Reason: For Nausea/Vomiting Referrals: JOSE OQUENDO PA-C [Primary Care Provider] - Follow up as needed PARISH REN MD [ACTIVE STAFF] - Follow up as needed Print Language: Indonesian
[2018-10-06 20:40] VITALS: BP 138/65
[2018-10-06] MEDS ORDERED: HYDROCODONE/ACETAMINOPHEN 5-325 MG TABLET PO ONE (21:26)
--- NOTE | 2018-10-06 22:17 | RADIOLOGY REPORT (SQ) ---
EXAM DESCRIPTION: US ABDOMEN LIMITED COMPLETED DATE/TME: 10/06/2018 21:26 CLINICAL HISTORY: 58 years, Male, Abdominal pain COMPARISON: CT 12/13/2016 TECHNIQUE: Limited right upper quadrant ultrasound LIMITATIONS: None. FINDINGS: The liver is homogenous in echotexture without focal lesion. Multiple shadowing stones throughout the gallbladder lumen. The CBD measures 4.4 mm. Patient is status post right nephrectomy. Pancreas not well seen due to bowel gas. Visualized abdominal aorta and inferior vena cava are unremarkable. No ascites. No gallbladder wall thickening or pericholecystic fluid. Patient had pain with palpation over right upper quadrant. IMPRESSION: Cholelithiasis. No gallbladder wall thickening. The CBD is not dilated. Patient had pain with palpation over the right upper quadrant copyright 2010 [employer]- All Rights Reserved
== END 2018-10-06 23:32 | disposition home or self-care (01) ==
LOC: ER 15:42
DX: K80.20 Calculus of gallbladder without cholecystitis without obstruction (principal); R10.11 Right upper quadrant pain; I10 Essential (primary) hypertension; Z90.5 Acquired absence of kidney; Z85.528 Personal history of other malignant neoplasm of kidney
CPT/HCPCS: 99284; 36415; 83690; 85025; 80053; 71046; 76705; A9270

== ENCOUNTER 2018-10-21 08:23 | Day surgery (SDC) | payer MEDICARE, BC ==
[2018-10-18 12:14] LABS: HEMOGLOBIN 12.1 g/dL (13.5-17.0); MEAN CORPUSCULAR HEMOGLOBIN 30.2 pg (27.0-33.4); MEAN CORPUSCULAR HGB CONC 33.7 g/dL (32.0-36.0); MEAN CORPUSCULAR VOLUME 89 fl (80-97); PLATELET COUNT 264 10^3/uL (150-450); RED BLOOD COUNT 4.02 10^6/uL (4.35-5.55); WHITE BLOOD COUNT 5.1 10^3/uL (4.0-10.5)
[2018-10-18 12:35] LABS: ALANINE AMINOTRANSFERASE 42 U/L (21-72); ALBUMIN 4.6 g/dL (3.5-5.0); ALKALINE PHOSPHATASE 206 U/L (38-126); AMYLASE 118 U/L (30-110); ANION GAP 16 (5-19); ASPARTATE AMINO TRANSFERASE 28 U/L (17-59); BILIRUBIN,DIRECT 0.7 mg/dL (0.0-0.4); BILIRUBIN,TOTAL 1.1 mg/dL (0.2-1.3); BLOOD UREA NITROGEN 26 mg/dL (7-20); CALCIUM 9.4 mg/dL (8.4-10.2); CARBON DIOXIDE 29 mmol/L (22-30); CHLORIDE 94 mmol/L (98-107); GLUCOSE 81 mg/dL (75-110); POTASSIUM 3.9 mmol/L (3.6-5.0); SODIUM 139.2 mmol/L (137-145); TOTAL PROTEIN 7.9 g/dL (6.3-8.2)
--- NOTE | 2018-10-19 00:16 | EKG REPORT ---
SEVERITY:- ABNORMAL ECG - SINUS RHYTHM ATRIAL PREMATURE COMPLEX LVH WITH SECONDARY REPOLARIZATION ABNORMALITY BORDERLINE PROLONGED QT INTERVAL : Confirmed by: Jordan Currie 19-Oct-2018 00:15:49
[~2018-10-21 08:23] MED LIST changes: +ACETAMINOPHEN 325 MG TABLET PO PRN; +CEFAZOLIN 1 GM/D5W RTU 1 GM/50 ML RTUPB IV PRN; +LIDOCAINE 0.5% INJ-PF (5 MG/ML) 50 ML SDV SUBCUT PRN; +METRONIDAZOLE 500 MG/NS RTU 500 MG/100 ML RTUPB IV PRN; +NORMAL SALINE 1000 ML (RENAL PATIENTS) IV PRN; -REGADENOSON INJ 0.4 MG/5 ML DISP.SYRIN IV ONE
[2018-10-21] MEDS ORDERED: METRONIDAZOLE 500 MG/NS RTU 500 MG/100 ML RTUPB IV ONE (09:10)
[2018-10-21] MEDS ORDERED: CEFAZOLIN 1 GM/D5W RTU 1 GM/50 ML RTUPB IV ONE (09:10)
[2018-10-21] MEDS ORDERED: ALBUTEROL SULFATE 0.083% NEB 2.5 MG/3 ML AMPUL NEB ONE (09:19)
[2018-10-21] MEDS ORDERED: BUPIVACAINE HCL 0.25% /EPINEPHRINE INJ/PF 30 ML SDV ONE (09:27)
[2018-10-21] MEDS ORDERED: DEXAMETHASONE SOD PHOS INJ 10 MG/1 ML VIAL ONE (09:36)
[2018-10-21] MEDS ORDERED: GLYCOPYRROLATE INJ 0.4 MG/2 ML VIAL ONE (09:36)
[2018-10-21] MEDS ORDERED: MIDAZOLAM 2 MG/2 ML INJ ONE (09:52)
[2018-10-21] MEDS ORDERED: ONDANSETRON HCL INJ/PF 4 MG/2 ML SDV ONE (09:52)
[2018-10-21] MEDS ORDERED: DEXAMETHASONE SOD PHOSPHATE INJ 4 MG/1 ML VIAL ONE (09:52)
[2018-10-21] MEDS ORDERED: PROMETHAZINE HCL INJ 25 MG/1 ML VIAL ONE (09:52)
[2018-10-21] MEDS ORDERED: FENTANYL CITRATE INJ/PF 100 MCG/2 ML AMPUL ONE (09:52)
[2018-10-21] MEDS ORDERED: ACETAMINOPHEN 1,000 MG/100 ML RTUPB IV ONE (09:53)
[2018-10-21] MEDS ORDERED: HYDROMORPHONE HCL INJ/PF 2 MG/ML AMPULE ONE (09:53)
[2018-10-21] MEDS ORDERED: PROPOFOL INJ 200 MG/20 ML VIAL IV ONE (09:53)
[2018-10-21] MEDS ORDERED: BUPIVACAINE HCL 0.5%-EPI 1:200000 INJ/PF 30 ML VIAL ONE (09:59)
[2018-10-21] MEDS ORDERED: PROMETHAZINE HCL INJ 25 MG/1 ML VIAL IV PRN ×2 (10:06)
[2018-10-21] MEDS ORDERED: MEPERIDINE HCL/PF INJ 25 MG/1 ML DISP.SYRIN IV PRN (10:06)
[2018-10-21] MEDS ORDERED: DIPHENHYDRAMINE HCL 50 MG/ML VIAL IV PRN (10:06)
[2018-10-21] MEDS ORDERED: FENTANYL CITRATE INJ/PF 100 MCG/2 ML AMPUL IV PRN ×3 (10:06)
[2018-10-21] MEDS ORDERED: ROCURONIUM BROMIDE INJ 50 MG/5 ML VIAL IV ONE (10:23)
--- NOTE | 2018-10-21 11:29 | Operative Report ---
Nonrecallable Operative Report DATE OF SURGERY: 10/21/18 PREOPERATIVE DIAGNOSIS: cholelithiasis,cholecystitis POSTOPERATIVE DIAGNOSIS: cholelithiasis,cholecystitis OPERATION: laparoscopic cholecystectomy,intraoperative cholangiogram and liver biopsy SURGEON: CONRAD WELSH 1ST PYROTECHNICS PRESS TENDER: STEPHANIE SINGER ANESTHESIA: GA TISSUE REMOVED OR ALTERED: gallbladder, liver biopsy COMPLICATIONS: none ESTIMATED BLOOD LOSS: 10cc INTRAOPERATIVE FINDINGS: see dictation PROCEDURE: see dictation
--- NOTE | 2018-10-21 11:30 | Discharge Summary ---
Discharge Summary (SDC) - Discharge Final Diagnosis: cholelithiasis, cholecystitis Date of Surgery: 10/21/18 Condition: Good Discharge Diet: As Tolerated Respiratory Treatments at Home: Deep Breathing/Coughing Discharge Activity: Activity As Tolerated, No Lifting Over 10 Pounds Report the Following to Your Physician Immediately: Shortness of Breath, Nausea, Vomiting, Increase in Pain, Yellow Skin - needs f/u appoint with me in 7-10 days, Fever over 101 Degrees, Swelling
[2018-10-21] MEDS ORDERED: OXYCODONE-ACETAMINOPHEN 5-325 MG TABLET PO PRN (11:31)
--- NOTE | 2018-10-21 11:53 | OPERATIVE REPORT E ---
Operative Report NAME: ALEKSANDRA RECINOS : 1960 AGE: 58Y DATE OF SURGERY: 10/21/2018 ROOM: PREOPERATIVE DIAGNOSIS: CHRONIC CHOLECYSTITIS AND CHOLELITHIASIS. POSTOPERATIVE DIAGNOSIS: CHRONIC CHOLECYSTITIS AND CHOLELITHIASIS. OPERATIVE PROCEDURE: Laparoscopic cholecystectomy with intraoperative cholangiograms and liver biopsy. SURGEON: CONRAD WELSH M.D. MILK VENDOR: JOSELUIS Underwood, who was present for the entire procedure for wound retraction assistance and wound closure. PROCEDURE: The patient was brought to the operating room in an awake and alert stable condition, placed on the operative table in supine position, induced under general anesthesia, and intubated. The abdomen was prepped and draped in the usual sterile manner for the procedure. He had a previous midline incision so I used the left upper quadrant Barker's point for the Veress needle. I placed that into the abdominal cavity and insufflated with 6 L of CO2 gas. Then, I made a small epigastric incision with a 10 blade and placed a 5-mm port into the abdominal cavity. Intra-abdominal visualization revealed no evidence of a Veress needle or trocar injury. There were subcutaneous omental adhesions to the anterior abdominal wall in the low midline. I was able to make a longitudinal incision just below the umbilicus for the 10 mm port site and the camera. This was done under direct vision and two lateral 5-mm ports were placed under direct vision. The gallbladder was identified; it appeared to be chronically inflamed. It was placed on traction. The hepatoduodenal ligament was dissected, isolating the cystic duct and cystic artery. An Endoclip was placed on the specimen side of both of these structures. A cystic ductotomy was then performed and a cholangiogram catheter was placed into the cystic duct. Intraoperative cholangiogram revealed no evidence of stones and good flow into the duodenum. Both right and left hepatic ducts were identified. Two Endoclips were placed on the stay side of the cystic duct; it was divided. Similarly, the cystic artery was divided. The gallbladder was dissected out of the liver bed with Bovie cautery placed in an Endobag and removed through the umbilical port site. The right upper quadrant was irrigated with normal saline and suctioned dry. The liver appeared to be mildly cirrhotic and therefore a liver biopsy was obtained. This was done with a liver punch biopsy and hemostasis was obtained with Bovie cautery. Once this was completed and we had good hemostasis, we reduced the pneumoperitoneum, we closed the fascial defect and the umbilical port site with 0 Vicryl in a figure of eight fashion, then closed all 4 skin incisions with intracuticular 4-0 Biosyn. Steri-Strips completed the procedure. Estimated blood loss was less than 20 mL. Sponge and needle counts were correct x2. The patient was awakened in the operating room, extubated, and transferred to recovery in stable condition, no complications. DICTATING PHYSICIAN: CONRAD WELSH M.D. [id number] PHY#: [id number] ID: [id number] JOB#: [id number] ACCT: [id number] cc:CONRAD WELSH M.D. >
[2018-10-21] MEDS ORDERED: OXYCODONE-ACETAMINOPHEN 5-325 MG TABLET ONE (12:36)
--- NOTE | 2018-10-21 13:27 | RADIOLOGY REPORT (SQ) ---
EXAM DESCRIPTION: CHOLANGIOGRAM OPERATIVE COMPLETED DATE/TIME: 10/21/2018 11:14 am REASON FOR STUDY: CHOLANGIOGRAM IN OR K80.20 CALCULUS OF GALLBLADDER W/O CHOLECYSTITIS W/O OBSTRUC Z79.01 CORRECTION (CURRENT) USE OF ANTICOAGULANTS COMPARISON: None. FLUOROSCOPY TIME: 0.2 minutes 3 images saved to PACS. TECHNIQUE: Cinegraphic images were obtained from an intraoperative cholangiogram. LIMITATIONS: None. FINDINGS: There is opacification of the bile ducts. Cannot entirely exclude small filling defects i n the distal most portion of the common bile duct. IMPRESSION: Intraoperative cholangiogram. Refer to operative note for further information. COMMENT: Quality ID [id number]: Final reports for procedures using fluoroscopy that document radiation exp osure indices, or exposure time and number of fluorographic images (if radiation exposure indices are not available) TECHNICAL DOCUMENTATION: JOB ID: [id number] [employer]- All Rights Reserved Reading location - IP/workstation name: [email or web address]
[2018-10-21 13:50] VITALS: BP 178/76
--- NOTE | 2018-10-21 22:57 | EKG REPORT ---
SEVERITY:- ABNORMAL ECG - SINUS RHYTHM LEFT VENTRICULAR HYPERTROPHY BORDERLINE T ABNORMALITIES, INFERIOR LEADS ANTERIOR ST ELEVATION, PROBABLY DUE TO LVH BORDERLINE PROLONGED QT INTERVAL : Confirmed by: Jordan Currie 21-Oct-2018 22:56:35
== END 2018-10-21 13:55 | disposition home or self-care (01) ==
LOC: OROUT 08:23
PROVIDERS: ATTEND Surgery
DX: K80.10 Calculus of gallbladder with chronic cholecystitis without obstruction (principal); K75.9 Inflammatory liver disease, unspecified; I12.0 Hypertensive chronic kidney disease with stage 5 chronic kidney disease or end stage renal disease; N18.6 End stage renal disease; I70.91 Generalized atherosclerosis; F17.210 Nicotine dependence, cigarettes, uncomplicated; J44.9 Chronic obstructive pulmonary disease, unspecified; E07.9 Disorder of thyroid, unspecified; R01.1 Cardiac murmur, unspecified; I25.10 Atherosclerotic heart disease of native coronary artery without angina pectoris; Z99.2 Dependence on renal dialysis; Z79.82 Long term (current) use of aspirin; Z79.899 Other long term (current) drug therapy
CPT/HCPCS: 93005 ×2; 86900; 86901; 36415 ×2; 86850; 82150; 84132; 85027; 80076; 80048; 88304 ×2; 88307 ×2; 88313 ×2; 74300; 93010 ×2; 94640; 47563; 47379; Q9967; J2250; J3490 ×2; J0690; J3010; A9270 ×2; J2405; J2704; J1100; J0131; 790; J1170; J2550

== ENCOUNTER → 2018-10-22 | Outpatient (CLI) | payer MEDICARE, BC ==
[2018-10-22 10:13] LABS: ABSOLUTE BASOPHILS # (AUTO) 0.1 10^3/uL (0.0-0.2); ABSOLUTE EOSINOPHILS # (AUTO) 0.2 10^3/uL (0.0-0.6); ABSOLUTE LYMPHOCYTES (AUTO) 1.5 10^3/uL (0.5-4.7); ABSOLUTE MONOCYTES (AUTO) 0.9 10^3/uL (0.1-1.4); ABSOLUTE NEUT (AUTO) 6.6 10^3/uL (1.7-8.2); BASOPHILS % (AUTO) 0.8 % (0-2); EOSINOPHILS % (AUTO) 1.7 % (0-6); HEMATOCRIT 34.9 % (37.9-51.0); LYMPHOCYTES % (AUTO) 16.4 % (13-45); MEAN CORPUSCULAR HEMOGLOBIN 30.6 pg (27.0-33.4); MEAN CORPUSCULAR HGB CONC 34.3 g/dL (32.0-36.0); MEAN CORPUSCULAR VOLUME 89 fl (80-97); MONOCYTES % (AUTO) 9.7 % (3-13); PLATELET COUNT 239 10^3/uL (150-450); RED CELL DISTRIBUTION WIDTH 19.1 % (11.5-14.0); SEGMENTED NEUTROPHILS % (AUTO) 71.4 % (42-78); TOTAL CELLS COUNTED % (AUTO) 100 %; WHITE BLOOD COUNT 9.3 10^3/uL (4.0-10.5)
--- NOTE | 2018-10-22 10:26 | RADIOLOGY REPORT (SQ) ---
EXAM DESCRIPTION: CHEST PA/LATERAL COMPLETED DATE/TIME: 10/22/2018 10:12 am REASON FOR STUDY: SOB; S/P LAP NATHEN COMPARISON: None. EXAM PARAMETERS: NUMBER OF VIEWS: two views TECHNIQUE: Digital Frontal and Lateral radiographic views of the chest acquired. RADIATION DOSE: NA LIMITATIONS: none FINDINGS: LUNGS AND PLEURA: No opacities, masses or pneumothorax. No pleural effusion. MEDIASTINUM AND HILAR STRUCTURES: No masses or contour abnormalities. HEART AND VASCULAR STRUCTURES: Cardiomegaly. No pulmonary edema. BONES: No acute findings. HARDWARE: None in the chest. OTHER: There is free air beneath the right hemidiaphragm. IMPRESSION: Cardiomegaly without pulmonary edema. Intra-abdominal free air. TECHNICAL DOCUMENTATION: JOB ID: [id number] [employer]- All Rights Reserved Reading location - IP/workstation name: [email or web address]
[2018-10-22 10:30] LABS: ALANINE AMINOTRANSFERASE 68 U/L (21-72); ALBUMIN 4.1 g/dL (3.5-5.0); ALKALINE PHOSPHATASE 210 U/L (38-126); ANION GAP 14 (5-19); ASPARTATE AMINO TRANSFERASE 69 U/L (17-59); BILIRUBIN,DIRECT 0.6 mg/dL (0.0-0.4); BILIRUBIN,TOTAL 0.9 mg/dL (0.2-1.3); CARBON DIOXIDE 28 mmol/L (22-30); CHLORIDE 96 mmol/L (98-107); POTASSIUM 3.8 mmol/L (3.6-5.0); SODIUM 137.9 mmol/L (137-145); TOTAL PROTEIN 7.4 g/dL (6.3-8.2)
== END ==
LOC: OD 09:37
PROVIDERS: ATTEND Surgery
DX: N18.6 End stage renal disease (principal); R65.10 Systemic inflammatory response syndrome (SIRS) of non-infectious origin without acute organ dysfunction; Z90.49 Acquired absence of other specified parts of digestive tract; R06.02 Shortness of breath
CPT/HCPCS: 36415; 71046; 80051; 80076; 85025

== ENCOUNTER 2019-07-14 12:17 | Emergency (ER) | payer MEDICARE, BC ==
[2019-07-14] MEDS ORDERED: HYDROCODONE/ACETAMINOPHEN 5-325 MG TABLET PO ONE (12:43)
--- NOTE | 2019-07-14 12:46 | ER Document Report ---
HPI - HPI Time Seen by Provider: 07/14/19 12:34 Pain Level: 3 Notes: 59-year-old male stage IV kidney disease on dialysis presents emergency room for right rib pain after he slipped on ice and fell onto a chair approximately 5 days ago, has had a right rib pain ever since, worse with deep breaths or coughing. Has not tried any uiob-oje-lbojalw medications. Patient gets dialysis Fridays. Denies fevers, chills, chest pain,palpitations, shortness of breath, dyspnea, nausea, vomiting, diarrhea, abdominal pain, hematuria,blurred vision, double vision, loss of vision, speech changes, LH, dizziness, syncope, headaches, wheezing, ST, URI, neck pain, weakness, bowel or bladder dysfunction, saddle anesthesia, numbness or tingling in bilateral upper or lower extremities equally, muscle paralysis, weakness in bilateral upper or lower extremities equally or rash. - REPRODUCTIVE Reproductive: DENIES: : Past Medical History - General Information source: Patient - Social History Smoking Status: Current Every Day Smoker Chew tobacco use (# tins/day): No Frequency of alcohol use: None Drug Abuse: Marijuana Family History: Reviewed & Not Pertinent, CAD, DM Patient has suicidal ideation: No Patient has homicidal ideation: No - Past Medical History Cardiac Medical History: Reports: Hx Coronary Artery Disease, Hx Hypercholesterolemia, Hx Hypertension, Hx Peripheral Vascular Disease - r leg surgery Pulmonary Medical History: Reports: Hx COPD Neurological Medical History: Reports: Hx Cerebrovascular Accident - 2018. Denies: Hx Seizures Renal/ Medical History: Reports: Hx End Stage Renal Disease, Hx Kidney Stones. Denies: Hx Peritoneal Dialysis Malignancy Medical History: Reports Hx Renal (Kidney) Cancer - He had a right nephrectomy for renal cell cancer. GI Medical History: Reports: Hx Gastroesophageal Reflux Disease, Hx Hiatal Hernia Musculoskeletal Medical History: Reports Hx Arthritis Past Surgical History: Reports: Hx Abdominal Surgery, Hx Orthopedic Surgery, Hx Tonsillectomy, Hx Vascular Surgery - Multiple dialysis fistulas and now has a dialysis catheter, stents rt leg, Other - Angioplasty with stent placement of AV fistula. Denies: Hx Pacemaker - Immunizations Hx Diphtheria, Pertussis, Tetanus Vaccination: No - UNKNOWN Hx Pneumococcal Vaccination: 09/03/14 Vertical Provider Document - CONSTITUTIONAL Agree With Documented VS: Yes Exam Limitations: No Limitations General Appearance: WD/WN Notes: PHYSICAL EXAMINATION:reviewed vital signs by RN GENERAL: Well-appearing, well-nourished and in no acute distress. HEAD: Atraumatic, normocephalic. EYES: Pupils equal round and reactive to light, extraocular movements intact, sclera anicteric, conjunctiva are normal. ENT: Nares patent, oropharynx clear without exudates. Moist mucous membranes. NECK: Normal range of motion, supple without lymphadenopathy LUNGS: Breath sounds clear to auscultation bilaterally and equal. No wheezes rales or rhonchi. HEART: Regular rate and rhythm without murmurs ABDOMEN: Soft, nontender, nondistended abdomen. No guarding, no rebound. No masses appreciated. Musculoskeletal: Normal range of motion, no pitting or edema. No cyanosis. NEUROLOGICAL: Cranial nerves grossly intact. Normal speech, normal gait. Normal sensory, motor exams PSYCH: Normal mood, normal affect. SKIN: Warm, Dry, normal turgor, no rashes or lesions noted. - INFECTION CONTROL TRAVEL OUTSIDE OF THE [place] IN LAST 30 DAYS: No Course - Re-evaluation Re-evalutation: 07/14/19 13:36 Patient presents after falling onto their ribs, complaining of focal pain to the affected area. X-ray negative for any acute fracture, pna or pneumothroax. no tachypnea or hypoxemia at time of arrival. Pain controlled here in the emergency department with narcotic and anti-inflammatory analgesics. Chest x- ray without evidence of acute fracture, pneumothorax or pulmonary contusion. At this time will discharge with return precautions and follow-up recommendations. Verbal discharge instructions given at the bedside and opportunity for questions given. Medication warnings reviewed. Patient is in agreement with this plan and has verbalized understanding of return precautions and the need for primary care follow-up in the next 24-72 hours. 07/14/19 15:30 - Vital Signs Vital signs: Temp Pulse Resp BP Pulse Ox 97.6 F 64 16 121/45 L 100 07/14/19 12:29 07/14/19 12:22 07/14/19 12:29 07/14/19 12:22 07/14/19 12:29 Discharge - Discharge Clinical Impression: Rib pain on right side Condition: Stable Disposition: HOME, SELF-CARE Instructions: Oral Narcotic Medication ([facility]), Rib Contusion ([facility]) Additional Instructions: Your x-ray was negative today. Use incentive spirometer as directed, take 10 deep breaths an hour, cough at least twice an hour to prevent atelectasis or pneumonia. Please go to your dialysis appointment tomorrow. If your symptoms become worse return to the emergency room. Return immediately for any new or worsening symptoms. Follow up with primary care provider, call tomorrow to make followup appointment. Referrals: JOSE OQUENDO PA-C [ALLIED HEALTH PROFESSIONAL] - Follow up as needed
--- NOTE | 2019-07-14 13:18 | RADIOLOGY REPORT (SQ) ---
EXAM DESCRIPTION: RIBS RIGHT W/PA CHEST COMPLETED DATE/TIME: 07/14/2019 1:01 pm REASON FOR STUDY: right rib pain, fell onto chair COMPARISON: 10/22/2018. TECHNIQUE: Frontal view of the chest and additional views of the right ribs acquired. NUMBER OF VIEWS: Three view. LIMITATIONS: None. FINDINGS: FRONTAL CXR: No pneumothorax. No pleural effusion. Vague density overlying the right upp er hemithorax. RIBS: No displaced rib fractures. No lytic or blastic bony lesions. OTHER: No other significant finding. IMPRESSION: 1. NO PNEUMOTHORAX. NO DISPLACED RIB FRACTURES. 2. VAGUE DENSITY OVERLYING THE RIGHT UPPER HEMITHORAX. THIS DOES NOT CORRELATE WITH THE POSITION OF THE RIGHT SCAPULA. THIS COULD BE RELATED TO OVERLYING SOFT TISSUE. PARENCHYMAL CHANGES IN THE CHEST CANNOT BE EXCLUDED. IF THERE IS CLINICAL CONCERN, MAY CONSIDER CT OF THE CHEST. COMMENT: SITE OF TRAUMA/COMPLAINT MARKED/STAMP COMPLETED: YES. TECHNICAL DOCUMENTATION: JOB ID: [id number] [employer]- All Rights Reserved Reading location - IP/workstation name: [email or web address]
[2019-07-14] MEDS ORDERED: HYDROCODONE/ACETAMINOPHEN 5-325 MG (6 TAB/ER DISP) PO PRN (13:39)
[2019-07-14 14:02] VITALS: BP 123/51
== END 2019-07-14 14:02 | disposition home or self-care (01) ==
LOC: ER 12:17
DX: R07.81 Pleurodynia (principal); W00.0XXA Fall on same level due to ice and snow, initial encounter; W22.03XA Walked into furniture, initial encounter; I12.9 Hypertensive chronic kidney disease with stage 1 through stage 4 chronic kidney disease, or unspecified chronic kidney disease; Z99.2 Dependence on renal dialysis; N18.4 Chronic kidney disease, stage 4 (severe); I25.10 Atherosclerotic heart disease of native coronary artery without angina pectoris; J44.9 Chronic obstructive pulmonary disease, unspecified; F12.10 Cannabis abuse, uncomplicated; F17.200 Nicotine dependence, unspecified, uncomplicated
CPT/HCPCS: 71101; A9270; 99284

== ENCOUNTER 2019-07-15 12:27 | Emergency (ER) | payer MEDICARE, BC ==
--- NOTE | 2019-07-15 14:06 | ER Document Report ---
HPI - HPI Time Seen by Provider: 07/15/19 13:56 Pain Level: 4 Notes: Patient is a 59-year-old male with a history of end-stage renal disease and on dialysis every Thursday/Thursday/Thursday which he did complete today presents for reevaluation after there was question pertaining to his x-ray that he had performed yesterday of his right ribs. Patient states that on Thursday he slipped when he was cooking and caught his right lower ribs off of the corner of a chair. He has not noticed any bruising or swelling since then. Patient states that he has not had any worsening symptoms. The chest x-ray yesterday question whether or not he should have a CT so he was sent here for reevaluation. He is otherwise able to eat and drink without difficulty. Denies any headache, fever, head injury, neck pain, changes in vision/speech/mentation/hearing, URI, sore throat, chest pain (aside from rt lateral lower rib pain), palpitations, syncope, cough, shortness of breath, wheeze, dyspnea, abdominal pain, nausea/vomiting/diarrhea, urinary retention, dysuria, hematuria, loss of control of bowel or bladder, numbness/tingling, saddle anesthesia, muscle paralysis/weakness, or rash. - ROS Systems Reviewed and Negative: Yes All other systems reviewed and negative - REPRODUCTIVE Reproductive: DENIES: : Past Medical History - Social History Smoking Status: Current Every Day Smoker Family History: Reviewed & Not Pertinent, CAD, DM Patient has suicidal ideation: No Patient has homicidal ideation: No - Past Medical History Cardiac Medical History: Reports: Hx Coronary Artery Disease, Hx Hypercholesterolemia, Hx Hypertension, Hx Peripheral Vascular Disease - r leg surgery Pulmonary Medical History: Reports: Hx COPD Neurological Medical History: Reports: Hx Cerebrovascular Accident - 2018. Denies: Hx Seizures Renal/ Medical History: Reports: Hx End Stage Renal Disease, Hx Kidney Stones. Denies: Hx Peritoneal Dialysis Malignancy Medical History: Reports Hx Renal (Kidney) Cancer - He had a right nephrectomy for renal cell cancer. GI Medical History: Reports: Hx Gastroesophageal Reflux Disease, Hx Hiatal Hernia Musculoskeletal Medical History: Reports Hx Arthritis Past Surgical History: Reports: Hx Abdominal Surgery, Hx Orthopedic Surgery, Hx Tonsillectomy, Hx Vascular Surgery - Multiple dialysis fistulas and now has a dialysis catheter, stents rt leg, Other - Angioplasty with stent placement of AV fistula. Denies: Hx Pacemaker - Immunizations Hx Diphtheria, Pertussis, Tetanus Vaccination: No - UNKNOWN Hx Pneumococcal Vaccination: 09/03/14 Vertical Provider Document - CONSTITUTIONAL Agree With Documented VS: Yes Notes: PHYSICAL EXAMINATION: GENERAL: Well-appearing, well-nourished and in no acute distress. HEAD: Atraumatic, normocephalic. EYES: Pupils equal round and reactive to light, extraocular movements intact, sclera anicteric, conjunctiva are normal. ENT: Nares patent and without discharge. oropharynx clear without exudates. No tonsilar hypertrophy or erythema. Moist mucous membranes. NECK: Normal range of motion, supple without lymphadenopathy Chest: + reproducible tenderness to palpation of the rt lateral lower rib area and reproducible with extension/rotation of trunk. LUNGS: Breath sounds clear to auscultation bilaterally and equal. No wheezes rales or rhonchi. HEART: Regular rate and rhythm without murmurs, rubs, gallops. ABDOMEN: Soft, nontender, nondistended abdomen. No guarding, no rebound. Normal bowel sounds present. No CVA tenderness bilaterally. No eccymosis. Musculoskeletal: FROM to passive/active. Strength 5+/5. Hamilton neg. No asymmetry to LE's. Extremities: No cyanosis, clubbing, or edema b/l. Peripheral pulses 2+. Capillary refill less than 3 seconds. NEUROLOGICAL: Normal speech, normal gait. PSYCH: Normal mood, normal affect. SKIN: Warm, Dry, normal turgor, no rashes or lesions noted. - INFECTION CONTROL TRAVEL OUTSIDE OF THE [place] IN LAST 30 DAYS: No Course - Re-evaluation Re-evalutation: 07/15/19 14:05 I did speak with the Radiologist who recommends just re-XR at this time as it may have been positional. 07/15/19 14:47 Patient is an afebrile, well-hydrated, 59-year-old male who presents with right rib pain, suspect contusion. Vitals are acceptable without significant tachycardia, tachypnea, hypoxia. PE is otherwise unremarkable. Patient is nontoxic-appearing and is tolerating p.o. without difficulty. Repeat x-ray is unremarkable for any acute pathology. No further work-up warranted. Low suspicion for any ACS, PE, pneumothorax, pericarditis, dissection, respiratory compromise, severe dehydration, sepsis, meningitis, or other systemic emergent condition at this time. Patient is aware that condition can change from initial presentation and he needs to monitor symptoms closely and seek medical attention for any acute changes. Recommend conservative measures for symptoms. Recheck with your PCM in 3-5 days. Return to the ED with any worsening/concerning symptoms otherwise as reviewed in discharge. Patient is in agreement. - Vital Signs Vital signs: Temp Pulse Resp BP Pulse Ox 98.1 F 81 20 143/56 H 100 07/15/19 12:33 07/15/19 12:33 07/15/19 12:33 07/15/19 12:33 07/15/19 12:33 Discharge - Discharge Clinical Impression: Rib pain on right side Condition: Stable Disposition: HOME, SELF-CARE Instructions: Rib Contusion ([facility]) Additional Instructions: Rest, Ice Tylenol/ibuprofen as needed Light stretches daily Strength exercises as able Moist heat and massage may help F/u with your PCP in 3-5 days for a recheck Consider consult(s) with Orthopedics/physical therapy for ongoing/worsening symptoms Return to the ED with any worsening symptoms and/or development of fever, headache, chest pain, palpitations, syncope, shortness of breath, trouble breathing, abdominal pain, n/v/d, muscle weakness/paralysis, numbness/tingling, swelling, redness, or other worsening symptoms that are concerning to you. Forms: Elevated Blood Pressure Referrals: [facility] [Provider Group] - Follow up as needed
--- NOTE | 2019-07-15 14:44 | RADIOLOGY REPORT (SQ) ---
EXAM DESCRIPTION: RIBS RIGHT W/PA CHEST COMPLETED DATE/TIME: 07/15/2019 2:34 pm REASON FOR STUDY: re-eval XR for fall/injury COMPARISON: 07/14/2019 TECHNIQUE: Frontal view of the chest and additional views of the right ribs acquired. NUMBER OF VIEWS: Five view. LIMITATIONS: None. FINDINGS: FRONTAL CXR: No pneumothorax. No pleural effusion. No atelectasis or infiltrates. Previ ously described parenchymal opacity overlying the right upper lobe is no longer identified. This was presumably artifact from overlying soft tissue. RIBS: No displaced rib fractures. No lytic or blastic bony lesions. OTHER: Vascular stents remain in place on the left. IMPRESSION: No pneumothorax. No consolidation. No displaced rib fractures. COMMENT: SITE OF TRAUMA/COMPLAINT MARKED/STAMP COMPLETED: YES. TECHNICAL DOCUMENTATION: JOB ID: [id number] [employer]- All Rights Reserved Reading location - IP/workstation name: [email or web address]
[2019-07-15] MEDS ORDERED: ACETAMINOPHEN 325 MG TABLET PO ONE (15:03)
[2019-07-15 15:15] VITALS: BP 124/54
== END 2019-07-15 15:17 | disposition home or self-care (01) ==
LOC: ER 12:27
DX: R07.81 Pleurodynia (principal); W01.198A Fall on same level from slipping, tripping and stumbling with subsequent striking against other object, initial encounter; F17.200 Nicotine dependence, unspecified, uncomplicated; I12.0 Hypertensive chronic kidney disease with stage 5 chronic kidney disease or end stage renal disease; N18.6 End stage renal disease; Z99.2 Dependence on renal dialysis
CPT/HCPCS: 99283; 71101; A9270

== ENCOUNTER 2019-08-09 07:55 | Day surgery (SDC) | payer MEDICARE, BC ==
[2019-08-09] MEDS ORDERED: DIAZEPAM 5 MG TABLET PO PRN (08:07)
[2019-08-09] MEDS ORDERED: OXYCODONE-ACETAMINOPHEN 5-325 MG TABLET PO PRN (08:08)
[2019-08-09] MEDS ORDERED: DIAZEPAM 5 MG TABLET ONE (08:51)
[2019-08-09 09:12] LABS: ABSOLUTE EOSINOPHILS # (AUTO) 0.2 10^3/uL (0.0-0.6); ABSOLUTE LYMPHOCYTES (AUTO) 1.3 10^3/uL (0.5-4.7); ABSOLUTE MONOCYTES (AUTO) 0.5 10^3/uL (0.1-1.4); ABSOLUTE NEUT (AUTO) 2.7 10^3/uL (1.7-8.2); BASOPHILS % (AUTO) 0.6 % (0-2); EOSINOPHILS % (AUTO) 4.9 % (0-6); HEMATOCRIT 30.5 % (37.9-51.0); HEMOGLOBIN 10.2 g/dL (13.5-17.0); LYMPHOCYTES % (AUTO) 26.8 % (13-45); MEAN CORPUSCULAR HGB CONC 33.5 g/dL (32.0-36.0); MEAN CORPUSCULAR VOLUME 84 fl (80-97); MONOCYTES % (AUTO) 10.1 % (3-13); PLATELET COUNT 225 10^3/uL (150-450); RED BLOOD COUNT 3.64 10^6/uL (4.35-5.55); RED CELL DISTRIBUTION WIDTH 17.7 % (11.5-14.0); SEGMENTED NEUTROPHILS % (AUTO) 57.6 % (42-78); TOTAL CELLS COUNTED % (AUTO) 100 %; WHITE BLOOD COUNT 4.7 10^3/uL (4.0-10.5)
[2019-08-09 09:16] LABS: ANION GAP 16 (5-19); BLOOD UREA NITROGEN 66 mg/dL (7-20); CALCIUM 8.3 mg/dL (8.4-10.2); CARBON DIOXIDE 24 mmol/L (22-30); CHLORIDE 97 mmol/L (98-107); GLUCOSE 81 mg/dL (75-110); POTASSIUM 3.7 mmol/L (3.6-5.0)
[2019-08-09 09:36] LABS: ANISOCYTOSIS 1+; HYPOCHROMASIA 1+; PLATELET COMMENT ADEQUATE; TARGET CELLS 2+
[2019-08-09] MEDS ORDERED: MIDAZOLAM 2 MG/2 ML INJ ONE (09:46)
[2019-08-09] MEDS ORDERED: LIDOCAINE 0.5% INJ-PF (5 MG/ML) 50 ML SDV ONE (09:46)
[2019-08-09] MEDS ORDERED: FENTANYL CITRATE INJ/PF 100 MCG/2 ML AMPUL ONE (09:47)
[2019-08-09] MEDS ORDERED: HEPARIN SOD (PORCINE) 5,000 UNIT/ML 1 ML VIAL ONE (09:47)
--- NOTE | 2019-08-09 11:11 | RADIOLOGY REPORT (SQ) ---
EXAM DESCRIPTION: FISTULAGRAM W/PLASTY COMPLETED DATE/TIME: 08/09/2019 11:01 am REASON FOR STUDY: T82.858A T82.858A STENOSIS OF OTHER VASCULAR PROSTH DEV/GRFT, INIT COMPARISON: None. FLUOROSCOPY TIME: 0.9 minutes. 68 images saved to PACS. TECHNIQUE: Intra-operative images acquired during surgical procedure to evaluate progress. NUMBER OF IMAGES: 68 images. LIMITATIONS: None. FINDINGS: Imaging in fluoroscopy during left upper extremity dialysis access evaluation and plasty b y Dr. Khan . Please refer to the operative report for further details. IMPRESSION: INTRA PROCEDURAL IMAGING ABOVE . COMMENT: Quality ID [id number]: Final reports for procedures using fluoroscopy that document radiation exp osure indices, or exposure time and number of fluorographic images (if radiation exposure indices are not available) Please consult full operative report of the attending physician for description of the procedure. TECHNICAL DOCUMENTATION: JOB ID: [id number] [employer]- All Rights Reserved Reading location - IP/workstation name: [email or web address]
--- NOTE | 2019-08-09 11:21 | Discharge Summary ---
Discharge Summary (SDC) - Discharge Final Diagnosis: #1 malfunctioning AV fistula left brachiocephalic. 2. End-stage renal disease on hemodialysis. 3. Fistula angioplasty. 4. Angiogram and interpretation. Date of Surgery: 08/09/19 Discharge Date: 08/09/19 Condition: Fair Treatment or Instructions: Discharge home [after recovery per ASU criteria]. Diet , [renal],as tolerated, when fully awake advance as tolerated. Activities within moderation encouraged. Follow up in my office by appointment in about [1 week]. Call for appointment. Leave wounds [covered], [keep clean and dry, until office visit on of this week. For suture removal. Meds per med rec. May shower [in 48 hrs], [try to keep operated area as dry as possible]. Discharge Diet: Other (Comments) - Renal. Respiratory Treatments at Home: Deep Breathing/Coughing Discharge Activity: Activity As Tolerated Report the Following to Your Physician Immediately: Shortness of Breath
--- NOTE | 2019-08-09 11:27 | Operative Report ---
Operative Report DATE OF SURGERY: 08/09/19 PREOPERATIVE DIAGNOSIS: 1. Malfunctioning AV fistula, left brachiocephalic. 2. End-stage renal disease on hemodialysis. 3. Hypertension. POSTOPERATIVE DIAGNOSIS: 1. Malfunctioning AV fistula, left brachiocephalic. 2. End-stage renal disease on hemodialysis. 3. Hypertension. OPERATION: 1. Needle access into the fistula. 2. Fistula balloon angioplasty. 3. Angiogram and interpretation. SURGEON: SHANIA MCKEON CHARGER TESTER: None. ANESTHESIA: Moderate Sedation TISSUE REMOVED OR ALTERED: Not applicable. COMPLICATIONS: None. ESTIMATED BLOOD LOSS: 2 mL. INTRAOPERATIVE FINDINGS: Of a well founded left arm AV fistula, quite aged with wall calcification and with several stents, at least 4, 2 in the arm, 2 in the cephalad cephalic segment. Tight stenosis noted in the most proximal fistula about 4 cm away from the anastomosis. Difficult to evaluate degree of stenosis but probably about 80%. Resolved with angioplasty. Another area of stenosis in the most cephalad stent for about 2 cm in about 80% of the adjacent lumen. Corrected with angioplasty using an 8 mm balloon. This fistula seen better after angioplasty, less pulsatile proximally and better in the mid, surgically reduced to segment. This patient with a susi fistula and multiple stents will probably need re-intervention in a few months. PROCEDURE: PROCEDURE: After verifying the procedure and having obtained informed consent, the patient's left arm was prepared with Chlorhexidine and draped out with sterile linen. Local anesthesia infiltrated. Percutaneous access into the fistula ,[ antegrade], obtained about [3 cm] from the arteriovenous anastomosis using a micro puncture needle followed by micro puncture wire and then a micro puncture catheter. A 0.035 Campti wire was inserted, and over this, a 6 Albanian short introducer was placed.,Angiogram demonstrated the aforementioned findings. Angioplasty was elected. this was followed by an 8 -mm] high-pressure conquest, angioplasty balloon . Angioplasty was done from the affected areas inflating using a 3 mils syringe for 2 minutes at a time. Completion angiogram demonstrated [satisfactory result]. The instrumentation was now withdrawn over a short piece of catheter and a 5-0 Prolene suture. Dressings applied, procedure concluded. Exposure time: 0.9 minutes Radiation: 10.43 Pia mcfarland Contrast: 25 mils of Isovue-300, low osmolality. DICTATING PHYSICIAN: SHANIA RUTH M.D. cc: SHANIA RUTH M.D. ([id number]) >>
[2019-08-09 12:51] VITALS: BP 149/54
--- NOTE | 2019-08-09 14:23 | PDOC H&P ---
General Chief Complaint: The patient is referred across from dialysis because of a malfunctioning AV fistula. - Diagnosis (1) Dialysis AV fistula malfunction Is this a Current Diagnosis?: Yes (2) ESRD on hemodialysis Is this a Current Diagnosis?: Yes (3) Hypertension Is this a Current Diagnosis?: Yes - Current Medications/Allergies Home Medications: Aspirin [Adult Low Dose Aspirin EC] 81 mg PO DAILY 02/24/18 Budesonide/Formoterol Fumarate [Symbicort HFA 160-4.5 mcg Inhaler 6 gm] 1 puff IH Q12 02/24/18 Calcitriol [Rocaltrol 0.5 mcg Capsule] 0.5 mcg PO DAILY 02/24/18 Clonidine HCl [Catapres 0.3 mg Tablet] 0.3 mg PO Q8 02/24/18 Lanthanum Carbonate [Fosrenol] 1,000 mg PO AC 02/24/18 Metoprolol Succinate [Toprol Xl 50 mg Tab.sr] 50 mg PO DAILY 02/24/18 Minoxidil [Loniten 10 mg Tablet] 5 mg PO QAM 02/24/18 Vit B Comp No.3/Folic/C/Biotin [Bettie-Ana Rx Tablet] 1 tab PO DAILY 02/24/18 Allergies/Adverse Reactions: adhesive tape Allergy (Verified 08/09/19 08:08) Blisters Past Medical History Cardiac Medical History: Reports: Hyperlipidema, Hypertension, Peripheral Vascular Disease - r leg surgery Denies: Congestive Heart Failure, Coronary Artery Disease, Myocardial Infarction Pulmonary Medical History: Reports: Chronic Obstructive Pulmonary Disease (COPD) Denies: Asthma, Bronchitis, Pneumonia, Tuberculosis Neurological Medical History: Denies: Seizures Renal/ Medical History: Reports: End Stage Renal Disease Malignancy Medical History: Reports: Renal (Kidney) Cancer - He had a right nephrectomy for renal cell cancer. GI Medical History: Reports: Gastroesophageal Reflux Disease, Hiatal Hernia Musculoskeltal Medical History: Reports: Arthritis Psychiatric Medical History: Denies: Depression Hematology: Reports: Anemia Denies: Bleeding Tendencies Past Surgical History Past Surgical History: Reports: Orthopedic Surgery, Tonsillectomy, Vascular Surgery - Multiple dialysis fistulas and now has a dialysis catheter, stents rt leg, Other - Angioplasty with stent placement of AV fistula Denies: Pacemaker Family History Family History: Reviewed & Not Pertinent, CAD, DM Parental Family History Reviewed: No Children Family History Reviewed: No Sibling(s) Family History Reviewed.: No Social History Smoking Status: Current Every Day Smoker Frequency of Alcohol Use: None Hx Recreational Drug Use: Yes Drugs: Marijuana Hx Prescription Drug Abuse: No Physical Exam Vital Signs: Temp Pulse Resp BP Pulse Ox 97.5 F 63 16 149/54 H 100 08/09/19 11:15 08/09/19 12:15 08/09/19 12:15 08/09/19 12:15 08/09/19 12:15 Intake & Output 08/08/19 08/09/19 08/10/19 06:59 06:59 06:59 Weight 58.967 kg Additional comments: Constitutional: Well-developed well-nourished -Swedish gentleman. No apparent acute distress. Eyes: Mucous membranes pink and moist, pupils equal and reactive to light. Conjunctiva normal. Cornea normal. ENT: Hearing grossly normal. External pinna normal to inspection. Teeth intact. Tongue normal to inspection. Cardiac: Heart sounds 1 and 2 normal, no murmurs. Respiratory: breath sounds are present bilaterally, normal. Normal respiratory effort. Skin: Normal to inspection. No ulcers, normal turgor. Abdomen: Soft, non tender. Liver and spleen are not palpably enlarged. Bowel sounds are normal. No hernia noted. Surgical scars absent. Psychiatric: Judgment, memory, insight seem normal. Mood is pleasant and appropriate. Extremities: Upper extremities show normal range of movement. Pulses present noted to the radial arteries. Capillary refill normal. No cyanosis noted. No muscle wasting noted. Left arm brachiocephalic fistula with partial resection, firmness indicative of stenting and other stenoses. Somewhat firm to palpation suggesting cephalad stenosis. Neurovascular: No apparent tremors, gait normal. Sensation grossly intact. Hearing grossly normal. Vison grossly intact. Impression/Plan Plan: In this patient with a aged left arm fistula, multiple stents, malfunction, angioplasty may be needed. Angiogram possible angioplasty is recommended. The procedure, its risks, benefits, expected outcomes alternatives are familiar to the patient and he wishes to proceed.
== END 2019-08-09 12:30 | disposition home or self-care (01) ==
LOC: CCL 07:55
PROVIDERS: ATTEND Surgery
DX: T82.858A Stenosis of other vascular prosthetic devices, implants and grafts, initial encounter (principal); Y83.2 Surgical operation with anastomosis, bypass or graft as the cause of abnormal reaction of the patient, or of later complication, without mention of misadventure at the time of the procedure; Z99.2 Dependence on renal dialysis; Z79.82 Long term (current) use of aspirin; Z79.899 Other long term (current) drug therapy; E78.5 Hyperlipidemia, unspecified; N18.6 End stage renal disease
CPT/HCPCS: 36415; 85025; 80048; 36902; C1725; C1752; Q9967; C1769; J1644 ×2; A9270 ×2; J3490; J2250; J3010

== ENCOUNTER 2020-02-23 12:14 | Inpatient (IN) | payer MEDICARE, BC ==
[2020-02-23] MEDS ORDERED: ENOXAPARIN SODIUM INJ 80 MG/0.8 ML DISP.SYRIN SUBCUT SCH (12:45)
[2020-02-23 12:50] LABS: ABSOLUTE EOSINOPHILS # (AUTO) 0.2 10^3/uL (0.0-0.6); ABSOLUTE LYMPHOCYTES (AUTO) 1.2 10^3/uL (0.5-4.7); ABSOLUTE MONOCYTES (AUTO) 0.7 10^3/uL (0.1-1.4); ABSOLUTE NEUT (AUTO) 3.9 10^3/uL (1.7-8.2); BASOPHILS % (AUTO) 0.5 % (0-2); EOSINOPHILS % (AUTO) 3.7 % (0-6); HEMATOCRIT 28.4 % (37.9-51.0); HEMOGLOBIN 9.7 g/dL (13.5-17.0); LYMPHOCYTES % (AUTO) 19.2 % (13-45); MEAN CORPUSCULAR HEMOGLOBIN 30.1 pg (27.0-33.4); MEAN CORPUSCULAR HGB CONC 34.2 g/dL (32.0-36.0); MEAN CORPUSCULAR VOLUME 88 fl (80-97); MONOCYTES % (AUTO) 12.2 % (3-13); PLATELET COUNT 275 10^3/uL (150-450); RED BLOOD COUNT 3.23 10^6/uL (4.35-5.55); RED CELL DISTRIBUTION WIDTH 18.1 % (11.5-14.0); SEGMENTED NEUTROPHILS % (AUTO) 64.4 % (42-78); TOTAL CELLS COUNTED % (AUTO) 100 %
[2020-02-23] MEDS ORDERED: NORMAL SALINE 500 ML IV ONE (13:05)
[2020-02-23] MEDS ORDERED: DILTIAZEM HCL INJ 25 MG/5 ML VIAL IV ONE (13:05)
[2020-02-23] MEDS ORDERED: CALCIUM GLUCONATE 1000 MG/10 ML INJ IV ONE (13:05)
[2020-02-23] MEDS ORDERED: DILTIAZEM HCL/D5W 125 MG/125 ML RTUINJ IV PRN (13:05)
--- NOTE | 2020-02-23 13:08 | ER Document Report ---
ED General - General Chief Complaint: Chest Pain Stated Complaint: CHEST PAIN Time Seen by Provider: 02/23/20 12:26 Notes: 1 hour chest pressure and palpitations onset this morning at home. History of stroke but no history of A. fib. History of negative stress test but he does not know when. End-stage renal on dialysis. TRAVEL OUTSIDE OF THE [place] IN LAST 30 DAYS: No - Related Data Allergies/Adverse Reactions: adhesive tape Allergy (Verified 08/09/19 08:08) Blisters Home Medications: Clonidine, Meloxidil, Metoprolol Past Medical History - Social History Smoking Status: Unknown if Ever Smoked Family History: Reviewed & Not Pertinent, CAD, DM - Past Medical History Cardiac Medical History: Reports: Hx Hypercholesterolemia, Hx Hypertension, Hx Peripheral Vascular Disease - r leg surgery Denies: Hx Congestive Heart Failure, Hx Coronary Artery Disease, Hx Heart Attack Pulmonary Medical History: Reports: Hx COPD Denies: Hx Asthma, Hx Bronchitis, Hx Pneumonia, Hx Tuberculosis Neurological Medical History: Denies: Hx Cerebrovascular Accident, Hx Seizures Renal/ Medical History: Reports: Hx End Stage Renal Disease, Hx Kidney Stones. Denies: Hx Peritoneal Dialysis Malignancy Medical History: Reports Hx Renal (Kidney) Cancer - He had a right nephrectomy for renal cell cancer. GI Medical History: Reports: Hx Gastroesophageal Reflux Disease, Hx Hiatal Hernia Musculoskeletal Medical History: Reports Hx Arthritis Psychiatric Medical History: Denies: Hx Depression Past Surgical History: Reports: Hx Abdominal Surgery, Hx Orthopedic Surgery, Hx Tonsillectomy, Hx Vascular Surgery - Multiple dialysis fistulas and now has a dialysis catheter, stents rt leg, Other - Angioplasty with stent placement of AV fistula. Denies: Hx Pacemaker - Immunizations Hx Diphtheria, Pertussis, Tetanus Vaccination: No - UNKNOWN Hx Pneumococcal Vaccination: 09/03/14 Review of Systems - Review of Systems Notes: REVIEW OF SYSTEMS GEN: Denies fever, chills, weight loss ENT: Denies sore throat, nasal discharge, ear pain EYES: Denies blurry vision, eye pain, discharge CV: Pressure and palpitations RESP: Denies cough, shortness of breath, wheezing GI: Denies abdominal pain, nausea, vomiting, diarrhea MSK: Denies joint pain/swelling, edema, SKIN: Denies rash, skin lesions LYMPH: Denies swollen glands/lymph nodes NEURO: Denies headache, focal weakness or numbness, dizziness PSYCH: Denies depression, suicidal or homicidal ideation PHYSICAL EXAMINATION General: Thin. No acute distress, well-nourished Head: Atraumatic, normocephalic ENT: Mouth normal, oropharynx moist, no exudates or tonsillar enlargement Eyes: Conjunctiva normal, pupils equal, lids normal Neck: No JVD, supple, no guarding CVS: Hyperactive precordium with heaves and irregular tachycardia s Resp: No resp distress, equal and normal breath sounds bilaterally GI: Nondistended, soft, no tenderness to palpation, no rebound or guarding Ext: No deformities, no edema, normal range of motion in upper and lower ext Back: No CVA or midline TTP Skin: No rash, warm Lymphatic: No lymphadeopathy noted Neuro: Awake, alert. Face symmetric. GCS 15. Physical Exam - Vital signs Vitals: Temp Resp BP Pulse Ox 98.5 F 13 108/60 99 02/23/20 12:24 02/23/20 12:24 02/23/20 12:24 02/23/20 12:24 Course - Re-evaluation Re-evalutation: 02/23/20 13:55 Recent onset atrial fibrillation plus chest pain could be reflect ischemia although likely just rhythm awareness from A. fib. End-stage renal on dialysis. Inappropriate for Lovenox therapy, confirm with pharmacy. Considered cardioversion with electricity but would not be able to be discharged anyway. We will give some fluids and calcium given his borderline blood pressures noted to start diltiazem bolus and drip for rate control Ordered heparin bolus and drip for anticoagulation given history of stroke and r isk thereof Labs did not show a cause of the A. fib. Labs are stable other than renal Patient is stable from dialysis standpoint and discussed with Dr. Evans who is okay admitting the patient if he can be dialyzed tomorrow. I think this is reasonable. Discussed with Dr. Ralph and nurse practitioner Angie who will admit the patient to the IMCU for rate control anticoagulation and further work-up and treatment Initial troponin detectable but not horribly elevated. - Vital Signs Vital signs: Temp Pulse Resp BP Pulse Ox 98.5 F 122 H 13 108/60 98 02/23/20 12:40 02/23/20 12:40 02/23/20 12:40 02/23/20 12:24 02/23/20 12:40 - Laboratory Result Diagrams: 02/23/20 12:36 02/23/20 12:36 Laboratory results interpreted by me: 02/23/20 02/23/20 02/23/20 12:36 12:36 12:36 RBC 3.23 L Hgb 9.7 L Hct 28.4 L RDW 18.1 H APTT 37.7 H Sodium 134.0 L Chloride 95 L BUN 51 H Creatinine 8.52 H Est GFR ( Amer) 8 L Est GFR (MDRD) Non-Af 6 L Glucose 123 H Calcium 10.7 H - Diagnostic Test Radiology reviewed: Image reviewed, Reports reviewed - EKG Interpretation by Me Rate: Tachycardia Rhythm: A.Fib When compared to previous EKG there are: Previous EKG unavailable - ST depression consistent with repolarization change Critical Care Note - Critical Care Note Total time excluding time spent on procedures (mins): 34 Comments: The above patient is critically ill. Not including procedures, but including direct re-evaluations, speaking with patient and/or consultants, interpreting results, and documenting, I spent the total amount of minute listed listed above on critical care time the above patient is critically ill. Not including procedures, but including direct re-evaluations, speaking with patient and/or consultants, interpreting results, and documenting, I spent the total amount of minute listed listed above on critical care time Discharge - Discharge Clinical Impression: Rapid atrial fibrillation Condition: Fair Disposition: ADMITTED INPATIENT Admitting Provider: Loree (Hospitalist) Unit Admitted: [facility]
[2020-02-23 13:09] LABS: ANION GAP 12 (5-19); BLOOD UREA NITROGEN 51 mg/dL (7-20); CALCIUM 10.7 mg/dL (8.4-10.2); CARBON DIOXIDE 27 mmol/L (22-30); CHLORIDE 95 mmol/L (98-107); GLUCOSE 123 mg/dL (75-110); POTASSIUM 4.1 mmol/L (3.6-5.0)
[2020-02-23 13:18] LABS: INTERNATIONAL RATION (INR) 1.07; PROTHROMBIN TIME 13.9 SEC (11.4-15.4)
[2020-02-23 13:19] LABS: PARTIAL THROMBOPLASTIN TIME 37.7 SEC (23.5-35.8)
--- NOTE | 2020-02-23 13:33 | RADIOLOGY REPORT (SQ) ---
EXAM DESCRIPTION: CHEST SINGLE VIEW IMAGES COMPLETED DATE/TIME: 02/23/2020 12:06 pm REASON FOR STUDY: SOB COMPARISON: 10/22/2018 EXAM PARAMETERS: NUMBER OF VIEWS: One view. TECHNIQUE: Single frontal radiographic view of the chest acquired. RADIATION DOSE: NA LIMITATIONS: None. FINDINGS: LUNGS AND PLEURA: No opacities, masses or pneumothorax. No pleural effusion. MEDIASTINUM AND HILAR STRUCTURES: No masses. Contour normal. HEART AND VASCULAR STRUCTURES: Moderate cardiomegaly is stable. No pulmonary vascular congestion. T here are vascular stents in the left axillary region, unchanged. BONES: No acute findings. HARDWARE: None in the chest. OTHER: No other significant finding. IMPRESSION: Moderate cardiomegaly. No acute cardiopulmonary disease. TECHNICAL DOCUMENTATION: JOB ID: [id number] [employer]- All Rights Reserved Reading location - IP/workstation name: [email or web address]
[2020-02-23] MEDS ORDERED: ACETAMINOPHEN 325 MG TABLET PO PRN (14:49)
--- NOTE | 2020-02-23 15:44 | PDOC H&P ---
History of Present Illness Admission Date/PCP: 02/23/20 13:55 Patient complains of: Chest pressure and palpitations History of Present Illness: ALEKSANDRA RECINOS is a 59 year old male with PMH significant for HTN, ESRD, PAD, and CVA who presented to the ED via EMS with complaints of chest pressure and palpitations. According to the patient this morning he developed acute onset chest pressure and palpitations which was associated with SOB. He felt his pulse and noticed that it was rapid and knew this was not typical for him. He called a family member who is a healthcare professional to ask their advice and they instructed him to activate EMS which he did. When the patient arrived in the ED he was found to be in A. fib with RVR. Chest x-ray was completed which revealed cardiomegaly but no other acute cardiopulmonary process. Labs are drawn which revealed essentially normal electrolytes and a troponin of 0.042. Diltiazem and heparin drips were ordered and the hospitalist service was asked to admit the patient for further evaluation and treatment. Past Medical History Cardiac Medical History: Reports: Hyperlipidema, Hypertension, Peripheral Vascular Disease - r leg surgery Denies: Congestive Heart Failure, Coronary Artery Disease, Myocardial Infarction Pulmonary Medical History: Reports: Chronic Obstructive Pulmonary Disease (COPD) Denies: Asthma, Bronchitis, Pneumonia, Sleep Apnea, Tuberculosis EENT Medical History: Reports: None Neurological Medical History: Reports: Ischemic CVA Denies: Seizures Endocrine Medical History: Reports: None Renal/ Medical History: Reports: End Stage Renal Disease Malignancy Medical History: Reports: Renal (Kidney) Cancer - He had a right nephrectomy for renal cell cancer. GI Medical History: Reports: Gastroesophageal Reflux Disease, Hiatal Hernia Musculoskeltal Medical History: Reports: Arthritis Psychiatric Medical History: Reports: Tobacco Dependency, Other - Remote alcohol dependence (sober x17 years) Denies: Depression Traumatic Medical History: Reports: None Hematology: Reports: Anemia Denies: Bleeding Tendencies Past Surgical History Past Surgical History: Reports: Orthopedic Surgery, Tonsillectomy, Vascular Surgery - Multiple dialysis fistulas and now has a dialysis catheter, stents rt leg, Other - Angioplasty with stent placement of AV fistula Denies: Pacemaker Social History Information Source: Patient Lives with: Alone Smoking Status: Current Every Day Smoker Electronic Cigarette use?: No Frequency of Alcohol Use: None Hx Recreational Drug Use: Yes Drugs: Marijuana Hx Prescription Drug Abuse: No - Advance Directive Resuscitation Status: Full Code Family History Family History: Reviewed & Not Pertinent, CAD, DM Parental Family History Reviewed: Yes - Mother with lupus, father with PAD Children Family History Reviewed: NA Sibling(s) Family History Reviewed.: Yes Medication/Allergy Home Medications: Aspirin [Adult Low Dose Aspirin EC] 81 mg PO DAILY 02/24/18 Calcitriol [Rocaltrol 0.5 mcg Capsule] 0.5 mcg PO DAILY 02/24/18 Clonidine HCl [Catapres 0.3 mg Tablet] 0.3 mg PO Q8 02/24/18 Lanthanum Carbonate [Fosrenol] 1,000 mg PO MEALS 02/24/18 Atorvastatin Calcium [Lipitor 10 mg Tablet] 10 mg PO QHS 02/23/20 Clopidogrel Bisulfate [Plavix 75 mg Tablet] 75 mg PO DAILY 02/23/20 Metoprolol Tartrate [Lopressor 50 mg Tablet] 50 mg PO BID 02/23/20 Minoxidil [Loniten 2.5 Mg Tablet] 5 mg PO QAM 02/23/20 Minoxidil [Loniten 2.5 Mg Tablet] 10 mg PO QPM 02/23/20 Prosol 1,806 ml IV ASDIR 02/23/20 Allergies/Adverse Reactions: adhesive tape Allergy (Verified 08/09/19 08:08) Blisters Review of Systems Constitutional: PRESENT: weakness. ABSENT: anorexia, chills, fatigue, fever(s), headache(s), night sweats Eyes: ABSENT: visual disturbances Ears: ABSENT: hearing changes Nose, Mouth, and Throat: ABSENT: headache(s), sore throat Cardiovascular: PRESENT: chest pain, edema - RLE with 1 mm edema, palpitations Respiratory: PRESENT: dyspnea. ABSENT: cough, hemoptysis, sputum Gastrointestinal: PRESENT: constipation. ABSENT: abdominal pain, coffee ground emesis, diarrhea, dysphagia, heartburn, hematemesis, hematochezia, melena, nausea, vomiting Genitourinary: PRESENT: other - Anuric 2/2 ESRD Musculoskeletal: PRESENT: back pain, muscle weakness - Generalized weakness Integumentary: ABSENT: diaphoresis, wounds Neurological: PRESENT: numbness - Bilateral LE numbness/tingling/cramping with ambulation. ABSENT: abnormal movements, abnormal speech, confusion, convulsi ons, dizziness, focal weakness, frequent falls, lack of coordination, memory loss Psychiatric: ABSENT: anxiety, depression Endocrine: ABSENT: cold intolerance, heat intolerance Hematologic/Lymphatic: ABSENT: easy bleeding, easy bruising Physical Exam Vital Signs: Temp Pulse Resp BP Pulse Ox 98.5 F 122 H 24 H 123/84 99 02/23/20 12:40 02/23/20 12:40 02/23/20 14:51 02/23/20 14:51 02/23/20 14:51 Intake & Output 02/22/20 02/23/20 02/24/20 06:59 06:59 06:59 Intake Total 503 Balance 503 Weight 59.874 kg General appearance: PRESENT: no acute distress, cooperative, thin Head exam: PRESENT: atraumatic, normocephalic Eye exam: PRESENT: conjunctiva pink Ear exam: PRESENT: normal external ear exam Mouth exam: PRESENT: moist, tongue midline Neck exam: ABSENT: JVD, thyromegaly Respiratory exam: PRESENT: clear to auscultation shay, decreased breath sounds - Air entry diminished at bases bilaterally, symmetrical, unlabored. ABSENT: accessory muscle use, rales, rhonchi, tachypnea, wheezes Cardiovascular exam: PRESENT: irregular rhythm, +S1, +S2, tachycardia Pulses: PRESENT: normal carotid pulses, other - Pedal pulses 1- shay. Feet warm and color appropriate. Cap refill < 3 sec GI/Abdominal exam: PRESENT: normal bowel sounds, soft. ABSENT: distended, rigid, tenderness Rectal exam: PRESENT: deferred Extremities exam: PRESENT: pedal edema - 8 pedal edema (1+). ABSENT: calf tenderness Musculoskeletal exam: PRESENT: full ROM Neurological exam: PRESENT: alert, awake, oriented to person, oriented to place, oriented to time, oriented to situation Psychiatric exam: PRESENT: appropriate affect, normal mood. ABSENT: agitated, anxious Skin exam: PRESENT: dry, normal color, warm Results Laboratory Results: 02/23/20 12:36 02/23/20 12:36 02/23/20 02/23/20 02/23/20 10:40 10:40 12:36 WBC Cancelled 6.0 RBC Cancelled 3.23 L Hgb Cancelled 9.7 L Hct Cancelled 28.4 L MCV Cancelled 88 MCH Cancelled 30.1 MCHC Cancelled 34.2 RDW Cancelled 18.1 H Plt Count Cancelled 275 Seg Neutrophils % Cancelled 64.4 Sodium Cancelled Potassium Cancelled Chloride Cancelled Carbon Dioxide Cancelled Anion Gap Cancelled BUN Cancelled Creatinine Cancelled Est GFR ( Amer) Cancelled Est GFR (Non-Af Amer) Cancelled Glucose Cancelled Calcium Cancelled TSH 02/23/20 02/23/20 12:36 12:36 WBC RBC Hgb Hct MCV MCH MCHC RDW Plt Count Seg Neutrophils % Sodium 134.0 L Potassium 4.1 Chloride 95 L Carbon Dioxide 27 Anion Gap 12 BUN 51 H Creatinine 8.52 H Est GFR ( Amer) 8 L Est GFR (Non-Af Amer) Glucose 123 H Calcium 10.7 H TSH 1.37 02/23/20 12:36 Troponin I 0.042 Impressions: Chest X-Ray 02/23/20 12:43 IMPRESSION: Moderate cardiomegaly. No acute cardiopulmonary disease. Assessment and Plan - Diagnosis (1) Atrial fibrillation with rapid ventricular response Is this a current diagnosis for this admission?: Yes Plan: Patient started on diltiazem and heparin in the ED Continue metoprolol but change dose to every 6 hours with goal to wean diltiazem Continue heparin drip for now with plans to transition to DOAC Echocardiogram Cardiology consult requested (2) Hypertension Is this a current diagnosis for this admission?: Yes Plan: Change metoprolol tartrate from 50 mg p.o. every 12 hours to 25 mg p.o. every 6 hours Continue clonidine 0.3 mg p.o. every 8 hours Continue minoxidil 5 mg every morning and 10 mg every afternoon (3) Dyslipidemia Is this a current diagnosis for this admission?: Yes Plan: Continue atorvastatin 10 mg p.o. daily at bedtime (4) PAD (peripheral artery disease) Is this a current diagnosis for this admission?: Yes Plan: Continue ASA 81 mg p.o. daily Continue clopidogrel 75 mg p.o. daily (5) ESRD on hemodialysis Is this a current diagnosis for this admission?: Yes Plan: Patient receives HD // Continue calcitriol 0.5 mcg p.o. daily Continue lanthanum carbonate 1000 mg p.o. with meals (6) Anemia in chronic kidney disease Is this a current diagnosis for this admission?: Yes Plan: No treatment indicated at this time Monitor (7) Hyponatremia Is this a current diagnosis for this admission?: Yes Plan: Mild hyponatremia Patient asymptomatic Likely related to volume status/ESRD No treatment indicated Monitor - Time Time Spent with patient: 35 or more minutes Medications reviewed and adjusted accordingly: Yes Anticipated discharge: Home Within: Other
[2020-02-23] MEDS ORDERED: LANTHANUM CARBONATE 1000 MG PO SCH (17:00)
[2020-02-23] MEDS: METOPROLOL TARTRATE 25 MG TABLET PO SCH (18:09)
[2020-02-23] MEDS: LANTHANUM CARBONATE 500 MG TAB.CHEW PO SCH (18:10)
[2020-02-23] MEDS: MINOXIDIL 2.5 MG TABLET PO SCH (18:10)
--- NOTE | 2020-02-23 19:37 | XCELERA REPORT ---
[address] [address] Transthoracic Echocardiogram Report Name: ALEKSANDRA RECINOS Age: 59 yrs Gender: Male : 1960 Patient Status: Inpatient Patient Location: [place] [id number]^A Study Date: 02/23/2020 05:36 PM Height: 71 in Weight: 132 lb BSA: 1.8 m2 Procedure: A complete two-dimensional transthoracic echocardiogram was performed (2D, M-mode, spectral and color flow Doppler). The study was technically adequate with some images being suboptimal in quality. Reason For Study: Afib with RVR Ordering Physician: J LUIS MCCONNELL Performed By: Beulah Vázquez Interpretation Summary The patient was in atrial fibrillation with occasional episodes of rapid ventricular response during the study. The left ventricle is grossly normal size. There is mild to moderate concentric left ventricular hypertrophy. LV systolic function is difficult to assess due to episodes of rapid atrial fibrillation during the study but it appears to be grossly normal. LV diastolic function could not be adequately assessed due to atrial fibrilation. Wall motion is difficult to assess but appears to be grossly normal. LV diastolic function could not be adequately assessed due to atrial fibrilation. Mild LAE. Mild MR, moderate AI, moderate TR, mild to moderate PI. Mild aortic stenosis with a peakvelocity of 2.27 m/s. Dilated IVC with less than 50% respiratory variation. Moderately to severely elevated pulmonary pressures and estimated to be between 53 and 58 mmHg. When compared to a prior study dated FEB 17: -The patient is now in atrial fibrillation. -LAE is now present. -Mild aortic stenosis is now present. -TR is now moderate. -There is moderate to severe pulmonary hypertension. -The IVC is now dilated and with less than 50% of respiratory variation. MMode/2D Measurements & Calculations RVDd: 2.2 cm LVIDd: 3.9 cm FS: 25.7 % Ao root diam: 2.8 cm IVSd: 1.9 cm LVIDs: 2.9 cm EDV(Teich): 64.6 mlAo root area: LVPWd: 2.0 cm ESV(Teich): 31.5 ml6.0 cm2 EF(Teich): 51.3 % LA dimension: 4.2 cm LVOT diam: 1.5 cm LVLd ap4: 6.4 cm SV(MOD-sp4): LVOT area: EDV(MOD-sp4): 33.0 ml 46.0 ml 1.8 cm2 LVLs ap4: 4.8 cm ESV(MOD-sp4): 13.0 ml EF(MOD-sp4): 71.7 % Doppler Measurements & Calculations MV E max vicki: MV P1/2t max vicki: Ao V2 max: AI max vicki: 137.0 cm/sec 135.5 cm/sec 227.0 cm/sec 411.3 cm/sec MV A max vicki: MV P1/2t: 100.4 msec Ao max PG: AI max P.3 cm/sec MVA(P1/2t): 2.2 cm2 20.6 mmHg 67.7 mmHg MV E/A: 3.6 MV dec slope: Ao V2 mean: AI dec slope: 137.8 cm/sec 269.2 cm/sec2 395.3 cm/sec2 Ao mean PG: AI P1/2t: MV dec time: 9.2 mmHg 447.4 msec 0.20 sec Ao V2 VTI: 37.5 cm TATE(I,D): 1.2 cm2 TATE(V,D): 1.1 cm2 LV V1 max PG: SV(LVOT): 45.9 ml PA V2 max: PI end-d vicki: 7.0 mmHg 105.6 cm/sec 149.3 cm/sec LV V1 mean PG: PA max P.1 mmHg 4.5 mmHg LV V1 max: 131.9 cm/sec LV V1 mean: 80.6 cm/sec LV V1 VTI: 24.9 cm TR max vicki: AV P1/2t-pr_phl: MV P1/2t-pr_phl: 307.3 cm/sec 447.4 msec 100.4 msec TR max P.8 mmHg Left Ventricle The left ventricle is grossly normal size. There is mild to moderate concentric left ventricular hypertrophy. Difficult to assess due to episodes of rapid atrial fibrillation during the study but it appears to be grossly normal. LV diastolic function could not be adequately assessed due to atrial fibrilation. Difficult to assess but appears to be grossly normal. Right Ventricle The right ventricle is normal in size, thickness and function. The right ventricular systolic function is normal. Atria The right atrium is normal. The left atrium is mildly dilated. The interatrial septum is intact with no evidence for an atrial septal defect. Mitral Valve There is moderate mitral leaflet calcification. There is no evidence of mitral valve prolapse. There is no mitral valve stenosis. There is a mild amount of mitral regurgitation. Aortic Valve The aortic valve is heavily calcified. There is mild aortic stenosis. There is a moderate amount of aortic regurgitation. Tricuspid Valve There is tricuspid annular calcification. There is no tricuspid valve prolapse. There is no tricuspid stenosis. There is a moderate amount of tricuspid regurgitation. Moderately to severely elevated pulmonary pressures and estimated to be between 53 and 58 mmHg. Pulmonic Valve The pulmonic valve is not well seen, but is grossly normal. There is no vegetation on the pulmonic valve. There is no pulmonic valvular stenosis. There is a mild to moderate amount of pulmonic regurgitation. Great Vessels The inferior vena cava appeared dilated and did not change with respiration (RAP > 20 mmHg). Effusions There is no pericardial effusion. There is no pleural effusion. : J LUIS MCCONNELL Antonio
[2020-02-23] MEDS: CLONIDINE HCL 0.1 MG TABLET PO SCH (21:13)
[2020-02-23] MEDS ORDERED: (PENDING PHARMACY ID) (Clonidine Hcl [Catapres 0.3 Mg Tablet] 0.3 MG) PO SCH (22:00)
[2020-02-23] MEDS ORDERED: ATORVASTATIN CALCIUM 10 MG TABLET PO SCH (22:00)
[2020-02-24] MEDS: METOPROLOL TARTRATE 25 MG TABLET PO SCH ×4 (00:21→17:24)
--- NOTE | 2020-02-24 01:15 | EKG REPORT ---
SEVERITY:- ABNORMAL ECG - ATRIAL FIBRILLATION, V-RATE 79-167 LVH WITH SECONDARY REPOLARIZATION ABNORMALITY ANTERIOR ST ELEVATION, PROBABLY DUE TO LVH BORDERLINE PROLONGED QT INTERVAL : Confirmed by: Jordan Currie 24-Feb-2020 01:14:27
[2020-02-24 05:52] LABS: ABSOLUTE EOSINOPHILS # (AUTO) 0.3 10^3/uL (0.0-0.6); ABSOLUTE LYMPHOCYTES (AUTO) 1.3 10^3/uL (0.5-4.7); ABSOLUTE MONOCYTES (AUTO) 0.8 10^3/uL (0.1-1.4); ABSOLUTE NEUT (AUTO) 4.3 10^3/uL (1.7-8.2); BASOPHILS % (AUTO) 0.6 % (0-2); EOSINOPHILS % (AUTO) 3.9 % (0-6); HEMATOCRIT 26.1 % (37.9-51.0); LYMPHOCYTES % (AUTO) 19.3 % (13-45); MEAN CORPUSCULAR HEMOGLOBIN 30.1 pg (27.0-33.4); MEAN CORPUSCULAR HGB CONC 34.5 g/dL (32.0-36.0); MEAN CORPUSCULAR VOLUME 87 fl (80-97); MONOCYTES % (AUTO) 12.1 % (3-13); PLATELET COUNT 244 10^3/uL (150-450); RED BLOOD COUNT 2.99 10^6/uL (4.35-5.55); RED CELL DISTRIBUTION WIDTH 18.1 % (11.5-14.0); SEGMENTED NEUTROPHILS % (AUTO) 64.1 % (42-78); TOTAL CELLS COUNTED % (AUTO) 100 %; WHITE BLOOD COUNT 6.6 10^3/uL (4.0-10.5)
[2020-02-24 06:05] LABS: ALBUMIN 3.8 g/dL (3.5-5.0); ALKALINE PHOSPHATASE 143 U/L (38-126); ANION GAP 12 (5-19); ASPARTATE AMINO TRANSFERASE 58 U/L (17-59); BILIRUBIN,DIRECT 0.3 mg/dL (0.0-0.4); BILIRUBIN,TOTAL 0.7 mg/dL (0.2-1.3); BLOOD UREA NITROGEN 60 mg/dL (7-20); CALCIUM 10.3 mg/dL (8.4-10.2); CARBON DIOXIDE 25 mmol/L (22-30); CHLORIDE 98 mmol/L (98-107); GLUCOSE 82 mg/dL (75-110); POTASSIUM 4.4 mmol/L (3.6-5.0); TOTAL PROTEIN 6.8 g/dL (6.3-8.2)
[2020-02-24] MEDS: CLONIDINE HCL 0.1 MG TABLET PO SCH ×2 (06:24→17:18)
[2020-02-24] MEDS ORDERED: MINOXIDIL 2.5 MG TABLET PO SCH (08:00)
--- NOTE | 2020-02-24 09:14 | PDOC CONSULTATION ---
Consultation Consult Date: 02/24/20 Attending physician:: J LUIS MCCONNELL Provider Consulted: KEN VILLANUEVA Consult reason:: AF History of Present Illness Admission Date/PCP: 02/23/20 13:55 History of Present Illness: ALEKSANDRA RECINOS is a 59 year old male with history of hyperlipidemia, HTN, ESRD, PAD, and CVA who is consulted to our service for evaluation of rapid atrial fibrillation. The patient presented to the ED via EMS with complaints of chest pressure and palpitations. In the emergency room he was found to be in A. fib with RVR. His chest x-ray revealed cardiomegaly but no other acute cardiopulmonary process. This morning his feels well and denies palpitations and recurrence of chest pain. His cardiac troponin, although indeterminate, continues to rise. His telemetry shows normal sinus rhythm this morning. Physical exam on 02/24/20: GENERAL: Pleasant and conversational. Oriented x3 with normal mood. Not in acute distress. Well groomed and well developed. HEENT: Normocephalic, atraumatic. Pupils equal. Sclerae anicteric. Orophary nx moist. NECK: No JVD. No carotid bruits. LUNGS: Clear to auscultation bilaterally. Normal respiratory effort without the use of accessory muscles or intercostal retractions. CARDIOVASCULAR: Regular rate and rhythm, normal S1 and S2 rubs, or gallops. PMI not displaced. Prominent systolic and diastolic murmur throughout the precordium. ABDOMEN: No masses or tenderness to palpation. No bruit. No splenomegaly or hepatomegaly. No abdominal aorta bruit noted. EXTREMITIES: No edema, no cyanosis, no clubbing. +2 pulses femoral and pedal pulses bilaterally. SKIN: No lesions or rashes. MUSCULOSKELETAL: No chest tenderness to palpation. NEUROLOGIC: Nonfocal. No gross sensory or motor deficits bilateral upper or lower extremities. Past Medical History Cardiac Medical History: Reports: Hyperlipidema, Hypertension, Peripheral Vascular Disease - r leg surgery Denies: Congestive Heart Failure, Coronary Artery Disease, Myocardial Infarction Pulmonary Medical History: Reports: Chronic Obstructive Pulmonary Disease (COPD) Denies: Asthma, Bronchitis, Pneumonia, Sleep Apnea, Tuberculosis EENT Medical History: Reports: None Neurological Medical History: Reports: Ischemic CVA Denies: Seizures Endocrine Medical History: Reports: None Renal/ Medical History: Reports: End Stage Renal Disease Malignancy Medical History: Reports: Renal (Kidney) Cancer - He had a right nephrectomy for renal cell cancer. GI Medical History: Reports: Gastroesophageal Reflux Disease, Hiatal Hernia Musculoskeltal Medical History: Reports: Arthritis Psychiatric Medical History: Reports: Tobacco Dependency, Other - Remote alcohol dependence (sober x17 years) Denies: Depression Traumatic Medical History: Reports: None Hematology: Reports: Anemia Denies: Bleeding Tendencies Past Surgical History Past Surgical History: Reports: Orthopedic Surgery, Tonsillectomy, Vascular Surgery - Multiple dialysis fistulas and now has a dialysis catheter, stents rt leg, Other - Angioplasty with stent placement of AV fistula Denies: Pacemaker Social History Lives with: Alone Smoking Status: Current Every Day Smoker Cigarettes Packs Per Day: 6 Electronic Cigarette use?: No Last Time Smoked: 02/23/2020 Frequency of Alcohol Use: None Hx Recreational Drug Use: Yes Drugs: Marijuana Hx Prescription Drug Abuse: No - Advance Directive Resuscitation Status: Full Code Family History Family History: Reviewed & Not Pertinent, CAD, DM Parental Family History Reviewed: Yes Children Family History Reviewed: Yes Sibling(s) Family History Reviewed.: Yes Medication/Allergy Home Medications: Aspirin [Adult Low Dose Aspirin EC] 81 mg PO DAILY 02/24/18 Calcitriol [Rocaltrol 0.5 mcg Capsule] 0.5 mcg PO DAILY 02/24/18 Clonidine HCl [Catapres 0.3 mg Tablet] 0.3 mg PO Q8 02/24/18 Lanthanum Carbonate [Fosrenol] 1,000 mg PO MEALS 02/24/18 Atorvastatin Calcium [Lipitor 10 mg Tablet] 10 mg PO QHS 02/23/20 Clopidogrel Bisulfate [Plavix 75 mg Tablet] 75 mg PO DAILY 02/23/20 Metoprolol Tartrate [Lopressor 50 mg Tablet] 50 mg PO BID 02/23/20 Minoxidil [Loniten 2.5 Mg Tablet] 5 mg PO QAM 02/23/20 Minoxidil [Loniten 2.5 Mg Tablet] 10 mg PO QPM 02/23/20 Prosol 1,806 ml IV ASDIR 02/23/20 Allergies/Adverse Reactions: adhesive tape Allergy (Verified 08/09/19 08:08) Blisters Physical Exam Vital Signs: Temp Pulse Resp BP Pulse Ox 98.1 F 72 19 147/57 H 100 02/24/20 03:40 02/24/20 03:40 02/24/20 03:40 02/24/20 03:40 02/24/20 03:40 Intake & Output 02/22/20 02/23/20 02/24/20 06:59 06:59 06:59 Intake Total 625 Balance 625 Weight 60.2 kg Results Laboratory Results: 02/24/20 05:14 02/23/20 02/23/20 02/23/20 10:40 10:40 12:36 WBC Cancelled 6.0 RBC Cancelled 3.23 L Hgb Cancelled 9.7 L Hct Cancelled 28.4 L MCV Cancelled 88 MCH Cancelled 30.1 MCHC Cancelled 34.2 RDW Cancelled 18.1 H Plt Count Cancelled 275 Seg Neutrophils % Cancelled 64.4 Sodium Cancelled Potassium Cancelled Chloride Cancelled Carbon Dioxide Cancelled Anion Gap Cancelled BUN Cancelled Creatinine Cancelled Est GFR ( Amer) Cancelled Est GFR (Non-Af Amer) Cancelled Glucose Cancelled Calcium Cancelled TSH 02/23/20 02/23/20 02/24/20 12:36 12:36 05:14 WBC 6.6 RBC 2.99 L Hgb 9.0 L Hct 26.1 L MCV 87 MCH 30.1 MCHC 34.5 RDW 18.1 H Plt Count 244 Seg Neutrophils % 64.1 Sodium 134.0 L Potassium 4.1 Chloride 95 L Carbon Dioxide 27 Anion Gap 12 BUN 51 H Creatinine 8.52 H Est GFR ( Amer) 8 L Est GFR (Non-Af Amer) Glucose 123 H Calcium 10.7 H TSH 1.37 02/23/20 12:36 Troponin I 0.042 Impressions: Chest X-Ray 02/23/20 12:43 IMPRESSION: Moderate cardiomegaly. No acute cardiopulmonary disease. 02/24/20 05:14 MCV 87 fl (80-97) 02/24/20 05:14 MCH 30.1 pg (27.0-33.4) 02/24/20 05:14 MCHC 34.5 g/dL (32.0-36.0) 02/24/20 05:14 RDW 18.1 % (11.5-14.0) H 02/24/20 05:14 Seg Neutrophils % 64.1 % (42-78) 02/24/20 05:14 Chloride 95 mmol/L (98-107) L 02/23/20 12:36 Carbon Dioxide 27 mmol/L (22-30) 02/23/20 12:36 Anion Gap 12 (5-19) 02/23/20 12:36 Est GFR ( Amer) 8 (>60) L 02/23/20 12:36 Est GFR (Non-Af Amer) Cancelled 02/23/20 10:40 Glucose 123 mg/dL (75-110) H 02/23/20 12:36 Calcium 10.7 mg/dL (8.4-10.2) H 02/23/20 12:36 TSH 1.37 uIU/mL (0.47-4.68) 02/23/20 12:36 02/23/20 12:36 Troponin I 0.042 Current Medication List Generic Name Dose Route Start Last Admin Trade Name Freq PRN Reason Stop Dose Admin Acetaminophen 325 mg 02/23/20 14:49 Tylenol 325 Mg Tablet PO 03/24/20 14:48 Q4HP PRN FOR HEADACHE OR PAIN Aspirin 81 mg 02/24/20 10:00 Ecotrin 81 Mg Ec Tablet PO 03/25/20 09:59 DAILY YANA Atorvastatin Calcium 10 mg 02/23/20 22:00 02/23/20 21:14 Lipitor 10 Mg Tablet PO 03/24/20 21:59 10 mg QHS YANA Administration Calcitriol 0.5 mcg 02/24/20 10:00 Rocaltrol 0.25 Mcg Capsule PO 03/25/20 09:59 DAILY YANA Clonidine 0.3 mg 02/23/20 22:00 02/23/20 21:13 Catapres 0.1 Mg Tablet PO 03/24/20 21:59 0.3 mg Q8 YANA Administration Clopidogrel Bisulfate 75 mg 02/24/20 10:00 Plavix 75 Mg Tablet PO 03/25/20 09:59 DAILY YANA Lanthanum Carbonate 1,000 mg 02/23/20 17:00 02/23/20 18:10 Fosrenol 500 Mg Chewable Tablet PO 03/24/20 16:59 1,000 mg MEALS YANA Administration Metoprolol Tartrate 25 mg 02/23/20 18:00 02/24/20 00:21 Lopressor 25 Mg Tablet PO 03/24/20 17:59 25 mg Q6 YANA Administration Minoxidil 5 mg 02/24/20 08:00 Loniten 2.5 Mg Tablet PO 03/25/20 07:59 QAM YANA Minoxidil 10 mg 02/23/20 18:00 02/23/20 18:10 Loniten 2.5 Mg Tablet PO 03/24/20 17:59 10 mg QPM YANA Administration Discontinued Medications Generic Name Dose Route Start Last Admin Trade Name Freq PRN Reason Stop Dose Admin Calcium Gluconate 1,000 mg 02/23/20 13:05 02/23/20 13:29 Calcium Gluconate Inj 1000 Mg/10 Ml IV 02/23/20 13:06 1,000 mg NOW ONE Administration Diltiazem HCl 8 mg 02/23/20 13:05 02/23/20 14:18 Cardizem Inj 25 Mg/5 Ml Vial IV 02/23/20 13:06 10 mg NOW ONE Administration Enoxaparin Sodium 70 mg 02/23/20 12:45 02/23/20 13:19 Lovenox Inj 80 Mg/0.8 Ml Disp.Syrin SUBCUT 03/24/20 12:44 Not Given Q12 YANA Sodium Chloride 500 mls @ 0 mls/hr 02/23/20 13:05 02/23/20 14:18 Nacl 0.9% 500 Ml Iv Soln IV 02/23/20 13:06 Infused NOW ONE Infusion Wide Open Diltiazem HCl 125 mg in 125 mls @ 0 mls/hr 02/23/20 13:05 02/24/20 00:50 Cardizem Rtu Inj 125 Mg-D5w 125 Ml Premix IV 03/24/20 13:04 Infused CONTINUOUS PRN Titration THIS MED IS NOT "PRN" Protocol Titrate Assessment & Plan - Diagnosis (1) Atrial fibrillation with rapid ventricular response Plan: The patient is currently asymptomatic and converted spontaneously to normal sinus rhythm. His cardiac troponin, although in the indeterminate range, continues to rise however he has remained free of ischemic symptoms. Recommendations: -Change Lopressor to 50 mg twice daily. -EKG today. -Start Eliquis 5 mg twice daily. -Continue to trend troponins. (2) Dyslipidemia Plan: The patient is on low-dose Lipitor. I recommend high intensity statin therapy but will defer further management to primary team.
[2020-02-24] MEDS: LANTHANUM CARBONATE 500 MG TAB.CHEW PO SCH ×3 (09:32→17:28)
[2020-02-24] MEDS ORDERED: CALCITRIOL 0.25 MCG CAPSULE PO SCH (10:00)
[2020-02-24] MEDS ORDERED: ASPIRIN 81 MG TABLET, ENT COATED PO SCH (10:00)
[2020-02-24] MEDS ORDERED: CLOPIDOGREL BISULFATE 75 MG TABLET PO SCH (10:00)
[2020-02-24] MEDS ORDERED: (PENDING PHARMACY ID) (Calcitriol [Rocaltrol 0.5 Mcg Capsule] 0.5 MCG) PO SCH (10:00)
[2020-02-24] MEDS ORDERED: NORMAL SALINE 1000 ML 1,000 ML IV PRN (11:40)
[2020-02-24] MEDS ORDERED: EPOETIN ALFA-EPBX 10,000 UNIT in SYRINGE, DISPOSABLE, 1 EACH IV PRN (11:40)
--- NOTE | 2020-02-24 15:40 | PDOC CONSULTATION ---
Consultation Consult Date: 02/24/20 Provider Consulted: CLAUDIA KNOWLES Consult reason:: ESRD History of Present Illness Admission Date/PCP: 02/23/20 13:55 History of Present Illness: ALEKSANDRA RECINOS is a 59 year old -[place] gentleman known to me with history of ESRD on maintenance hemodialysis on MWF, hypertension, renal cancer status post right nephrectomy, peripheral arterial disease, and CVA who was brought into the emergency room via EMS because of acute onset of shortness of breath and chest pressure. Patient said that yesterday after going to the store he suddenly felt above symptoms. He went to his car and was about to drive himself to the emergency room but his mother advised him to just called the EMS so he was in his car when the EMS came. He was found to be on atrial fibrillation with RVR. In the emergency room initial work-up included chest x- ray with showing cardiomegaly without any other acute process. Echocardiogram was done which showed mild to moderate LVH and moderate to severe pulmonary hypertension but due to the A. fib ventricular function was unable to be assessed. His troponin was 0.042. He was initially placed on Cardizem drip and heparin drip. Subsequently he converted to normal sinus rhythm. He was seen by parliamentary counsel, Dr. Ibarra this morning after he converted now to normal sinus rhythm. He recommended patient to be on Lopressor, Eliquis, check another troponin and be on statin. I am seeing him this afternoon during initiation of hemodialysis. He went initially for 12 minutes but then his lines clotted. Dialysis nurse tried to cannulate his fistula again but was unsuccessful. Patient is now refusing to be cannulated again for the third time and is telling me that he can just go to [facility] tomorrow for dialysis. He stated that he feels fine now just like his baseline. He denies any chest pains nor shortness of breath. His labs are actually acceptable and is not critical for him to dialyze today. I called [facility] and they can dialyze him tomorrow at 12 noon. I then spoke with the hospitalist, Bryce Adams NP and recommended that if the patient is stable that he be discharged home either today or debarker operator tomorrow. He did speak to Dr. Ibarra who wanted 1 more set of troponin before he goes home which is now being drawn. So at this point since patient has refused recannulation of his AV fistula the plan is for him to go home hopefully and be dialyzed at [facility] 12 noon tomorrow. Past Medical History Cardiac Medical History: Reports: Hyperlipidemia, Hypertension-primary, Peripheral Vascular Disease - r leg surgery Pulmonary Medical History: Reports: Chronic Obstructive Pulmonary Disease (COPD) Neurological Medical History: Reports: Ischemic CVA Renal/ Medical History: Reports: End Stage Renal Disease Malignancy Medical History: Reports: Renal (Kidney) Cancer - He had a right nephrectomy for renal cell cancer. GI Medical History: Reports: Gastroesophageal Reflux Disease, Hiatal Hernia Musculoskeltal Medical History: Reports: Arthritis Psychiatric Medical History: Reports: Tobacco Dependency, Other - Remote alcohol dependence (sober x17 years) Hematology Medical History: Reports Anemia of Chronic Kidney Disease Past Surgical History Past Surgical History: Reports: Dialysis Access Surgery AVF, Orthopedic Surgery, Tonsillectomy, Vascular Surgery - Multiple dialysis fistulas and now has a dialy sis catheter, stents rt leg, Other - Angioplasty with stent placement of AV fistula Social History Information Source: Patient Lives with: Alone Smoking Status: Current Every Day Smoker Cigarettes Packs Per Day: 6 Electronic Cigarette use?: No Last Time Smoked: 02/23/2020 Frequency of Alcohol Use: None Hx Recreational Drug Use: Yes Drugs: Marijuana Hx Prescription Drug Abuse: No - Advance Directive Resuscitation Status: Full Code Family History Family History: Other - Mother has lupus, father has PAD Parental Family History Reviewed: Yes Children Family History Reviewed: Yes Sibling(s) Family History Reviewed.: Yes Medication/Allergy Home Medications: Aspirin [Adult Low Dose Aspirin EC] 81 mg PO DAILY 02/24/18 Calcitriol [Rocaltrol 0.5 mcg Capsule] 0.5 mcg PO DAILY 02/24/18 Clonidine HCl [Catapres 0.3 mg Tablet] 0.3 mg PO Q8 02/24/18 Lanthanum Carbonate [Fosrenol] 1,000 mg PO MEALS 02/24/18 Atorvastatin Calcium [Lipitor 10 mg Tablet] 10 mg PO QHS 02/23/20 Clopidogrel Bisulfate [Plavix 75 mg Tablet] 75 mg PO DAILY 02/23/20 Metoprolol Tartrate [Lopressor 50 mg Tablet] 50 mg PO BID 02/23/20 Minoxidil [Loniten 2.5 Mg Tablet] 5 mg PO QAM 02/23/20 Minoxidil [Loniten 2.5 Mg Tablet] 10 mg PO QPM 02/23/20 Prosol 1,806 ml IV ASDIR 02/23/20 Allergies/Adverse Reactions: adhesive tape Allergy (Verified 08/09/19 08:08) Blisters Review of Systems All systems: reviewed and no additional remarkable complaints except as stated Review of Systems: Constitutional: ABSENT: chills, fatigue, fever(s), headache(s), weight gain, weight loss Eyes: ABSENT: visual disturbances Ears: ABSENT: hearing changes Cardiovascular: ABSENT: Edema, orthropnea, palpitations; reports chest pressure and shortness of breath Respiratory: ABSENT: cough, dyspnea, hemoptysis Gastrointestinal: ABSENT: abdominal pain, constipation, diarrhea, hematemesis, hematochezia, nausea, vomiting Genitourinary: ABSENT: dysuria, hematuria Musculoskeletal: ABSENT: joint swelling Integumentary: ABSENT: rash, wounds Neurological: ABSENT: abnormal gait, abnormal speech, confusion, dizziness, focal weakness, numbness, syncope Psychiatric: ABSENT: anxiety, depression Endocrine: ABSENT: cold intolerance, heat intolerance, polydipsia, polyuria Hematologic/Lymphatic: ABSENT: easy bleeding, easy bruising, lymphadenopathy Physical Exam Vital Signs: Temp Pulse Resp BP Pulse Ox 98.3 F 74 16 150/58 H 100 02/24/20 11:30 02/24/20 11:30 02/24/20 11:30 02/24/20 11:30 02/24/20 11:30 Intake & Output 02/23/20 02/24/20 02/25/20 06:59 06:59 06:59 Intake Total 625 320 Output Total 23 Balance 625 297 Weight 60.2 kg Current vitals on dialysis: Blood pressure 155/74, temperature of 98.2, heart rate of 71. Exam: General appearance: No acute distress, cooperative, well-developed, well- nourished Head exam: PRESENT: atraumatic, normocephalic Eye exam: PRESENT: Conjunctiva slightly pale, EOMI, PERRLA. ABSENT: conjunctival injection, scleral icterus Mouth exam: PRESENT: moist, neck supple, tongue midline Neck exam: PRESENT: full ROM. ABSENT: carotid bruit, JVD, lymphadenopathy, thyromegaly Respiratory exam: PRESENT: clear to auscultation bilaterally. ABSENT: rales, rhonchi, stridor, wheezes Cardiovascular exam: PRESENT: RRR, +S1, +S2. Grade 2/6 apical systolic murmur Pulses: PRESENT: normal radial pulses, normal dorsalis pedis pulses GI/Abdominal exam: PRESENT: normal bowel sounds, soft. ABSENT: guarding, mass, tenderness Rectal exam: Deferred Extremities exam: PRESENT: full ROM. ABSENT: calf tenderness, pedal edema Musculoskeletal: PRESENT: full ROM. ABSENT: deformity Neurological exam: PRESENT: alert, Awake, Oriented to person, Oriented to place, Oriented to time, reflexes normal, CN II-XII grossly intact. ABSENT: motor sensory deficit Psychiatric exam: PRESENT: appropriate affect, normal mood. ABSENT: homicidal ideation, suicidal ideation Skin exam: PRESENT: intact, dry, warm. ABSENT: rash Results Laboratory Results: 02/24/20 05:14 02/24/20 05:14 02/24/20 02/24/20 05:14 05:14 WBC 6.6 RBC 2.99 L Hgb 9.0 L Hct 26.1 L MCV 87 MCH 30.1 MCHC 34.5 RDW 18.1 H Plt Count 244 Seg Neutrophils % 64.1 Sodium 134.5 L Potassium 4.4 Chloride 98 Carbon Dioxide 25 Anion Gap 12 BUN 60 H Creatinine 10.14 H Est GFR ( Amer) 6 L Glucose 82 Calcium 10.3 H Total Bilirubin 0.7 AST 58 Alkaline Phosphatase 143 H Total Protein 6.8 Albumin 3.8 02/23/20 02/24/20 12:36 05:14 Troponin I 0.042 0.088 Impressions: Chest X-Ray 02/23/20 12:43 IMPRESSION: Moderate cardiomegaly. No acute cardiopulmonary disease. Assessment & Plan - Diagnosis (1) Atrial fibrillation with rapid ventricular response Is this a current diagnosis for this admission?: Yes Plan: Currently initially on Cardizem drip and heparin. Now converted normal sinus rhythm. Carburizer, Dr. Ibarra recommended Lopressor, Eliquis and statin. (2) ESRD on hemodialysis Is this a current diagnosis for this admission?: Yes Plan: Hemodialysis was attempted this afternoon but patient only run for 12 minutes and His lines clotted. After 2 attempted recannulation of his AV fistula, patient refused to be cannulated again. Since his electrolytes are fine and he is not fluid overloaded, I think we can hold off dialysis today. Hopefully he can be discharged later today or tomorrow so he can dialyze at [facility] tomorrow at 12 noon. Informed the patient about this schedule and also informed Bryce Adams NP. (3) Anemia in chronic kidney disease Is this a current diagnosis for this admission?: Yes Plan: He will be given his Retacrit during dialysis. (4) Hyponatremia Is this a current diagnosis for this admission?: Yes Plan: Mild. Due to ESRD. (5) Hypertension Is this a current diagnosis for this admission?: Yes - Notes Notes: Thank you very much for this consult. Plan discussed with patient, Bryce Adams NP and our dialysis nurses. - Time Time Spent: 50 to 70 Minutes
[2020-02-24] MEDS: MINOXIDIL 2.5 MG TABLET PO SCH (17:27)
[2020-02-24] MEDS ORDERED: CLONIDINE HCL 0.1 MG TABLET PO SCH (18:00)
[2020-02-24 18:02] VITALS: BP 148/48
--- NOTE | 2020-02-24 19:53 | PDOC DISCHARGE SUMMARY ---
Impression - Admit/DC Date/PCP Admission Date/Primary Care Provider: 02/23/20 13:55 Discharge Date: 02/24/20 - Discharge Diagnosis (1) Atrial fibrillation with rapid ventricular response Is this a current diagnosis for this admission?: Yes (2) Hypertension Is this a current diagnosis for this admission?: Yes (3) Dyslipidemia Is this a current diagnosis for this admission?: Yes (4) PAD (peripheral artery disease) Is this a current diagnosis for this admission?: Yes (5) ESRD on hemodialysis Is this a current diagnosis for this admission?: Yes (6) Anemia in chronic kidney disease Is this a current diagnosis for this admission?: Yes (7) Hyponatremia Is this a current diagnosis for this admission?: Yes - Additional Information Resuscitation Status: Full Code Discharge Diet: As Tolerated Discharge Activity: Activity As Tolerated Referrals: MIKE PIERRE MD [COMMUNITY BASED STAFF] - (Called Dr. Pierre' office - left message for an appointment. [facility] 02-24-20@[id number]) Prescriptions: Apixaban [Eliquis 5 mg Tablet] 5 mg PO Q12H #60 tablet Atorvastatin Calcium [Lipitor 80 mg Tablet] 80 mg PO QHS #30 tablet Home Medications: Calcitriol [Rocaltrol 0.5 mcg Capsule] 0.5 mcg PO DAILY 02/24/18 Clonidine HCl [Catapres 0.3 mg Tablet] 0.3 mg PO Q8 02/24/18 Lanthanum Carbonate [Fosrenol] 1,000 mg PO MEALS 02/24/18 Clopidogrel Bisulfate [Plavix 75 mg Tablet] 75 mg PO DAILY 02/23/20 Metoprolol Tartrate [Lopressor 50 mg Tablet] 50 mg PO BID 02/23/20 Minoxidil [Loniten 2.5 mg Tablet] 5 mg PO QAM 02/23/20 Minoxidil [Loniten 2.5 mg Tablet] 10 mg PO QPM 02/23/20 Prosol 1,806 ml IV ASDIR 02/23/20 Apixaban [Eliquis 5 mg Tablet] 5 mg PO Q12H #60 tablet 02/24/20 Atorvastatin Calcium [Lipitor 80 mg Tablet] 80 mg PO QHS #30 tablet 02/24/20 History of Present Illiness History of Present Illness: ALEKSANDRA RECINOS is a 59 year old male with PMH significant for HTN, ESRD, PAD, and CVA who presented to the ED via EMS with complaints of chest pressure and palpitations. According to the patient this morning he developed acute onset chest pressure and palpitations which was associated with SOB. He felt his pulse and noticed that it was rapid and knew this was not typical for him. He called a family member who is a healthcare professional to ask their advice and they instructed him to activate EMS which he did. When the patient arrived in the ED he was found to be in A. fib with RVR. Chest x-ray was completed which revealed cardiomegaly but no other acute cardiopulmonary process. Labs are drawn which revealed essentially normal electrolytes and a troponin of 0.042. Diltiazem and heparin drips were ordered and the hospitalist service was asked to admit the patient for further evaluation and treatment. Hospital Course Hospital Course: After admission the patient spontaneously converted to sinus rhythm. On the morning of 02/24/2020 he was evaluated by Dr. Ibarra of the cardiology depart ment. Medications were adjusted and recommendations were made to initiate apixaban therapy at 5 mg p.o. twice daily. He also recommended increasing the patient's dose of Lipitor to 80 mg p.o. daily. Given the fact that the patient was on dual antiplatelet therapy when apixaban was started cardiology recommended stopping the patient's baby aspirin but continuing his clopidogrel since he has a history of both significant PAD as well as a CVA. Patient's troponin peaked at 0.088 but was trending down by the time of discharge (0.065). He was cleared for cardiology for discharge. The patient went to the dialysis suite to undergo his routinely scheduled HD however the dialysis nurse was unable to access his graft. After 2 attempts the patient refused to have additional attempts made. He was seen by nephrology and arrangements were made for him to go to outpatient dialysis on 02/25/2020 at 12:00 noon. Physical Exam Vital Signs: Temp Pulse Resp BP Pulse Ox 98.3 F 72 16 148/48 H 100 02/24/20 17:59 02/24/20 17:59 02/24/20 17:59 02/24/20 17:59 02/24/20 17:59 Intake & Output 02/23/20 02/24/20 02/25/20 06:59 06:59 06:59 Intake Total 625 490 Output Total 23 Balance 625 467 Weight 60.2 kg General appearance: PRESENT: no acute distress, well-developed Head exam: PRESENT: atraumatic, normocephalic Eye exam: PRESENT: conjunctiva pink Mouth exam: PRESENT: moist, tongue midline Neck exam: ABSENT: JVD Respiratory exam: PRESENT: clear to auscultation shay, symmetrical, unlabored. ABSENT: accessory muscle use Cardiovascular exam: PRESENT: RRR, +S1, +S2, other - Sinus rhythm on telemetry Pulses: PRESENT: normal carotid pulses, normal radial pulses Vascular exam: PRESENT: normal capillary refill GI/Abdominal exam: PRESENT: normal bowel sounds, soft. ABSENT: distended, tenderness Rectal exam: PRESENT: deferred Extremities exam: ABSENT: calf tenderness, pedal edema Musculoskeletal exam: PRESENT: ambulatory Neurological exam: PRESENT: alert, awake, oriented to person, oriented to place, oriented to time, oriented to situation, CN II-XII grossly intact Psychiatric exam: ABSENT: agitated, anxious Skin exam: PRESENT: intact, normal color, warm Results Laboratory Results: WBC 6.6 10^3/uL (4.0-10.5) 02/24/20 05:14 RBC 2.99 10^6/uL (4.35-5.55) L 02/24/20 05:14 Hgb 9.0 g/dL (13.5-17.0) L 02/24/20 05:14 Hct 26.1 % (37.9-51.0) L 02/24/20 05:14 MCV 87 fl (80-97) 02/24/20 05:14 MCH 30.1 pg (27.0-33.4) 02/24/20 05:14 MCHC 34.5 g/dL (32.0-36.0) 02/24/20 05:14 RDW 18.1 % (11.5-14.0) H 02/24/20 05:14 Plt Count 244 10^3/uL (150-450) 02/24/20 05:14 Lymph % (Auto) 19.3 % (13-45) 02/24/20 05:14 Coffey % (Auto) 12.1 % (3-13) 02/24/20 05:14 Eos % (Auto) 3.9 % (0-6) 02/24/20 05:14 Baso % (Auto) 0.6 % (0-2) 02/24/20 05:14 Absolute Neuts (auto) 4.3 10^3/uL (1.7-8.2) 02/24/20 05:14 Absolute Lymphs (auto) 1.3 10^3/uL (0.5-4.7) 02/24/20 05:14 Absolute Monos (auto) 0.8 10^3/uL (0.1-1.4) 02/24/20 05:14 Absolute Eos (auto) 0.3 10^3/uL (0.0-0.6) 02/24/20 05:14 Absolute Basos (auto) 0.0 10^3/uL (0.0-0.2) 02/24/20 05:14 Seg Neutrophils % 64.1 % (42-78) 02/24/20 05:14 Platelet Estimate Cancelled 02/23/20 10:40 PT 13.9 SEC (11.4-15.4) 02/23/20 12:36 INR 1.07 02/23/20 12:36 APTT 36.8 SEC (23.5-35.8) H 02/23/20 19:27 Sodium 134.5 mmol/L (137-145) L 02/24/20 05:14 Potassium 4.4 mmol/L (3.6-5.0) 02/24/20 05:14 Chloride 98 mmol/L (98-107) 02/24/20 05:14 Carbon Dioxide 25 mmol/L (22-30) 02/24/20 05:14 Anion Gap 12 (5-19) 02/24/20 05:14 BUN 60 mg/dL (7-20) H 02/24/20 05:14 Creatinine 10.14 mg/dL (0.52-1.25) H 02/24/20 05:14 Est GFR ( Amer) 6 (>60) L 02/24/20 05:14 Est GFR (Non-Af Amer) Cancelled 02/23/20 10:40 Est GFR (MDRD) Non-Af 5 (>60) L 02/24/20 05:14 Glucose 82 mg/dL (75-110) 02/24/20 05:14 Calcium 10.3 mg/dL (8.4-10.2) H 02/24/20 05:14 Total Bilirubin 0.7 mg/dL (0.2-1.3) 02/24/20 05:14 Direct Bilirubin 0.3 mg/dL (0.0-0.4) 02/24/20 05:14 Neonat Total Bilirubin Not Reportable 02/24/20 05:14 Neonat Direct Bilirubin Not Reportable 02/24/20 05:14 Neonat Indirect Bili Not Reportable 02/24/20 05:14 AST 58 U/L (17-59) 02/24/20 05:14 ALT 72 U/L (<50) H 02/24/20 05:14 Alkaline Phosphatase 143 U/L (38-126) H 02/24/20 05:14 Troponin I 0.065 ng/mL 02/24/20 15:21 Total Protein 6.8 g/dL (6.3-8.2) 02/24/20 05:14 Albumin 3.8 g/dL (3.5-5.0) 02/24/20 05:14 EGFR Cancelled 02/23/20 10:40 TSH 1.37 uIU/mL (0.47-4.68) 02/23/20 12:36 Slides for Path Review Cancelled 02/23/20 10:40 02/23/20 02/24/20 02/24/20 12:36 05:14 15:21 Troponin I 0.042 0.088 0.065 Impressions: Chest X-Ray 02/23/20 12:43 IMPRESSION: Moderate cardiomegaly. No acute cardiopulmonary disease. Plan Health Concerns: New onset A. fib ESRD PAD Plan of Treatment: Patient was started on DOAC therapy ASA 81 mg p.o. daily was stopped Plan for outpatient dialysis on 02/25/2020 Patient will follow-up with cardiology as outpatient. Dr. Ivan's office will contact the patient to make a follow-up appointment and schedule outpatient stress test Goals: Follow-up as outlined above Time Spent: Greater than 30 Minutes Stroke Is this a Stroke Patient?: No Acute Heart Failure - Is this a Heart Failure Patient?: No
--- NOTE | 2020-02-25 10:26 | EKG REPORT ---
SEVERITY:- ABNORMAL ECG - SINUS RHYTHM PROBABLE LVH WITH SECONDARY REPOL ABNRM : Confirmed by: Jordan Currie 25-Feb-2020 10:25:13
== END 2020-02-24 18:20 | disposition home or self-care (01) | DRG 308 ==
LOC: ER 12:14 → EH 13:55 → 3W 20:26
PROVIDERS: ADMIT Family Medicine; ATTEND Nurse Practitioner
PROC: 5A1D70Z Performance of Urinary Filtration, Intermittent, Less than 6 Hours Per Day (ICD-10-PCS; principal; 2020-02-24)
DX: I48.91 Unspecified atrial fibrillation (principal); N18.6 End stage renal disease; I12.0 Hypertensive chronic kidney disease with stage 5 chronic kidney disease or end stage renal disease; E87.1 Hypo-osmolality and hyponatremia; T82.868A Thrombosis due to vascular prosthetic devices, implants and grafts, initial encounter; F17.210 Nicotine dependence, cigarettes, uncomplicated; Z99.2 Dependence on renal dialysis; J44.9 Chronic obstructive pulmonary disease, unspecified; D63.1 Anemia in chronic kidney disease; E78.5 Hyperlipidemia, unspecified; I73.9 Peripheral vascular disease, unspecified; Z86.73 Personal history of transient ischemic attack (TIA), and cerebral infarction without residual deficits; Z85.528 Personal history of other malignant neoplasm of kidney; Z90.5 Acquired absence of kidney; K21.9 Gastro-esophageal reflux disease without esophagitis; F10.21 Alcohol dependence, in remission; Z79.899 Other long term (current) drug therapy; Z95.828 Presence of other vascular implants and grafts; Z79.02 Long term (current) use of antithrombotics/antiplatelets; Y83.2 Surgical operation with anastomosis, bypass or graft as the cause of abnormal reaction of the patient, or of later complication, without mention of misadventure at the time of the procedure; Z79.82 Long term (current) use of aspirin
CPT/HCPCS: 36415; 71045; 80048; 80053; 84443; 84484; 85025; 85610; 85730; 93005; 93010; 93306; 96374; 99285; J0610; J3490; J7040

== ENCOUNTER → 2020-04-04 | Outpatient (CLI) | payer MEDICARE, BC ==
--- NOTE | 2020-04-04 15:11 | RADIOLOGY REPORT (SQ) ---
EXAM DESCRIPTION: CERV SP 6 OR MORE IMAGES COMPLETED DATE/TIME: 04/04/2020 2:17 pm REASON FOR STUDY: M54.2 CERVICALGIA M54.2 CERVICALGIA M54.5 LOW BACK PAIN COMPARISON: None. NUMBER OF VIEWS: Seven views. TECHNIQUE: AP views, swimmer's lateral views, and lateral views in neutral, flexion, and extension w ere obtained. Radiographic images acquired of the cervical spine. LIMITATIONS: None. FINDINGS: MINERALIZATION: Normal. ALIGNMENT: Anatomic. FLEXION/EXTENSION: No instability. VERTEBRAE: Vertebral bodies of normal height. DISCS: Cervical disc spaces are narrowed from C2 to C7. Marginal osteophytes are prominent. FORAMINA: Oblique views were not obtained. LATERAL AND POSTERIOR ELEMENTS: Hypertrophic facet changes is seen in the upper to mid cervical spine . HARDWARE: None in the spine. SOFT TISSUES: No masses or calcifications. Lung apices clear. OTHER: No other significant finding. IMPRESSION: Degenerative disc disease, spondylosis, and facet arthropathy. No instability on flexion/ extension. TECHNICAL DOCUMENTATION: JOB ID: [id number] 2010 [employer]- All Rights Reserved Reading location - IP/workstation name: [email or web address]
--- NOTE | 2020-04-04 15:12 | RADIOLOGY REPORT (SQ) ---
EXAM DESCRIPTION: L SPINE 2 VIEWS IMAGES COMPLETED DATE/TIME: 04/04/2020 2:17 pm REASON FOR STUDY: M54.5 LOW BACK PAIN M54.2 CERVICALGIA M54.5 LOW BACK PAIN COMPARISON: None. NUMBER OF VIEWS: Two views. TECHNIQUE: AP and lateral radiographic images acquired of the lumbar spine. LIMITATIONS: Very limited by contrast in the bowel. FINDINGS: MINERALIZATION: Normal. SEGMENTATION: Normal. No transitional anatomy. ALIGNMENT: Normal. VERTEBRAE: Maintained height. No fracture or worrisome bone lesion. DISCS: Grossly normal except for slight narrowing at L5-S1. POSTERIOR ELEMENTS: Poorly seen. HARDWARE: None in the spine. PARASPINAL SOFT TISSUES: Normal. PELVIS: Intact as visualized. No fractures or worrisome bone lesions. SI joints intact. OTHER: No other significant finding. IMPRESSION: Very limited study. Disc narrowing at L5-S1. TECHNICAL DOCUMENTATION: JOB ID: [id number] 2010 [employer]- All Rights Reserved Reading location - IP/workstation name: [email or web address]
--- NOTE | 2020-04-04 15:18 | RADIOLOGY REPORT (SQ) ---
EXAM DESCRIPTION: L SPINE FLEX/EXT ONLY IMAGES COMPLETED DATE/TIME: 04/04/2020 2:17 pm REASON FOR STUDY: M54.5 LOW BACK PAIN M54.2 CERVICALGIA M54.5 LOW BACK PAIN COMPARISON: None. NUMBER OF VIEWS: Two view. TECHNIQUE: Lateral views were obtained in flexion and extension. LIMITATIONS: Bowel contrast. FINDINGS: MINERALIZATION: Normal. SEGMENTATION: Normal. No transitional anatomy. ALIGNMENT: Normal. FLEXION/EXTENSION: No instability. VERTEBRAE: Maintained height. No fracture or worrisome bone lesion. DISCS: Narrowing at L5-S1. POSTERIOR ELEMENTS: Not well seen. HARDWARE: None in the spine. OTHER: No other significant finding. IMPRESSION: Discs narrowing at L5-S1. No instability on flexion/ extension. TECHNICAL DOCUMENTATION: JOB ID: [id number] [employer]- All Rights Reserved Reading location - IP/workstation name: [email or web address]
== END ==
LOC: RAD 13:32
PROVIDERS: ATTEND Neurological Surgery
DX: M50.323 Other cervical disc degeneration at C6-C7 level (principal); M47.812 Spondylosis without myelopathy or radiculopathy, cervical region; M51.87 Other intervertebral disc disorders, lumbosacral region; M54.5 Low back pain; R26.81 Unsteadiness on feet; R29.2 Abnormal reflex
CPT/HCPCS: 72052; 72100; 72120

== ENCOUNTER → 2020-04-10 | Outpatient (CLI) | payer MEDICARE, BC | LOC: RAD 11:39 | PROVIDERS: ATTEND Neurological Surgery | DX: Z53.9 Procedure and treatment not carried out, unspecified reason (principal) ==

== ENCOUNTER 2020-05-04 14:37 | Emergency (ER) | payer MEDICARE, BC ==
--- NOTE | 2020-05-04 15:24 | ER Document Report ---
ED Medical Screen (RME) - General Chief Complaint: Toe Injury Stated Complaint: RIGHT GREAT TOE PAIN,SWELLING Time Seen by Provider: 05/04/20 15:19 Mode of Arrival: Wheelchair Information source: Patient Notes: 59-year-old male presents to ED for complaint of pain to the right great toe. He states he is a kidney dialysis patient and he fell in his bedroom last night injuring his great toe. He states it is very swollen. He states he does have dialysis and had that today. He states long-term is having right now is the pain in the right great toe. He states he does not have diabetes. He is alert oriented respirations regular nonlabored speaking in full sentences. We will get blood and x-ray of the foot. I have greeted and performed a rapid initial assessment of this patient. A comprehensive ED assessment and evaluation of the patient, analysis of test results and completion of medical decision making process will be conducted by an additional ED providers. TRAVEL OUTSIDE OF THE [place] IN LAST 30 DAYS: No - Related Data Allergies/Adverse Reactions: adhesive tape Allergy (Verified 08/09/19 08:08) Blisters Past Medical History - Past Medical History Cardiac Medical History: Reports: Hx Hypercholesterolemia, Hx Hypertension, Hx Peripheral Vascular Disease - r leg surgery Denies: Hx Congestive Heart Failure, Hx Coronary Artery Disease, Hx Heart Attack Pulmonary Medical History: Reports: Hx COPD Denies: Hx Asthma, Hx Bronchitis, Hx Pneumonia, Hx Sleep Apnea, Hx Tuberculosis Neurological Medical History: Denies: Hx Cerebrovascular Accident, Hx Seizures Renal/ Medical History: Reports: Hx End Stage Renal Disease, Hx Kidney Stones. Denies: Hx Peritoneal Dialysis Malignancy Medical History: Reports Hx Renal (Kidney) Cancer - He had a right nephrectomy for renal cell cancer. GI Medical History: Reports: Hx Gastroesophageal Reflux Disease, Hx Hiatal Hernia Musculoskeltal Medical History: Reports Hx Arthritis Psychiatric Medical History: Denies: Hx Depression Past Surgical History: Reports: Hx Abdominal Surgery, Hx Orthopedic Surgery, Hx Tonsillectomy, Hx Vascular Surgery - Multiple dialysis fistulas and now has a dialysis catheter, stents rt leg, Other - Angioplasty with stent placement of AV fistula. Denies: Hx Pacemaker - Immunizations Hx Diphtheria, Pertussis, Tetanus Vaccination: No - UNKNOWN Physical Exam - Vital signs Vitals: Temp Pulse Resp BP Pulse Ox 98.1 F 72 16 140/70 H 100 05/04/20 14:57 05/04/20 14:57 05/04/20 14:57 05/04/20 14:57 05/04/20 14:57 Course - Vital Signs Vital signs: Temp Pulse Resp BP Pulse Ox 98.1 F 72 16 140/70 H 100 05/04/20 14:57 05/04/20 14:57 05/04/20 14:57 05/04/20 14:57 05/04/20 14:57
[2020-05-04 16:25] LABS: ABSOLUTE EOSINOPHILS # (AUTO) 0.3 10^3/uL (0.0-0.6); ABSOLUTE LYMPHOCYTES (AUTO) 0.8 10^3/uL (0.5-4.7); ABSOLUTE MONOCYTES (AUTO) 0.6 10^3/uL (0.1-1.4); ABSOLUTE NEUT (AUTO) 3.3 10^3/uL (1.7-8.2); BASOPHILS % (AUTO) 0.7 % (0-2); EOSINOPHILS % (AUTO) 5.9 % (0-6); HEMATOCRIT 40.5 % (37.9-51.0); HEMOGLOBIN 14.2 g/dL (13.5-17.0); LYMPHOCYTES % (AUTO) 15.9 % (13-45); MEAN CORPUSCULAR HEMOGLOBIN 30.4 pg (27.0-33.4); MEAN CORPUSCULAR VOLUME 87 fl (80-97); MONOCYTES % (AUTO) 12.3 % (3-13); PLATELET COUNT 242 10^3/uL (150-450); RED BLOOD COUNT 4.66 10^6/uL (4.35-5.55); RED CELL DISTRIBUTION WIDTH 18.3 % (11.5-14.0); SEGMENTED NEUTROPHILS % (AUTO) 65.2 % (42-78); TOTAL CELLS COUNTED % (AUTO) 100 %
[2020-05-04 16:43] LABS: ALBUMIN 4.3 g/dL (3.5-5.0); ALKALINE PHOSPHATASE 160 U/L (38-126); ANION GAP 11 (5-19); ASPARTATE AMINO TRANSFERASE 43 U/L (17-59); BILIRUBIN,DIRECT 0.5 mg/dL (0.0-0.4); BILIRUBIN,TOTAL 0.7 mg/dL (0.2-1.3); BLOOD UREA NITROGEN 33 mg/dL (7-20); CALCIUM 10.6 mg/dL (8.4-10.2); CARBON DIOXIDE 30 mmol/L (22-30); CHLORIDE 93 mmol/L (98-107); GLUCOSE 93 mg/dL (75-110); POTASSIUM 4.1 mmol/L (3.6-5.0); TOTAL PROTEIN 7.3 g/dL (6.3-8.2)
--- NOTE | 2020-05-04 16:45 | RADIOLOGY REPORT (SQ) ---
EXAM DESCRIPTION: FOOT RIGHT COMPLETE IMAGES COMPLETED DATE/TIME: 05/04/2020 4:32 pm REASON FOR STUDY: Right great toe and foot pain after falling COMPARISON: None. NUMBER OF VIEWS: Three views. TECHNIQUE: AP, lateral and oblique radiographic images acquired of the right foot. LIMITATIONS: None. FINDINGS: MINERALIZATION: Decreased. BONES: No acute fracture dislocation. Minimal degenerative change. JOINTS: No dislocation. SOFT TISSUES: Vascular calcifications. No radiopaque foreign body. OTHER: No other significant finding. IMPRESSION: NEGATIVE STUDY OF THE RIGHT FOOT. NO RADIOGRAPHIC EVIDENCE OF ACUTE INJURY. TECHNICAL DOCUMENTATION: JOB ID: [id number] 2010 [employer]- All Rights Reserved Reading location - IP/workstation name: [email or web address]
--- NOTE | 2020-05-04 16:48 | RADIOLOGY REPORT (SQ) ---
EXAM DESCRIPTION: CHEST 2 VIEWS IMAGES COMPLETED DATE/TIME: 05/04/2020 4:32 pm REASON FOR STUDY: Pedal edema COMPARISON: 02/23/2020 EXAM PARAMETERS: NUMBER OF VIEWS: two views TECHNIQUE: Digital Frontal and Lateral radiographic views of the chest acquired. RADIATION DOSE: NA LIMITATIONS: none FINDINGS: LUNGS AND PLEURA: No opacities, masses or pneumothorax. No pleural effusion. MEDIASTINUM AND HILAR STRUCTURES: No masses or contour abnormalities. HEART AND VASCULAR STRUCTURES: Enlarged cardiac silhouette, stable. Aortic atherosclerosis. BONES: No acute findings. HARDWARE: Vascular stents overlie left upper arm and axilla. OTHER: Radiopaque contrast within the colonic lumen. IMPRESSION: Stable enlarged cardiac silhouette without evidence of acute intrathoracic process. TECHNICAL DOCUMENTATION: JOB ID: [id number] 2010 [employer]- All Rights Reserved Reading location - IP/workstation name: [email or web address]
[2020-05-04 20:02] VITALS: BP 170/111
[2020-05-04] MEDS ORDERED: OXYCODONE-ACETAMINOPHEN 5-325 MG TABLET PO ONE (20:12)
--- NOTE | 2020-05-04 20:22 | ER Document Report ---
ED Extremity Problem, Lower - General Chief Complaint: Toe Injury Stated Complaint: RIGHT GREAT TOE PAIN,SWELLING Time Seen by Provider: 05/04/20 15:19 Mode of Arrival: Wheelchair Notes: CHIEF COMPLAINT: Right great toe injury HPI: 59-year-old male presenting for evaluation of right great toe injury last night. Rolled off the bed struck his great toe on the floor. Complains of pain to the great toe denies any other injury or complaint at this time. Patient is a dialysis patient went to dialysis today ROS: See HPI - all other systems were reviewed and are otherwise negative Constitutional: no fever Integumentary: no rash Allergy: no hives Musculoskeletal: + extremity pain or swelling Neurological: no numbness/tingling, no weakness MEDICATIONS: I agree with the patient medications as charted by the RN. ALLERGIES: I agree with the allergies as charted by the RN. PAST MEDICAL HISTORY/PAST SURGICAL HISTORY: Reviewed and agree as charted by RN. SOCIAL HISTORY: Reviewed and agree as charted by RN. FAMILY HISTORY: No significant familial comorbid conditions directly related to patient complaint EXAM: Reviewed vital signs as charted by RN. CONSTITUTIONAL: Alert and oriented and responds appropriately to questions. Well-appearing; well-nourished HEAD: Normocephalic; atraumatic EYES: Conjunctivae clear, sclerae non-icteric ENT: normal nose; no rhinorrhea; moist mucous membranes NECK: Supple without meningismus CARD: symmetric distal pulses RESP: Normal chest excursion without splinting or tachypnea ABD/GI: non-distended. BACK: The back appears normal EXT: Normal ROM in all joints; there is slight soft tissue swelling to the right great toe with mild tenderness on palpation no visible bruising. There is slight edema overlying the dorsal foot. Dorsalis pedis and posterior tibial p ulses are present in the right foot and ankle. Sensation is intact in the toes with capillary refill less than 3 seconds. No visible open wound. SKIN: Normal color for age and race; warm; dry; good turgor; no acute lesions noted NEURO: Moves all extremities equally; Motor and sensory function intact PSYCH: The patient's mood and manner are appropriate. Grooming and personal hygiene are appropriate. MDM: 59-year-old male injury to the right great toe after stubbing the toe after falling out of the bed, no other injuries. X-ray of the foot does not show evidence of a fracture. Will place in a postop shoe for comfort, follow-up orthopedics TRAVEL OUTSIDE OF THE [place] IN LAST 30 DAYS: No - Related Data Allergies/Adverse Reactions: adhesive tape Allergy (Verified 08/09/19 08:08) Blisters Past Medical History - General Information source: Patient - Social History Smoking Status: Current Every Day Smoker Frequency of alcohol use: None Drug Abuse: Marijuana Family History: Reviewed & Not Pertinent, CAD, DM Patient has homicidal ideation: No - Past Medical History Cardiac Medical History: Reports: Hx Hypercholesterolemia, Hx Hypertension, Hx Peripheral Vascular Disease - r leg surgery Denies: Hx Congestive Heart Failure, Hx Coronary Artery Disease, Hx Heart Attack Pulmonary Medical History: Reports: Hx COPD Denies: Hx Asthma, Hx Bronchitis, Hx Pneumonia, Hx Sleep Apnea, Hx Tuberculosis Neurological Medical History: Denies: Hx Cerebrovascular Accident, Hx Seizures Renal/ Medical History: Reports: Hx End Stage Renal Disease, Hx Kidney Stones. Denies: Hx Peritoneal Dialysis Malignancy Medical History: Reports Hx Renal (Kidney) Cancer - He had a right nephrectomy for renal cell cancer. GI Medical History: Reports: Hx Gastroesophageal Reflux Disease, Hx Hiatal Hernia Musculoskeletal Medical History: Reports Hx Arthritis Psychiatric Medical History: Denies: Hx Depression Past Surgical History: Reports: Hx Abdominal Surgery, Hx Orthopedic Surgery, Hx Tonsillectomy, Hx Vascular Surgery - Multiple dialysis fistulas and now has a dialysis catheter, stents rt leg, Other - Angioplasty with stent placement of AV fistula. Denies: Hx Pacemaker - Immunizations Hx Diphtheria, Pertussis, Tetanus Vaccination: No - UNKNOWN Hx Pneumococcal Vaccination: 09/03/14 Physical Exam - Vital signs Vitals: Temp Pulse Resp BP Pulse Ox 98.1 F 72 16 140/70 H 100 05/04/20 14:57 05/04/20 14:57 05/04/20 14:57 05/04/20 14:57 05/04/20 14:57 Course - Vital Signs Vital signs: Temp Pulse Resp BP Pulse Ox 98.1 F 66 14 170/111 H 100 05/04/20 20:01 05/04/20 20:01 05/04/20 20:01 05/04/20 20:01 05/04/20 20:01 - Laboratory Result Diagrams: 05/04/20 16:01 05/04/20 16:01 Laboratory results interpreted by me: 05/04/20 05/04/20 16:01 16:01 RDW 18.3 H Sodium 133.8 L Chloride 93 L BUN 33 H Creatinine 6.45 H Est GFR ( Amer) 11 L Est GFR (MDRD) Non-Af 9 L Calcium 10.6 H Direct Bilirubin 0.5 H Alkaline Phosphatase 160 H Discharge - Discharge Clinical Impression: Hypertension Qualifiers: Hypertension type: essential hypertension Qualified Code(s): I10 - Essential (primary) hypertension Chronic renal failure Qualifiers: Chronic kidney disease stage: unspecified stage Qualified Code(s): N18.9 - Chronic kidney disease, unspecified Contusion, toe Qualifiers: Encounter type: initial encounter Toe: great toe Damage to nail status: without damage Laterality: right Qualified Code(s): S90.111A - Contusion of right great toe without damage to nail, initial encounter Condition: Stable Disposition: HOME, SELF-CARE Additional Instructions: Ice or cool compresses to the great toe twice daily for 5 to 10 minutes at a time do not place ice directly on the skin. Use the postop shoe for the next 5 days to help with discomfort when walking. Pain medication as prescribed, follo w-up with your supervisor dental laboratory or with orthopedics for further evaluation call for appointment Prescriptions: Hydrocodone/Acetaminophen [Meta 5-325 mg Tablet] 1 tab PO Q4 PRN #10 tablet PRN Reason: Referrals: JENNIFER ALARCON MD [ACTIVE STAFF] - Follow up as needed
== END 2020-05-04 20:35 | disposition home or self-care (01) ==
LOC: ER 14:37
DX: S90.111A Contusion of right great toe without damage to nail, initial encounter (principal); W06.XXXA Fall from bed, initial encounter; I12.0 Hypertensive chronic kidney disease with stage 5 chronic kidney disease or end stage renal disease; N18.6 End stage renal disease; Z99.2 Dependence on renal dialysis; J44.9 Chronic obstructive pulmonary disease, unspecified; F17.200 Nicotine dependence, unspecified, uncomplicated; F12.10 Cannabis abuse, uncomplicated; Z91.048 Other nonmedicinal substance allergy status; Z85.528 Personal history of other malignant neoplasm of kidney; Z90.5 Acquired absence of kidney
CPT/HCPCS: 99285; 36415; 85025; 80053; 71046; 73630; A9270

== ENCOUNTER 2020-06-01 03:14 | Emergency (ER) | payer MEDICARE, BC ==
[2020-06-01] MEDS ORDERED: OXYCODONE-ACETAMINOPHEN 5-325 MG TABLET PO ONE (04:05)
--- NOTE | 2020-06-01 04:09 | ER Document Report ---
ED General - General Chief Complaint: Leg Pain Stated Complaint: LEFT LEG PAIN Time Seen by Provider: 06/01/20 03:39 Primary Care Provider: [facility] [place] [Provider Group] - Follow up as needed TRAVEL OUTSIDE OF THE [place] IN LAST 30 DAYS: No - HPI Notes: Patient is a 59 y/o male with a hx of CKD, DVTs and HTN who presents with left foot pain that has been ongoing for the past month and been worsening. He states his pain worsened last night at 8PM and at 2AM he could no longer take the pain and called EMS. He states the pain shoots up to his left knee at times. He took [place] this evening at 8PM with minimal relief. He endorses SOB but denies chest pain, cough, nausea, vomiting, abdominal pain, fever, headache or dizziness. 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 He takes Elliquis and sees a vascular surgeon in [place]. He states he is scheduled to have surgery on his left leg to "rearrange his veins". He reports hx of stent in his right leg. He reports wearing compression stockings on occasion. He denies any recent injury. Patient is currently on dialysis three times a week and has been for the past 17 years. He does not make any urine. - Related Data Allergies/Adverse Reactions: adhesive tape Allergy (Verified 08/09/19 08:08) Blisters Past Medical History - General Information source: Patient - Social History Smoking Status: Unknown if Ever Smoked Family History: Reviewed & Not Pertinent, CAD, DM - Past Medical History Cardiac Medical History: Reports: Hx Hypercholesterolemia, Hx Hypertension, Hx Peripheral Vascular Disease - r leg surgery Denies: Hx Congestive Heart Failure, Hx Coronary Artery Disease, Hx Heart Attack Pulmonary Medical History: Reports: Hx COPD Denies: Hx Asthma, Hx Bronchitis, Hx Pneumonia, Hx Sleep Apnea, Hx Tuberculosis Neurological Medical History: Denies: Hx Cerebrovascular Accident, Hx Seizures Renal/ Medical History: Reports: Hx End Stage Renal Disease, Hx Kidney Stones. Denies: Hx Peritoneal Dialysis Malignancy Medical History: Reports Hx Renal (Kidney) Cancer - He had a right nephrectomy for renal cell cancer. GI Medical History: Reports: Hx Gastroesophageal Reflux Disease, Hx Hiatal Hernia Musculoskeletal Medical History: Reports Hx Arthritis Psychiatric Medical History: Denies: Hx Depression Past Surgical History: Reports: Hx Abdominal Surgery, Hx Orthopedic Surgery, Hx Tonsillectomy, Hx Vascular Surgery - Multiple dialysis fistulas and now has a dialysis catheter, stents rt leg, Other - Angioplasty with stent placement of AV fistula. Denies: Hx Pacemaker - Immunizations Hx Diphtheria, Pertussis, Tetanus Vaccination: No - UNKNOWN Hx Pneumococcal Vaccination: 09/03/14 Review of Systems - Review of Systems Constitutional: No symptoms reported EENT: No symptoms reported Cardiovascular: See HPI Respiratory: No symptoms reported Gastrointestinal: No symptoms reported Genitourinary: No symptoms reported Male Genitourinary: No symptoms reported Musculoskeletal: See HPI Skin: No symptoms reported Hematologic/Lymphatic: No symptoms reported Neurological/Psychological: No symptoms reported Physical Exam - Vital signs Vitals: Temp 98.7 F 06/01/20 03:14 - Notes Notes: PHYSICAL EXAMINATION: VITALS: Vitals reviewed and within normal limits. GENERAL: Well-appearing, well-nourished and in no acute distress. HEAD: Atraumatic, normocephalic. EYES: Pupils equal, round, and reactive to light, extraocular movements intact, sclera anicteric, conjunctiva are normal. ENT: Nares patent. Moist mucous membranes. Oropharynx clear without exudates. NECK: Normal range of motion, supple without lymphadenopathy. LUNGS: Breath sounds clear to auscultation bilaterally and equal. No wheezes, rales, or rhonchi. HEART: Regular, rate, and rhythm without murmurs. ABDOMEN: Soft, nontender, normoactive bowel sounds. No guarding, no rebound. No masses appreciated. EXTREMITIES: Pitting edema to the bilateral feet extending to the ankle with no erythema or warmth. Muscle atrophy to the left calf. Tenderness to the left foot and toes, especially middle digit. Sensation intact. Able to move the left toes but limited due to swelling. DP and PT pulses palpable and equal to both lower extremities. NEUROLOGICAL: No focal neurological deficits. Moves all extremities spontaneously and on command. PSYCH: Normal mood, normal affect. SKIN: Warm, Dry, normal turgor, no rashes or lesions noted. Course - Re-evaluation Re-evalutation: Patient is a 59 y/o male with a hx of DVTs, CKD and HTN who presents with left foot pain. He is followed by a vascular surgeon in [place] and takes Elliquis daily. He has been compliant with his medications. Vital signs are within normal limits. On exam, pitting edema to bilateral feet extending to the ankles with a no erythema or warmth. Tenderness to the left foot, right foot is not tender. 10mg PO Percocet ordered for pain relief. 06/01/20 04:57 Patient reports mild pain relief and resolution of his SOB. As vitals are stable, he presents with pain with chronic DVTs, no new injury, and he has vascular surgery follow up I feel the patient is safe for discharge with prompt follow up. Discussion about the importance of using compression stocking daily. Advised patient to continue to take his elliquis as prescribed and to follow up with his vascular surgeon this morning. Return precautions and follow up instructions given. Patient understands and is in agreement with plan. - Vital Signs Vital signs: Temp Pulse Resp BP Pulse Ox 98.7 F 18 172/60 H 100 06/01/20 03:38 06/01/20 05:01 06/01/20 05:01 06/01/20 05:01 Discharge - Discharge Clinical Impression: Left foot pain, Pitting edema Condition: Stable Disposition: HOME, SELF-CARE Additional Instructions: Continue taking elliquis as prescribed. Wearing your compression stockings every day. Take tylenol as needed for pain. Follow up with your vascular surgeon and primary care provider for management of your chronic blood clots and left foot pain and swelling. Return if worsening symptoms or if you become very short of breath, starting coughing up blood or have chest pain. Referrals: [facility] [place] [Provider Group] - Follow up as needed
[2020-06-01 05:14] VITALS: BP 172/60
== END 2020-06-01 05:30 | disposition home or self-care (01) ==
LOC: ER 03:14
DX: M79.672 Pain in left foot (principal); R60.9 Edema, unspecified; I12.0 Hypertensive chronic kidney disease with stage 5 chronic kidney disease or end stage renal disease; N18.6 End stage renal disease; E78.00 Pure hypercholesterolemia, unspecified; Z86.718 Personal history of other venous thrombosis and embolism; Z79.01 Long term (current) use of anticoagulants
CPT/HCPCS: 99283; A9270